=== PATIENT | female | born 1960 | race Caucasian/White ===

== ENCOUNTER 2017-08-20 12:43 | Inpatient (IN) | payer OTHER ==
[2017-08-20] MEDS ORDERED: IBUPROFEN 400 MG TABLET (FP) PO ONE ×2 (13:03→13:21)
--- NOTE | 2017-08-20 13:03 | PDOC ---
History of Present Illness - General Chief Complaint: Injury Stated Complaint: INJURY Time Seen by Provider: 08/20/17 12:52 - History of Present Illness Initial Comments: 08/20/17 15:42 Patient is a 56-year-old female with past medical history of left breast cancer untreated, heroin/methadone abuse, who presents to the emergency department today from [facility] after hitting her head against a counter. Patient states she was trying to get her pills at [id number] this morning when she banged her head against the side. Patient denies LOC, lightheadedness and dizziness, nausea and vomiting. Patient states that she currently has a headache on the left side of her head and states that she feels a lump. Past History - Travel Traveled outside of the country in the last 30 days: No Close contact w/someone who was outside of country & ill: No - Past Medical History Allergies/Adverse Reactions: Allergies Allergy/AdvReac Type Severity Reaction Status Date / Time No Known Allergies Allergy Verified 08/20/17 12:45 Home Medications: Ambulatory Orders NK [No Known Home Medication] 08/19/17 Anemia: No Asthma: No Cancer: Yes (left breast - dx 2013 - NOT TREATED) Cardiac Disorders: No COPD: No CHF: No Diabetes: No GI Disorders: No Disorders: No HTN: Yes (untreated) Hypercholesterolemia: No Liver Disease: No Seizures: Yes (years ago) Thyroid Disease: No - Suicide/Smoking/Psychosocial Hx Smoking History: Current every day smoker Have you smoked in the past 12 months: Yes Number of Cigarettes Smoked Daily: 10 Information on smoking cessation initiated: No 'Breaking Loose' booklet given: 08/19/17 Hx Alcohol Use: Yes Drug/Substance Use Hx: Yes Substance Use Type: Alcohol, Heroin Hx Substance Use Treatment: Yes (detox, methadone years ago at ) Review of Systems - Review of Systems Able to Perform ROS?: Yes Comments:: 08/20/17 17:29 CONSTITUTIONAL: Absent: fever, chills, diaphoresis, generalized weakness, malaise, loss of appetite HEENT: Absent: rhinorrhea, nasal congestion, throat pain, throat swelling, difficulty swallowing, mouth swelling, ear pain, eye pain, visual Changes CARDIOVASCULAR: Absent: chest pain, loss of consciousness, palpitations, irregular heart rate, peripheral edema RESPIRATORY: Absent: cough, shortness of breath, dyspnea with exertion, orthopnea, wheezing, stridor, hemoptysis GASTROINTESTINAL: Absent: abdominal pain, abdominal distension, nausea, vomiting, diarrhea, constipation, melena, hematochezia GENITOURINARY: Absent: dysuria, frequency, urgency, hesitancy, hematuria, flank pain, genital pain MUSCULOSKELETAL: Absent: myalgia, arthralgia, joint swelling SKIN: Absent: rash, itching, pallor HEMATOLOGIC/IMMUNOLOGIC: Absent: easy bleeding, easy bruising, lymphadenopathy, frequent infections ENDOCRINE: Absent: unexplained weight gain, unexplained weight loss, heat intolerance, cold intolerance NEUROLOGIC: Present: headache Absent: focal weakness or paresthesias, dizziness, unsteady gait, seizure, mental status changes, bladder or bowel incontinence PSYCHIATRIC: Absent: anxiety, depression, suicidal or homicidal ideation, hallucinations. Is the patient limited German proficient: No *Physical Exam - Vital Signs Last Vital Signs Temp Pulse Resp BP Pulse Ox 75 18 118/68 97 08/20/17 12:45 08/20/17 12:45 08/20/17 12:45 08/20/17 12:45 - Physical Exam Comments: 08/20/17 17:29 GENERAL: Well developed, well nourished. Awake and alert. No acute distress. HEENT: Normocephalic, atraumatic. Pt with palpable mass over the L eyebrow. PERRLA, EOMI. No conjunctival pallor. Sclera are non-icteric. Moist mucous membranes. Oropharynx is clear. NECK: Supple. Full ROM. No JVD. Carotid pulses 2+ and symmetric, without bruits. No thyromegaly. No lymphadenopathy. CARDIOVASCULAR: Regular rate and rhythm. No murmurs, rubs, or gallops. Distal pulses are 2+ and symmetric. PULMONARY: No evidence of respiratory distress. Lungs clear to auscultation bilaterally. No wheezing, rales or rhonchi. BREAST: L breast is hard with obvious mass on inspection. Hard lymph nodes to the L axilla. ABDOMINAL: Soft. Non-tender. Non-distended. No rebound or guarding. No organomegaly. Normoactive bowel sounds. MUSCULOSKELETAL Normal range of motion at all joints. No bony deformities or tenderness. No CVA tenderness. EXTREMITIES: No cyanosis. No clubbing. No edema. No calf tenderness. SKIN: Warm and dry. Normal capillary refill. No rashes. No jaundice. NEUROLOGICAL: Alert, awake, appropriate. Cranial nerves 2-12 intact. No deficits to light touch and temperature in face, upper extremities and lower extremities. No motor deficits in the in face, upper extremities and lower extremities. Normoreflexic in the upper and lower extremities. Normal speech. Toes are down- going bilaterally. Gait is normal without ataxia. PSYCHIATRIC: Cooperative. Good eye contact. Appropriate mood and affect. ED Treatment Course - LABORATORY CBC & Chemistry Diagram: 08/21/17 06:40 08/21/17 06:40 Medical Decision Making - Medical Decision Making 08/20/17 15:44 Patient is a 56-year-old female with past medical history of left-sided breast cancer untreated who presents to the emergency department today status post near syncope this morning at [facility] currently in detox for heroin and methadone. In the ED patient is A&O 3 however; patient is combative, aggressive and restless. Patient keeps asking for return to [facility] and just wants Motrin for her headache. On exam patient is neurologically intact. Fall protocol was activated. Head CT obtained in the ED showed metastatic disease with skull involvement and surrounding edema. Case discussed with Dr. Kang who states he will take the patient to the OR tomorrow for a craniotomy. We will obtain MRI. Patient to be nothing by mouth after midnight. No steroids needed as long as patient is neurologically intact. Patient currently walking around emergency department. Consultation Dr. Tellez for hematology oncology. Dr. Kang requesting admission at this time. Patient no PCP so [facility] to take the admission. Preop labs ordered. Patient has been emotionally tactile while in the emergency department. Diagnosis explained to patient and patient's family member. Due to anxiety and inability to cooperate with examination despite consent to treatment, patient given Ativan, Versed and Benadryl. Patient currently asleep in the emergency department EKG rate 80 bpm, normal axis, sinus rhythm. QTC prolonged at 477. No acute ST-T wave changes. *DC/Admit/Observation/Transfer Diagnosis at time of Disposition: Malignant neoplasm metastatic to brain, Opioid dependence with withdrawal Breast cancer Qualifiers: Breast location: lower inner quadrant of breast Estrogen receptor status: unspecified Patient sex: female Laterality: left Qualified Code(s): C50.312 - Malignant neoplasm of lower-inner quadrant of left female breast Nicotine dependence Qualifiers: Nicotine product type: cigarettes Substance use status: uncomplicated Qualified Code(s): F17.210 - Nicotine dependence, cigarettes, uncomplicated - Discharge Dispostion Condition at time of disposition: Guarded Decision to Admit order: Yes - Referrals - Patient Instructions - Post Discharge Activity
[2017-08-20] MEDS ORDERED: LORazepam 1 MG TABLET PO ONE (14:44)
[2017-08-20] MEDS ORDERED: LORazepam 0.5 MG TABLET ONE (15:15)
--- NOTE | 2017-08-20 15:46 | PDOC ---
*Physical Exam - Vital Signs Last Vital Signs Temp Pulse Resp BP Pulse Ox 75 18 118/68 97 08/20/17 12:45 08/20/17 12:45 08/20/17 12:45 08/20/17 12:45 - Physical Exam Comments: 08/20/17 15:39 gen: awake, ambulatory in the ED with a steady gait Heart Score/ECG Review - ECG Intrepretation Comment:: 08/20/17 15:44 sinus at 80, q waves anteriorly that are age indeterminate, no acute st/t wave findings ED Treatment Course - LABORATORY CBC & Chemistry Diagram: 08/23/17 09:30 08/23/17 09:30 - RADIOLOGY Radiology Studies Ordered: Category Date Time Status BRAIN MRI W&W/O CONTRAST [MRI] Stat MRI 08/20/17 14:52 Ordered CHEST PA & LAT [RAD] Stat Radiology 08/20/17 14:52 Ordered - Medications Given in the ED: ED Medications Discontinued Medications Generic Name Dose Route Start Last Admin Trade Name Freq PRN Reason Stop Dose Admin Ibuprofen 800 mg 08/20/17 13:03 08/20/17 13:23 Motrin - PO 08/20/17 13:04 800 mg ONCE ONE Administration Lorazepam 2 mg 08/20/17 14:44 08/20/17 15:32 Ativan - PO 08/20/17 14:45 2 mg ONCE ONE Administration Medical Decision Making - Medical Decision Making 08/20/17 15:40 a/p: 56yo female with hx of breast ca - currently untreated with head injury at [facility] -Fall protocol activated -head ct in the ED shows metastatic disease with skull involvement with surrounding edema -pt updated on head ct -case discussed with Dr. Fierro - consult placed -requests STAT MRI brain -npo after midnight -consult to Dr. Zamorano - heme/onc -requests admission -preop labs *DC/Admit/Observation/Transfer Diagnosis at time of Disposition: Malignant neoplasm metastatic to brain, Opioid dependence with withdrawal Breast cancer Qualifiers: Breast location: lower inner quadrant of breast Estrogen receptor status: unspecified Patient sex: female Laterality: left Qualified Code(s): C50.312 - Malignant neoplasm of lower-inner quadrant of left female breast Nicotine dependence Qualifiers: Nicotine product type: cigarettes Substance use status: uncomplicated Qualified Code(s): F17.210 - Nicotine dependence, cigarettes, uncomplicated - Discharge Dispostion Condition at time of disposition: Guarded - Referrals - Patient Instructions - Post Discharge Activity - Attestations Physician Attestion: 08/24/17 00:45 I, Dr. Joslyn Sears, DO, attest that this document has been prepared under my direction and personally reviewed by me in its entirety. I further attest, that it accurately reflects all work, treatment, procedures and medical decision -making performed by me.
[2017-08-20] MEDS ORDERED: MIDAZOLAM HCL 5 MG/1 ML Single Dose Vial IVPUSH ONE (15:47)
[2017-08-20] MEDS ORDERED: MIDAZOLAM HCL 2 MG/2 ML SINGLE DOSE VIAL ONE (15:51)
[2017-08-20 16:18] LABS: BASO % 0.8 % (0-2.0); EOS % 3.3 % (0-4.5); HEMATOCRIT 32.2 % (32.4-45.2); HEMOGLOBIN 10.6 GM/dL (10.7-15.3); LYMPH % 25.5 % (8-40); MCH 30.3 pg (25.7-33.7); MEAN CELL VOLUME 91.9 fl (80-96); MEAN PLT VOLUME 8.6 fl (7.5-11.1); NEUT % 61.4 % (42.8-82.8); PLATELET COUNT 395 K/MM3 (134-434); RDW 15.1 % (11.6-15.6); WHITE BLOOD COUNT 5.2 K/mm3 (4.0-10.0)
[2017-08-20 16:30] LABS: INR 1.04 (0.82-1.09); PROTHROMBIN TIME (PATIENT) 11.8 SEC (9.7-13.0)
[2017-08-20 16:32] LABS: ACTIVATED PTT 42.4 SECONDS (25.2-36.5)
[2017-08-20 16:35] LABS: ALBUMIN 2.9 g/dl (3.4-5.0); ANION GAP 5 (8-16); BILIRUBIN,TOTAL 0.2 mg/dL (0.2-1.0); BLOOD UREA NITROGEN 28 mg/dL (7-18); CALCIUM 8.1 mg/dL (8.5-10.1); CHLORIDE 104 mmol/L (98-107); CO2 31 mmol/L (21-32); GLUCOSE,RANDOM 82 mg/dL (74-106); MAGNESIUM 1.8 mg/dL (1.8-2.4); POTASSIUM 4.6 mmol/L (3.5-5.1); SGOT/AST 28 U/L (15-37); SGPT/ALT 17 U/L (12-78); SODIUM 140 mmol/L (136-145); TOT PROT 7.6 g/dl (6.4-8.2)
[2017-08-20 16:36] LABS: ALK PHOS 150 U/L (45-117)
[2017-08-20] MEDS ORDERED: LORazepam 2 MG/ML SDV VIAL ONE (16:54)
[2017-08-20] MEDS ORDERED: FOLIC ACID INJECTION - 1 MG, THIAMINE HCL 100 MG, MULTIVIT INJECTION ADULT 10 ML in SOD... IVPB ONE (17:25)
[2017-08-20] MEDS: NICOTINE 21 MG/24 HOURS TOPICAL PATCH TD SCH (18:04)
--- NOTE | 2017-08-20 20:25 | PN ---
Teaching Attending Note Name of Resident: David Braden ATTENDING PHYSICIAN STATEMENT I saw and evaluated the patient. I reviewed the resident's note and discussed the case with the resident. I agree with the resident's findings and plan as documented. SUBJECTIVE: Patient is a 56 year old woman with history of untreated left breast cancer, tobacco use, seizure (one episode a while back) and heroin/alcohol/methadone abuse, who presents to the ER today from [facility] after falling and hitting her head against a counter. Patient states she was trying to get her pills at [id number] this morning when she banged her head against the side. Patient denies felt dizzy and drowsy after the head trauma but there was no LOC, nausea or vomiting. Patient states that she currently has a headache on the left side of her head and states that she feels a lump. She was agitated in the ER and had to be sedated. OBJECTIVE: Sedated. In no acute distress Vital Signs Period Temp Pulse Resp BP Sys/Camacho Pulse Ox Last 24 Hr 75 18 118/68 97 HEENT: No Jaundice, eye redness or discharge, PERRLA, EOMI. Normocephalic, atraumatic. External ears are normal. No nasal discharge. Neck: Supple, nontender. No palpable adenopathy or thyromegaly. No JVD Chest: Left breast mass. Left axillary lymphadenopathy. Good effort. Clear to auscultation and percussion. Heart: Regular. No S3, rub or murmur Abdomen: Not distended, soft, nontender and no HSM. No rebound or guarding. Normoactive bowel sounds. Ext: Peripheral pulses intact. No leg edema. Skin: Warm and dry. No petechiae, rash or ecchymosis. Neuro: Sedated. Withdraws limbs to noxious stimuli. Current Medications Generic Name Dose Route Start Last Admin Trade Name Freq PRN Reason Stop Dose Admin Folic Acid 1 mg/ Thiamine HCl 1,000 mls @ 125 mls/hr 08/20/17 17:25 08/20/17 18:03 100 mg/ Multivitamins/Minerals IVPB 08/21/17 01:24 125 mls/hr 10 ml/ Sodium Chloride ONCE ONE Administration Nicotine 21 mg 08/20/17 16:00 08/20/17 18:04 Nicoderm Patch - TD 21 mg DAILY REBECCA Administration Home Medications Medication Instructions Recorded NK [No Known Home Medication] 08/19/17 Abnormal Lab Results 08/20/17 08/20/17 08/20/17 15:57 15:57 15:57 RBC 3.50 L Hgb 10.6 L Hct 32.2 L PTT (Actin FS) 42.4 H Anion Gap 5 L BUN 28 H Calcium 8.1 L Alkaline Phosphatase 150 H D Albumin 2.9 L ASSESSMENT AND PLAN: 1. Fall, Alcohol and Opioid Abuse - Looks like it was a mechanical fall. Head CT scan shows intracranial and skull bone mets. MRI/MRA of the brain does not show any hemorrhage or ischemia. Will monitor closely for alcohol and opioid withdrawal, place on [facility], implement FALL PRECAUTIONS, treat with thiamine and folic acid. Will treat with Decadron in view of intracranial mets and possible increased intracranial pressure - agitation is unexplained. Neurosurgery consulted and patient being kept NPO for possible surgery tomorrow. 2. Left breast cancer - Consult oncology and surgery. May benefit from biopsy for classification to guide treatment. 3. Hypoalbuminemia - Possibly due to combined effects of malnutrition and inflammation associated with comorbid chronic conditions such as metastatic cancer. Will ensure adequate dietary protein intake and also consult director of online merchandising. 4. Alcohol and Opioid Abuse - Will monitor closely for withdrawal and implement [facility] alcohol withdrawal protocol as well as FALL PPRECAUTIONS. 5. Tobacco Use We will provide patient all the necessary assistance to facilitate smoking cessation and prescribe Nicotine patch. 6. Anemia - Likely multifactorial. Will do basic anemia work up including serial stool guaiacs, reticulocyte count and iron studies. 7. DVT prophylaxis - Heparin 5000u sq tid. 8. Advance directives - Full code
--- NOTE | 2017-08-20 20:38 | HP ---
CHIEF COMPLAINT: Fall PCP: HISTORY OF PRESENT ILLNESS: unable to obtain hx from pt. she was heavily sedated. hx obtained from EMR chart review Per Dr. Gibson note: 08/20/17 15:42 Patient is a 56-year-old female with past medical history of left breast cancer untreated, heroin/methadone abuse, who presents to the emergency department today from [facility] after hitting her head against a counter. Patient states she was trying to get her pills at [id number] this morning when she banged her head against the side. Patient denies LOC, lightheadedness and dizziness, nausea and vomiting. Patient states that she currently has a headache on the left side of her head and states that she feels a lump. 08/20/17 15:44 Patient is a 56-year-old female with past medical history of left-sided breast cancer untreated who presents to the emergency department today status post near syncope this morning at [facility] currently in detox for heroin and methadone. In the ED patient is A&O 3 however; patient is combative, aggressive and restless. Patient keeps asking for return to [facility] and just wants Motrin for her headache. On exam patient is neurologically intact. Fall protocol was activated. Head CT obtained in the ED showed metastatic disease with skull involvement and surrounding edema. Case discussed with Dr. Kang who states he will take the patient to the OR tomorrow for a craniotomy. We will obtain MRI. Patient to be nothing by mouth after midnight. No steroids needed as long as patient is neurologically intact. Patient currently walking around emergency department. Consultation Dr. Tellez for hematology oncology. Dr. Kang requesting admission at this time. Patient no PCP so [facility] to take the admission. Preop labs ordered. Patient has been emotionally tactile while in the emergency department. Diagnosis explained to patient and patient's family member. Due to anxiety and inability to cooperate with examination despite consent to treatment, patient given Ativan, Versed and Benadryl. Patient currently asleep in the emergency department EKG rate 80 bpm, normal axis, sinus rhythm. QTC prolonged at 477. No acute ST-T wave changes. ER course was notable for: (1) (2) (3) Recent Travel: PAST MEDICAL HISTORY: PAST SURGICAL HISTORY: Social History: Smoking: Alcohol: Drugs: Family History: Allergies No Known Allergies Allergy (Verified 08/20/17 12:45) HOME MEDICATIONS: Home Medications Medication Instructions Recorded NK [No Known Home Medication] 08/19/17 REVIEW OF SYSTEMS unable to obtain. pt heavily sedated PHYSICAL EXAMINATION Vital Signs - 24 hr 08/20/17 08/20/17 12:45 20:15 Temperature 97.4 F L Pulse Rate 75 Pulse Rate [ 74 Left Radial] Respiratory 18 15 Rate Blood Pressure 118/68 Blood Pressure 98/59 [Right Arm] O2 Sat by Pulse 97 100 Oximetry (%) GENERAL: somnolent but follows commands. Ox3, in no acute distress. HEAD: Normal with no signs of trauma. EYES: PERRLA, sclera anicteric, conjunctiva clear. EARS, NOSE, THROAT: oropharynx clear without exudates. Moist mucous membranes. NECK: Normal range of motion, supple without lymphadenopathy, JVD, or masses. Chest/LUNGS: CTAB. No wheezes, and no crackles. No accessory muscle use. Left breast mass. Left axillary lymphadenopathy. HEART: RRR, normal S1 and S2 without murmur, rub or gallop. ABDOMEN: Soft, NTND normoactive bowel sounds, no guarding, no rebound, no masses. No hepatomegaly or splenomegaly. MUSCULOSKELETAL: Normal range of motion at all joints. No bony deformities or tenderness. No CVA tenderness. UPPER EXTREMITIES: 2+ pulses, warm, well-perfused. No cyanosis. No clubbing. No peripheral edema. LOWER EXTREMITIES: 2+ pulses, warm, well-perfused. No calf tenderness. No peripheral edema. NEUROLOGICAL: Sedated. Withdraws limbs to noxious stimuli. SKIN: Warm, dry, normal turgor, no rashes or lesions noted, normal capillary refill. Laboratory Results - last 24 hr 08/20/17 08/20/17 08/20/17 15:57 15:57 15:57 WBC RBC Hgb Hct MCV MCH MCHC RDW Plt Count MPV Absolute Neuts (auto) Neutrophils % Lymphocytes % Monocytes % Eosinophils % Basophils % Nucleated RBC % PT with INR 11.80 INR 1.04 PTT (Actin FS) 42.4 H Sodium 140 Potassium 4.6 Chloride 104 Carbon Dioxide 31 Anion Gap 5 L BUN 28 H Creatinine 1.0 Creat Clearance w eGFR 57.15 Random Glucose 82 Calcium 8.1 L Magnesium 1.8 Total Bilirubin 0.2 AST 28 ALT 17 Alkaline Phosphatase 150 H D Total Protein 7.6 Albumin 2.9 L Blood Type O POSITIVE Antibody Screen Negative 08/20/17 15:57 WBC 5.2 RBC 3.50 L Hgb 10.6 L Hct 32.2 L MCV 91.9 MCH 30.3 MCHC 33.0 RDW 15.1 Plt Count 395 MPV 8.6 Absolute Neuts (auto) 3.2 Neutrophils % 61.4 Lymphocytes % 25.5 Monocytes % 9.0 Eosinophils % 3.3 Basophils % 0.8 Nucleated RBC % 0 PT with INR INR PTT (Actin FS) Sodium Potassium Chloride Carbon Dioxide Anion Gap BUN Creatinine Creat Clearance w eGFR Random Glucose Calcium Magnesium Total Bilirubin AST ALT Alkaline Phosphatase Total Protein Albumin Blood Type Antibody Screen ASSESSMENT/PLAN: 56-year-old female with past medical history of left-sided breast cancer untreated who presents to the emergency department today status post mechanical fall and per hx and PE found to have L breast mass/cancer w/ possible brain metastasis as found on CT and MRI imaging. Possibly will go for neuro surgery tracy. #Fall, Alcohol and Opioid Abuse - likely mechanical fall. Head CT scan shows intracranial and skull bone mets. MRI/MRA of the brain does not show any hemorrhage or ischemia. -monitor for EtOH and opioid withdrawal -Ativan 1mg IVP q6h prn for withdrawl sxs and agitation -implement FALL PRECAUTIONS, -treat with thiamine and folic acid. -tx with Decadron in view of intracranial mets and possible increased intracranial pressure - agitation is unexplained. -detox consulted #Left breast cancer w/ skull bone mets -Head CT scan shows intracranial and skull bone mets -Heme onc consulted -May benefit from biopsy for classification to guide treatment. -Neurosurgery consulted and patient being kept NPO for possible surgery tomorrow. #Anemia - Likely multifactorial. -will require anemia w/u to help further characterize the anemia and its related causes -serial stool guaiacs, reticulocyte count and iron studies #Tobacco -encourage smoking cessation -nicotine patch when pt is awake #IVDA -hold methadone tx for now. pt is sedated and receiving ativan prn #FEN -IV NS 75cc/hr -replete electrolytes as needed -NPO for possible neuro surgery tracy #DVT ppx -SQH 5000U tid #Dispo -admit to inpatient -full code -possible neuro surgery tomorrow Visit type - Emergency Visit Emergency Visit: Yes ED Registration Date: 08/20/17 Care time: The patient presented to the Emergency Department on the above date and was hospitalized for further evaluation of their emergent condition. - New Patient This patient is new to me today: Yes Date on this admission: 08/21/17 - Critical Care Critical Care patient: No Hospitalist Screening - Colonoscopy Questionnaire Colonoscopy Questionnaire: Colonoscopy Questionnaire - Patient: 50 - 75 years old and never had a screening colonoscopy: Unknown History of colon or rectal polyps, or CA: Unknown History of IBD, Crohn's disease or UC: Unknown History of abdominal radiation therapy as a child: Unknown - Relative: 1 with colon or rectal CA, or polyps at age 60 or younger: Unknown Colon or rectal CA diagnosed at age 45 or younger: Unknown Multiple relatives with colon or rectal CA: Unknown - Outcome: Screening Result: Negative Screen
[2017-08-20] MEDS ORDERED: LORazepam 2 MG/ML SDV VIAL IVPUSH PRN (23:38)
[2017-08-20] MEDS: HEPARIN NA (PORCINE) 5,000 UNITS/ML 1ML VIAL SQ SCH (23:39)
[2017-08-20] MEDS ORDERED: DEXAMETHASONE SOD PHOSPHATE 10 MG/1 ML VIAL IVPUSH ONE (23:45)
[2017-08-20] MEDS: SODIUM CHLORIDE 1,000 ML IV SCH (23:49)
[2017-08-21] MEDS ORDERED: METHADONE HCL 5 MG TABLET PO ONE (04:08)
[2017-08-21] MEDS ORDERED: chlordiazePOXIDE HCL 25 MG CAPSULE PO ONE ×2 (04:09→15:21)
[2017-08-21] MEDS: DEXAMETHASONE SOD PHOSPHATE 4 MG/1 ML VIAL IVPUSH SCH ×3 (05:47→17:24)
[2017-08-21] MEDS: HEPARIN NA (PORCINE) 5,000 UNITS/ML 1ML VIAL SQ SCH ×4 (05:48→21:05)
[2017-08-21 07:17] LABS: BASO % 0.3 % (0-2.0); EOS % 0.1 % (0-4.5); HEMATOCRIT 33.7 % (32.4-45.2); HEMOGLOBIN 11.2 GM/dL (10.7-15.3); LYMPH % 11.7 % (8-40); MCH 30.8 pg (25.7-33.7); MCHC 33.2 g/dl (32.0-36.0); MEAN CELL VOLUME 92.8 fl (80-96); MEAN PLT VOLUME 8.3 fl (7.5-11.1); MONO % 1.4 % (3.8-10.2); NEUT % 86.5 % (42.8-82.8); PLATELET COUNT 396 K/MM3 (134-434); RBC 3.63 M/mm3 (3.60-5.2); RDW 15.2 % (11.6-15.6); WHITE BLOOD COUNT 3.9 K/mm3 (4.0-10.0)
[2017-08-21 07:39] LABS: INR 1.05 (0.82-1.09); PROTHROMBIN TIME (PATIENT) 11.9 SEC (9.7-13.0)
[2017-08-21 07:42] LABS: ACTIVATED PTT 43.8 SECONDS (25.2-36.5)
[2017-08-21 07:48] LABS: ANION GAP 6 (8-16); CALCIUM 8.7 mg/dL (8.5-10.1); CHLORIDE 105 mmol/L (98-107); CO2 26 mmol/L (21-32); CREATININE 0.8 mg/dL (0.55-1.02); GLUCOSE,RANDOM 148 mg/dL (74-106); POTASSIUM 5.3 mmol/L (3.5-5.1); SGOT/AST 52 U/L (15-37); SGPT/ALT 20 U/L (12-78); SODIUM 137 mmol/L (136-145)
[2017-08-21 07:55] LABS: ALK PHOS 130 U/L (45-117); BILIRUBIN,TOTAL 0.2 mg/dL (0.2-1.0); BLOOD UREA NITROGEN 23 mg/dL (7-18); TOT PROT 8.4 g/dl (6.4-8.2)
[2017-08-21] MEDS ORDERED: LORazepam 2 MG/ML SDV VIAL ONE (08:09)
[2017-08-21] MEDS: LORazepam 2 MG/ML SDV VIAL IVPUSH ONE (08:16)
[2017-08-21] MEDS: ACETAMINOPHEN 650 MG/20.3 ML ORAL SOLUTION (CUPS) PO PRN (08:45)
--- NOTE | 2017-08-21 09:08 | EKG ---
Test Reason : Blood Pressure : / mmHG Vent. Rate : 080 BPM Atrial Rate : 080 BPM P-R Int : 148 ms QRS Dur : 084 ms QT Int : 414 ms P-R-T Axes : 055 019 -04 degrees QTc Int : 477 ms NORMAL SINUS RHYTHM ANTERIOR INFARCT , AGE UNDETERMINED NONSPECIFIC ST AND T WAVE ABNORMALITY ABNORMAL ECG NO PREVIOUS ECGS AVAILABLE Confirmed by PHIL TAYLOR MD ([id number]) on 08/21/2017 9:08:07 AM Referred By: Confirmed By:PHIL TAYLOR MD
[2017-08-21 09:36] LABS: HCG,QUALITATIVE URINE NEGATIVE
[2017-08-21] MEDS ORDERED: PT OWN MED DRAWER 7, Y5N ONE (10:10)
[2017-08-21] MEDS: FOLIC ACID 1 MG TABLET (FP) PO SCH (10:15)
[2017-08-21 10:16] LABS: PH,URINE 6.5 (5.0-8.0); URINE APPEARANCE CLEAR; URINE BILIRUBIN NEGATIVE (<2.0 mg/dL); URINE COLOR STRAW; URINE GLUCOSE (UA) NEGATIVE (NEGATIVE); URINE KETONE NEGATIVE (NEGATIVE); URINE LEUK ESTERASE NEGATIVE (NEGATIVE); URINE NITRITE NEGATIVE (NEGATIVE); URINE PROTEIN NEGATIVE (NEGATIVE); URINE UROBILINOGEN 0.2 mg/dL (0.2-1.0)
[2017-08-21] MEDS: THIAMINE HCL 200 MG/2 ML VIAL IVPB SCH (10:16)
[2017-08-21] MEDS: NICOTINE 21 MG/24 HOURS TOPICAL PATCH TD SCH (10:17)
[2017-08-21] MEDS ORDERED: METHADONE HCL 10 MG TABLET PO ONE ×2 (10:22)
--- NOTE | 2017-08-21 11:18 | PN ---
Progress Note (short form) - Note Progress Note: Subjective: The patient was seen walking around the unit. Brought patient back to room, she is yelling stating "I need 8mg of Ativan" Patient reports diagnosis of left breast cancer 4 years ago for which she had one round of chemotherapy and then stopped due to side effects. She states that she is a "heavy" heroin user and that she is not going to stop using it. Discussed with Dr. Haskins, detox MD, who recommends giving an additional Methadone 10mg today and she will evaluate the patient in the afternoon. Discussed with Dr. Fierro, possible brain tumor removal tomorrow if patient consents. Current Medications Generic Name Dose Route Start Last Admin Trade Name Freq PRN Reason Stop Dose Admin Acetaminophen 650 mg 08/21/17 06:52 08/21/17 08:45 Tylenol Oral Solution - PO 650 mg Q6H PRN Administration PAIN LEVEL 1-5 Dexamethasone Sodium Phosphate 4 mg 08/21/17 06:00 08/21/17 05:47 Decadron Injection - IVPUSH 4 mg Q6H REBECCA Administration Folic Acid 1 mg 08/21/17 10:00 08/21/17 10:15 Folic Acid - PO 1 mg DAILY REBECCA Administration Heparin Sodium (Porcine) 5,000 unit 08/20/17 23:45 08/21/17 05:48 Heparin - SQ 5,000 unit TID REBECCA Administration Sodium Chloride 1,000 mls @ 75 mls/hr 08/20/17 23:15 08/20/17 23:49 Normal Saline - IV 75 mls/hr ASDIR REBECCA Administration Nicotine 21 mg 08/20/17 16:00 08/21/17 10:17 Nicoderm Patch - TD 21 mg DAILY REBECCA Administration Thiamine HCl 200 mg 08/21/17 10:00 08/21/17 10:16 Vitamin B1 Injection - IVPB 200 mg DAILY REBECCA Administration Objective: Vital Signs Period Temp Pulse Resp BP Sys/Camacho Pulse Ox Last 24 Hr 97.3 F-97.9 F 70-78 -18 98-135/59-88 97-100 Physical Exam: General: NAD, appears agitated Heart: RRR, S1S2 Lungs: CTA bilaterally Skin: Left breast with ~3cm hard, non-mobile mass, skin discoloration. Left multiple axillary lymph node enlargement CBCD WBC 3.9 K/mm3 (4.0-10.0) L 08/21/17 06:40 RBC 3.63 M/mm3 (3.60-5.2) 08/21/17 06:40 Hgb 11.2 GM/dL (10.7-15.3) 08/21/17 06:40 Hct 33.7 % (32.4-45.2) 08/21/17 06:40 MCV 92.8 fl (80-96) 08/21/17 06:40 MCHC 33.2 g/dl (32.0-36.0) 08/21/17 06:40 RDW 15.2 % (11.6-15.6) 08/21/17 06:40 Plt Count 396 K/MM3 (134-434) 08/21/17 06:40 MPV 8.3 fl (7.5-11.1) 08/21/17 06:40 CMP Sodium 137 mmol/L (136-145) 08/21/17 06:40 Potassium 5.3 mmol/L (3.5-5.1) H 08/21/17 06:40 Chloride 105 mmol/L (98-107) 08/21/17 06:40 Carbon Dioxide 26 mmol/L (21-32) 08/21/17 06:40 Anion Gap 6 (8-16) L 08/21/17 06:40 BUN 23 mg/dL (7-18) H 08/21/17 06:40 Creatinine 0.8 mg/dL (0.55-1.02) 08/21/17 06:40 Creat Clearance w eGFR > 60 (>60) 08/21/17 06:40 Random Glucose 148 mg/dL (74-106) H 08/21/17 06:40 Calcium 8.7 mg/dL (8.5-10.1) 08/21/17 06:40 Total Bilirubin 0.2 mg/dL (0.2-1.0) 08/21/17 06:40 AST 52 U/L (15-37) H 08/21/17 06:40 ALT 20 U/L (12-78) 08/21/17 06:40 Alkaline Phosphatase 130 U/L (45-117) H D 08/21/17 06:40 Total Protein 8.4 g/dl (6.4-8.2) H 08/21/17 06:40 Albumin 3.0 g/dl (3.4-5.0) L 08/21/17 06:40 Assessment: This is a 56 year old female with PMHx of left breast cancer (dx 4 years ago, only had chemo x1), bipolar disorder, tobacco use, heroin and alcohol abuse, who presented to the ED from [facility] after falling and hitting her head. Plan: 1) Metastatic breast cancer - Left breast and axillary lymph node masses/enlargement - Head CT with hyperdense mass in the right middle cranial fossa, inferiorly measuring 2.8cm in maximum dimension with surrounding vasogenic edema involving the right temporal and posterior frontal lobe resulting in very minimal shift of the midline structures toward the left. Heterogeneous attenuation of the skull base adjacent to the mass as well as heterogenous attenuation of the right sphenoid wing and significant heterogeneous infiltration of the frontal bone - Discussed with Dr. Fierro, recommendation to hold off on steroids, however they were started overnight. Will continue as brain MRI shows edema - F/u rad onc consult - F/u heme/onc consult 2) Heroin abuse - Chronic, son reports about 10 bags a day - Continue Methadone - Continue Ativan prn - Patient will be evaluated by Dr. Haskins today 3) Bipolar disorder - Not on home medications - F/u psych consult 4) F/E/N: - Monitor electrolytes - Regular diet 5) Prophylaxis: - Heparin 5,000u sq tid - OOB ambulating 6) Dispo: - Requires continued inpatient care - Palliative care consult - Instructed RN, patient is NOT to go downstairs as she is a heroin user and has an IV. It is to be reported immediately if the patient leaves the floor as she is at high risk for using heroin. CODE STATUS: FULL CODE Visit type - Emergency Visit Emergency Visit: Yes ED Registration Date: 08/20/17 Care time: The patient presented to the Emergency Department on the above date and was hospitalized for further evaluation of their emergent condition. - New Patient This patient is new to me today: Yes Date on this admission: 08/21/17 - Critical Care Critical Care patient: No
[2017-08-21] MEDS ORDERED: LORazepam 2 MG/ML SDV VIAL IVPUSH ONE ×2 (13:00→21:30)
[2017-08-21] MEDS: PANTOPRAZOLE 40 MG TABLET (FP) PO SCH (15:31)
--- NOTE | 2017-08-21 15:38 | CONSULT ---
Consult Detox [facility] Reason for Current Admission/Consult: Addiction med service called to help manage pt with polysubstance use. Pt with h/o alcohol and heroin use - History History of Present Illness: Pt states has been using about 1/2-1 pint of alcohol a day, last use day of admission. Pt states she also uses a bundle of heroin a day. Has been using opioids all her life- was in a methadone program 10 years ago but left and has been sniffing or injecting heroin since then. - Alcohol/Substance Use Hx Alcohol Use: Yes (1/2 - 1 pint a day) Hx Substance Use: Yes (injects and sniffs heroin ) - Current Drug/Alcohol Use Alcohol Route: Oral Frequency: Daily Date of Last Use: 08/19/17 Heroin Route: Inhalation Frequency: Daily Amount used: 1 bundle a day Date of Last Use: 08/19/17 - Past Medical History Heme/Onc: Yes: Other Psych: Yes: Addictions, Anxiety, Bipolar Musculoskeletal: Yes: Other Rheumatology: Yes: Other ENT: Yes: Other Endocrine: Yes: Other - Significant Medical Findings: pt with breast cancer, metastatic to brain. pt with agitation CBCD WBC 3.9 K/mm3 (4.0-10.0) L 08/21/17 06:40 RBC 3.63 M/mm3 (3.60-5.2) 08/21/17 06:40 Hgb 11.2 GM/dL (10.7-15.3) 08/21/17 06:40 Hct 33.7 % (32.4-45.2) 08/21/17 06:40 MCV 92.8 fl (80-96) 08/21/17 06:40 MCHC 33.2 g/dl (32.0-36.0) 08/21/17 06:40 RDW 15.2 % (11.6-15.6) 08/21/17 06:40 Plt Count 396 K/MM3 (134-434) 08/21/17 06:40 MPV 8.3 fl (7.5-11.1) 08/21/17 06:40 CMP Sodium 137 mmol/L (136-145) 08/21/17 06:40 Potassium 5.3 mmol/L (3.5-5.1) H 08/21/17 06:40 Chloride 105 mmol/L (98-107) 08/21/17 06:40 Carbon Dioxide 26 mmol/L (21-32) 08/21/17 06:40 Anion Gap 6 (8-16) L 08/21/17 06:40 BUN 23 mg/dL (7-18) H 08/21/17 06:40 Creatinine 0.8 mg/dL (0.55-1.02) 08/21/17 06:40 Creat Clearance w eGFR > 60 (>60) 08/21/17 06:40 Random Glucose 148 mg/dL (74-106) H 08/21/17 06:40 Calcium 8.7 mg/dL (8.5-10.1) 08/21/17 06:40 Total Bilirubin 0.2 mg/dL (0.2-1.0) 08/21/17 06:40 AST 52 U/L (15-37) H 08/21/17 06:40 ALT 20 U/L (12-78) 08/21/17 06:40 Alkaline Phosphatase 130 U/L (45-117) H D 08/21/17 06:40 Total Protein 8.4 g/dl (6.4-8.2) H 08/21/17 06:40 Albumin 3.0 g/dl (3.4-5.0) L 08/21/17 06:40 Vital Signs - 24 hr 08/20/17 08/20/17 08/20/17 20:15 22:30 22:33 Temperature 97.4 F L 97.9 F Pulse Rate 71 Pulse Rate [ 74 Left Radial] Respiratory 15 18 Rate Blood Pressure 100/64 Blood Pressure 98/59 [Right Arm] O2 Sat by Pulse 100 100 Oximetry (%) 08/20/17 08/21/17 08/21/17 22:38 02:00 06:00 Temperature 97.9 F 97.5 F L 97.3 F L Pulse Rate 71 70 78 Pulse Rate [ Left Radial] Respiratory 18 18 18 Rate Blood Pressure 100/64 130/88 135/87 Blood Pressure [Right Arm] O2 Sat by Pulse Oximetry (%) 08/21/17 08:05 Temperature 97.7 F Pulse Rate 89 Pulse Rate [ Left Radial] Respiratory 20 Rate Blood Pressure 123/84 Blood Pressure [Right Arm] O2 Sat by Pulse Oximetry (%) lungs clear heart RRR L breast with mass noted and disfiguration of breast due to this neuro- pt very agitated COWS - Scale Resting Pulse: 2= IL 101-120 Sweatin= No chills or Flushing Restless Observation: 5= Unable to Sit Still Pupil Size: 1= Pupils >than Normal Bone or Joint Aches: 2= Severe Diffuse Aches Runny Nose/ Eye Tearin= None GI Upset > 30mins: 1= Stomach Cramp Tremor Observation: 0= None Yawning Observation: 0= None Anxiety or Irritability: 4=Extreme Anxiety Goose Flesh Skin: 0=Smooth Skin COWS Score: 15 CIWA Score - CIWA Score Nausea/Vomitin-No Nausea/No Vomiting Muscle Tremors: 1-None Visible, but [place] Anxiety: 6 Agitation: 6 Paroxysmal Sweats: No Perspiration Orientation: 0-Oriented Tacttile Disturbances: 0-None Auditory Disturbances: 0-None Visual Disturbances: 0-None Headache: 0-None Present CIWA-Ar Total Score: 13 Assessment Plan - Diagnosis (1) Opioid dependence with withdrawal Status: Acute (2) Alcohol dependence with uncomplicated withdrawal Status: Acute - Plan Plan: pt with metastatic breast cancer with mass in brain and h/o extensive alcohol and opiate use now in withdrawal. Will start methadone 30mg/day- pt can come to [facility] methadone OTP at discharge Will start librium detox protocol for alcohol withdrawal. Pt is very insistent that she does not want certain kinds of medical care- does not want steroids, does not want chemotherapy... d/w pt and family that they should put her wishes in advance care directives- consult placed for palliative care- d/w family- son Wojciech and daughter-in law.
[2017-08-21] MEDS: chlordiazePOXIDE HCL 25 MG CAPSULE PO SCH ×2 (17:24→22:07)
[2017-08-21] MEDS: chlordiazePOXIDE HCL 25 MG CAPSULE PO PRN (18:50)
[2017-08-21 20:35] LABS: OPIATES, URI NEGATIVE ng/ml (CUTOFF=300); URINE AMPHETAMINES NEGATIVE ng/ml (CUTOFF=500); URINE BARBITURATES NEGATIVE ng/ml (CUTOFF=200)
[2017-08-21 20:36] LABS: PHENCYCLIDINE,URINE NEGATIVE ng/ml (CUTOFF=25)
[2017-08-21 20:38] LABS: COCAINE, UR POSITIVE ng/ml (CUTOFF=300); URINE BENZODIAZEPINES POSITIVE ng/ml (CUTOFF=200)
[2017-08-21 20:39] LABS: METHADONE, UR POSITIVE ng/ml (CUTOFF=300)
--- NOTE | 2017-08-21 23:23 | CONSULT ---
Consult - text type - Consultation Consultation Note: NEUROSURGERY CONSULTATION Patient is a 56 year old female with polysubstance usage history as well as bipolar disorder and multiple medical problems. She was diagnosed with Breast CA 4 years ago and did not complete treatment. Patient with recent falls and was found to have Right sphenoid/anterior temporal 3 cm dural based lesion as well as extensive bifrontal calvarial disease consisted with diffuse metastasis. I discussed her case with her son in great detail and explained that surgical resection of the temporal lesion may be in her interest, however, he articulates concerns that she will not comply with treatment requirements and will likely not have a substantial prognosis regardless. He expressed an interest in transferring her to a facilty closer to his home in [place] (he suggested [facility] and [facility]). This would be a reasonable consideration. I discussed and offered the role for a wide variety of treatment options including, but not being limited to: palliative care, hospice and surgical resection of the temporal lesion in detail. At this point, he is not inclined to proceed with surgery and I have given him contact information if he should change his mind.
[2017-08-22] MEDS: DEXAMETHASONE SOD PHOSPHATE 4 MG/1 ML VIAL IVPUSH SCH ×2 (00:30→05:14)
--- NOTE | 2017-08-22 01:56 | PN ---
Progress Note (short form) - Note Progress Note: PAtient sen and examined Full consult to follow Last Vital Signs Temp Pulse Resp BP Pulse Ox 98.7 F 108 H 22 138/86 100 08/21/17 15:56 08/21/17 15:56 08/21/17 15:56 08/21/17 15:56 08/20/17 22:33 Cor: RSR, No murmurs, No gallops Lungs: Clear to P&A Abd: Soft, Normal bowel sounds, No organomegaly Ext:No significant edema Abnormal Lab Results 08/21/17 08/21/17 08/21/17 06:40 06:40 06:40 WBC 3.9 L Neutrophils % 86.5 H D Monocytes % 1.4 L D PTT (Actin FS) 43.8 H Potassium 5.3 H Anion Gap 6 L BUN 23 H Random Glucose 148 H AST 52 H Alkaline Phosphatase 130 H D Total Protein 8.4 H Albumin 3.0 L Home Medication List Medication Instructions Recorded Confirmed Type NK [No Known Home Medication] 08/19/17 08/20/17 History Active Medications Generic Name Dose Route Start Last Admin Trade Name Freq PRN Reason Stop Dose Admin Acetaminophen 650 mg 08/21/17 06:52 08/21/17 08:45 Tylenol Oral Solution - PO 650 mg Q6H PRN Administration PAIN LEVEL 1-5 Chlordiazepoxide HCl 50 mg 08/21/17 17:00 08/21/17 22:07 Librium - PO 08/22/17 11:01 50 mg [id number] REBECCA Administration Chlordiazepoxide HCl 25 mg 08/22/17 17:00 Librium - PO 08/23/17 11:01 [id number] REBECCA Chlordiazepoxide HCl 15 mg 08/23/17 17:00 Librium - PO 08/24/17 11:01 [id number] REBECCA Chlordiazepoxide HCl 25 mg 08/21/17 15:21 08/21/17 18:50 Librium - PO 08/24/17 15:20 25 mg Q4H PRN Administration WITHDRAWAL(CONT SUBST) Dexamethasone Sodium Phosphate 4 mg 08/21/17 06:00 08/21/17 17:24 Decadron Injection - IVPUSH 4 mg Q6H REBECCA Administration Folic Acid 1 mg 08/21/17 10:00 08/21/17 10:15 Folic Acid - PO 1 mg DAILY REBECCA Administration Heparin Sodium (Porcine) 5,000 unit 08/20/17 23:45 08/21/17 21:05 Heparin - SQ 5,000 unit TID REBECCA Administration Sodium Chloride 1,000 mls @ 75 mls/hr 08/20/17 23:15 08/20/17 23:49 Normal Saline - IV 75 mls/hr ASDIR REBECCA Administration Methadone HCl 30 mg 08/22/17 06:00 Dolophine - PO 08/27/17 23:59 DAILY@0600 REBECCA Nicotine 21 mg 08/20/17 16:00 08/21/17 10:17 Nicoderm Patch - TD 21 mg DAILY REBECCA Administration Pantoprazole Sodium 40 mg 08/21/17 15:00 08/21/17 15:31 Protonix - PO 40 mg DAILY REBECCA Administration Thiamine HCl 200 mg 08/21/17 10:00 08/21/17 10:16 Vitamin B1 Injection - IVPB 200 mg DAILY REBECCA Administration A/P Patient is a 56 year old female with polysubstance usage history as well as bipolar disorder and multiple medical problems. She was diagnosed with Breast CA 4 years ago and did not complete treatment. Patient with recent falls and was found to have Right sphenoid/anterior temporal 3 cm dural based lesion as well as extensive bifrontal calvarial disease consisted with diffuse metastasis. I discussed her case with her son in great detail and explained that surgical resection of the temporal lesion may be in her interest, however, he articulates concerns that she will not comply with treatment requirements and will likely not have a substantial prognosis regardless. He expressed an interest in transferring her to a facilty closer to his home in [place] (he suggested [facility] and [facility]). This would be a reasonable consideration. I discussed and offered the role for a wide variety of treatment options including, but not being limited to: palliative care, hospice and surgical resection of the temporal lesion in detail. At this point, he is not inclined to proceed with surgery and I have given him contact information if he should change his mind.
--- NOTE | 2017-08-22 02:01 | CONSULT ---
Consult - text type - Consultation Consultation Note: Patient seen and examined Patient is a 56-year-old female with past medical history of left breast cancer untreated, heroin/methadone abuse, who presented to the emergency department from [facility] after hitting her head against a counter. Patient states she was trying to get her pills at [id number] when she banged her head against the side. Patient denies LOC, lightheadedness and dizziness, nausea and vomiting. Patient states that she currently has a headache on the left side of her head and states that she feels a lump. Past History left breast cancer HTN Seizures Allergies/Adverse Reactions: Allergies Allergy/AdvReac Type Severity Reaction Status Date / Time No Known Allergies Allergy Verified 08/20/17 12:45 Home Medications: Ambulatory Orders NK [No Known Home Medication] 08/19/17 - Suicide/Smoking/Psychosocial Hx Smoking History: Current every day smoker Substance Use Type: Alcohol, Heroin Hx Substance Use Treatment: Yes (detox, methadone years ago at ) - Vital Signs AFVSS - Physical Exam Breasts: left breast retracted, indurated mass, Cor: RSR, No murmurs, No gallops Lungs: Clear to P&A Abd: Soft, Normal bowel sounds, No organomegaly Ext:No significant edema Genitalia--uterine prolapse Labs/meds reviewed A/P This is a 56 year old female with PMHx of left breast cancer (dx 4 years ago, only had chemo x1), bipolar disorder, tobacco use, heroin and alcohol abuse, who presented to the ED from [facility] after falling and hitting her head. - Head CT with hyperdense mass in the right middle cranial fossa, inferiorly measuring 2.8cm in maximum dimension with surrounding vasogenic edema involving the right temporal and posterior frontal lobe resulting in very minimal shift of the midline structures toward the left. Heterogeneous attenuation of the skull base adjacent to the mass as well as heterogenous attenuation of the right sphenoid wing and significant heterogeneous infiltration of the frontal bone MRI brain --diffuse b/l frontoparietal enhancement --dural/leptomeingeal disease , 3cm right middle cranial fossa mass with skull base involvement Will check CT c/a/p Will attempt to get tissue diagnosis Uterine prolapse -- CLINICAL PATHOLOGIST consult competency assessmet per psych to discuss with family meeting goals of care
[2017-08-22] MEDS: chlordiazePOXIDE HCL 25 MG CAPSULE PO SCH ×4 (04:37→23:07)
[2017-08-22] MEDS: SODIUM CHLORIDE 1,000 ML IV SCH (04:42)
[2017-08-22] MEDS: HEPARIN NA (PORCINE) 5,000 UNITS/ML 1ML VIAL SQ SCH (05:12)
[2017-08-22] MEDS: METHADONE HCL 10 MG TABLET PO SCH (05:13)
[2017-08-22 06:10] LABS: SERUM IRON SATURATION 24 % (15-55); TOTAL IRON BINDING CAPACITY 300 ug/dL (250-450); UIBC 227 ug/dL (131-425)
[2017-08-22 06:57] LABS: BASO % 0.4 % (0-2.0); EOS % 0.1 % (0-4.5); HEMATOCRIT 29.1 % (32.4-45.2); HEMOGLOBIN 9.8 GM/dL (10.7-15.3); LYMPH % 11.2 % (8-40); MCH 30.8 pg (25.7-33.7); MCHC 33.7 g/dl (32.0-36.0); MEAN CELL VOLUME 91.4 fl (80-96); MEAN PLT VOLUME 8.7 fl (7.5-11.1); MONO % 9.3 % (3.8-10.2); PLATELET COUNT 353 K/MM3 (134-434); RBC 3.19 M/mm3 (3.60-5.2); RDW 15.4 % (11.6-15.6); WHITE BLOOD COUNT 5.9 K/mm3 (4.0-10.0)
[2017-08-22 07:23] LABS: ALBUMIN 2.6 g/dl (3.4-5.0); ANION GAP 7 (8-16); BLOOD UREA NITROGEN 24 mg/dL (7-18); CALCIUM 8.1 mg/dL (8.5-10.1); CHLORIDE 104 mmol/L (98-107); CO2 28 mmol/L (21-32); GLUCOSE,RANDOM 107 mg/dL (74-106); POTASSIUM 4.5 mmol/L (3.5-5.1); SODIUM 139 mmol/L (136-145)
[2017-08-22 07:26] LABS: ALK PHOS 128 U/L (45-117); BILIRUBIN,TOTAL 0.1 mg/dL (0.2-1.0); CREATININE 0.5 mg/dL (0.55-1.02); SGOT/AST 40 U/L (15-37); SGPT/ALT 17 U/L (12-78); TOT PROT 7.2 g/dl (6.4-8.2)
[2017-08-22] MEDS ORDERED: LORazepam 2 MG/ML SDV VIAL ONE ×2 (10:01→21:42)
--- NOTE | 2017-08-22 10:02 | PN ---
Progress Note (short form) - Note Progress Note: Subjective: The patient was found by the elevators in street clothes, nurse, nurse auto care center manager, and tech with her. She appears agitated stating "I am having a panic attack". Offered Ativan, the patient started hitting her forehead against the wall. Security called. Called and spoke to son who then spoke to the patient. The patient stated to the son, "I was hitting my tumor on the wall". Spoke to Dr. Haskins who recommends Ativan 2mg Left message for Dr. Pardo Stat Head CT ordered 1:1 observation order placed in the computer Current Medications Generic Name Dose Route Start Last Admin Trade Name Freq PRN Reason Stop Dose Admin Acetaminophen 650 mg 08/21/17 06:52 08/21/17 08:45 Tylenol Oral Solution - PO 650 mg Q6H PRN Administration PAIN LEVEL 1-5 Chlordiazepoxide HCl 50 mg 08/21/17 17:00 08/22/17 04:37 Librium - PO 08/22/17 11:01 50 mg [id number] REBECCA Administration Chlordiazepoxide HCl 25 mg 08/22/17 17:00 Librium - PO 08/23/17 11:01 [id number] REBECCA Chlordiazepoxide HCl 15 mg 08/23/17 17:00 Librium - PO 08/24/17 11:01 [id number] REBECCA Chlordiazepoxide HCl 25 mg 08/21/17 15:21 08/21/17 18:50 Librium - PO 08/24/17 15:20 25 mg Q4H PRN Administration WITHDRAWAL(CONT SUBST) Dexamethasone Sodium Phosphate 4 mg 08/21/17 06:00 08/22/17 05:14 Decadron Injection - IVPUSH 4 mg Q6H REBECCA Administration Folic Acid 1 mg 08/21/17 10:00 08/21/17 10:15 Folic Acid - PO 1 mg DAILY REBECCA Administration Sodium Chloride 1,000 mls @ 75 mls/hr 08/20/17 23:15 08/22/17 04:42 Normal Saline - IV Not Given ASDIR REBECCA Lorazepam 2 mg 08/22/17 09:55 Ativan Injection - IVPUSH 08/22/17 09:56 ONCE ONE Methadone HCl 30 mg 08/22/17 06:00 08/22/17 05:13 Dolophine - PO 08/27/17 23:59 30 mg DAILY@0600 REBECCA Administration Nicotine 21 mg 08/20/17 16:00 08/21/17 10:17 Nicoderm Patch - TD 21 mg DAILY REBECCA Administration Pantoprazole Sodium 40 mg 08/21/17 15:00 08/21/17 15:31 Protonix - PO 40 mg DAILY REBECCA Administration Thiamine HCl 200 mg 08/21/17 10:00 08/21/17 10:16 Vitamin B1 Injection - IVPB 200 mg DAILY REBECCA Administration Objective: Vital Signs Period Temp Pulse Resp BP Sys/Camacho Pulse Ox Last 24 Hr 97.7 F-98.7 F 88-110 20-22 138-144/82-86 100 Physical Exam: Patient agitated, unable to exam at this time CBCD WBC 3.9 K/mm3 (4.0-10.0) L 08/21/17 06:40 RBC 3.63 M/mm3 (3.60-5.2) 08/21/17 06:40 Hgb 11.2 GM/dL (10.7-15.3) 08/21/17 06:40 Hct 33.7 % (32.4-45.2) 08/21/17 06:40 MCV 92.8 fl (80-96) 08/21/17 06:40 MCHC 33.2 g/dl (32.0-36.0) 08/21/17 06:40 RDW 15.2 % (11.6-15.6) 08/21/17 06:40 Plt Count 396 K/MM3 (134-434) 08/21/17 06:40 MPV 8.3 fl (7.5-11.1) 08/21/17 06:40 CMP Sodium 137 mmol/L (136-145) 08/21/17 06:40 Potassium 5.3 mmol/L (3.5-5.1) H 08/21/17 06:40 Chloride 105 mmol/L (98-107) 08/21/17 06:40 Carbon Dioxide 26 mmol/L (21-32) 08/21/17 06:40 Anion Gap 6 (8-16) L 08/21/17 06:40 BUN 23 mg/dL (7-18) H 08/21/17 06:40 Creatinine 0.8 mg/dL (0.55-1.02) 08/21/17 06:40 Creat Clearance w eGFR > 60 (>60) 08/21/17 06:40 Random Glucose 148 mg/dL (74-106) H 08/21/17 06:40 Calcium 8.7 mg/dL (8.5-10.1) 08/21/17 06:40 Total Bilirubin 0.2 mg/dL (0.2-1.0) 08/21/17 06:40 AST 52 U/L (15-37) H 08/21/17 06:40 ALT 20 U/L (12-78) 08/21/17 06:40 Alkaline Phosphatase 130 U/L (45-117) H D 08/21/17 06:40 Total Protein 8.4 g/dl (6.4-8.2) H 08/21/17 06:40 Albumin 3.0 g/dl (3.4-5.0) L 08/21/17 06:40 Assessment: This is a 56 year old female with PMHx of left breast cancer (dx 4 years ago, only had chemo x1), bipolar disorder, tobacco use, heroin and alcohol abuse, who presented to the ED from [facility] after falling and hitting her head. Plan: 1) Metastatic breast cancer - Left breast and axillary lymph node masses/enlargement - Head CT with hyperdense mass in the right middle cranial fossa, inferiorly measuring 2.8cm in maximum dimension with surrounding vasogenic edema involving the right temporal and posterior frontal lobe resulting in very minimal shift of the midline structures toward the left. Heterogeneous attenuation of the skull base adjacent to the mass as well as heterogenous attenuation of the right sphenoid wing and significant heterogeneous infiltration of the frontal bone - Given the patient is having acute panic attack and agitation today, mental status may be worsening 2/2 steroids. Will discontinue at this time. Dr. Fierro stated yesterday that steroids were not needed at this time - F/u rad onc consult - Appreciate heme/onc consult 2) Agitation - Likely 2/2 acute alcohol/heroin withdrawal vs. effects from tumor? - Patient hit head against wall multiple times, will order stat head CT - 1:1 observation - Ativan ordered 2) Heroin abuse, acute alcohol withdrawal - Chronic, son reports about 10 bags a day - Continue Methadone - Started on Librium detox 3) Bipolar disorder - Not on home medications - F/u psych consult 4) F/E/N: - Monitor electrolytes - Regular diet 5) Prophylaxis: - Heparin 5,000u sq tid - OOB ambulating 6) Dispo: - Requires continued inpatient care - Palliative care consult - Instructed RN, patient is NOT to go downstairs as she is a heroin user and has an IV. It is to be reported immediately if the patient leaves the floor as she is at high risk for using heroin. CODE STATUS: FULL CODE Visit type - Emergency Visit Emergency Visit: Yes ED Registration Date: 08/20/17 Care time: The patient presented to the Emergency Department on the above date and was hospitalized for further evaluation of their emergent condition. - New Patient This patient is new to me today: No - Critical Care Critical Care patient: No
[2017-08-22] MEDS: LORazepam 2 MG/ML SDV VIAL IVPUSH ONE (10:05)
[2017-08-22] MEDS ORDERED: LORazepam 2 MG/ML SDV VIAL IVPUSH ONE (11:00)
[2017-08-22] MEDS: PANTOPRAZOLE 40 MG TABLET (FP) PO SCH (11:50)
[2017-08-22] MEDS: THIAMINE HCL 200 MG/2 ML VIAL IVPB SCH (11:51)
[2017-08-22] MEDS: FOLIC ACID 1 MG TABLET (FP) PO SCH (11:51)
[2017-08-22] MEDS: NICOTINE 21 MG/24 HOURS TOPICAL PATCH TD SCH (11:52)
--- NOTE | 2017-08-22 13:35 | CON.PSY ---
Psychiatry Consult Chief Complaint: 56 year old Female with a life long History of Heroin abuse, History of Breast cancer gloria with mets to Brain. patine seen by all specilists at this time. she began displaying acuyte aggression, banging her4 head aginstthe wall. Very uncoperative and restless. Symptoms: reports: Impaired Concentration, Excessive Energy, Racing Thoughts, Conduct Problems - Previous Psychiatric Treatment Outpatient: None Inpatient: None - Previous Substance Abuse Treatment Inpatient: 2 or more prior admissions - Reason for Previous Treatment Reason for Previous Treatment: Heroin or Other Narcotics - Current Medications Current Medications: Active Medications Acetaminophen (Tylenol Oral Solution -) 650 mg PO Q6H PRN PRN Reason: PAIN LEVEL 1-5 Last Admin: 08/21/17 08:45 Dose: 650 mg Chlordiazepoxide HCl (Librium -) 25 mg PO [id number] [facility] Stop: 08/23/17 11:01 Chlordiazepoxide HCl (Librium -) 15 mg PO [id number] [facility] Stop: 08/24/17 11:01 Chlordiazepoxide HCl (Librium -) 25 mg PO Q4H PRN PRN Reason: WITHDRAWAL(CONT SUBST) Stop: 08/24/17 15:20 Last Admin: 08/21/17 18:50 Dose: 25 mg Folic Acid (Folic Acid -) 1 mg PO DAILY [facility] Last Admin: 08/22/17 11:51 Dose: 1 mg Sodium Chloride (Normal Saline -) 1,000 mls @ 75 mls/hr IV ASDIR [facility] Last Admin: 08/22/17 04:42 Dose: Not Given Methadone HCl (Dolophine -) 30 mg PO DAILY@0600 [facility] Stop: 08/27/17 23:59 Last Admin: 08/22/17 05:13 Dose: 30 mg Nicotine (Nicoderm Patch -) 21 mg TD DAILY [facility] Last Admin: 08/22/17 11:52 Dose: 21 mg Pantoprazole Sodium (Protonix -) 40 mg PO DAILY [facility] Last Admin: 08/22/17 11:50 Dose: 40 mg Thiamine HCl (Vitamin B1 Injection -) 200 mg IVPB DAILY [facility] Last Admin: 08/22/17 11:51 Dose: 200 mg - Allergies Allergies: Allergies Allergy/AdvReac Type Severity Reaction Status Date / Time No Known Allergies Allergy Verified 08/20/17 12:45 - Current Living Status Usual Living Arrangement: Alone - Current Mental Status Evaluation Appearance: Disheveled Attitude: Uncooperative - Affect Affect: Expansive Appropriateness: Not Appropriate - Mood Mood: Angry - Speech/Language Expressive: Coherent - Psychomotor Activity Psychomotor Activity: Hyperactive - Thought Process Thought Process: Circumstantial - Thought Content Hallucinations: Absent Delusions: Absent - Self Perception Self Perception: No Impairment - Cognition Attention: Diminished Memory, Immediate Recall: Impaired Memory, Remote: Impaired - Concentration Serial Sevens Intact: No Simple Calculations Intact: No - Abstraction Proverb Interpretation: Impaired Judgement: Moderately Impaired - Insight Insight: Impaired - Impulse Control Impulse Control: Moderately Impaired - Suicidal Ideation Suicidal Ideation: No - Homicidal Ideation Homicidal Ideation: No Problem List - Problems (1) 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 2) [id number] 500mg po bid.
--- NOTE | 2017-08-22 14:16 | PN ---
Progress Note (short form) - Note Progress Note: Radiation Oncology Earlier today consultation attempted but pt was in highly agitated state. Will return when more stable.
[2017-08-22] MEDS: chlordiazePOXIDE HCL 25 MG CAPSULE PO PRN (15:03)
[2017-08-22] MEDS ORDERED: PT OWN MED DRAWER 7, Y5N ONE ×2 (17:48→21:17)
[2017-08-22] MEDS: OLANZapine 7.5 MG TABLET PO SCH (21:47)
[2017-08-22] MEDS: DIVALPROEX NA *ER* EXTEND REL 500 MG TABLET.SA (FP) PO SCH (21:47)
[2017-08-23] MEDS: chlordiazePOXIDE HCL 25 MG CAPSULE PO SCH ×2 (05:31→12:28)
[2017-08-23] MEDS: SODIUM CHLORIDE 1,000 ML IV SCH (06:26)
[2017-08-23] MEDS: METHADONE HCL 10 MG TABLET PO SCH (06:30)
--- NOTE | 2017-08-23 08:50 | PN ---
Progress Note (short form) - Note Progress Note: Subjective: Condition 10 called on patient as she was trying to leave the floor. Gave 2mg Ativan. Called and spoke to Dr. Pardo who states the patient is competent to make her own decisions at this time Called and spoke to Dr. Rios, will reevaluate the patent for possible increase in medications as it does not appear current dose of Methadone is working for the patient Current Medications Generic Name Dose Route Start Last Admin Trade Name Freq PRN Reason Stop Dose Admin Acetaminophen 650 mg 08/21/17 06:52 08/21/17 08:45 Tylenol Oral Solution - PO 650 mg Q6H PRN Administration PAIN LEVEL 1-5 Chlordiazepoxide HCl 25 mg 08/22/17 17:00 08/23/17 05:31 Librium - PO 08/23/17 11:01 25 mg [id number] REBECCA Administration Chlordiazepoxide HCl 15 mg 08/23/17 17:00 Librium - PO 08/24/17 11:01 [id number] REBECCA Chlordiazepoxide HCl 25 mg 08/21/17 15:21 08/22/17 15:03 Librium - PO 08/24/17 15:20 25 mg Q4H PRN Administration WITHDRAWAL(CONT SUBST) Divalproex Sodium 500 mg 08/22/17 22:00 08/22/17 21:47 Depakote *Er* - PO 500 mg BID REBECCA Administration Folic Acid 1 mg 08/21/17 10:00 08/22/17 11:51 Folic Acid - PO 1 mg DAILY REBECCA Administration Sodium Chloride 1,000 mls @ 75 mls/hr 08/20/17 23:15 08/23/17 06:26 Normal Saline - IV Not Given ASDIR REBECCA Lorazepam 2 mg 08/23/17 09:15 Ativan Injection - IVPUSH 08/23/17 09:16 ONCE ONE Methadone HCl 30 mg 08/22/17 06:00 08/23/17 06:30 Dolophine - PO 08/27/17 23:59 30 mg DAILY@0600 REBECCA Administration Nicotine 21 mg 08/20/17 16:00 08/22/17 11:52 Nicoderm Patch - TD 21 mg DAILY REBECCA Administration Olanzapine 15 mg 08/22/17 22:00 08/22/17 21:47 Zyprexa - PO 15 mg HS REBECCA Administration Pantoprazole Sodium 40 mg 08/21/17 15:00 08/22/17 11:50 Protonix - PO 40 mg DAILY REBECCA Administration Thiamine HCl 200 mg 08/21/17 10:00 08/22/17 11:51 Vitamin B1 Injection - IVPB 200 mg DAILY REBECCA Administration Objective: Vital Signs Period Temp Pulse Resp BP Sys/Camacho Pulse Ox Last 24 Hr 97.3 F-97.9 F 76-91 16-22 125-151/87-93 100-100 Physical Exam: Patient agitated, unable to exam at this time CBCD WBC 5.9 K/mm3 (4.0-10.0) 08/22/17 06:41 RBC 3.19 M/mm3 (3.60-5.2) L 08/22/17 06:41 Hgb 9.8 GM/dL (10.7-15.3) L 08/22/17 06:41 Hct 29.1 % (32.4-45.2) L 08/22/17 06:41 MCV 91.4 fl (80-96) 08/22/17 06:41 MCHC 33.7 g/dl (32.0-36.0) 08/22/17 06:41 RDW 15.4 % (11.6-15.6) 08/22/17 06:41 Plt Count 353 K/MM3 (134-434) 08/22/17 06:41 MPV 8.7 fl (7.5-11.1) 08/22/17 06:41 CMP Sodium 139 mmol/L (136-145) 08/22/17 06:41 Potassium 4.5 mmol/L (3.5-5.1) 08/22/17 06:41 Chloride 104 mmol/L (98-107) 08/22/17 06:41 Carbon Dioxide 28 mmol/L (21-32) 08/22/17 06:41 Anion Gap 7 (8-16) L 08/22/17 06:41 BUN 24 mg/dL (7-18) H 08/22/17 06:41 Creatinine 0.5 mg/dL (0.55-1.02) L 08/22/17 06:41 Creat Clearance w eGFR > 60 (>60) 08/22/17 06:41 Random Glucose 107 mg/dL (74-106) H 08/22/17 06:41 Calcium 8.1 mg/dL (8.5-10.1) L 08/22/17 06:41 Total Bilirubin 0.1 mg/dL (0.2-1.0) L 08/22/17 06:41 AST 40 U/L (15-37) H 08/22/17 06:41 ALT 17 U/L (12-78) 08/22/17 06:41 Alkaline Phosphatase 128 U/L (45-117) H 08/22/17 06:41 Total Protein 7.2 g/dl (6.4-8.2) 08/22/17 06:41 Albumin 2.6 g/dl (3.4-5.0) L 08/22/17 06:41 Assessment: This is a 56 year old female with PMHx of left breast cancer (dx 4 years ago, only had chemo x1), bipolar disorder, tobacco use, heroin and alcohol abuse, who presented to the ED from [facility] after falling and hitting her head. Plan: 1) Metastatic breast cancer - Left breast and axillary lymph node masses/enlargement - Head CT with hyperdense mass in the right middle cranial fossa, inferiorly measuring 2.8cm in maximum dimension with surrounding vasogenic edema involving the right temporal and posterior frontal lobe resulting in very minimal shift of the midline structures toward the left. Heterogeneous attenuation of the skull base adjacent to the mass as well as heterogenous attenuation of the right sphenoid wing and significant heterogeneous infiltration of the frontal bone - No steroids as it caused acute psychosis - Appreciate rad onc consult - Appreciate heme/onc consult 2) Agitation - Likely 2/2 acute alcohol/heroin withdrawal vs. effects from tumor? - Patient is attempting to leave today - 1:1 observation continues - Ativan ordered - Discussed with Dr. Pardo, patient is competent to make her own decisions at this time 2) Heroin abuse, acute alcohol withdrawal - Chronic, son reports about 10 bags a day - Continue Methadone - Continue Librium detox 3) Bipolar disorder - Zyprexa Depakote started yesterday for mood - Appreciate psych consult 4) F/E/N: - Monitor electrolytes - Regular diet 5) Prophylaxis: - Heparin 5,000u sq tid - OOB ambulating 6) Dispo: - Requires continued inpatient care - Palliative care consult pending - Spoke to son this morning, instructed son patient is trying to leave the hospital AMA. Son states he will be here shortly - Health care proxy signed in the chart CODE STATUS: FULL CODE Visit type - Emergency Visit Emergency Visit: Yes ED Registration Date: 08/20/17 Care time: The patient presented to the Emergency Department on the above date and was hospitalized for further evaluation of their emergent condition. - New Patient This patient is new to me today: No - Critical Care Critical Care patient: No
[2017-08-23] MEDS: PANTOPRAZOLE 40 MG TABLET (FP) PO SCH (09:02)
[2017-08-23] MEDS: FOLIC ACID 1 MG TABLET (FP) PO SCH (09:02)
[2017-08-23] MEDS: chlordiazePOXIDE HCL 25 MG CAPSULE PO PRN (09:02)
[2017-08-23] MEDS: NICOTINE 21 MG/24 HOURS TOPICAL PATCH TD SCH (09:02)
[2017-08-23] MEDS: DIVALPROEX NA *ER* EXTEND REL 500 MG TABLET.SA (FP) PO SCH ×2 (09:03→21:03)
[2017-08-23] MEDS ORDERED: LORazepam 2 MG/ML SDV VIAL IVPUSH ONE (09:15)
[2017-08-23 10:07] LABS: BASO % 0.3 % (0-2.0); EOS % 0.5 % (0-4.5); HEMATOCRIT 34.5 % (32.4-45.2); HEMOGLOBIN 11.5 GM/dL (10.7-15.3); MCH 30.8 pg (25.7-33.7); MCHC 33.4 g/dl (32.0-36.0); MEAN CELL VOLUME 92.1 fl (80-96); MEAN PLT VOLUME 8.1 fl (7.5-11.1); MONO % 10.7 % (3.8-10.2); NEUT % 61.5 % (42.8-82.8); PLATELET COUNT 407 K/MM3 (134-434); RBC 3.75 M/mm3 (3.60-5.2); RDW 15.7 % (11.6-15.6)
--- NOTE | 2017-08-23 10:51 | HOSP ---
Physical Examination Vital Signs: Vital Signs Temperature 97.5 F L 08/22/17 22:00 Pulse Rate 91 H 08/22/17 22:00 Respiratory Rate 22 08/22/17 22:00 Blood Pressure 151/91 08/22/17 22:00 O2 Sat by Pulse Oximetry (%) 100 08/22/17 21:00 Findings/Remarks: Condition 10 called on patient, she hit her head against a glass picture frame and shattered it. Stat head CT Will give an extra dose of Methadone 10mg now Labs: CBC, BMP 08/23/17 09:30
[2017-08-23] MEDS ORDERED: METHADONE HCL 10 MG TABLET PO ONE (10:53)
[2017-08-23 11:52] LABS: ALBUMIN 3.1 g/dl (3.4-5.0); ANION GAP 7 (8-16); BILIRUBIN,TOTAL 0.3 mg/dL (0.2-1.0); BLOOD UREA NITROGEN 29 mg/dL (7-18); CALCIUM 8.8 mg/dL (8.5-10.1); CHLORIDE 103 mmol/L (98-107); CO2 27 mmol/L (21-32); CREATININE 0.7 mg/dL (0.55-1.02); GLUCOSE,RANDOM 107 mg/dL (74-106); POTASSIUM 4.3 mmol/L (3.5-5.1); SGOT/AST 37 U/L (15-37); SGPT/ALT 22 U/L (12-78); SODIUM 137 mmol/L (136-145); TOT PROT 7.9 g/dl (6.4-8.2)
[2017-08-23 11:53] LABS: ALK PHOS 135 U/L (45-117)
[2017-08-23] MEDS ORDERED: OLANZapine 5 MG TABLET PO PRN (12:14)
--- NOTE | 2017-08-23 12:14 | HOSP ---
Physical Examination Vital Signs: Vital Signs Temperature 97.5 F L 08/22/17 22:00 Pulse Rate 91 H 08/22/17 22:00 Respiratory Rate 22 08/22/17 22:00 Blood Pressure 151/91 08/22/17 22:00 O2 Sat by Pulse Oximetry (%) 100 08/22/17 21:00 Findings/Remarks: Spoke to Tio Umanzor NP who recommends adding prn Zyprexa 5mg po q6h for additional behavioral support. Labs: CBC, BMP 08/23/17 09:30 08/23/17 09:30
[2017-08-23] MEDS: THIAMINE HCL 100 MG TABLET (FP) PO SCH (12:28)
--- NOTE | 2017-08-23 14:18 | PN ---
KATI Progress Note Note: patient seen in her room alert siting up eating her lunch accompanying by nursing assistance no complaint Vital Signs Temperature 97.5 F L 08/22/17 22:00 Pulse Rate 91 H 08/22/17 22:00 Respiratory Rate 22 08/22/17 22:00 Blood Pressure 151/91 08/22/17 22:00 O2 Sat by Pulse Oximetry (%) 100 08/22/17 21:00 patient has been on methadone 30 mgs po daily and taper off librium regimen started by Dr Haskins no complaint at this time will continue same regimen spoke with Shanita Benavides
[2017-08-23] MEDS: chlordiazePOXIDE 5 MG CAPSULE PO SCH ×2 (17:44→23:07)
--- NOTE | 2017-08-23 17:56 | PN ---
Progress Note (short form) - Note Progress Note: Radiation Oncology - Full consult to follow Highly agitated when seen this morning, now sedated after meds. Son and dtr in law at bedside. Neglected left breast cancer (1 cycle chemo at [facility] 4 yrs ago) now with probable brain met/LMD and bone mets. Main issue is current agitated state 2/2 withdrawal from substance abuse. Discussed w family, pt not a candidate for RT at this time as she cannot cooperate with the treatments. They had a chance to discuss craniotomy/decompression with neurosurgeon and declined tx. If she clinically improves, we can reconsider RT for palliation. Otherwise, palliative care and hospice are not unreasonable.
--- NOTE | 2017-08-23 18:55 | PN ---
Progress Note (short form) - Note Progress Note: Patient seen and examined Agitated and now lethargic from sedation Family (son and daughter-in law at bedside. Patient is not in a state able to discuss treatment options.Discussed with family. Patient would need to be cooperative , compliant to be able to be staged and evaluated for possible treatment If not agree with hospice. Last Vital Signs Temp Pulse Resp BP Pulse Ox 97.5 F L 91 H 22 151/91 100 08/22/17 22:00 08/22/17 22:00 08/23/17 09:00 08/22/17 22:00 08/23/17 09:00 Currently on exam breast mass with rock hard axillary mass on left . Will need to revisit question of future plans based upon patients clinical state.
[2017-08-23] MEDS ORDERED: PT OWN MED DRAWER 7, Y5N ONE (20:01)
[2017-08-23] MEDS: OLANZapine 7.5 MG TABLET PO SCH (21:03)
--- NOTE | 2017-08-23 22:19 | CON.NEURO ---
Consult Consult Specialty:: NEUROLOGY-JATINDER LONGORIA - History of Present Illness History of Present Illness: Patient is a 56-year-old female with past medical history of left-sided breast cancer untreated who presents to the emergency department today status post near syncope this morning at [facility] currently in detox for heroin and methadone. In the ED patient is A&O 3 however; patient is combative, aggressive and restless. Patient keeps asking for return to [facility] and just wants Motrin for her headache. On exam patient is neurologically intact. Head CT with hyperdense mass in the right middle cranial fossa, inferiorly measuring 2.8cm in maximum dimension with surrounding vasogenic edema involving the right temporal and posterior frontal lobe resulting in very minimal shift of the midline structures toward the left. Heterogeneous attenuation of the skull base adjacent to the mass as well as heterogenous attenuation of the right sphenoid wing and significant heterogeneous infiltration of the frontal bone. Now being treated for alcohol/opiate withdrawl, has refused treatment/ investigations, palliative care being planned. MRI brain --diffuse b/l frontoparietal enhancement --dural/leptomeingeal disease , 3cm right middle cranial fossa mass with skull base involvement. Tonight pt. appeared somnolent but easily arousable, denied headache, is agitated and kept saying"leave me alone", unable to obtain hx. - History Source History Provided By: Medical Record - Past Medical History Psych: Yes: Addictions, Anxiety, Bipolar Musculoskeletal: Yes: Other Rheumatology: Yes: Other ENT: Yes: Other Endocrine: Yes: Other - Alcohol/Substance Use Hx Alcohol Use: Yes (1/2 - 1 pint a day) - Smoking History Smoking history: Current every day smoker Have you smoked in the past 12 months: Yes Aproximately how many cigarettes per day: 10 - Social History Usual Living Arrangement: Alone Home Medications - Allergies Allergies/Adverse Reactions: Allergies Allergy/AdvReac Type Severity Reaction Status Date / Time No Known Allergies Allergy Verified 08/20/17 12:45 - Home Medications Home Medications: Ambulatory Orders NK [No Known Home Medication] 08/19/17 Family Disease History - Family Disease History Family Disease History: Diabetes: Mother (living - jail - alzheimers ), Other: Father ( - 'I don't care'), Mother, Brother ( - in his sleep/seizure), Son (two - one with diabetes) Physical Exam-Neuro Vital Signs: Vital Signs Temperature 98.2 F 08/23/17 10:00 Pulse Rate 81 08/23/17 10:00 Respiratory Rate 18 08/23/17 10:00 Blood Pressure 101/70 08/23/17 10:00 O2 Sat by Pulse Oximetry (%) 100 08/23/17 09:00 Labs: CBC, BMP 08/23/17 09:30 08/23/17 09:30 INR, PTT INR 1.05 (0.82-1.09) 08/21/17 06:40 - Neuro Exam Level Of Consciousness: Yes: Alert, Oriented to Person Eyes: Yes: Left Hemianopsis Speech: Slurred Dominant Hand: Right Mini Mental Exam: Easily agitated, has impaired att/conc. does not allow further mental status testing Cranial Nerves II-XII Intact: No (Left HH-does not respond to threat on left) DTR's: 0 Left Achilles, 0 Right Achilles, 2+ Left Bicep, 2+ Right Bicep, 2+ Left Tricep, 2+ Right Tricep, 2+ Left Brachioradialis, 2+ Right Brachioradialis Babinski: Present (Bilateral upgoing toes) Response to light touch: Normal (Responds to touch equally on both sides) Motor Strength: 4/5: Left Arm, Right Arm, Left Leg, Right Leg (Refused exam but appears at least 4/5 throughout) Gait: Other (Refused to stand) Assessment/Plan Patient is a 56 year old female with polysubstance usage history as well as bipolar disorder and multiple medical problems. She was diagnosed with Breast CA 4 years ago and did not complete treatment. 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 Pt. refusing further investigations/rx. and being rx. for alcohol/opiate withdrawl. Palliative care being planned, please call us if pt. agrees to any further intervention. Would check Valproic Acid levels and ammonia levels. Thank you, Lamar Oh MD
[2017-08-24] MEDS: chlordiazePOXIDE 5 MG CAPSULE PO SCH ×3 (06:03→15:51)
[2017-08-24] MEDS: METHADONE HCL 10 MG TABLET PO SCH ×2 (06:04→07:53)
--- NOTE | 2017-08-24 07:58 | PN ---
Mental Health Exam - Mental Status Exam Alert and Oriented to: Place, Person Cognitive Function: Grossly Intact Patient Appearance: Unkempt Mood: Apprehensive Affect: Labile Patient Behavior: Aggressive, Restless, Impulsive, Wandering, Resitive to Care Speech Pattern: Garbled, Perseverating Voice Loudness: Mildly Soft/Quiet Thought Process: Circumstantial, Tangential, Flight of Ideas Thought Disorder: Not Present Hallucinations: Denies Suicidal Ideation: Denies Homicidal Ideation: Denies Insight/Judgement: Poor Sleep: Fair Appetite: Fair Muscle strength/Tone: Mild Hypertonicity Gait/Station: Deferred (USE OF WHEELCHAIR.)
--- NOTE | 2017-08-24 08:04 | PN ---
Progress Note (short form) - Note Progress Note: 56 YO WHO STATED "I HAVE CANCER". cAN BE EXPLOSIVE AND DEMANDING PER IRASEMA TIMMONS I SPOKE TO YESTERDAY. cLIENT IS SEDATED, DROOLING THIS AM, CONSTANT OBSERVATION AT THIS TIME. cLIENT IS ON OLANZAPINE 15 MG AT NIGHT, DEPAKOTE 500MG PO BID, AWAITING va LEVEL. PLAN HOLD VALPORATE THIS AM UNTIL DEPAKOTE LEVEL. SPOKE WITH rnS NIGHT JATIN AND MAGY DAY RN. REDUCE PRN OLANZAPINE 2.5 MG Q 8 HOURS. INVESTIGATE DROOLING, SUCKING ON HARD CANDY.
--- NOTE | 2017-08-24 08:29 | PN ---
Progress Note (short form) - Note Progress Note: Subjective: Patient was seen at the bedside, she appears calm today Current Medications Generic Name Dose Route Start Last Admin Trade Name Freq PRN Reason Stop Dose Admin Acetaminophen 650 mg 08/21/17 06:52 08/21/17 08:45 Tylenol Oral Solution - PO 650 mg Q6H PRN Administration PAIN LEVEL 1-5 Chlordiazepoxide HCl 15 mg 08/23/17 17:00 08/24/17 07:53 Librium - PO 08/24/17 11:01 15 mg [id number] REBECCA Administration Chlordiazepoxide HCl 25 mg 08/21/17 15:21 08/23/17 09:02 Librium - PO 08/24/17 15:20 25 mg Q4H PRN Administration WITHDRAWAL(CONT SUBST) Divalproex Sodium 500 mg 08/22/17 22:00 08/23/17 21:03 Depakote *Er* - PO 500 mg BID REBECCA Administration Folic Acid 1 mg 08/21/17 10:00 08/23/17 09:02 Folic Acid - PO 1 mg DAILY REBECCA Administration Methadone HCl 30 mg 08/22/17 06:00 08/24/17 07:53 Dolophine - PO 08/27/17 23:59 30 mg DAILY@0600 REBECCA Administration Nicotine 21 mg 08/20/17 16:00 08/23/17 09:02 Nicoderm Patch - TD 21 mg DAILY REBECCA Administration Olanzapine 15 mg 08/22/17 22:00 08/23/17 21:03 Zyprexa - PO 15 mg HS REBECCA Administration Olanzapine 2.5 mg 08/24/17 08:12 Zyprexa - PO Q8H PRN AGITATION Pantoprazole Sodium 40 mg 08/21/17 15:00 08/23/17 09:02 Protonix - PO 40 mg DAILY REBECCA Administration Thiamine HCl 100 mg 08/23/17 10:00 08/23/17 12:28 Vitamin B1 - PO 100 mg DAILY REBECCA Administration Objective: Vital Signs Period Temp Pulse Resp BP Sys/Camacho Pulse Ox Last 24 Hr 97.1 F-98.2 F 81-97 18-22 101-118/66-73 95-100 Physical Exam: Patient is eating breakfast She appears calm at this time CBCD WBC 7.0 K/mm3 (4.0-10.0) 08/23/17 09:30 RBC 3.75 M/mm3 (3.60-5.2) 08/23/17 09:30 Hgb 11.5 GM/dL (10.7-15.3) 08/23/17 09:30 Hct 34.5 % (32.4-45.2) D 08/23/17 09:30 MCV 92.1 fl (80-96) 08/23/17 09:30 MCHC 33.4 g/dl (32.0-36.0) 08/23/17 09:30 RDW 15.7 % (11.6-15.6) H 08/23/17 09:30 Plt Count 407 K/MM3 (134-434) 08/23/17 09:30 MPV 8.1 fl (7.5-11.1) 08/23/17 09:30 CMP Sodium 137 mmol/L (136-145) 08/23/17 09:30 Potassium 4.3 mmol/L (3.5-5.1) 08/23/17 09:30 Chloride 103 mmol/L (98-107) 08/23/17 09:30 Carbon Dioxide 27 mmol/L (21-32) 08/23/17 09:30 Anion Gap 7 (8-16) L 08/23/17 09:30 BUN 29 mg/dL (7-18) H 08/23/17 09:30 Creatinine 0.7 mg/dL (0.55-1.02) 08/23/17 09:30 Creat Clearance w eGFR > 60 (>60) 08/23/17 09:30 Random Glucose 107 mg/dL (74-106) H 08/23/17 09:30 Calcium 8.8 mg/dL (8.5-10.1) 08/23/17 09:30 Total Bilirubin 0.3 mg/dL (0.2-1.0) 08/23/17 09:30 AST 37 U/L (15-37) 08/23/17 09:30 ALT 22 U/L (12-78) 08/23/17 09:30 Alkaline Phosphatase 135 U/L (45-117) H 08/23/17 09:30 Total Protein 7.9 g/dl (6.4-8.2) 08/23/17 09:30 Albumin 3.1 g/dl (3.4-5.0) L 08/23/17 09:30 Assessment: This is a 56 year old female with PMHx of left breast cancer (dx 4 years ago, only had chemo x1), bipolar disorder, tobacco use, heroin and alcohol abuse, who presented to the ED from [facility] after falling and hitting her head. Plan: 1) Metastatic breast cancer - Left breast and axillary lymph node masses/enlargement - Head CT with hyperdense mass in the right middle cranial fossa, inferiorly measuring 2.8cm in maximum dimension with surrounding vasogenic edema involving the right temporal and posterior frontal lobe resulting in very minimal shift of the midline structures toward the left. Heterogeneous attenuation of the skull base adjacent to the mass as well as heterogenous attenuation of the right sphenoid wing and significant heterogeneous infiltration of the frontal bone - No steroids as it caused acute psychosis - Appreciate rad onc consult - Appreciate heme/onc consult 2) Agitation - Likely 2/2 acute alcohol/heroin withdrawal vs. effects from tumor? - 1:1 observation continues - Discussed with Dr. Pardo, patient is competent to make her own decisions at this time 2) Heroin abuse, acute alcohol withdrawal - Chronic, son reports about 10 bags a day - Continue Methadone - Continue Librium detox 3) Bipolar disorder - Zyprexa prn decreased to 2.5mg q8h - Hold Depakote until level returns - Appreciate psych consult 4) F/E/N: - Monitor electrolytes - Regular diet 5) Prophylaxis: - Heparin 5,000u sq tid - OOB ambulating 6) Dispo: - Requires continued inpatient care - Palliative care consult pending - Health care proxy signed in the chart CODE STATUS: FULL CODE Visit type - Emergency Visit Emergency Visit: Yes ED Registration Date: 08/20/17 Care time: The patient presented to the Emergency Department on the above date and was hospitalized for further evaluation of their emergent condition. - New Patient This patient is new to me today: No - Critical Care Critical Care patient: No
--- NOTE | 2017-08-24 14:07 | CONS ---
DATE OF CONSULTATION: 08/23/2017 REFERRING PROVIDER: Shanita Benavides NP REASON FOR CONSULTATION: Brain metastasis. HISTORY OF PRESENT ILLNESS: The patient is a 56-year-old woman with history of polysubstance abuse including heroin, alcohol, and tobacco, who was apparently diagnosed with a left breast cancer 4 years ago. She completed 1 cycle of chemotherapy, and due to her abuse, did not follow up. She was admitted after a fall and head trauma. CT scan showed a mass in the right middle cranial fossa with edema and bone involvement. MRI of the brain confirmed a 3-cm dural-based mass in the right middle cranial fossa involving the skull base and right sphenoid wing, not consistent with a meningioma but associated with vasogenic edema extending to the frontal lobe. CT of the chest, abdomen, and pelvis showed left breast masses, bone metastases including the right femoral neck. I was asked to evaluate the patient, and earlier this morning, she was in a highly agitated state and was uncooperative. This evening, she has been sedated by medication. Her son and [id number] are at the bedside and provided the history. She has no history of radiation therapy or known collagen vascular disease. PAST MEDICAL HISTORY: Left breast cancer, neglected as noted above; hypertension; seizures; bipolar disorder; polysubstance abuse as noted. ALLERGIES: No known drug allergies. CURRENT MEDICATIONS: Depakote, Zyprexa, NicoDerm patch, Librium, methadone, Protonix, folic acid, thiamine. SOCIAL HISTORY: Unmarried. She has 2 sons. She uses heroin, alcohol, and tobacco, as well as methadone. FAMILY HISTORY: Noncontributory. REVIEW OF SYSTEMS: She has left-sided headache, dizziness, blurry vision but no nausea or vomiting, extremity weakness, or paresthesias. PHYSICAL EXAMINATION: General: Sedated. Vital Signs: Temperature 97.3, blood pressure 132/93, pulse 76, respiratory rate 20, SaO2 of 100% on room air. HEENT: Normocephalic, nontender. Moist mucous membranes. Anicteric sclerae. Oral mucosa dry. Neck: No mass. Lungs: Decreased breath sounds due to poor effort. Cardiovascular: Regular. Breasts: Left breast shows a large, firm mass associated with fixed adenopathy in the axilla. Abdomen: Soft, nondistended. Extremities: No edema. RADIOLOGIC DATA: See HPI. PATHOLOGIC DATA: Breast biopsy is reportedly at [facility] 4 years ago. LABORATORY DATA: WBC 7, hemoglobin 11.5, platelet count 407,000. Electrolytes within normal limits. BUN 29, creatinine 0.7. Calcium 8.8. Alkaline phosphatase 135. Albumin 3.1. IMPRESSION: A 56-year-old woman currently in a highly agitated state from withdrawal secondary to substance abuse which is being managed. She has a neglected left breast cancer, now most likely metastatic to the brain and bones. Craniotomy and decompression have been offered and declined by her son. I discussed with her son and daughter her overall poor prognosis in light of her stage IV cancer and comorbidity involving her substance abuse. We discussed potential biopsy of the breast to ascertain tumor markers to help guide systemic treatment options. We discussed palliative radiation therapy to the brain metastasis if surgical decompression is declined or following craniotomy postoperatively. We discussed the goals of care to be palliative in nature and will not extend survival. In her current state, she is not an appropriate candidate for any radiation therapy as she cannot cooperate with the treatments. If she clinically improves, palliative radiation therapy can be reconsidered. Otherwise, the option of conservative management and palliative care and/or hospice would not be unreasonable. Her son and [id number] understood very well and had the opportunity to ask all of their questions. Thank you for the courtesy of this consultation. MARINA ADAM M.D. GOKUL/[id number] MTDD
[2017-08-24] MEDS: PANTOPRAZOLE 40 MG TABLET (FP) PO SCH (16:02)
[2017-08-24] MEDS: THIAMINE HCL 100 MG TABLET (FP) PO SCH (16:02)
[2017-08-24] MEDS: FOLIC ACID 1 MG TABLET (FP) PO SCH (16:02)
[2017-08-24] MEDS: DIVALPROEX NA *ER* EXTEND REL 500 MG TABLET.SA (FP) PO SCH ×2 (16:03→22:10)
[2017-08-24] MEDS: NICOTINE 21 MG/24 HOURS TOPICAL PATCH TD SCH (16:03)
[2017-08-24] MEDS: OLANZapine 7.5 MG TABLET PO SCH (22:11)
[2017-08-25] MEDS: METHADONE HCL 10 MG TABLET PO SCH (05:57)
--- NOTE | 2017-08-25 11:43 | PN ---
Progress Note (short form) - Note Progress Note: Subjective: Patient was seen at the bedside, she is sleeping Current Medications Generic Name Dose Route Start Last Admin Trade Name Freq PRN Reason Stop Dose Admin Acetaminophen 650 mg 08/21/17 06:52 08/21/17 08:45 Tylenol Oral Solution - PO 650 mg Q6H PRN Administration PAIN LEVEL 1-5 Divalproex Sodium 500 mg 08/22/17 22:00 08/24/17 22:10 Depakote *Er* - PO 500 mg BID REBECCA Administration Folic Acid 1 mg 08/21/17 10:00 08/24/17 16:02 Folic Acid - PO 1 mg DAILY REBECCA Administration Methadone HCl 30 mg 08/22/17 06:00 08/25/17 05:57 Dolophine - PO 08/27/17 23:59 30 mg DAILY@0600 REBECCA Administration Nicotine 21 mg 08/20/17 16:00 08/24/17 16:03 Nicoderm Patch - TD 21 mg DAILY REBECCA Administration Olanzapine 2.5 mg 08/24/17 08:12 Zyprexa - PO Q8H PRN AGITATION Olanzapine 10 mg/ Olanzapine 5 15 mg 08/25/17 22:00 mg PO HS REBECCA Pantoprazole Sodium 40 mg 08/21/17 15:00 08/24/17 16:02 Protonix - PO 40 mg DAILY REBECCA Administration Thiamine HCl 100 mg 08/23/17 10:00 08/24/17 16:02 Vitamin B1 - PO 100 mg DAILY REBECCA Administration Objective: Vital Signs Period Temp Pulse Resp BP Sys/Camacho Pulse Ox Last 24 Hr 98.0 F-99.6 F 85-99 18-20 92-111/60-70 95 Physical Exam: Patient is sleeping CBCD WBC 7.0 K/mm3 (4.0-10.0) 08/23/17 09:30 RBC 3.75 M/mm3 (3.60-5.2) 08/23/17 09:30 Hgb 11.5 GM/dL (10.7-15.3) 08/23/17 09:30 Hct 34.5 % (32.4-45.2) D 08/23/17 09:30 MCV 92.1 fl (80-96) 08/23/17 09:30 MCHC 33.4 g/dl (32.0-36.0) 08/23/17 09:30 RDW 15.7 % (11.6-15.6) H 08/23/17 09:30 Plt Count 407 K/MM3 (134-434) 08/23/17 09:30 MPV 8.1 fl (7.5-11.1) 08/23/17 09:30 CMP Sodium 137 mmol/L (136-145) 08/23/17:30 Potassium 4.3 mmol/L (3.5-5.1) 08/23/17:30 Chloride 103 mmol/L (98-107) 08/23/17:30 Carbon Dioxide 27 mmol/L (21-32) 08/23/17:30 Anion Gap 7 (8-16) L 08/23/17:30 BUN 29 mg/dL (7-18) H 08/23/17 09:30 Creatinine 0.7 mg/dL (0.55-1.02) 08/23/17:30 Creat Clearance w eGFR > 60 (>60) 08/23/17:30 Random Glucose 107 mg/dL (74-106) H 08/23/17 09:30 Calcium 8.8 mg/dL (8.5-10.1) 08/23/17 09:30 Total Bilirubin 0.3 mg/dL (0.2-1.0) 08/23/17 09:30 AST 37 U/L (15-37) 08/23/17:30 ALT 22 U/L (12-78) 08/23/17 09:30 Alkaline Phosphatase 135 U/L (45-117) H 08/23/17:30 Total Protein 7.9 g/dl (6.4-8.2) 08/23/17:30 Albumin 3.1 g/dl (3.4-5.0) L 08/23/17 09:30 Assessment: This is a 56 year old female with PMHx of left breast cancer (dx 4 years ago, only had chemo x1), bipolar disorder, tobacco use, heroin and alcohol abuse, who presented to the ED from [facility] after falling and hitting her head. Plan: 1) Metastatic breast cancer - Left breast and axillary lymph node masses/enlargement - Head CT with hyperdense mass in the right middle cranial fossa, inferiorly measuring 2.8cm in maximum dimension with surrounding vasogenic edema involving the right temporal and posterior frontal lobe resulting in very minimal shift of the midline structures toward the left. Heterogeneous attenuation of the skull base adjacent to the mass as well as heterogenous attenuation of the right sphenoid wing and significant heterogeneous infiltration of the frontal bone - No steroids as it caused acute psychosis - Appreciate rad onc consult - Appreciate heme/onc consult 2) Agitation - Likely 2/2 acute alcohol/heroin withdrawal vs. effects from tumor? - 1:1 observation continues - Discussed with Dr. Pardo, patient is competent to make her own decisions at this time 2) Heroin abuse, acute alcohol withdrawal - Chronic, son reports about 10 bags a day - Continue Methadone maintenance - Librium detox complete 3) Bipolar disorder - Zyprexa 2.5mg q8h prn - Depakote - Appreciate psych consult 4) F/E/N: - Monitor electrolytes - Regular diet 5) Prophylaxis: - Heparin 5,000u sq tid - OOB ambulating 6) Dispo: - Requires continued inpatient care - Palliative care consult pending - Health care proxy signed in the chart - Discussed with son, he would like to look into hospice options CODE STATUS: FULL CODE Visit type - Emergency Visit Emergency Visit: Yes ED Registration Date: 08/20/17 Care time: The patient presented to the Emergency Department on the above date and was hospitalized for further evaluation of their emergent condition. - New Patient This patient is new to me today: No - Critical Care Critical Care patient: No
[2017-08-25] MEDS: NICOTINE 21 MG/24 HOURS TOPICAL PATCH TD SCH (12:05)
[2017-08-25] MEDS: THIAMINE HCL 100 MG TABLET (FP) PO SCH (12:05)
[2017-08-25] MEDS: FOLIC ACID 1 MG TABLET (FP) PO SCH (12:05)
[2017-08-25] MEDS: PANTOPRAZOLE 40 MG TABLET (FP) PO SCH (12:05)
[2017-08-25] MEDS: DIVALPROEX NA *ER* EXTEND REL 500 MG TABLET.SA (FP) PO SCH ×2 (12:21→21:17)
[2017-08-25] MEDS ORDERED: PT OWN MED DRAWER 7, Y5N ONE ×3 (12:21→20:36)
[2017-08-25] MEDS: ACETAMINOPHEN 650 MG/20.3 ML ORAL SOLUTION (CUPS) PO PRN (13:44)
--- NOTE | 2017-08-25 16:48 | PN ---
Progress Note (short form) - Note Progress Note: Patient seen and examined Lying perpendicular tobed with feet off bed sleeping awakened Aroused , non communicative. Last Vital Signs Temp Pulse Resp BP Pulse Ox 97.6 F 98 H 18 111/80 95 08/25/17 12:04 08/25/17 12:04 08/25/17 12:04 08/25/17 12:04 08/24/17 21:00 Lungs clear anteriorly Left breast mass CBC, BMP 08/23/17 09:30 08/23/17 09:30 Impression: Sedated Substance/detox metastatic breast ca Local /brain mets Does not seem a suitable candidate for treatment at this tiome.
[2017-08-25] MEDS: OLANZAPINE 10 MG, OLANZAPINE 5 MG PO SCH (21:17)
[2017-08-26] MEDS: ACETAMINOPHEN 650 MG/20.3 ML ORAL SOLUTION (CUPS) PO PRN ×2 (03:31→16:10)
[2017-08-26] MEDS: METHADONE HCL 10 MG TABLET PO SCH (06:12)
[2017-08-26] MEDS: DIVALPROEX NA *ER* EXTEND REL 500 MG TABLET.SA (FP) PO SCH ×2 (10:36→23:20)
[2017-08-26] MEDS: PANTOPRAZOLE 40 MG TABLET (FP) PO SCH (10:36)
[2017-08-26] MEDS: FOLIC ACID 1 MG TABLET (FP) PO SCH (10:36)
[2017-08-26] MEDS: NICOTINE 21 MG/24 HOURS TOPICAL PATCH TD SCH (10:36)
[2017-08-26] MEDS: THIAMINE HCL 100 MG TABLET (FP) PO SCH (10:36)
--- NOTE | 2017-08-26 14:56 | PN ---
Physical Exam: SUBJECTIVE: Patient seen and examined. She is very lethargic. Speech is slurred. OBJECTIVE: Vital Signs Period Temp Pulse Resp BP Sys/Camacho Pulse Ox Last 24 Hr 97 F-100.9 F 88-90 18-20 92-147/63-80 95 GENERAL: The patient is lethargic, arousable, in no acute distress. LUNGS: Breath sounds equal, clear to auscultation bilaterally, no wheezes, no crackles, no accessory muscle use. HEART: Regular rate and rhythm, S1, S2 without murmur, rub or gallop. ABDOMEN: Soft, nontender, nondistended, normoactive bowel sounds, no guarding, no rebound, no hepatosplenomegaly, no masses. EXTREMITIES: 2+ pulses, warm, well-perfused, no edema. Active Medications Generic Name Dose Route Start Last Admin Trade Name Freq PRN Reason Stop Dose Admin Acetaminophen 650 mg 08/21/17 06:52 08/26/17 03:31 Tylenol Oral Solution - PO 650 mg Q6H PRN Administration PAIN LEVEL 1-5 Divalproex Sodium 500 mg 08/22/17 22:00 08/26/17 10:36 Depakote *Er* - PO 500 mg BID REBECCA Administration Folic Acid 1 mg 08/21/17 10:00 08/26/17 10:36 Folic Acid - PO 1 mg DAILY REBECCA Administration Methadone HCl 30 mg 08/22/17 06:00 08/26/17 06:12 Dolophine - PO 08/27/17 23:59 30 mg DAILY@0600 REBECCA Administration Nicotine 21 mg 08/20/17 16:00 08/26/17 10:36 Nicoderm Patch - TD 21 mg DAILY REBECCA Administration Olanzapine 2.5 mg 08/24/17 08:12 Zyprexa - PO Q8H PRN AGITATION Olanzapine 10 mg/ Olanzapine 5 15 mg 08/25/17 22:00 08/25/17 21:17 mg PO 15 mg HS REBECCA Administration Pantoprazole Sodium 40 mg 08/21/17 15:00 08/26/17 10:36 Protonix - PO 40 mg DAILY REBECCA Administration Thiamine HCl 100 mg 08/23/17 10:00 08/26/17 10:36 Vitamin B1 - PO 100 mg DAILY REBECCA Administration ASSESSMENT/PLAN: This is a 56 year old woman with a history of left breast cancer, bipolar disorder, tobacco use, heroin use, alcohol abuse who presented to the ED from [facility] after falling and hitting her head. 1. Metastatic breast cancer - Left breast and axillary lymph node masses/enlargement - Head CT with hyperdense mass in the right middle cranial fossa, inferiorly measuring 2.8cm in maximum dimension with surrounding vasogenic edema involving the right temporal and posterior frontal lobe resulting in very minimal shift of the midline structures toward the left. Heterogeneous attenuation of the skull base adjacent to the mass as well as heterogenous attenuation of the right sphenoid wing and significant heterogeneous infiltration of the frontal bone - Not on steroids as it caused acute psychosis 2. Agitation - Secondary to acute alcohol/heroin withdrawal and brain metastases - Continue Zyprexa 3. Opioid dependence - Continue Methadone 4. Acute alcohol withdrawal, uncomplicated - Completed Librium 5. Continuous alcohol dependence - Continue thiamine, folic acid 6. Nicotine dependence - Continue nicotine patch 7. Bipolar disorder - Continue Depakote, Zyprexa 8. Disposition - Awaiting hospice evaluation Visit type - Emergency Visit Emergency Visit: Yes ED Registration Date: 08/20/17 Care time: The patient presented to the Emergency Department on the above date and was hospitalized for further evaluation of their emergent condition. - New Patient This patient is new to me today: Yes Date on this admission: 08/26/17 - Critical Care Critical Care patient: No - Discharge Referral Referred to [facility] No
[2017-08-26] MEDS ORDERED: PT OWN MED DRAWER 7, Y5N ONE (20:50)
[2017-08-26] MEDS: OLANZAPINE 10 MG, OLANZAPINE 5 MG PO SCH (23:18)
[2017-08-27] MEDS: METHADONE HCL 10 MG TABLET PO SCH (06:53)
[2017-08-27] MEDS: ACETAMINOPHEN 650 MG/20.3 ML ORAL SOLUTION (CUPS) PO PRN (06:57)
[2017-08-27] MEDS ORDERED: PT OWN MED DRAWER 7, Y5N ONE ×5 (09:39→20:38)
[2017-08-27] MEDS: PANTOPRAZOLE 40 MG TABLET (FP) PO SCH (09:40)
[2017-08-27] MEDS: THIAMINE HCL 100 MG TABLET (FP) PO SCH (09:40)
[2017-08-27] MEDS: FOLIC ACID 1 MG TABLET (FP) PO SCH (09:40)
[2017-08-27] MEDS: NICOTINE 21 MG/24 HOURS TOPICAL PATCH TD SCH (09:40)
[2017-08-27] MEDS: DIVALPROEX NA *ER* EXTEND REL 500 MG TABLET.SA (FP) PO SCH ×2 (09:41→22:39)
[2017-08-27] MEDS ORDERED: NICOTINE POLACRILEX 2 MG GUM BUC PRN (11:16)
[2017-08-27] MEDS: OLANZapine 2.5 MG TABLET PO PRN ×2 (12:06→14:29)
[2017-08-27] MEDS: LORazepam 0.5 MG TABLET PO PRN (12:30)
--- NOTE | 2017-08-27 17:10 | PN ---
Physical Exam: SUBJECTIVE: Patient seen and examined. She is agitated at times. She denies pain. She wants to smoke. OBJECTIVE: Vital Signs Period Temp Pulse Resp BP Sys/Camacho Pulse Ox Last 24 Hr 98.3 F-99.5 F 78-94 18-18 103-133/62-74 GENERAL: The patient is lethargic, arousable, in no acute distress. LUNGS: Breath sounds equal, clear to auscultation bilaterally, no wheezes, no crackles, no accessory muscle use. HEART: Regular rate and rhythm, S1, S2 without murmur, rub or gallop. ABDOMEN: Soft, nontender, nondistended, normoactive bowel sounds, no guarding, no rebound, no hepatosplenomegaly, no masses. EXTREMITIES: 2+ pulses, warm, well-perfused, no edema. Active Medications Generic Name Dose Route Start Last Admin Trade Name Freq PRN Reason Stop Dose Admin Acetaminophen 650 mg 08/21/17 06:52 08/27/17 06:57 Tylenol Oral Solution - PO 650 mg Q6H PRN Administration PAIN LEVEL 1-5 Divalproex Sodium 500 mg 08/22/17 22:00 08/27/17 09:41 Depakote *Er* - PO 500 mg BID REBECCA Administration Folic Acid 1 mg 08/21/17 10:00 08/27/17 09:40 Folic Acid - PO 1 mg DAILY REBECCA Administration Lorazepam 0.5 mg 08/27/17 12:10 08/27/17 12:30 Ativan - PO 0.5 mg TID PRN Administration AGITATION Methadone HCl 30 mg 08/22/17 06:00 08/27/17 06:53 Dolophine - PO 08/27/17 23:59 30 mg DAILY@0600 REBECCA Administration Nicotine 21 mg 08/20/17 16:00 08/27/17 09:40 Nicoderm Patch - TD 21 mg DAILY REBECCA Administration Nicotine Polacrilex 2 mg 08/27/17 11:16 Nicorette Gum - BUC Q2H PRN NICOTINE REPLACEMENT RX Olanzapine 2.5 mg 08/24/17 08:12 08/27/17 14:29 Zyprexa - PO 2.5 mg Q8H PRN Administration AGITATION Olanzapine 10 mg/ Olanzapine 5 15 mg 08/25/17 22:00 08/26/17 23:18 mg PO 15 mg HS REBECCA Administration Pantoprazole Sodium 40 mg 08/21/17 15:00 08/27/17 09:40 Protonix - PO 40 mg DAILY REBECCA Administration Thiamine HCl 100 mg 08/23/17 10:00 08/27/17 09:40 Vitamin B1 - PO 100 mg DAILY REBECCA Administration ASSESSMENT/PLAN: This is a 56 year old woman with a history of left breast cancer, bipolar disorder, tobacco use, heroin use, alcohol abuse who presented to the ED from [facility] after falling and hitting her head. 1. Metastatic breast cancer - Left breast and axillary lymph node masses/enlargement - Head CT with hyperdense mass in the right middle cranial fossa, inferiorly measuring 2.8cm in maximum dimension with surrounding vasogenic edema involving the right temporal and posterior frontal lobe resulting in very minimal shift of the midline structures toward the left. Heterogeneous attenuation of the skull base adjacent to the mass as well as heterogenous attenuation of the right sphenoid wing and significant heterogeneous infiltration of the frontal bone - Not on steroids as it caused acute psychosis 2. Agitation - Secondary to acute alcohol/heroin withdrawal and brain metastases - Continue Zyprexa 3. Opioid dependence - Continue Methadone 4. Acute alcohol withdrawal, uncomplicated - Completed Librium 5. Continuous alcohol dependence - Continue thiamine, folic acid 6. Nicotine dependence - Continue nicotine patch 7. Bipolar disorder - Continue Depakote, Zyprexa - Ativan, Zyprexa as needed for agitation 8. Disposition - Awaiting evaluation by [facility] Visit type - Emergency Visit Emergency Visit: Yes ED Registration Date: 08/20/17 Care time: The patient presented to the Emergency Department on the above date and was hospitalized for further evaluation of their emergent condition. - New Patient This patient is new to me today: No - Critical Care Critical Care patient: No - Discharge Referral Referred to [facility] No
[2017-08-27] MEDS: OLANZAPINE 10 MG, OLANZAPINE 5 MG PO SCH (23:01)
[2017-08-28] MEDS: ACETAMINOPHEN 650 MG/20.3 ML ORAL SOLUTION (CUPS) PO PRN (08:35)
[2017-08-28] MEDS ORDERED: PT OWN MED DRAWER 7, Y5N ONE (09:09)
[2017-08-28] MEDS: PANTOPRAZOLE 40 MG TABLET (FP) PO SCH (09:11)
[2017-08-28] MEDS: FOLIC ACID 1 MG TABLET (FP) PO SCH (09:11)
[2017-08-28] MEDS: DIVALPROEX NA *ER* EXTEND REL 500 MG TABLET.SA (FP) PO SCH ×2 (09:11→21:06)
[2017-08-28] MEDS: THIAMINE HCL 100 MG TABLET (FP) PO SCH (09:11)
[2017-08-28] MEDS: NICOTINE 21 MG/24 HOURS TOPICAL PATCH TD SCH (09:11)
[2017-08-28] MEDS: POLYETHYLENE GLYCOL 3350 119 GM BTL PO SCH ×2 (10:44→21:07)
[2017-08-28] MEDS: LORazepam 0.5 MG TABLET PO PRN ×2 (10:44→13:42)
--- NOTE | 2017-08-28 11:39 | PN ---
Physical Exam: SUBJECTIVE: Patient seen and examined at bedside. 1:1 sitter present. OBJECTIVE: Vital Signs Period Temp Pulse Resp BP Sys/Camacho Pulse Ox Last 24 Hr 97.9 F-98.8 F 88-95 18-20 129-134/60-75 95 GENERAL: At first was asleep but easily arousable. Irritable, cursing. Threatening to hurt anyone who touches her. Unsteady gait. LUNGS: Breath sounds equal, clear to auscultation bilaterally, no wheezes, no crackles, no accessory muscle use. Left breast small, hard nodule. HEART: Regular rate and rhythm, S1, S2 without murmur, rub or gallop. ABDOMEN: Soft, nontender, nondistended EXTREMITIES: 2+ pulses, warm, well-perfused, no edema. No calf tenderness. NEUROLOGICAL: Cranial nerves II through XII grossly intact. Speech is slow and slurred from sedation. Active Medications Generic Name Dose Route Start Last Admin Trade Name Freq PRN Reason Stop Dose Admin Acetaminophen 650 mg 08/21/17 06:52 08/28/17 08:35 Tylenol Oral Solution - PO 650 mg Q6H PRN Administration PAIN LEVEL 1-5 Divalproex Sodium 500 mg 08/22/17 22:00 08/28/17 09:11 Depakote *Er* - PO 500 mg BID REBECCA Administration Docusate Sodium 300 mg 08/28/17 22:00 Colace - PO HS REBECCA Folic Acid 1 mg 08/21/17 10:00 08/28/17 09:11 Folic Acid - PO 1 mg DAILY REBECCA Administration Lorazepam 0.5 mg 08/27/17 12:10 08/28/17 10:44 Ativan - PO 0.5 mg TID PRN Administration AGITATION Nicotine 21 mg 08/20/17 16:00 08/28/17 09:11 Nicoderm Patch - TD 21 mg DAILY REBECCA Administration Nicotine Polacrilex 2 mg 08/27/17 11:16 Nicorette Gum - BUC Q2H PRN NICOTINE REPLACEMENT RX Olanzapine 2.5 mg 08/24/17 08:12 08/27/17 14:29 Zyprexa - PO 2.5 mg Q8H PRN Administration AGITATION Olanzapine 10 mg/ Olanzapine 5 15 mg 08/25/17 22:00 08/27/17 23:01 mg PO 15 mg HS REBECCA Administration Pantoprazole Sodium 40 mg 08/21/17 15:00 08/28/17 09:11 Protonix - PO 40 mg DAILY REBECCA Administration Polyethylene Glycol 17 gm 08/28/17 10:00 08/28/17 10:44 Miralax (For Daily Use) - PO 17 gm BID REBECCA Administration Thiamine HCl 100 mg 08/23/17 10:00 08/28/17 09:11 Vitamin B1 - PO 100 mg DAILY REBECCA Administration ASSESSMENT/PLAN: 56 year-old female with a PMH significant for left breast cancer, bipolar disorder, tobacco use, heroin use, alcohol abuse who presented to the ED from [facility] after falling and hitting her head. Metastatic breast cancer - Left breast and axillary lymph node masses/enlargement - Head CT with hyperdense mass in the right middle cranial fossa, inferiorly measuring 2.8cm in maximum dimension with surrounding vasogenic edema involving the right temporal and posterior frontal lobe resulting in very minimal shift of the midline structures toward the left. Heterogeneous attenuation of the skull base adjacent to the mass as well as heterogenous attenuation of the right sphenoid wing and significant heterogeneous infiltration of the frontal bone - Not on steroids as it caused acute psychosis Agitation - Secondary to acute alcohol/heroin withdrawal and brain metastases - Continue Zyprexa Opioid dependence - Continue Methadone Acute alcohol withdrawal, uncomplicated - Completed Librium Continuous alcohol dependence - Continue thiamine, folic acid Nicotine dependence - Continue nicotine patch Bipolar disorder - Continue Depakote, Zyprexa - Ativan, Zyprexa as needed for agitation Disposition - Per SW, not a candidate for hospice; discussed with son Virgil Medina ). He is aware hospice not an option. Patient has been evicted, has no place to live. We discussed [facility] as possibly the best option. Alternative is to live with family, or go to a [facility]. Meeting with Virgil tomorrow at noon. Full code. Visit type - Emergency Visit Emergency Visit: Yes ED Registration Date: 08/20/17 Care time: The patient presented to the Emergency Department on the above date and was hospitalized for further evaluation of their emergent condition. - New Patient This patient is new to me today: Yes Date on this admission: 08/28/17 - Critical Care Critical Care patient: No
[2017-08-28] MEDS ORDERED: METHADONE HCL 10 MG TABLET PO STA (16:30)
[2017-08-28] MEDS ORDERED: LORazepam 0.5 MG TABLET PO ONE (16:45)
[2017-08-28] MEDS: METHADONE HCL 10 MG TABLET PO SCH (17:40)
[2017-08-28 19:49] VITALS: BMI 22.4
[2017-08-28] MEDS: DOCUSATE SODIUM 100 MG CAPSULE (FP) PO SCH (21:06)
[2017-08-28] MEDS: OLANZAPINE 10 MG, OLANZAPINE 5 MG PO SCH (21:07)
[2017-08-29] MEDS: METHADONE HCL 10 MG TABLET PO SCH (05:39)
[2017-08-29] MEDS: LORazepam 0.5 MG TABLET PO PRN ×2 (05:40→17:32)
[2017-08-29 08:01] LABS: BASO % 0.4 % (0-2.0); HEMATOCRIT 32.7 % (32.4-45.2); LYMPH % 34.8 % (8-40); MCH 30.9 pg (25.7-33.7); MCHC 33.5 g/dl (32.0-36.0); MEAN CELL VOLUME 92.1 fl (80-96); MEAN PLT VOLUME 8.8 fl (7.5-11.1); MONO % 9.8 % (3.8-10.2); PLATELET COUNT 358 K/MM3 (134-434); RBC 3.55 M/mm3 (3.60-5.2); RDW 15.7 % (11.6-15.6); WHITE BLOOD COUNT 5.1 K/mm3 (4.0-10.0)
[2017-08-29 08:14] LABS: INR 1.11 (0.82-1.09); PROTHROMBIN TIME (PATIENT) 12.5 SEC (9.7-13.0)
[2017-08-29 08:22] LABS: ALBUMIN 3.2 g/dl (3.4-5.0); ANION GAP 9 (8-16); BILIRUBIN,DIRECT < 0.2 mg/dL (0.0-0.2); BILIRUBIN,TOTAL 0.3 mg/dL (0.2-1.0); BLOOD UREA NITROGEN 25 mg/dL (7-18); CALCIUM 8.5 mg/dL (8.5-10.1); CHLORIDE 100 mmol/L (98-107); CO2 29 mmol/L (21-32); CREATININE 0.6 mg/dL (0.55-1.02); GLUCOSE,RANDOM 80 mg/dL (74-106); MAGNESIUM 2.4 mg/dL (1.8-2.4); POTASSIUM 4.6 mmol/L (3.5-5.1); SGOT/AST 56 U/L (15-37); SGPT/ALT 63 U/L (12-78); SODIUM 138 mmol/L (136-145); TOT PROT 8.1 g/dl (6.4-8.2)
[2017-08-29 08:23] LABS: ALK PHOS 141 U/L (45-117)
[2017-08-29] MEDS ORDERED: PT OWN MED DRAWER 7, Y5N ONE ×3 (10:08→22:29)
[2017-08-29] MEDS: DIVALPROEX NA *ER* EXTEND REL 500 MG TABLET.SA (FP) PO SCH ×2 (10:13→22:31)
[2017-08-29] MEDS: FOLIC ACID 1 MG TABLET (FP) PO SCH (10:13)
[2017-08-29] MEDS: POLYETHYLENE GLYCOL 3350 119 GM BTL PO SCH ×2 (10:14→22:31)
[2017-08-29] MEDS: THIAMINE HCL 100 MG TABLET (FP) PO SCH (10:14)
[2017-08-29] MEDS: PANTOPRAZOLE 40 MG TABLET (FP) PO SCH (10:14)
[2017-08-29] MEDS: NICOTINE 21 MG/24 HOURS TOPICAL PATCH TD SCH (10:14)
--- NOTE | 2017-08-29 12:31 | DS ---
Physical Exam: SUBJECTIVE: Patient seen and examined OBJECTIVE: Vital Signs Period Temp Pulse Resp BP Sys/Camacho Pulse Ox Last 24 Hr 97.5 F-97.8 F 85-89 16-20 120-153/71-90 95 PHYSICAL EXAM GENERAL: The patient is awake, alert, and fully oriented, in no acute distress. HEAD: Normal with no signs of trauma. EYES: PERRL, extraocular movements intact, sclera anicteric, conjunctiva clear. ENT: Ears normal, nares patent, oropharynx clear without exudates, moist mucous membranes. NECK: Trachea midline, full range of motion, supple. LUNGS: Breath sounds equal, clear to auscultation bilaterally, no wheezes, no crackles, no accessory muscle use. HEART: Regular rate and rhythm, S1, S2 without murmur, rub or gallop. ABDOMEN: Soft, nontender, nondistended, normoactive bowel sounds, no guarding, no rebound, no hepatosplenomegaly, no masses. EXTREMITIES: 2+ pulses, warm, well-perfused, no edema. NEUROLOGICAL: Cranial nerves II through XII grossly intact. Normal speech, gait not observed. PSYCH: Normal mood, normal affect. SKIN: Warm, dry, normal turgor, no rashes or lesions noted. LABS Laboratory Results - last 24 hr 08/29/17 08/29/17 08/29/17 06:30 06:30 06:30 WBC 5.1 RBC 3.55 L Hgb 11.0 Hct 32.7 MCV 92.1 MCH 30.9 MCHC 33.5 RDW 15.7 H Plt Count 358 MPV 8.8 Absolute Neuts (auto) 2.7 Neutrophils % 53.0 Lymphocytes % 34.8 D Monocytes % 9.8 Eosinophils % 2.0 D Basophils % 0.4 Nucleated RBC % 0 PT with INR 12.50 INR 1.11 Sodium 138 Potassium 4.6 Chloride 100 Carbon Dioxide 29 Anion Gap 9 BUN 25 H Creatinine 0.6 Creat Clearance w eGFR > 60 Random Glucose 80 Calcium 8.5 Magnesium 2.4 Total Bilirubin 0.3 Direct Bilirubin < 0.2 AST 56 H ALT 63 Alkaline Phosphatase 141 H Total Protein 8.1 Albumin 3.2 L HOSPITAL COURSE: Date of Admission:08/20/17 Date of Discharge: 08/29/17 Minutes to complete discharge: 35 Discharge Summary Reason For Visit: MALIGNANT NEOPLASM METASTATIC TO BRAIN Current Active Problems Nicotine dependence (Acute) Opioid dependence with withdrawal (Acute) 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 (Acute) Breast cancer (Chronic) Condition: Stable - Instructions Referrals: Hazel Ruvalcaba MD [Staff Physician] - Disposition: TRANSFER ACUTE CARE/OTHER HOSP - Home Medications Comprehensive Discharge Medication List: Ambulatory Orders Divalproex *ER* [Depakote *ER* -] 500 mg PO BID tablet.sa 08/29/17 Docusate Sodium [Colace -] 300 mg PO HS capsule 08/29/17 Folic Acid - 1 mg PO DAILY tablet 08/29/17 LORazepam [Ativan] 0.5 mg PO TID PRN #12 tablet MDD 3 08/29/17 Methadone [Dolophine -] 30 mg PO DAILY@0600 #10 tablet MDD 1 08/29/17 Nicotine Patch [Nicoderm Patch -] 21 mg TD DAILY patch 08/29/17 Nicotine Polacrilex [Nicorelief -] 2 mg BUC Q2H PRN gum 08/29/17 Olanzapine [Zyprexa -] 2.5 mg PO Q8H PRN tablet 08/29/17 Olanzapine [Zyprexa -] 15 mg PO HS tablet 08/29/17 Pantoprazole Sodium [Protonix -] 40 mg PO DAILY tablet.ec 08/29/17 Polyethylene Glycol 3350 [Miralax 119 gm Btl -] 17 gm PO BID bottle 08/29/17 Thiamine HCl [Vitamin B1 -] 100 mg PO DAILY tablet 08/29/17 - Discharge Referral Referred to [facility] No
[2017-08-29] MEDS: OLANZapine 2.5 MG TABLET PO PRN (12:48)
[2017-08-29] MEDS: DOCUSATE SODIUM 100 MG CAPSULE (FP) PO SCH (22:31)
[2017-08-29] MEDS: OLANZAPINE 10 MG, OLANZAPINE 5 MG PO SCH (22:31)
[2017-08-30] MEDS: METHADONE HCL 10 MG TABLET PO SCH (06:19)
[2017-08-30] MEDS ORDERED: PT OWN MED DRAWER 7, Y5N ONE ×4 (06:31→21:07)
[2017-08-30] MEDS: ACETAMINOPHEN 650 MG/20.3 ML ORAL SOLUTION (CUPS) PO PRN (08:08)
[2017-08-30] MEDS: DIVALPROEX NA *ER* EXTEND REL 500 MG TABLET.SA (FP) PO SCH ×2 (09:33→21:26)
[2017-08-30] MEDS: PANTOPRAZOLE 40 MG TABLET (FP) PO SCH (09:33)
[2017-08-30] MEDS: FOLIC ACID 1 MG TABLET (FP) PO SCH (09:33)
[2017-08-30] MEDS: POLYETHYLENE GLYCOL 3350 119 GM BTL PO SCH ×2 (09:33→21:25)
[2017-08-30] MEDS: NICOTINE 21 MG/24 HOURS TOPICAL PATCH TD SCH (09:34)
[2017-08-30] MEDS: OLANZapine 2.5 MG TABLET PO PRN (09:34)
[2017-08-30] MEDS: THIAMINE HCL 100 MG TABLET (FP) PO SCH (09:34)
[2017-08-30] MEDS ORDERED: LORazepam 0.5 MG TABLET PO SCH (10:15)
[2017-08-30] MEDS ORDERED: OLANZapine 5 MG TABLET PO PRN (10:33)
[2017-08-30] MEDS ORDERED: SODIUM PHOSPHATE/NA BIPHOS 133 ML ENEMA PR ONE (10:39)
[2017-08-30] MEDS ORDERED: HALOPERIDOL LACTATE 5 MG/ML IM ONE (10:47)
[2017-08-30] MEDS ORDERED: LORazepam 2 MG/ML SDV VIAL IM ONE (11:00)
[2017-08-30] MEDS ORDERED: METHADONE HCL 10 MG TABLET PO SCH (11:17)
--- NOTE | 2017-08-30 11:34 | PN ---
Physical Exam: SUBJECTIVE: Patient seen and examined. OBJECTIVE: Vital Signs Period Temp Pulse Resp BP Sys/Camacho Pulse Ox Last 24 Hr 97.6 F-98 F 76-88 20-20 102-142/74-74 95 GENERAL: Alternates between lethargic and screaming, agitated, physically agressive LUNGS: Breath sounds equal, clear to auscultation bilaterally, no wheezes, no crackles, no accessory muscle use. HEART: Regular rate and rhythm, S1, S2 without murmur, rub or gallop. ABDOMEN: Soft, nontender, nondistended, normoactive bowel sounds, no guarding, no rebound, no hepatosplenomegaly, no masses. EXTREMITIES: 2+ pulses, warm, well-perfused, no edema. Active Medications Generic Name Dose Route Start Last Admin Trade Name Freq PRN Reason Stop Dose Admin Acetaminophen 650 mg 08/21/17 06:52 08/30/17 08:08 Tylenol Oral Solution - PO 650 mg Q6H PRN Administration PAIN LEVEL 1-5 Divalproex Sodium 500 mg 08/22/17 22:00 08/30/17 09:33 Depakote *Er* - PO 500 mg BID REBECCA Administration Docusate Sodium 300 mg 08/28/17 22:00 08/29/17 22:31 Colace - PO 300 mg HS REBECCA Administration Folic Acid 1 mg 08/21/17 10:00 08/30/17 09:33 Folic Acid - PO 1 mg DAILY REBECCA Administration Lorazepam 1 mg 08/30/17 10:15 Ativan - PO TID REBECCA Methadone HCl 80 mg 08/30/17 11:17 Dolophine - PO DAILY@0600 REBECCA Nicotine 21 mg 08/20/17 16:00 08/30/17 09:34 Nicoderm Patch - TD 21 mg DAILY REBECCA Administration Nicotine Polacrilex 2 mg 08/27/17 11:16 Nicorette Gum - BUC Q2H PRN NICOTINE REPLACEMENT RX Olanzapine 10 mg/ Olanzapine 5 15 mg 08/25/17 22:00 08/29/17 22:31 mg PO 15 mg HS REBECCA Administration Olanzapine 5 mg 08/30/17 10:33 Zyprexa - PO Q8H PRN AGITATION Pantoprazole Sodium 40 mg 08/21/17 15:00 08/30/17 09:33 Protonix - PO 40 mg DAILY REBECCA Administration Polyethylene Glycol 17 gm 08/28/17 10:00 08/30/17 09:33 Miralax (For Daily Use) - PO 17 gm BID REBECCA Administration Thiamine HCl 100 mg 08/23/17 10:00 08/30/17 09:34 Vitamin B1 - PO 100 mg DAILY REBECCA Administration ASSESSMENT/PLAN This is a 56 year old woman with a history of left breast cancer, bipolar disorder, tobacco use, heroin use, alcohol abuse who presented to the ED from [facility] after falling and hitting her head. 1. Metastatic breast cancer - Left breast and axillary lymph node masses/enlargement - Head CT with hyperdense mass in the right middle cranial fossa, inferiorly measuring 2.8cm in maximum dimension with surrounding vasogenic edema involving the right temporal and posterior frontal lobe resulting in very minimal shift of the midline structures toward the left. Heterogeneous attenuation of the skull base adjacent to the mass as well as heterogenous attenuation of the right sphenoid wing and significant heterogeneous infiltration of the frontal bone - Not on steroids as it caused acute psychosis --seen and evaluated by oncology, neurology: not a candidate for further treatment 2. Agitation --multifactorial: long-term alcohol/opioid abuse, bipolar disorder, severe metastatic disease to the brain --continue Depakote, Zyprexa, ativan, methadone --continue 1:1 --re-consult Dr. Pardo 3. Opioid dependence - Continue Methadone 4. Acute alcohol withdrawal, uncomplicated - Completed Librium 5. Alcohol dependence - Continue thiamine, folic acid 6. Nicotine dependence - Continue nicotine patch 7. Bipolar disorder - Continue Depakote, Zyprexa - Ativan, Zyprexa as needed for agitation 8. Disposition: continues to require inpatient care. Full code. Visit type - Emergency Visit Emergency Visit: Yes ED Registration Date: 08/20/17 Care time: The patient presented to the Emergency Department on the above date and was hospitalized for further evaluation of their emergent condition. - New Patient This patient is new to me today: Yes Date on this admission: 08/30/17 - Critical Care Critical Care patient: No
--- NOTE | 2017-08-30 11:46 | PN ---
Physical Exam: SUBJECTIVE: Patient seen and examined OBJECTIVE: Vital Signs Period Temp Pulse Resp BP Sys/Camacho Pulse Ox Last 24 Hr 97.6 F-98 F 76-88 20-20 102-142/74-74 95 GENERAL: Alternates between lethargic and screaming, agitated, physically agressive LUNGS: Breath sounds equal, clear to auscultation bilaterally, no wheezes, no crackles, no accessory muscle use. HEART: Regular rate and rhythm, S1, S2 without murmur, rub or gallop. ABDOMEN: Soft, nontender, nondistended, normoactive bowel sounds, no guarding, no rebound, no hepatosplenomegaly, no masses. EXTREMITIES: 2+ pulses, warm, well-perfused, no edema. Active Medications Generic Name Dose Route Start Last Admin Trade Name Freq PRN Reason Stop Dose Admin Acetaminophen 650 mg 08/21/17 06:52 08/30/17 08:08 Tylenol Oral Solution - PO 650 mg Q6H PRN Administration PAIN LEVEL 1-5 Divalproex Sodium 500 mg 08/22/17 22:00 08/30/17 09:33 Depakote *Er* - PO 500 mg BID REBECCA Administration Docusate Sodium 300 mg 08/28/17 22:00 08/29/17 22:31 Colace - PO 300 mg HS REBECCA Administration Folic Acid 1 mg 08/21/17 10:00 08/30/17 09:33 Folic Acid - PO 1 mg DAILY REBECCA Administration Lorazepam 1 mg 08/30/17 10:15 Ativan - PO TID REBECCA Methadone HCl 80 mg 08/30/17 11:17 Dolophine - PO DAILY@0600 REBECCA Nicotine 21 mg 08/20/17 16:00 08/30/17 09:34 Nicoderm Patch - TD 21 mg DAILY REBECCA Administration Nicotine Polacrilex 2 mg 08/27/17 11:16 Nicorette Gum - BUC Q2H PRN NICOTINE REPLACEMENT RX Olanzapine 10 mg/ Olanzapine 5 15 mg 08/25/17 22:00 08/29/17 22:31 mg PO 15 mg HS REBECCA Administration Olanzapine 5 mg 08/30/17 10:33 Zyprexa - PO Q8H PRN AGITATION Pantoprazole Sodium 40 mg 08/21/17 15:00 08/30/17 09:33 Protonix - PO 40 mg DAILY REBECCA Administration Polyethylene Glycol 17 gm 08/28/17 10:00 08/30/17 09:33 Miralax (For Daily Use) - PO 17 gm BID REBECCA Administration Thiamine HCl 100 mg 08/23/17 10:00 08/30/17 09:34 Vitamin B1 - PO 100 mg DAILY REBECCA Administration ASSESSMENT/PLAN: This is a 56 year old woman with a history of left breast cancer, bipolar disorder, tobacco use, heroin use, alcohol abuse who presented to the ED from [facility] after falling and hitting her head. 1. Metastatic breast cancer - Left breast and axillary lymph node masses/enlargement - Head CT with hyperdense mass in the right middle cranial fossa, inferiorly measuring 2.8cm in maximum dimension with surrounding vasogenic edema involving the right temporal and posterior frontal lobe resulting in very minimal shift of the midline structures toward the left. Heterogeneous attenuation of the skull base adjacent to the mass as well as heterogenous attenuation of the right sphenoid wing and significant heterogeneous infiltration of the frontal bone - Not on steroids as it caused acute psychosis --seen and evaluated by oncology, neurology: not a candidate for further treatment 2. Agitation --multifactorial: long-term alcohol/opioid abuse, bipolar disorder, severe metastatic disease to the brain --discussed case with Dr. Pardo (psych), Dr. Haskins (detox/pain) --Haldol/Ativan x 1; wrist restraints and mittens, patient finally calm, breathing unlabored, VSS --will titrate methadone and add short-acting oxycodone; increased zyprexa to 5mg --continue 1:1 Disposition: son and his met with palliative care, SW, case management; plan is for SNF hospice placement once patient's agitation is under control. Full code at this time. Visit type - Emergency Visit Emergency Visit: Yes ED Registration Date: 08/20/17 Care time: The patient presented to the Emergency Department on the above date and was hospitalized for further evaluation of their emergent condition. - New Patient This patient is new to me today: No - Critical Care Critical Care patient: No
[2017-08-30] MEDS ORDERED: OLANZapine 5 MG TABLET PO SCH ×2 (12:15→20:00)
[2017-08-30] MEDS ORDERED: oxyCODONE HCL 5 MG TABLET PO SCH (12:30)
[2017-08-30] MEDS ORDERED: LORazepam 0.5 MG TABLET PO PRN (12:48)
--- NOTE | 2017-08-30 18:10 | PN ---
Progress Note (short form) - Note Progress Note: Case discussed with Medical attending. plan is to send patient for [facility] care. She continues to be on 1:1 for behavioral disruptions. Continues to not responds to staffs instructions. This is delaying her transfer to Hospice. She sleeps a littile with PRN injections Patient is not coperative with care and very disorganized and impulsive and aggressive. PLan" Medicate aggressively to enable transfer to [facility] care. 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
[2017-08-30] MEDS: clonazePAM 2 MG TABLET PO SCH (21:26)
[2017-08-30] MEDS: DOCUSATE SODIUM 100 MG CAPSULE (FP) PO SCH (21:26)
[2017-08-30] MEDS: oxyCODONE HCL 5 MG TABLET PO SCH (21:26)
[2017-08-30] MEDS: OLANZapine 5 MG TABLET PO SCH (21:26)
[2017-08-31] MEDS ORDERED: METHADONE HCL 40 MG DISPERSABLE TABLET PO SCH ×2 (06:00)
[2017-08-31] MEDS: oxyCODONE HCL 5 MG TABLET PO SCH ×3 (06:45→23:56)
[2017-08-31] MEDS: METHADONE HCL 10 MG TABLET PO SCH ×2 (06:45→17:16)
[2017-08-31] MEDS ORDERED: PT OWN MED DRAWER 7, Y5N ONE (09:10)
[2017-08-31] MEDS: THIAMINE HCL 100 MG TABLET (FP) PO SCH (09:14)
[2017-08-31] MEDS: PANTOPRAZOLE 40 MG TABLET (FP) PO SCH (09:14)
[2017-08-31] MEDS: FOLIC ACID 1 MG TABLET (FP) PO SCH (09:14)
[2017-08-31] MEDS: NICOTINE 21 MG/24 HOURS TOPICAL PATCH TD SCH (09:14)
[2017-08-31] MEDS: clonazePAM 2 MG TABLET PO SCH ×2 (09:14→23:56)
[2017-08-31] MEDS: DIVALPROEX NA *ER* EXTEND REL 500 MG TABLET.SA (FP) PO SCH ×2 (09:15→23:54)
[2017-08-31] MEDS: OLANZapine 5 MG TABLET PO SCH ×2 (09:15→23:54)
[2017-08-31] MEDS: POLYETHYLENE GLYCOL 3350 119 GM BTL PO SCH ×2 (09:21→23:56)
--- NOTE | 2017-08-31 10:39 | PN ---
Physical Exam: SUBJECTIVE: Patient seen and examined at bedside. 1:1 sitter present. Has not observed any outbursts this morning. OBJECTIVE: Vital Signs Period Temp Pulse Resp BP Sys/Camacho Pulse Ox Last 24 Hr 98.1 F-98.7 F 70-93 14-20 98-158/65-103 95 GENERAL: Sleeping but arousable. Calmer. LUNGS: Breath sounds equal, clear to auscultation bilaterally, no wheezes, no crackles, no accessory muscle use. HEART: Regular rate and rhythm, S1, S2 without murmur, rub or gallop. ABDOMEN: Soft, nontender, nondistended EXTREMITIES: 2+ pulses, warm, well-perfused, no edema. Active Medications Generic Name Dose Route Start Last Admin Trade Name Freq PRN Reason Stop Dose Admin Acetaminophen 650 mg 08/21/17 06:52 08/30/17 08:08 Tylenol Oral Solution - PO 650 mg Q6H PRN Administration PAIN LEVEL 1-5 Clonazepam 2 mg 08/30/17 22:00 08/31/17 09:14 Klonopin - PO 2 mg BID REBECCA Administration Divalproex Sodium 500 mg 08/22/17 22:00 08/31/17 09:15 Depakote *Er* - PO 500 mg BID REBECCA Administration Docusate Sodium 300 mg 08/28/17 22:00 08/30/17 21:26 Colace - PO 300 mg HS REBECCA Administration Folic Acid 1 mg 08/21/17 10:00 08/31/17 09:14 Folic Acid - PO 1 mg DAILY REBECCA Administration Methadone HCl 20 mg 08/31/17 06:00 08/31/17 06:45 Dolophine - PO 20 mg Q12H REBECCA Administration Nicotine 21 mg 08/20/17 16:00 08/31/17 09:14 Nicoderm Patch - TD 21 mg DAILY REBECCA Administration Nicotine Polacrilex 2 mg 08/27/17 11:16 Nicorette Gum - BUC Q2H PRN NICOTINE REPLACEMENT RX Olanzapine 15 mg 08/30/17 22:00 08/31/17 09:15 Zyprexa - PO 15 mg BID REBECCA Administration Oxycodone HCl 5 mg 08/30/17 22:00 08/31/17 06:45 Roxicodone - PO 5 mg Q8H REBECCA Administration Pantoprazole Sodium 40 mg 08/21/17 15:00 07/19/18 09:14 Protonix - PO 40 mg DAILY REBECCA Administration Polyethylene Glycol 17 gm 08/28/17 10:00 08/31/17 09:21 Miralax (For Daily Use) - PO 17 gm BID REBECCA Administration Thiamine HCl 100 mg 08/23/17 10:00 08/31/17 09:14 Vitamin B1 - PO 100 mg DAILY REBECCA Administration This is a 56 year old woman with a history of left breast cancer, bipolar disorder, tobacco use, heroin use, alcohol abuse who presented to the ED from [facility] after falling and hitting her head. 1. Metastatic breast cancer - Left breast and axillary lymph node masses/enlargement - Head CT with hyperdense mass in the right middle cranial fossa, inferiorly measuring 2.8cm in maximum dimension with surrounding vasogenic edema involving the right temporal and posterior frontal lobe resulting in very minimal shift of the midline structures toward the left. Heterogeneous attenuation of the skull base adjacent to the mass as well as heterogenous attenuation of the right sphenoid wing and significant heterogeneous infiltration of the frontal bone - Not on steroids as it caused acute psychosis --seen and evaluated by oncology, neurology: not a candidate for further treatment 2. Agitation --multifactorial: long-term alcohol/opioid abuse, bipolar disorder, severe metastatic disease to the brain --discussed case yesterday at length with Dr. Pardo (psych), Dr. Haskins ( detox/pain) --current regimen: clonazepam 2mg BID; depakote 500mg BID; methadone 20mg q12h; olanzapine 15mg BID; oxycodone 5mg q8h; these are all scheduled meds --monitor closely for agitation v. oversedation --continue 1:1 Disposition: son and his met with palliative care, SW, case management yesterday; plan is for SNF hospice placement once patient's agitation is under control. Full code at this time. Visit type - Emergency Visit Emergency Visit: Yes ED Registration Date: 08/20/17 Care time: The patient presented to the Emergency Department on the above date and was hospitalized for further evaluation of their emergent condition. - New Patient This patient is new to me today: No - Critical Care Critical Care patient: No
[2017-08-31] MEDS: BISACODYL 10 MG SUPP.RECT RC PRN (19:40)
[2017-08-31] MEDS: DOCUSATE SODIUM 100 MG CAPSULE (FP) PO SCH (23:54)
[2017-09-01] MEDS: oxyCODONE HCL 5 MG TABLET PO SCH ×3 (06:46→22:17)
[2017-09-01] MEDS: METHADONE HCL 10 MG TABLET PO SCH ×2 (06:46→17:40)
[2017-09-01] MEDS ORDERED: PT OWN MED DRAWER 7, Y5N ONE ×2 (09:12→16:21)
[2017-09-01] MEDS: THIAMINE HCL 100 MG TABLET (FP) PO SCH (09:18)
[2017-09-01] MEDS: BISACODYL 10 MG SUPP.RECT RC PRN (09:18)
[2017-09-01] MEDS: clonazePAM 2 MG TABLET PO SCH ×2 (09:18→22:17)
[2017-09-01] MEDS: FOLIC ACID 1 MG TABLET (FP) PO SCH (09:18)
[2017-09-01] MEDS: DIVALPROEX NA *ER* EXTEND REL 500 MG TABLET.SA (FP) PO SCH ×2 (09:18→22:17)
[2017-09-01] MEDS: NICOTINE 21 MG/24 HOURS TOPICAL PATCH TD SCH (09:18)
[2017-09-01] MEDS: PANTOPRAZOLE 40 MG TABLET (FP) PO SCH (09:18)
[2017-09-01] MEDS: OLANZapine 5 MG TABLET PO SCH ×2 (09:22→22:16)
[2017-09-01] MEDS: POLYETHYLENE GLYCOL 3350 119 GM BTL PO SCH ×2 (09:22→23:34)
--- NOTE | 2017-09-01 11:13 | PN ---
Progress Note (short form) - Note Progress Note: Patient seen Prior notes reviewed Metastatic breast ca Aggressive behavior disorder Pain management issues Not a candidate for chemotherapy For hospice when feasible.
--- NOTE | 2017-09-01 11:50 | PN ---
Progress Note (short form) - Note Progress Note: Subjective: Patient was seen at the bedside, she is sleeping Current Medications Generic Name Dose Route Start Last Admin Trade Name Freq PRN Reason Stop Dose Admin Acetaminophen 650 mg 08/21/17 06:52 08/30/17 08:08 Tylenol Oral Solution - PO 650 mg Q6H PRN Administration PAIN LEVEL 1-5 Bisacodyl 10 mg 08/31/17 17:29 09/01/17 09:18 Dulcolax Suppository - RC 10 mg Q24H PRN Administration CONSTIPATION Clonazepam 2 mg 08/30/17 22:00 09/01/17 09:18 Klonopin - PO 2 mg BID REBECCA Administration Divalproex Sodium 500 mg 08/22/17 22:00 09/01/17 09:18 Depakote *Er* - PO 500 mg BID REBECCA Administration Docusate Sodium 300 mg 08/28/17 22:00 08/31/17 23:54 Colace - PO 300 mg HS REBECAC Administration Folic Acid 1 mg 08/21/17 10:00 09/01/17 09:18 Folic Acid - PO 1 mg DAILY REBECCA Administration Methadone HCl 20 mg 08/31/17 06:00 09/01/17 06:46 Dolophine - PO 20 mg Q12H REBECCA Administration Nicotine 21 mg 08/20/17 16:00 09/01/17 09:18 Nicoderm Patch - TD 21 mg DAILY REBECCA Administration Nicotine Polacrilex 2 mg 08/27/17 11:16 Nicorette Gum - BUC Q2H PRN NICOTINE REPLACEMENT RX Olanzapine 15 mg 08/30/17 22:00 09/01/17 09:22 Zyprexa - PO 15 mg BID REBECCA Administration Oxycodone HCl 5 mg 08/30/17 22:00 09/01/17 06:46 Roxicodone - PO 5 mg Q8H REBECCA Administration Pantoprazole Sodium 40 mg 08/21/17 15:00 09/01/17 09:18 Protonix - PO 40 mg DAILY REBECCA Administration Polyethylene Glycol 17 gm 08/28/17 10:00 09/01/17 09:22 Miralax (For Daily Use) - PO 17 gm BID REBECCA Administration Thiamine HCl 100 mg 08/23/17 10:00 09/01/17 09:18 Vitamin B1 - PO 100 mg DAILY REBECCA Administration Objective: Vital Signs Period Temp Pulse Resp BP Sys/Camacho Pulse Ox Last 24 Hr 97.5 F-99.7 F 90-102 18-20 100-146/62-90 90 Physical Exam: Patient is sleeping CBCD WBC 5.1 K/mm3 (4.0-10.0) 08/29/17 06:30 RBC 3.55 M/mm3 (3.60-5.2) L 08/29/17 06:30 Hgb 11.0 GM/dL (10.7-15.3) 08/29/17 06:30 Hct 32.7 % (32.4-45.2) 08/29/17 06:30 MCV 92.1 fl (80-96) 08/29/17 06:30 MCHC 33.5 g/dl (32.0-36.0) 08/29/17 06:30 RDW 15.7 % (11.6-15.6) H 08/29/17 06:30 Plt Count 358 K/MM3 (134-434) 08/29/17 06:30 MPV 8.8 fl (7.5-11.1) 08/29/17 06:30 CMP Sodium 138 mmol/L (136-145) 08/29/17 06:30 Potassium 4.6 mmol/L (3.5-5.1) 08/29/17 06:30 Chloride 100 mmol/L (98-107) 08/29/17 06:30 Carbon Dioxide 29 mmol/L (21-32) 08/29/17 06:30 Anion Gap 9 (8-16) 08/29/17 06:30 BUN 25 mg/dL (7-18) H 08/29/17 06:30 Creatinine 0.6 mg/dL (0.55-1.02) 08/29/17 06:30 Creat Clearance w eGFR > 60 (>60) 08/29/17 06:30 Random Glucose 80 mg/dL (74-106) 08/29/17 06:30 Calcium 8.5 mg/dL (8.5-10.1) 08/29/17 06:30 Total Bilirubin 0.3 mg/dL (0.2-1.0) 08/29/17 06:30 AST 56 U/L (15-37) H 08/29/17 06:30 ALT 63 U/L (12-78) 08/29/17 06:30 Alkaline Phosphatase 141 U/L (45-117) H 08/29/17 06:30 Total Protein 8.1 g/dl (6.4-8.2) 08/29/17 06:30 Albumin 3.2 g/dl (3.4-5.0) L 08/29/17 06:30 Assessment: This is a 56 year old female with PMHx of left breast cancer (dx 4 years ago, only had chemo x1), bipolar disorder, tobacco use, heroin and alcohol abuse, who presented to the ED from [facility] after falling and hitting her head. Plan: 1) Metastatic breast cancer - Not a candidate for chemotherapy - Appreciate rad onc consult - Appreciate heme/onc consult 2) Agitation - Aggressive behavior disorder - 1:1 observation continues - Klonopin 2mg po bid - Depakote 500mg po bid - Zyprexa 15mg po bid - Appreciate psych consult 2) Heroin abuse, acute alcohol withdrawal - Librium taper completed - Oxycodone 5mg po q8h - Methadone 20mg po bid - Appreciate detox consult 3) Bipolar disorder - Medications as above - Appreciate psych consult 4) F/E/N: - Monitor electrolytes - Regular diet 5) Prophylaxis: - Heparin 5,000u sq tid - OOB ambulating 6) Dispo: - Plan is to stabilize aggressive behavior so that we can transfer to SNF/ hospice CODE STATUS: FULL CODE Visit type - Emergency Visit Emergency Visit: Yes ED Registration Date: 08/20/17 Care time: The patient presented to the Emergency Department on the above date and was hospitalized for further evaluation of their emergent condition. - New Patient This patient is new to me today: No - Critical Care Critical Care patient: No
[2017-09-01] MEDS: DOCUSATE SODIUM 100 MG CAPSULE (FP) PO SCH (22:16)
[2017-09-02] MEDS: oxyCODONE HCL 5 MG TABLET PO SCH ×3 (06:43→22:43)
[2017-09-02] MEDS: METHADONE HCL 10 MG TABLET PO SCH ×2 (06:43→18:12)
--- NOTE | 2017-09-02 08:45 | PN ---
Progress Note (short form) - Note Progress Note: Subjective: Patient was seen at the bedside, she is sleeping Current Medications Generic Name Dose Route Start Last Admin Trade Name Freq PRN Reason Stop Dose Admin Acetaminophen 650 mg 08/21/17 06:52 08/30/17 08:08 Tylenol Oral Solution - PO 650 mg Q6H PRN Administration PAIN LEVEL 1-5 Bisacodyl 10 mg 08/31/17 17:29 09/01/17 09:18 Dulcolax Suppository - RC 10 mg Q24H PRN Administration CONSTIPATION Clonazepam 2 mg 08/30/17 22:00 09/01/17 22:17 Klonopin - PO 2 mg BID REBECCA Administration Divalproex Sodium 500 mg 08/22/17 22:00 09/01/17 22:17 Depakote *Er* - PO 500 mg BID REBECCA Administration Docusate Sodium 300 mg 08/28/17 22:00 09/01/17 22:16 Colace - PO 300 mg HS REBECCA Administration Folic Acid 1 mg 08/21/17 10:00 09/01/17 09:18 Folic Acid - PO 1 mg DAILY REBECCA Administration Methadone HCl 20 mg 08/31/17 06:00 09/02/17 06:43 Dolophine - PO 20 mg Q12H REBECCA Administration Nicotine 21 mg 08/20/17 16:00 09/01/17 09:18 Nicoderm Patch - TD 21 mg DAILY REBECCA Administration Nicotine Polacrilex 2 mg 08/27/17 11:16 Nicorette Gum - BUC Q2H PRN NICOTINE REPLACEMENT RX Olanzapine 15 mg 08/30/17 22:00 09/01/17 22:16 Zyprexa - PO 15 mg BID REBECCA Administration Oxycodone HCl 5 mg 08/30/17 22:00 09/02/17 06:43 Roxicodone - PO 5 mg Q8H REBECCA Administration Pantoprazole Sodium 40 mg 08/21/17 15:00 09/01/17 09:18 Protonix - PO 40 mg DAILY REBECCA Administration Polyethylene Glycol 17 gm 08/28/17 10:00 09/01/17 23:34 Miralax (For Daily Use) - PO Not Given BID REBECCA Thiamine HCl 100 mg 08/23/17 10:00 09/01/17 09:18 Vitamin B1 - PO 100 mg DAILY REBECCA Administration Objective: Vital Signs Period Temp Pulse Resp BP Sys/Camacho Pulse Ox Last 24 Hr 98.5 F-98.6 F 84-91 18-20 96-100/61-62 Physical Exam: Patient is sleeping CBCD WBC 5.1 K/mm3 (4.0-10.0) 08/29/17 06:30 RBC 3.55 M/mm3 (3.60-5.2) L 08/29/17 06:30 Hgb 11.0 GM/dL (10.7-15.3) 08/29/17 06:30 Hct 32.7 % (32.4-45.2) 08/29/17 06:30 MCV 92.1 fl (80-96) 08/29/17 06:30 MCHC 33.5 g/dl (32.0-36.0) 08/29/17 06:30 RDW 15.7 % (11.6-15.6) H 08/29/17 06:30 Plt Count 358 K/MM3 (134-434) 08/29/17 06:30 MPV 8.8 fl (7.5-11.1) 08/29/17 06:30 CMP Sodium 138 mmol/L (136-145) 08/29/17 06:30 Potassium 4.6 mmol/L (3.5-5.1) 08/29/17 06:30 Chloride 100 mmol/L (98-107) 08/29/17 06:30 Carbon Dioxide 29 mmol/L (21-32) 08/29/17 06:30 Anion Gap 9 (8-16) 08/29/17 06:30 BUN 25 mg/dL (7-18) H 08/29/17 06:30 Creatinine 0.6 mg/dL (0.55-1.02) 08/29/17 06:30 Creat Clearance w eGFR > 60 (>60) 08/29/17 06:30 Random Glucose 80 mg/dL (74-106) 08/29/17 06:30 Calcium 8.5 mg/dL (8.5-10.1) 08/29/17 06:30 Total Bilirubin 0.3 mg/dL (0.2-1.0) 08/29/17 06:30 AST 56 U/L (15-37) H 08/29/17 06:30 ALT 63 U/L (12-78) 08/29/17 06:30 Alkaline Phosphatase 141 U/L (45-117) H 08/29/17 06:30 Total Protein 8.1 g/dl (6.4-8.2) 08/29/17 06:30 Albumin 3.2 g/dl (3.4-5.0) L 08/29/17 06:30 Assessment: This is a 56 year old female with PMHx of left breast cancer (dx 4 years ago, only had chemo x1), bipolar disorder, tobacco use, heroin and alcohol abuse, who presented to the ED from [facility] after falling and hitting her head. Plan: 1) Metastatic breast cancer - Not a candidate for chemotherapy - Appreciate rad onc consult - Appreciate heme/onc consult 2) Agitation - Aggressive behavior disorder - 1:1 observation continues - Klonopin 2mg po bid - Depakote 500mg po bid - Zyprexa 15mg po bid - Appreciate psych consult 2) Heroin abuse, acute alcohol withdrawal - Librium taper completed - Oxycodone 5mg po q8h - Methadone 20mg po bid - Appreciate detox consult 3) Bipolar disorder - Medications as above - Appreciate psych consult 4) F/E/N: - Monitor electrolytes - Regular diet 5) Prophylaxis: - Heparin 5,000u sq tid - OOB ambulating 6) Dispo: - Plan is to stabilize aggressive behavior so that we can transfer to SNF/ hospice - 1:1 states patient is still kicking when she wakes up CODE STATUS: FULL CODE Visit type - Emergency Visit Emergency Visit: Yes ED Registration Date: 08/20/17 Care time: The patient presented to the Emergency Department on the above date and was hospitalized for further evaluation of their emergent condition. - New Patient This patient is new to me today: No - Critical Care Critical Care patient: No
[2017-09-02] MEDS: NICOTINE 21 MG/24 HOURS TOPICAL PATCH TD SCH (10:55)
[2017-09-02] MEDS: POLYETHYLENE GLYCOL 3350 119 GM BTL PO SCH ×2 (10:55→22:46)
[2017-09-02] MEDS: FOLIC ACID 1 MG TABLET (FP) PO SCH (10:55)
[2017-09-02] MEDS: clonazePAM 2 MG TABLET PO SCH ×2 (10:55→22:43)
[2017-09-02] MEDS: THIAMINE HCL 100 MG TABLET (FP) PO SCH (10:55)
[2017-09-02] MEDS: PANTOPRAZOLE 40 MG TABLET (FP) PO SCH (10:55)
[2017-09-02] MEDS: OLANZapine 5 MG TABLET PO SCH ×2 (10:56→22:44)
[2017-09-02] MEDS: DIVALPROEX NA *ER* EXTEND REL 500 MG TABLET.SA (FP) PO SCH ×2 (10:56→22:45)
[2017-09-02] MEDS: DOCUSATE SODIUM 100 MG CAPSULE (FP) PO SCH (22:43)
[2017-09-03] MEDS: METHADONE HCL 10 MG TABLET PO SCH ×2 (06:07→18:04)
[2017-09-03] MEDS: oxyCODONE HCL 5 MG TABLET PO SCH ×3 (06:08→22:25)
--- NOTE | 2017-09-03 10:14 | PN ---
Progress Note (short form) - Note Progress Note: Subjective: Patient was seen at the bedside, she is sleeping Attempted to remove wrist restraints this morning but the patient became combative Current Medications Generic Name Dose Route Start Last Admin Trade Name Freq PRN Reason Stop Dose Admin Acetaminophen 650 mg 08/21/17 06:52 08/30/17 08:08 Tylenol Oral Solution - PO 650 mg Q6H PRN Administration PAIN LEVEL 1-5 Bisacodyl 10 mg 08/31/17 17:29 09/01/17 09:18 Dulcolax Suppository - RC 10 mg Q24H PRN Administration CONSTIPATION Clonazepam 2 mg 08/30/17 22:00 09/01/17 22:17 Klonopin - PO 2 mg BID REBECCA Administration Divalproex Sodium 500 mg 08/22/17 22:00 09/01/17 22:17 Depakote *Er* - PO 500 mg BID REBECCA Administration Docusate Sodium 300 mg 08/28/17 22:00 09/01/17 22:16 Colace - PO 300 mg HS REBECCA Administration Folic Acid 1 mg 08/21/17 10:00 09/01/17 09:18 Folic Acid - PO 1 mg DAILY REBECCA Administration Methadone HCl 20 mg 08/31/17 06:00 09/02/17 06:43 Dolophine - PO 20 mg Q12H REBECCA Administration Nicotine 21 mg 08/20/17 16:00 09/01/17 09:18 Nicoderm Patch - TD 21 mg DAILY REBECCA Administration Nicotine Polacrilex 2 mg 08/27/17 11:16 Nicorette Gum - BUC Q2H PRN NICOTINE REPLACEMENT RX Olanzapine 15 mg 08/30/17 22:00 09/01/17 22:16 Zyprexa - PO 15 mg BID REBECCA Administration Oxycodone HCl 5 mg 08/30/17 22:00 09/02/17 06:43 Roxicodone - PO 5 mg Q8H REBECCA Administration Pantoprazole Sodium 40 mg 08/21/17 15:00 09/01/17 09:18 Protonix - PO 40 mg DAILY REBECCA Administration Polyethylene Glycol 17 gm 08/28/17 10:00 09/01/17 23:34 Miralax (For Daily Use) - PO Not Given BID REBECCA Thiamine HCl 100 mg 08/23/17 10:00 09/01/17 09:18 Vitamin B1 - PO 100 mg DAILY REBECCA Administration Objective: Vital Signs Period Temp Pulse Resp BP Sys/Camacho Pulse Ox Last 24 Hr 97.7 F-98.8 F 87-108 18-22 132-148/76-94 Physical Exam: Patient is sleeping CBCD WBC 5.1 K/mm3 (4.0-10.0) 08/29/17 06:30 RBC 3.55 M/mm3 (3.60-5.2) L 08/29/17 06:30 Hgb 11.0 GM/dL (10.7-15.3) 08/29/17 06:30 Hct 32.7 % (32.4-45.2) 08/29/17 06:30 MCV 92.1 fl (80-96) 08/29/17 06:30 MCHC 33.5 g/dl (32.0-36.0) 08/29/17 06:30 RDW 15.7 % (11.6-15.6) H 08/29/17 06:30 Plt Count 358 K/MM3 (134-434) 08/29/17 06:30 MPV 8.8 fl (7.5-11.1) 08/29/17 06:30 CMP Sodium 138 mmol/L (136-145) 08/29/17 06:30 Potassium 4.6 mmol/L (3.5-5.1) 08/29/17 06:30 Chloride 100 mmol/L (98-107) 08/29/17 06:30 Carbon Dioxide 29 mmol/L (21-32) 08/29/17 06:30 Anion Gap 9 (8-16) 08/29/17 06:30 BUN 25 mg/dL (7-18) H 08/29/17 06:30 Creatinine 0.6 mg/dL (0.55-1.02) 08/29/17 06:30 Creat Clearance w eGFR > 60 (>60) 08/29/17 06:30 Random Glucose 80 mg/dL (74-106) 08/29/17 06:30 Calcium 8.5 mg/dL (8.5-10.1) 08/29/17 06:30 Total Bilirubin 0.3 mg/dL (0.2-1.0) 08/29/17 06:30 AST 56 U/L (15-37) H 08/29/17 06:30 ALT 63 U/L (12-78) 08/29/17 06:30 Alkaline Phosphatase 141 U/L (45-117) H 08/29/17 06:30 Total Protein 8.1 g/dl (6.4-8.2) 08/29/17 06:30 Albumin 3.2 g/dl (3.4-5.0) L 08/29/17 06:30 Assessment: This is a 56 year old female with PMHx of left breast cancer (dx 4 years ago, only had chemo x1), bipolar disorder, tobacco use, heroin and alcohol abuse, who presented to the ED from [facility] after falling and hitting her head. Plan: 1) Metastatic breast cancer - Not a candidate for chemotherapy - Appreciate rad onc consult - Appreciate heme/onc consult 2) Agitation - Aggressive behavior disorder - 1:1 observation continues - Klonopin 2mg po bid - Depakote 500mg po bid - Zyprexa 15mg po bid - Appreciate psych consult 2) Heroin abuse, acute alcohol withdrawal - Librium taper completed - Oxycodone 5mg po q8h - Methadone 20mg po bid - Appreciate detox consult 3) Bipolar disorder - Medications as above - Appreciate psych consult 4) F/E/N: - Monitor electrolytes - Regular diet 5) Prophylaxis: - Heparin 5,000u sq tid - OOB ambulating 6) Dispo: - Plan is to stabilize aggressive behavior so that we can transfer to SNF/ hospice - 1:1 states patient is still kicking when she wakes up - Continues to require wrist restraints CODE STATUS: FULL CODE Visit type - Emergency Visit Emergency Visit: Yes ED Registration Date: 08/20/17 Care time: The patient presented to the Emergency Department on the above date and was hospitalized for further evaluation of their emergent condition. - New Patient This patient is new to me today: No - Critical Care Critical Care patient: No
[2017-09-03] MEDS ORDERED: PT OWN MED DRAWER 7, Y5N ONE (11:21)
[2017-09-03] MEDS: NICOTINE 21 MG/24 HOURS TOPICAL PATCH TD SCH (11:30)
[2017-09-03] MEDS: THIAMINE HCL 100 MG TABLET (FP) PO SCH (11:30)
[2017-09-03] MEDS: FOLIC ACID 1 MG TABLET (FP) PO SCH (11:30)
[2017-09-03] MEDS: PANTOPRAZOLE 40 MG TABLET (FP) PO SCH (11:30)
[2017-09-03] MEDS: clonazePAM 2 MG TABLET PO SCH ×2 (11:30→22:25)
[2017-09-03] MEDS: POLYETHYLENE GLYCOL 3350 119 GM BTL PO SCH ×2 (11:30→22:26)
[2017-09-03] MEDS: OLANZapine 5 MG TABLET PO SCH ×2 (11:31→22:27)
[2017-09-03] MEDS: DIVALPROEX NA *ER* EXTEND REL 500 MG TABLET.SA (FP) PO SCH ×2 (11:31→22:26)
[2017-09-03] MEDS: DOCUSATE SODIUM 100 MG CAPSULE (FP) PO SCH (22:26)
[2017-09-04] MEDS: METHADONE HCL 10 MG TABLET PO SCH ×2 (06:31→17:47)
[2017-09-04] MEDS: oxyCODONE HCL 5 MG TABLET PO SCH ×3 (06:31→21:51)
[2017-09-04] MEDS: DIVALPROEX NA *ER* EXTEND REL 500 MG TABLET.SA (FP) PO SCH ×2 (10:26→21:54)
[2017-09-04] MEDS: FOLIC ACID 1 MG TABLET (FP) PO SCH (10:27)
[2017-09-04] MEDS: PANTOPRAZOLE 40 MG TABLET (FP) PO SCH (10:28)
[2017-09-04] MEDS: clonazePAM 2 MG TABLET PO SCH ×2 (10:28→21:51)
[2017-09-04] MEDS: POLYETHYLENE GLYCOL 3350 119 GM BTL PO SCH ×2 (10:28→21:51)
[2017-09-04] MEDS: THIAMINE HCL 100 MG TABLET (FP) PO SCH (10:29)
[2017-09-04] MEDS: OLANZapine 5 MG TABLET PO SCH (10:29)
[2017-09-04] MEDS: NICOTINE 21 MG/24 HOURS TOPICAL PATCH TD SCH (10:30)
--- NOTE | 2017-09-04 13:10 | PN ---
Progress Note (short form) - Note Progress Note: Subjective: Patient was seen at the bedside, she is sleeping Reconsult psych as the patient is still having aggressive episodes Off wrist restraints since 11:15am Current Medications Generic Name Dose Route Start Last Admin Trade Name Freq PRN Reason Stop Dose Admin Acetaminophen 650 mg 08/21/17 06:52 08/30/17 08:08 Tylenol Oral Solution - PO 650 mg Q6H PRN Administration PAIN LEVEL 1-5 Bisacodyl 10 mg 08/31/17 17:29 09/01/17 09:18 Dulcolax Suppository - RC 10 mg Q24H PRN Administration CONSTIPATION Clonazepam 2 mg 08/30/17 22:00 09/04/17 10:28 Klonopin - PO 2 mg BID REBECCA Administration Divalproex Sodium 500 mg 08/22/17 22:00 09/04/17 10:26 Depakote *Er* - PO 500 mg BID REBECCA Administration Docusate Sodium 300 mg 08/28/17 22:00 09/03/17 22:26 Colace - PO 300 mg HS REBECCA Administration Folic Acid 1 mg 08/21/17 10:00 09/04/17 10:27 Folic Acid - PO 1 mg DAILY REBECCA Administration Methadone HCl 20 mg 08/31/17 06:00 09/04/17 06:31 Dolophine - PO 20 mg Q12H REBECCA Administration Nicotine 21 mg 08/20/17 16:00 09/04/17 10:30 Nicoderm Patch - TD 21 mg DAILY REBECCA Administration Nicotine Polacrilex 2 mg 08/27/17 11:16 Nicorette Gum - BUC Q2H PRN NICOTINE REPLACEMENT RX Olanzapine 15 mg 08/30/17 22:00 09/04/17 10:29 Zyprexa - PO 15 mg BID REBECCA Administration Oxycodone HCl 5 mg 08/30/17 22:00 09/04/17 06:31 Roxicodone - PO 5 mg Q8H REBECCA Administration Pantoprazole Sodium 40 mg 08/21/17 15:00 09/04/17 10:28 Protonix - PO 40 mg DAILY REBECCA Administration Polyethylene Glycol 17 gm 08/28/17 10:00 09/04/17 10:28 Miralax (For Daily Use) - PO 17 gm BID REBECCA Administration Thiamine HCl 100 mg 08/23/17 10:00 09/04/17 10:29 Vitamin B1 - PO 100 mg DAILY REBECCA Administration Objective: Vital Signs Period Temp Pulse Resp BP Sys/Camacho Pulse Ox Last 24 Hr 97.4 F-98.7 F 79-99 20-22 93-160/64-85 Physical Exam: Patient is sleeping CBCD WBC 5.1 K/mm3 (4.0-10.0) 08/29/17 06:30 RBC 3.55 M/mm3 (3.60-5.2) L 08/29/17 06:30 Hgb 11.0 GM/dL (10.7-15.3) 08/29/17 06:30 Hct 32.7 % (32.4-45.2) 08/29/17 06:30 MCV 92.1 fl (80-96) 08/29/17 06:30 MCHC 33.5 g/dl (32.0-36.0) 08/29/17 06:30 RDW 15.7 % (11.6-15.6) H 08/29/17 06:30 Plt Count 358 K/MM3 (134-434) 08/29/17 06:30 MPV 8.8 fl (7.5-11.1) 08/29/17 06:30 CMP Sodium 138 mmol/L (136-145) 08/29/17 06:30 Potassium 4.6 mmol/L (3.5-5.1) 08/29/17 06:30 Chloride 100 mmol/L (98-107) 08/29/17 06:30 Carbon Dioxide 29 mmol/L (21-32) 08/29/17 06:30 Anion Gap 9 (8-16) 08/29/17 06:30 BUN 25 mg/dL (7-18) H 08/29/17 06:30 Creatinine 0.6 mg/dL (0.55-1.02) 08/29/17 06:30 Creat Clearance w eGFR > 60 (>60) 08/29/17 06:30 Random Glucose 80 mg/dL (74-106) 08/29/17 06:30 Calcium 8.5 mg/dL (8.5-10.1) 08/29/17 06:30 Total Bilirubin 0.3 mg/dL (0.2-1.0) 08/29/17 06:30 AST 56 U/L (15-37) H 08/29/17 06:30 ALT 63 U/L (12-78) 08/29/17 06:30 Alkaline Phosphatase 141 U/L (45-117) H 08/29/17 06:30 Total Protein 8.1 g/dl (6.4-8.2) 08/29/17 06:30 Albumin 3.2 g/dl (3.4-5.0) L 08/29/17 06:30 Assessment: This is a 56 year old female with PMHx of left breast cancer (dx 4 years ago, only had chemo x1), bipolar disorder, tobacco use, heroin and alcohol abuse, who presented to the ED from [facility] after falling and hitting her head. Plan: 1) Metastatic breast cancer - Not a candidate for chemotherapy - Appreciate rad onc consult - Appreciate heme/onc consult 2) Agitation - Aggressive behavior disorder - 1:1 observation continues - Klonopin 2mg po bid - Depakote 500mg po bid - Zyprexa 15mg po bid - Appreciate psych consult 2) Heroin abuse, acute alcohol withdrawal - Librium taper completed - Oxycodone 5mg po q8h - Methadone 20mg po bid - Appreciate detox consult 3) Bipolar disorder - Medications as above - Appreciate psych consult 4) F/E/N: - Monitor electrolytes - Regular diet 5) Prophylaxis: - Heparin 5,000u sq tid - OOB ambulating 6) Dispo: - Plan is to stabilize aggressive behavior so that we can transfer to SNF/ hospice - 1:1 states patient is still kicking when she wakes up CODE STATUS: FULL CODE Visit type - Emergency Visit Emergency Visit: Yes ED Registration Date: 08/20/17 Care time: The patient presented to the Emergency Department on the above date and was hospitalized for further evaluation of their emergent condition. - New Patient This patient is new to me today: No - Critical Care Critical Care patient: No
--- NOTE | 2017-09-04 14:19 | PN ---
Progress Note (short form) - Note Progress Note: Patient seen for Psych follow up: Still on 1:1 for disruptive behaviour. Patient has a long history of Heroin abuse. Ms: alert, slurred speech, very restless, attempting to get out of bed. Unable to engage in any meanigful conversation. Waiting for agitationh to subside before she can be transferred to Hospice[facility] care. plan: Patient is not a candidate for IN Patient psych unit. 2) Increase pain meds. 3) will increase [id number] po bid. 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
[2017-09-04] MEDS: OLANZapine 10 MG TABLET PO SCH (21:52)
[2017-09-04] MEDS: DOCUSATE SODIUM 100 MG CAPSULE (FP) PO SCH (21:52)
[2017-09-05] MEDS: METHADONE HCL 10 MG TABLET PO SCH ×2 (06:49→17:53)
[2017-09-05] MEDS: oxyCODONE HCL 5 MG TABLET PO SCH ×3 (06:49→21:19)
[2017-09-05] MEDS ORDERED: PT OWN MED DRAWER 7, Y5N ONE (10:02)
[2017-09-05] MEDS: DIVALPROEX NA *ER* EXTEND REL 500 MG TABLET.SA (FP) PO SCH ×2 (10:05→21:20)
[2017-09-05] MEDS: OLANZapine 10 MG TABLET PO SCH ×2 (10:05→21:18)
[2017-09-05] MEDS: clonazePAM 2 MG TABLET PO SCH ×2 (10:06→21:19)
[2017-09-05] MEDS: FOLIC ACID 1 MG TABLET (FP) PO SCH (10:06)
[2017-09-05] MEDS: POLYETHYLENE GLYCOL 3350 119 GM BTL PO SCH ×2 (10:06→21:20)
[2017-09-05] MEDS: PANTOPRAZOLE 40 MG TABLET (FP) PO SCH (10:06)
[2017-09-05] MEDS: THIAMINE HCL 100 MG TABLET (FP) PO SCH (10:06)
[2017-09-05] MEDS: NICOTINE 21 MG/24 HOURS TOPICAL PATCH TD SCH (10:06)
--- NOTE | 2017-09-05 11:11 | PN ---
Progress Note (short form) - Note Progress Note: Subjective: Patient was seen at the bedside, she is sleeping Appreciate psych consult Has been off wrist restraints since yesterday at 11:15am Current Medications Generic Name Dose Route Start Last Admin Trade Name Freq PRN Reason Stop Dose Admin Acetaminophen 650 mg 08/21/17 06:52 08/30/17 08:08 Tylenol Oral Solution - PO 650 mg Q6H PRN Administration PAIN LEVEL 1-5 Bisacodyl 10 mg 08/31/17 17:29 09/01/17 09:18 Dulcolax Suppository - RC 10 mg Q24H PRN Administration CONSTIPATION Clonazepam 2 mg 08/30/17 22:00 09/05/17 10:06 Klonopin - PO 2 mg BID REBECCA Administration Divalproex Sodium 500 mg 08/22/17 22:00 09/05/17 10:05 Depakote *Er* - PO 500 mg BID REBECCA Administration Docusate Sodium 300 mg 08/28/17 22:00 09/04/17 21:52 Colace - PO 300 mg HS REBECCA Administration Folic Acid 1 mg 08/21/17 10:00 09/05/17 10:06 Folic Acid - PO 1 mg DAILY REBECCA Administration Methadone HCl 20 mg 08/31/17 06:00 09/05/17 06:49 Dolophine - PO 20 mg Q12H REBECCA Administration Nicotine 21 mg 08/20/17 16:00 09/05/17 10:06 Nicoderm Patch - TD 21 mg DAILY REBECCA Administration Nicotine Polacrilex 2 mg 08/27/17 11:16 Nicorette Gum - BUC Q2H PRN NICOTINE REPLACEMENT RX Olanzapine 20 mg 09/04/17 22:00 09/05/17 10:05 Zyprexa - PO 20 mg BID REBECCA Administration Oxycodone HCl 5 mg 08/30/17 22:00 09/05/17 06:49 Roxicodone - PO 5 mg Q8H REBECCA Administration Pantoprazole Sodium 40 mg 08/21/17 15:00 09/05/17 10:06 Protonix - PO 40 mg DAILY REBECCA Administration Polyethylene Glycol 17 gm 08/28/17 10:00 09/05/17 10:06 Miralax (For Daily Use) - PO Not Given BID REBECCA Thiamine HCl 100 mg 08/23/17 10:00 07/24/18 10:06 Vitamin B1 - PO 100 mg DAILY REBECCA Administration Objective: Vital Signs Period Temp Pulse Resp BP Sys/Camacho Pulse Ox Last 24 Hr 97.6 F-98.7 F 75-96 18-20 92-141/62-94 96 Physical Exam: Patient is sleeping CBCD WBC 5.1 K/mm3 (4.0-10.0) 08/29/17 06:30 RBC 3.55 M/mm3 (3.60-5.2) L 08/29/17 06:30 Hgb 11.0 GM/dL (10.7-15.3) 08/29/17 06:30 Hct 32.7 % (32.4-45.2) 08/29/17 06:30 MCV 92.1 fl (80-96) 08/29/17 06:30 MCHC 33.5 g/dl (32.0-36.0) 08/29/17 06:30 RDW 15.7 % (11.6-15.6) H 08/29/17 06:30 Plt Count 358 K/MM3 (134-434) 08/29/17 06:30 MPV 8.8 fl (7.5-11.1) 08/29/17 06:30 CMP Sodium 138 mmol/L (136-145) 08/29/17 06:30 Potassium 4.6 mmol/L (3.5-5.1) 08/29/17 06:30 Chloride 100 mmol/L (98-107) 08/29/17 06:30 Carbon Dioxide 29 mmol/L (21-32) 08/29/17 06:30 Anion Gap 9 (8-16) 08/29/17 06:30 BUN 25 mg/dL (7-18) H 08/29/17 06:30 Creatinine 0.6 mg/dL (0.55-1.02) 08/29/17 06:30 Creat Clearance w eGFR > 60 (>60) 08/29/17 06:30 Random Glucose 80 mg/dL (74-106) 08/29/17 06:30 Calcium 8.5 mg/dL (8.5-10.1) 08/29/17 06:30 Total Bilirubin 0.3 mg/dL (0.2-1.0) 08/29/17 06:30 AST 56 U/L (15-37) H 08/29/17 06:30 ALT 63 U/L (12-78) 08/29/17 06:30 Alkaline Phosphatase 141 U/L (45-117) H 08/29/17 06:30 Total Protein 8.1 g/dl (6.4-8.2) 08/29/17 06:30 Albumin 3.2 g/dl (3.4-5.0) L 08/29/17 06:30 Assessment: This is a 56 year old female with PMHx of left breast cancer (dx 4 years ago, only had chemo x1), bipolar disorder, tobacco use, heroin and alcohol abuse, who presented to the ED from [facility] after falling and hitting her head. Plan: 1) Metastatic breast cancer - Not a candidate for chemotherapy - Appreciate rad onc consult - Appreciate heme/onc consult 2) Agitation - Aggressive behavior disorder - 1:1 observation continues - Klonopin 2mg po bid - Depakote 500mg po bid - Zyprexa 20mg po bid - Appreciate psych consult 2) Heroin abuse, acute alcohol withdrawal - Librium taper completed - Oxycodone 5mg po q8h - Methadone 20mg po bid - Appreciate detox consult 3) Bipolar disorder - Medications as above - Appreciate psych consult 4) F/E/N: - Monitor electrolytes - Regular diet 5) Prophylaxis: - Heparin 5,000u sq tid - OOB ambulating 6) Dispo: - Plan is to stabilize aggressive behavior so that we can transfer to SNF/ hospice - 1:1 continues, can possibly discontinue tomorrow if remains calm CODE STATUS: FULL CODE Visit type - Emergency Visit Emergency Visit: Yes ED Registration Date: 08/20/17 Care time: The patient presented to the Emergency Department on the above date and was hospitalized for further evaluation of their emergent condition. - New Patient This patient is new to me today: No - Critical Care Critical Care patient: No
[2017-09-05] MEDS: DOCUSATE SODIUM 100 MG CAPSULE (FP) PO SCH (21:19)
[2017-09-06] MEDS: oxyCODONE HCL 5 MG TABLET PO SCH ×3 (06:14→21:25)
[2017-09-06] MEDS: METHADONE HCL 10 MG TABLET PO SCH ×2 (06:14→18:37)
[2017-09-06 07:19] LABS: BASO % 0.2 % (0-2.0); EOS % 1.3 % (0-4.5); HEMATOCRIT 33.3 % (32.4-45.2); HEMOGLOBIN 11.4 GM/dL (10.7-15.3); LYMPH % 12.9 % (8-40); MCH 30.9 pg (25.7-33.7); MCHC 34.2 g/dl (32.0-36.0); MEAN CELL VOLUME 90.4 fl (80-96); MEAN PLT VOLUME 8.2 fl (7.5-11.1); MONO % 11.6 % (3.8-10.2); PLATELET COUNT 263 K/MM3 (134-434); RBC 3.68 M/mm3 (3.60-5.2); RDW 15.3 % (11.6-15.6)
[2017-09-06 07:41] LABS: ALBUMIN 2.7 g/dl (3.4-5.0); ANION GAP 10 (8-16); BLOOD UREA NITROGEN 40 mg/dL (7-18); CALCIUM 9.3 mg/dL (8.5-10.1); CHLORIDE 102 mmol/L (98-107); CO2 28 mmol/L (21-32); CREATININE 1.1 mg/dL (0.55-1.02); GLUCOSE,RANDOM 81 mg/dL (74-106); POTASSIUM 4.1 mmol/L (3.5-5.1); SGOT/AST 23 U/L (15-37); SGPT/ALT 24 U/L (12-78); SODIUM 140 mmol/L (136-145)
[2017-09-06 07:44] LABS: ALK PHOS 83 U/L (45-117); BILIRUBIN,TOTAL 0.4 mg/dL (0.2-1.0); TOT PROT 7.6 g/dl (6.4-8.2)
[2017-09-06] MEDS: DIVALPROEX NA *ER* EXTEND REL 500 MG TABLET.SA (FP) PO SCH ×2 (09:37→21:25)
[2017-09-06] MEDS: OLANZapine 10 MG TABLET PO SCH ×2 (09:37→21:12)
[2017-09-06] MEDS: PANTOPRAZOLE 40 MG TABLET (FP) PO SCH (09:41)
[2017-09-06] MEDS: THIAMINE HCL 100 MG TABLET (FP) PO SCH (09:41)
[2017-09-06] MEDS: FOLIC ACID 1 MG TABLET (FP) PO SCH (09:41)
[2017-09-06] MEDS: clonazePAM 2 MG TABLET PO SCH ×2 (09:41→21:12)
[2017-09-06] MEDS: NICOTINE 21 MG/24 HOURS TOPICAL PATCH TD SCH (11:15)
[2017-09-06] MEDS ORDERED: PT OWN MED DRAWER 7, Y5N ONE ×2 (11:19→20:54)
--- NOTE | 2017-09-06 12:43 | PN ---
Physical Exam: SUBJECTIVE: Patient seen and examined. She is awake, but confused, mildly sedated, screams out when requesting methadone per RN> . OBJECTIVE: Vital Signs Period Temp Pulse Resp BP Sys/Camacho Pulse Ox Last 24 Hr 97.5 F-97.6 F 80-89 18-20 104-123/66-76 96 PE Neuro: confused, non discerning speech, awake, HEENT: poor dentition, + dentchers Pulm: diminished bases CV: s1 s2 rrr Abd: s nt Ext: no le edema, lower ext skin changes Laboratory Results - last 24 hr 09/06/17 09/06/17 06:40 06:40 WBC 8.0 RBC 3.68 Hgb 11.4 Hct 33.3 MCV 90.4 MCH 30.9 MCHC 34.2 RDW 15.3 Plt Count 263 D MPV 8.2 Absolute Neuts (auto) 5.9 Neutrophils % 74.0 D Lymphocytes % 12.9 D Monocytes % 11.6 H Eosinophils % 1.3 Basophils % 0.2 Nucleated RBC % 0 Sodium 140 Potassium 4.1 Chloride 102 Carbon Dioxide 28 Anion Gap 10 BUN 40 H Creatinine 1.1 H Creat Clearance w eGFR 51.20 Random Glucose 81 Calcium 9.3 Total Bilirubin 0.4 AST 23 ALT 24 Alkaline Phosphatase 83 D Total Protein 7.6 Albumin 2.7 L Active Medications Generic Name Dose Route Start Last Admin Trade Name Freq PRN Reason Stop Dose Admin Acetaminophen 650 mg 08/21/17 06:52 08/30/17 08:08 Tylenol Oral Solution - PO 650 mg Q6H PRN Administration PAIN LEVEL 1-5 Bisacodyl 10 mg 08/31/17 17:29 09/01/17 09:18 Dulcolax Suppository - RC 10 mg Q24H PRN Administration CONSTIPATION Clonazepam 2 mg 08/30/17 22:00 09/06/17 09:41 Klonopin - PO 2 mg BID REBECCA Administration Divalproex Sodium 500 mg 08/22/17 22:00 09/06/17 09:37 Depakote *Er* - PO 500 mg BID REBECCA Administration Docusate Sodium 300 mg 08/28/17 22:00 09/05/17 21:19 Colace - PO 300 mg HS REBECCA Administration Folic Acid 1 mg 08/21/17 10:00 07/25/18 09:41 Folic Acid - PO 1 mg DAILY REBECCA Administration Methadone HCl 20 mg 08/31/17 06:00 09/06/17 06:14 Dolophine - PO 20 mg Q12H REBECCA Administration Nicotine 21 mg 08/20/17 16:00 09/06/17 11:15 Nicoderm Patch - TD 21 mg DAILY REBECCA Administration Nicotine Polacrilex 2 mg 08/27/17 11:16 Nicorette Gum - BUC Q2H PRN NICOTINE REPLACEMENT RX Olanzapine 20 mg 09/04/17 22:00 09/06/17 09:37 Zyprexa - PO 20 mg BID REBECCA Administration Oxycodone HCl 5 mg 08/30/17 22:00 09/06/17 06:14 Roxicodone - PO 5 mg Q8H REBECCA Administration Pantoprazole Sodium 40 mg 08/21/17 15:00 09/06/17 09:41 Protonix - PO 40 mg DAILY REBECCA Administration Polyethylene Glycol 17 gm 08/28/17 10:00 09/05/17 21:20 Miralax (For Daily Use) - PO 17 gm BID REBECCA Administration Thiamine HCl 100 mg 08/23/17 10:00 09/06/17 09:41 Vitamin B1 - PO 100 mg DAILY REBECCA Administration Assessment: 56 year old female with PMHx of left breast cancer (dx 4 years ago, only had chemo x1), bipolar disorder, tobacco use, heroin and alcohol abuse, who presented to the ED from [facility] after falling and hitting her head. Plan: 1. Metastatic breast cancer - Not a candidate for chemotherapy - Referral sent for hospice 2. Agitation - Aggressive behavior disorder - 1:1 observation - Klonopin 2mg po bid - Depakote 500mg po bid - Added Zyprexa 20mg po bid 3. Heroin abuse, acute alcohol withdrawal - Librium taper completed - Oxycodone 5mg po q8h - Methadone 20mg po bid 4. Bipolar disorder - Medications as above 5. Prophylaxis - Heparin 5,000u sq tid 6. Dispo: - Plan is to stabilize aggressive behavior so that we can transfer to SNF/ hospice - 1:1 continues, can possibly discontinue today once in higher visibility room CODE STATUS: FULL CODE Visit type - Emergency Visit Emergency Visit: Yes ED Registration Date: 08/20/17 Care time: The patient presented to the Emergency Department on the above date and was hospitalized for further evaluation of their emergent condition. - New Patient This patient is new to me today: Yes Date on this admission: 09/06/17 - Critical Care Critical Care patient: No
[2017-09-06] MEDS: POLYETHYLENE GLYCOL 3350 119 GM BTL PO SCH ×2 (13:59→21:28)
--- NOTE | 2017-09-06 19:50 | PN ---
Progress Note (short form) - Note Progress Note: Ethics After review of the records on the EMR and having a discussion of this patient during palliative care rounds yesterday, it appears that her aggressive behavior which is now more intermittent may be caused by a combination of many complex factors including pain, previous drug abuse metastatic brain disease and personality disorder. If the patient is not a candidate for treatment for her brain metastases, then I think either pain or her personality disorder and possible encephalopathy from previous drug abuse have to be addressed. Goals of care would have to be set with her son after revisits from pain and psychiatry MD's. Lethargy may be from her current Rx. so increasing pain Rx would be problematic. I believe a family meeting with her son and treating MD's might help to focus on these problems but the goal of hospice is really the aim of her current care. It is just her behavior which is standing in the way. It might also be beneficial to have the pharmacy or one of the interns research the side effect of her non pain meds. There were recent reports of severe disruptive behavior on Keppra. She is not on that medicine but is on other similar drugs.
[2017-09-06] MEDS: DOCUSATE SODIUM 100 MG CAPSULE (FP) PO SCH (21:16)
[2017-09-06] MEDS: ACETAMINOPHEN 650 MG/20.3 ML ORAL SOLUTION (CUPS) PO PRN (21:17)
[2017-09-07] MEDS: oxyCODONE HCL 5 MG TABLET PO SCH ×3 (06:57→21:34)
[2017-09-07] MEDS: METHADONE HCL 10 MG TABLET PO SCH ×2 (06:57→17:53)
[2017-09-07] MEDS ORDERED: PT OWN MED DRAWER 7, Y5N ONE (09:57)
[2017-09-07] MEDS: DIVALPROEX NA *ER* EXTEND REL 500 MG TABLET.SA (FP) PO SCH ×2 (10:10→21:34)
[2017-09-07] MEDS: FOLIC ACID 1 MG TABLET (FP) PO SCH (10:11)
[2017-09-07] MEDS: POLYETHYLENE GLYCOL 3350 119 GM BTL PO SCH ×2 (10:12→21:38)
[2017-09-07] MEDS: THIAMINE HCL 100 MG TABLET (FP) PO SCH (10:12)
[2017-09-07] MEDS: PANTOPRAZOLE 40 MG TABLET (FP) PO SCH (10:12)
[2017-09-07] MEDS: NICOTINE 21 MG/24 HOURS TOPICAL PATCH TD SCH (10:13)
[2017-09-07] MEDS: OLANZapine 10 MG TABLET PO SCH ×2 (10:13→21:34)
--- NOTE | 2017-09-07 15:52 | PN ---
Physical Exam: SUBJECTIVE: Patient seen and examined OBJECTIVE: Vital Signs Period Temp Pulse Resp BP Sys/Camacho Pulse Ox Last 24 Hr 97.3 F-98.5 F 69-85 16-20 115-145/66-98 93 GENERAL: Sleeping but arousable. Calmer. LUNGS: Breath sounds equal, clear to auscultation bilaterally, no wheezes, no crackles, no accessory muscle use. HEART: Regular rate and rhythm, S1, S2 without murmur, rub or gallop. ABDOMEN: Soft, nontender, nondistended EXTREMITIES: 2+ pulses, warm, well-perfused, no edema. Active Medications Generic Name Dose Route Start Last Admin Trade Name Freq PRN Reason Stop Dose Admin Acetaminophen 650 mg 08/21/17 06:52 09/06/17 21:17 Tylenol Oral Solution - PO 650 mg Q6H PRN Administration PAIN LEVEL 1-5 Bisacodyl 10 mg 08/31/17 17:29 09/01/17 09:18 Dulcolax Suppository - RC 10 mg Q24H PRN Administration CONSTIPATION Divalproex Sodium 500 mg 08/22/17 22:00 09/07/17 10:10 Depakote *Er* - PO 500 mg BID REBECCA Administration Docusate Sodium 300 mg 08/28/17 22:00 09/06/17 21:16 Colace - PO 300 mg HS REBECCA Administration Folic Acid 1 mg 08/21/17 10:00 09/07/17 10:11 Folic Acid - PO 1 mg DAILY REBECCA Administration Methadone HCl 20 mg 08/31/17 06:00 09/07/17 06:57 Dolophine - PO 20 mg Q12H REBECCA Administration Nicotine 21 mg 08/20/17 16:00 09/07/17 10:13 Nicoderm Patch - TD 21 mg DAILY REBECCA Administration Nicotine Polacrilex 2 mg 08/27/17 11:16 Nicorette Gum - BUC Q2H PRN NICOTINE REPLACEMENT RX Olanzapine 20 mg 09/04/17 22:00 09/07/17 10:13 Zyprexa - PO 20 mg BID REBECCA Administration Oxycodone HCl 5 mg 08/30/17 22:00 09/07/17 14:02 Roxicodone - PO 5 mg Q8H REBECCA Administration Pantoprazole Sodium 40 mg 08/21/17 15:00 09/07/17 10:12 Protonix - PO 40 mg DAILY REBECCA Administration Polyethylene Glycol 17 gm 08/28/17 10:00 09/07/17 10:12 Miralax (For Daily Use) - PO 17 gm BID REBECCA Administration Thiamine HCl 100 mg 08/23/17 10:00 09/07/17 10:12 Vitamin B1 - PO 100 mg DAILY REBECCA Administration ASSESSMENT/PLAN This is a 56 year old woman with a history of left breast cancer, bipolar disorder, tobacco use, heroin use, alcohol abuse who presented to the ED from [facility] after falling and hitting her head. 1. Metastatic breast cancer - Left breast and axillary lymph node masses/enlargement - Head CT with hyperdense mass in the right middle cranial fossa, inferiorly measuring 2.8cm in maximum dimension with surrounding vasogenic edema involving the right temporal and posterior frontal lobe resulting in very minimal shift of the midline structures toward the left. Heterogeneous attenuation of the skull base adjacent to the mass as well as heterogenous attenuation of the right sphenoid wing and significant heterogeneous infiltration of the frontal bone --not on steroids as it caused acute psychosis in past --seen and evaluated by oncology, neurology: not a candidate for further treatment 2. Agitation --multifactorial: long-term alcohol/opioid abuse, bipolar disorder, severe metastatic disease to the brain --under current medication regimen patient sleeps most of the time, but her awake states are still marked by agitation; she continues to be able to eat, swallow meds --input from Dr Kumari reviewed and much appreciated --monitor closely for agitation v. oversedation --continue 1:1 Disposition: Palliative care and social work have had extensive contact with son ; another meeting set for tomorrow to discuss goals of care. FULL CODE AT THIS TIME. Visit type - Emergency Visit Emergency Visit: Yes ED Registration Date: 08/20/17 Care time: The patient presented to the Emergency Department on the above date and was hospitalized for further evaluation of their emergent condition. - New Patient This patient is new to me today: No - Critical Care Critical Care patient: No
[2017-09-07] MEDS ORDERED: TUBERCULIN PPD 5 TU/0.1ML SYRINGE (IN PATIENT USE ONLY) ID ONE (17:00)
[2017-09-07] MEDS: DOCUSATE SODIUM 100 MG CAPSULE (FP) PO SCH (21:34)
[2017-09-07] MEDS: ACETAMINOPHEN 650 MG/20.3 ML ORAL SOLUTION (CUPS) PO PRN (21:38)
[2017-09-08] MEDS: METHADONE HCL 10 MG TABLET PO SCH ×2 (06:22→18:10)
[2017-09-08] MEDS: oxyCODONE HCL 5 MG TABLET PO SCH ×3 (06:24→23:42)
[2017-09-08] MEDS ORDERED: PT OWN MED DRAWER 7, Y5N ONE ×2 (10:11→21:32)
[2017-09-08] MEDS: PANTOPRAZOLE 40 MG TABLET (FP) PO SCH (10:15)
[2017-09-08] MEDS: THIAMINE HCL 100 MG TABLET (FP) PO SCH (10:15)
[2017-09-08] MEDS: NICOTINE 21 MG/24 HOURS TOPICAL PATCH TD SCH (10:15)
[2017-09-08] MEDS: FOLIC ACID 1 MG TABLET (FP) PO SCH (10:15)
[2017-09-08] MEDS: OLANZapine 10 MG TABLET PO SCH ×2 (10:16→23:43)
[2017-09-08] MEDS: DIVALPROEX NA *ER* EXTEND REL 500 MG TABLET.SA (FP) PO SCH ×2 (10:16→23:43)
[2017-09-08] MEDS: POLYETHYLENE GLYCOL 3350 119 GM BTL PO SCH ×2 (10:22→23:41)
[2017-09-08] MEDS ORDERED: HALOPERIDOL LACTATE 5 MG/ML IM ONE (12:00)
[2017-09-08] MEDS ORDERED: LORazepam 2 MG/ML SDV VIAL IM ONE (12:00)
[2017-09-08] MEDS: DOCUSATE SODIUM 100 MG CAPSULE (FP) PO SCH (23:43)
[2017-09-09] MEDS: oxyCODONE HCL 5 MG TABLET PO SCH ×3 (06:51→22:40)
[2017-09-09] MEDS: METHADONE HCL 10 MG TABLET PO SCH (06:52)
--- NOTE | 2017-09-09 10:07 | PN ---
Physical Exam: SUBJECTIVE: Patient seen and examined. Brief period of calm. Knew name, in hospital "because of brain cancer." "How long do I have?" Expressed desire to see son. OBJECTIVE: Vital Signs Period Temp Pulse Resp BP Sys/Camacho Pulse Ox Last 24 Hr 97.8 F-98.1 F 74-88 18-18 106-132/71-88 97 GENERAL: Awake. Periods of drowsiness and calm interspersed with loud yelling, agitation, trying to get out of bed. LUNGS: Breath sounds equal, clear to auscultation bilaterally, no wheezes, no crackles, no accessory muscle use. HEART: Regular rate and rhythm, S1, S2 without murmur, rub or gallop. ABDOMEN: Soft, nontender, nondistended EXTREMITIES: 2+ pulses, warm, well-perfused, no edema. Active Medications Generic Name Dose Route Start Last Admin Trade Name Freq PRN Reason Stop Dose Admin Acetaminophen 650 mg 08/21/17 06:52 09/07/17 21:38 Tylenol Oral Solution - PO 650 mg Q6H PRN Administration PAIN LEVEL 1-5 Bisacodyl 10 mg 08/31/17 17:29 09/01/17 09:18 Dulcolax Suppository - RC 10 mg Q24H PRN Administration CONSTIPATION Divalproex Sodium 500 mg 08/22/17 22:00 09/08/17 23:43 Depakote *Er* - PO 500 mg BID REBECCA Administration Docusate Sodium 300 mg 08/28/17 22:00 09/08/17 23:43 Colace - PO 300 mg HS REBECCA Administration Folic Acid 1 mg 08/21/17 10:00 09/08/17 10:15 Folic Acid - PO 1 mg DAILY REBECCA Administration Methadone HCl 20 mg 08/31/17 06:00 09/09/17 06:52 Dolophine - PO 20 mg Q12H REBECCA Administration Nicotine 21 mg 08/20/17 16:00 09/08/17 10:15 Nicoderm Patch - TD 21 mg DAILY REBECCA Administration Nicotine Polacrilex 2 mg 08/27/17 11:16 Nicorette Gum - BUC Q2H PRN NICOTINE REPLACEMENT RX Olanzapine 20 mg 09/04/17 22:00 09/08/17 23:43 Zyprexa - PO 20 mg BID REBECCA Administration Oxycodone HCl 10 mg 09/08/17 14:00 09/09/17 06:51 Roxicodone - PO 10 mg Q8H REBECCA Administration Pantoprazole Sodium 40 mg 08/21/17 15:00 09/08/17 10:15 Protonix - PO 40 mg DAILY REBECCA Administration Polyethylene Glycol 17 gm 08/28/17 10:00 09/08/17 23:41 Miralax (For Daily Use) - PO 17 gm BID REBECCA Administration Thiamine HCl 100 mg 08/23/17 10:00 09/08/17 10:15 Vitamin B1 - PO 100 mg DAILY REBECCA Administration ASSESSMENT/PLAN This is a 56 year old woman with a history of left breast cancer, bipolar disorder, tobacco use, heroin use, alcohol abuse who presented to the ED from [facility] after falling and hitting her head. 1. Metastatic breast cancer - Left breast and axillary lymph node masses/enlargement - Head CT with hyperdense mass in the right middle cranial fossa, inferiorly measuring 2.8cm in maximum dimension with surrounding vasogenic edema involving the right temporal and posterior frontal lobe resulting in very minimal shift of the midline structures toward the left. Heterogeneous attenuation of the skull base adjacent to the mass as well as heterogenous attenuation of the right sphenoid wing and significant heterogeneous infiltration of the frontal bone --not on steroids as it caused acute psychosis in past --seen and evaluated by oncology, neurology: not a candidate for further treatment 2. Agitation --multifactorial: long-term alcohol/opioid abuse, bipolar disorder, severe metastatic disease to the brain --under current medication regimen patient sleeps most of the time, but her awake states are still marked by agitation; she continues to be able to eat, swallow meds --input from Dr Kumari reviewed and much appreciated --monitor closely for agitation v. oversedation --continue 1:1 Disposition: Left message for son to call to discuss goals of care. Son has not answered calls from palliative care/social work for several days. FULL CODE AT THIS TIME. Visit type - Emergency Visit Emergency Visit: Yes ED Registration Date: 08/20/17 Care time: The patient presented to the Emergency Department on the above date and was hospitalized for further evaluation of their emergent condition. - New Patient This patient is new to me today: No - Critical Care Critical Care patient: No
--- NOTE | 2017-09-09 10:07 | PN ---
Physical Exam: SUBJECTIVE: Patient seen and examined. Over past 48 hours has been more agitated , more frequent episodes of crying and yelling. Nurses report she is constipated. OBJECTIVE: Vital Signs Period Temp Pulse Resp BP Sys/Camacho Pulse Ox Last 24 Hr 97.8 F-98.1 F 74-88 18-18 106-132/71-88 97 GENERAL: Awake. Periods of drowsiness and calm interspersed with loud yelling, agitation, trying to get out of bed. LUNGS: Breath sounds equal, clear to auscultation bilaterally, no wheezes, no crackles, no accessory muscle use. HEART: Regular rate and rhythm, S1, S2 without murmur, rub or gallop. ABDOMEN: Soft, nontender, nondistended EXTREMITIES: 2+ pulses, warm, well-perfused, no edema. Active Medications Generic Name Dose Route Start Last Admin Trade Name Freq PRN Reason Stop Dose Admin Acetaminophen 650 mg 08/21/17 06:52 09/07/17 21:38 Tylenol Oral Solution - PO 650 mg Q6H PRN Administration PAIN LEVEL 1-5 Bisacodyl 10 mg 08/31/17 17:29 09/01/17 09:18 Dulcolax Suppository - RC 10 mg Q24H PRN Administration CONSTIPATION Divalproex Sodium 500 mg 08/22/17 22:00 09/08/17 23:43 Depakote *Er* - PO 500 mg BID REBECCA Administration Docusate Sodium 300 mg 08/28/17 22:00 09/08/17 23:43 Colace - PO 300 mg HS REBECCA Administration Folic Acid 1 mg 08/21/17 10:00 09/08/17 10:15 Folic Acid - PO 1 mg DAILY REBECCA Administration Methadone HCl 20 mg 08/31/17 06:00 09/09/17 06:52 Dolophine - PO 20 mg Q12H REBECCA Administration Nicotine 21 mg 08/20/17 16:00 09/08/17 10:15 Nicoderm Patch - TD 21 mg DAILY REBECCA Administration Nicotine Polacrilex 2 mg 08/27/17 11:16 Nicorette Gum - BUC Q2H PRN NICOTINE REPLACEMENT RX Olanzapine 20 mg 09/04/17 22:00 09/08/17 23:43 Zyprexa - PO 20 mg BID REBECCA Administration Oxycodone HCl 10 mg 09/08/17 14:00 09/09/17 06:51 Roxicodone - PO 10 mg Q8H REBECCA Administration Pantoprazole Sodium 40 mg 08/21/17 15:00 09/08/17 10:15 Protonix - PO 40 mg DAILY REBECCA Administration Polyethylene Glycol 17 gm 08/28/17 10:00 09/08/17 23:41 Miralax (For Daily Use) - PO 17 gm BID REBECCA Administration Thiamine HCl 100 mg 08/23/17 10:00 09/08/17 10:15 Vitamin B1 - PO 100 mg DAILY REBECCA Administration ASSESSMENT/PLAN: This is a 56 year old woman with a history of left breast cancer, bipolar disorder, tobacco use, heroin use, alcohol abuse. 1. Metastatic breast cancer - Left breast and axillary lymph node masses/enlargement - Head CT with hyperdense mass in the right middle cranial fossa, inferiorly measuring 2.8cm in maximum dimension with surrounding vasogenic edema involving the right temporal and posterior frontal lobe resulting in very minimal shift of the midline structures toward the left. Heterogeneous attenuation of the skull base adjacent to the mass as well as heterogenous attenuation of the right sphenoid wing and significant heterogeneous infiltration of the frontal bone --not on steroids as it caused acute psychosis in past --seen and evaluated by oncology, neurology: not a candidate for further treatment 2. Agitation --multifactorial: long-term alcohol/opioid abuse, bipolar disorder, metastatic disease to the brain --yesterday increased oxycodone from 5mg to 10mg q8h with no obvious effect --increase methadone to 30mg in am, 20mg hs; discussed titration of methadone with Dr. Sutton --input from Dr Kumari reviewed and much appreciated --monitor closely for agitation v. oversedation --continue 1:1 Disposition: Left message for son to call to discuss goals of care. Son has not answered calls from palliative care/social work for several days. FULL CODE AT THIS TIME. Visit type - Emergency Visit Emergency Visit: Yes ED Registration Date: 08/20/17 Care time: The patient presented to the Emergency Department on the above date and was hospitalized for further evaluation of their emergent condition. - New Patient This patient is new to me today: No - Critical Care Critical Care patient: No
[2017-09-09] MEDS ORDERED: PT OWN MED DRAWER 7, Y5N ONE ×3 (10:16→22:36)
[2017-09-09] MEDS: DIVALPROEX NA *ER* EXTEND REL 500 MG TABLET.SA (FP) PO SCH ×2 (10:17→22:40)
[2017-09-09] MEDS: NICOTINE 21 MG/24 HOURS TOPICAL PATCH TD SCH (10:18)
[2017-09-09] MEDS: PANTOPRAZOLE 40 MG TABLET (FP) PO SCH (10:18)
[2017-09-09] MEDS: FOLIC ACID 1 MG TABLET (FP) PO SCH (10:18)
[2017-09-09] MEDS: THIAMINE HCL 100 MG TABLET (FP) PO SCH (10:18)
[2017-09-09] MEDS: OLANZapine 10 MG TABLET PO SCH ×2 (10:19→22:40)
[2017-09-09] MEDS: POLYETHYLENE GLYCOL 3350 119 GM BTL PO SCH ×2 (10:20→22:41)
[2017-09-09] MEDS: BISACODYL 10 MG SUPP.RECT RC PRN (13:00)
--- NOTE | 2017-09-09 16:18 | PN ---
Progress Note (short form) - Note Progress Note: 56 YO WHO STATED "I HAVE CANCER". cAN BE EXPLOSIVE AND DEMANDING PER MS PEDRO, cONSTANT OBSERVATION IN PLACE. cLIENT IS DRY MOUTH, UNABLE TO ASSESS GAIT LYING IN BED, WITH ALL COTSIDE RAILS ELEVATED. cLIENT IS ON OLANZAPINE 20MG PO BID, DEPAKOTE 500MG PO BID. PLAN CONTINUE VALPORATE THIS AM. SPOKE WITH rnS Jason, PRAVEEN RN. DISCONTINUE OLANZAPINE 20MG PO BID ( IS BEYOND MAXIMUM DAILY RECOMMENDATION). PLAN TO REDUCE OLANZAPINE TO 10MG PO BID. OFFER WATER EVERY HOUR . mETHADONE PLANNED TO BE INCREASED ALSO BY HER ATTENDING, WILL BE HELPFUL IN CONTROL OF AGITATION/PAIN.
[2017-09-09] MEDS: ACETAMINOPHEN 650 MG/20.3 ML ORAL SOLUTION (CUPS) PO PRN (16:34)
[2017-09-09] MEDS ORDERED: METHADONE HCL 10 MG TABLET PO SCH (18:00)
[2017-09-09] MEDS: DOCUSATE SODIUM 100 MG CAPSULE (FP) PO SCH (22:41)
[2017-09-10] MEDS: METHADONE HCL 10 MG TABLET PO SCH ×2 (07:06→18:47)
[2017-09-10] MEDS: oxyCODONE HCL 5 MG TABLET PO SCH ×3 (07:06→21:23)
[2017-09-10 09:28] LABS: ALBUMIN 2.6 g/dl (3.4-5.0); ANION GAP 5 (8-16); BLOOD UREA NITROGEN 34 mg/dL (7-18); CHLORIDE 101 mmol/L (98-107); CO2 30 mmol/L (21-32); GLUCOSE,RANDOM 81 mg/dL (74-106); MAGNESIUM 2.2 mg/dL (1.8-2.4); POTASSIUM 4.6 mmol/L (3.5-5.1); SGOT/AST 27 U/L (15-37); SGPT/ALT 20 U/L (12-78); SODIUM 136 mmol/L (136-145)
[2017-09-10 09:29] LABS: ALK PHOS 86 U/L (45-117); BILIRUBIN,TOTAL 0.3 mg/dL (0.2-1.0); TOT PROT 7.8 g/dl (6.4-8.2)
[2017-09-10] MEDS ORDERED: PT OWN MED DRAWER 7, Y5N ONE ×2 (10:59→21:03)
[2017-09-10] MEDS: NICOTINE 21 MG/24 HOURS TOPICAL PATCH TD SCH (11:07)
[2017-09-10] MEDS: POLYETHYLENE GLYCOL 3350 119 GM BTL PO SCH ×2 (11:07→21:23)
[2017-09-10] MEDS: OLANZapine 10 MG TABLET PO SCH ×2 (11:07→21:23)
[2017-09-10] MEDS: PANTOPRAZOLE 40 MG TABLET (FP) PO SCH (11:08)
[2017-09-10] MEDS: FOLIC ACID 1 MG TABLET (FP) PO SCH (11:08)
[2017-09-10] MEDS: THIAMINE HCL 100 MG TABLET (FP) PO SCH (11:08)
[2017-09-10] MEDS: DIVALPROEX NA *ER* EXTEND REL 500 MG TABLET.SA (FP) PO SCH ×2 (11:08→21:22)
--- NOTE | 2017-09-10 15:50 | PN ---
Physical Exam: SUBJECTIVE: Patient seen and examined. Resting quietly. Nurses report marked improvement in patient today. Actually read the newspaper and discussed article with them this morning. This afternoon complains of pain in left axilla. Constipation persists. OBJECTIVE: Vital Signs Period Temp Pulse Resp BP Sys/Camacho Pulse Ox Last 24 Hr 97.3 F-98.9 F 77-93 18-18 100-135/58-82 95 GENERAL: Awake. Periods of drowsiness and calm interspersed with agitation. Able to articulate location of pain without yelling. LUNGS: Breath sounds equal, clear to auscultation bilaterally, no wheezes, no crackles, no accessory muscle use. HEART: Regular rate and rhythm, S1, S2 without murmur, rub or gallop. ABDOMEN: Soft, nontender, nondistended EXTREMITIES: 2+ pulses, warm, well-perfused, no edema. Laboratory Results - last 24 hr 09/10/17 08:10 Sodium 136 Potassium 4.6 Chloride 101 Carbon Dioxide 30 Anion Gap 5 L BUN 34 H Creatinine 1.0 Creat Clearance w eGFR 57.15 Random Glucose 81 Calcium 9.0 Magnesium 2.2 Total Bilirubin 0.3 AST 27 ALT 20 Alkaline Phosphatase 86 Total Protein 7.8 Albumin 2.6 L Active Medications Generic Name Dose Route Start Last Admin Trade Name Freq PRN Reason Stop Dose Admin Acetaminophen 650 mg 08/21/17 06:52 09/09/17 16:34 Tylenol Oral Solution - PO 650 mg Q6H PRN Administration PAIN LEVEL 1-5 Bisacodyl 10 mg 08/31/17 17:29 09/09/17 13:00 Dulcolax Suppository - RC 10 mg Q24H PRN Administration CONSTIPATION Divalproex Sodium 500 mg 08/22/17 22:00 09/10/17 11:08 Depakote *Er* - PO 500 mg BID REBECCA Administration Docusate Sodium 300 mg 08/28/17 22:00 09/09/17 22:41 Colace - PO 300 mg HS REBECCA Administration Folic Acid 1 mg 08/21/17 10:00 09/10/17 11:08 Folic Acid - PO 1 mg DAILY REBECCA Administration Methadone HCl 30 mg 09/10/17 06:00 09/10/17 07:06 Dolophine - PO 30 mg DAILY@0600 REBECCA Administration Methadone HCl 20 mg 09/09/17 18:00 09/09/17 17:28 Dolophine - PO 20 mg DAILY@1800 REBECCA Administration Nicotine 21 mg 08/20/17 16:00 09/10/17 11:07 Nicoderm Patch - TD 21 mg DAILY REBECCA Administration Nicotine Polacrilex 2 mg 08/27/17 11:16 Nicorette Gum - BUC Q2H PRN NICOTINE REPLACEMENT RX Olanzapine 20 mg 09/04/17 22:00 09/10/17 11:07 Zyprexa - PO 20 mg BID REBECCA Administration Oxycodone HCl 10 mg 09/08/17 14:00 09/10/17 14:22 Roxicodone - PO 10 mg Q8H REBECCA Administration Pantoprazole Sodium 40 mg 08/21/17 15:00 09/10/17 11:08 Protonix - PO 40 mg DAILY REBECCA Administration Polyethylene Glycol 17 gm 08/28/17 10:00 09/10/17 11:07 Miralax (For Daily Use) - PO 17 gm BID REBECCA Administration Thiamine HCl 100 mg 08/23/17 10:00 09/10/17 11:08 Vitamin B1 - PO 100 mg DAILY REBECCA Administration ASSESSMENT/PLAN This is a 56 year old woman with a history of left breast cancer, bipolar disorder, tobacco use, heroin use, alcohol abuse. 1. Metastatic breast cancer --left breast and axillary lymph node masses/enlargement --seen and evaluated by oncology, neurology: not a candidate for further treatment --increased pain today left axilla; hard nodule appreciated; no IV access and would prefer not to place due to agitation; start fentanyl patch 12mcg q72h 2. Agitation --multifactorial: long-term alcohol/opioid abuse, bipolar disorder, metastatic disease to the brain --marked improvement in behavior with titration of methadone; today 30 BID; can increase by 10mg per day to effect --continue 1:1 Disposition: Left message for son to call to discuss goals of care. Son has not answered calls from palliative care/social work for several days. FULL CODE AT THIS TIME. Visit type - Emergency Visit Emergency Visit: Yes ED Registration Date: 08/20/17 Care time: The patient presented to the Emergency Department on the above date and was hospitalized for further evaluation of their emergent condition. - New Patient This patient is new to me today: No - Critical Care Critical Care patient: No
[2017-09-10] MEDS ORDERED: FENTANYL PATCH WASTE TD PRN (16:50)
[2017-09-10] MEDS: fentaNYL 12mcg/hr PATCH.TD72 TD SCH (17:16)
[2017-09-10] MEDS: DOCUSATE SODIUM 100 MG CAPSULE (FP) PO SCH (21:22)
[2017-09-11] MEDS ORDERED: MELATONIN 1 MG TABLET PO ONE (00:34)
[2017-09-11] MEDS: ACETAMINOPHEN 650 MG/20.3 ML ORAL SOLUTION (CUPS) PO PRN ×2 (01:53→16:32)
[2017-09-11] MEDS: METHADONE HCL 10 MG TABLET PO SCH ×2 (06:21→17:45)
[2017-09-11] MEDS: oxyCODONE HCL 5 MG TABLET PO SCH ×3 (06:21→21:10)
[2017-09-11] MEDS ORDERED: PT OWN MED DRAWER 7, Y5N ONE ×2 (09:58→16:31)
[2017-09-11] MEDS: DIVALPROEX NA *ER* EXTEND REL 500 MG TABLET.SA (FP) PO SCH ×2 (10:01→21:11)
[2017-09-11] MEDS: FOLIC ACID 1 MG TABLET (FP) PO SCH (10:01)
[2017-09-11] MEDS: POLYETHYLENE GLYCOL 3350 119 GM BTL PO SCH ×2 (10:02→21:11)
[2017-09-11] MEDS: PANTOPRAZOLE 40 MG TABLET (FP) PO SCH (10:03)
[2017-09-11] MEDS: THIAMINE HCL 100 MG TABLET (FP) PO SCH (10:03)
[2017-09-11] MEDS: OLANZapine 10 MG TABLET PO SCH ×2 (10:03→21:11)
[2017-09-11] MEDS: NICOTINE 21 MG/24 HOURS TOPICAL PATCH TD SCH (10:04)
--- NOTE | 2017-09-11 10:33 | EKG ---
Test Reason : Blood Pressure : / mmHG Vent. Rate : 099 BPM Atrial Rate : 099 BPM P-R Int : 152 ms QRS Dur : 082 ms QT Int : 358 ms P-R-T Axes : 059 018 -10 degrees QTc Int : 459 ms NORMAL SINUS RHYTHM CANNOT RULE OUT AHTERO- SEPTAL INFARCT (CITED ON OR BEFORE 19-AUG-2017) ABNORMAL ECG WHEN COMPARED WITH ECG OF 20-AUG-2017 15:38, NO SIGNIFICANT CHANGE WAS FOUND Confirmed by HESHAM MONTENEGRO MD ([id number]) on 09/11/2017 10:32:50 AM Referred By: Ridge ESPARZA Confirmed By:HESHAM MONTENEGRO MD
--- NOTE | 2017-09-11 15:37 | PN ---
Physical Exam: SUBJECTIVE: Patient seen and examined. She is ambulating the rooms, states she always in pain, particularly her shoulders. She is tearful, she asks how long she has to live with her brain cancer and express she does not want to . OBJECTIVE: Vital Signs Period Temp Pulse Resp BP Sys/Camacho Pulse Ox Last 24 Hr 97.5 F-98.6 F 82-118 16-18 113-129/68-89 96 PE Neuro: alert,awake, cn 2-12intact HEENT: poor dentition, dentchers lower teeth Pulm: basilar rhonchi CV: s1 s2 rrr Abd: s nt nd + bs Ext: no le edema Active Medications Generic Name Dose Route Start Last Admin Trade Name Freq PRN Reason Stop Dose Admin Acetaminophen 650 mg 08/21/17 06:52 09/11/17 01:53 Tylenol Oral Solution - PO 650 mg Q6H PRN Administration PAIN LEVEL 1-5 Bisacodyl 10 mg 08/31/17 17:29 09/09/17 13:00 Dulcolax Suppository - RC 10 mg Q24H PRN Administration CONSTIPATION Divalproex Sodium 500 mg 08/22/17 22:00 09/11/17 10:01 Depakote *Er* - PO 500 mg BID REBECCA Administration Docusate Sodium 300 mg 08/28/17 22:00 09/10/17 21:22 Colace - PO 300 mg HS REBECCA Administration Fentanyl 1 patch 09/10/17 17:00 09/10/17 17:16 Duragesic 12mcg Patch - TD 09/17/17 16:51 1 patch Q72H REBECCA Administration Folic Acid 1 mg 08/21/17 10:00 09/11/17 10:01 Folic Acid - PO 1 mg DAILY REBECCA Administration Methadone HCl 30 mg 09/10/17 06:00 09/11/17 06:21 Dolophine - PO 30 mg DAILY@0600 REBECCA Administration Methadone HCl 30 mg 09/10/17 18:00 09/10/17 18:47 Dolophine - PO 30 mg DAILY@1800 REBECCA Administration Methylnaltrexone [place] 8 mg 09/12/17 10:00 Relistor - SQ Q2D@1000 REBECCA Miscellaneous 1 each 09/10/17 16:50 Duragesic Patch Waste TD PRN PRN PAIN Nicotine 21 mg 08/20/17 16:00 09/11/17 10:04 Nicoderm Patch - TD 21 mg DAILY REBECCA Administration Nicotine Polacrilex 2 mg 08/27/17 11:16 Nicorette Gum - BUC Q2H PRN NICOTINE REPLACEMENT RX Olanzapine 20 mg 09/04/17 22:00 09/11/17 10:03 Zyprexa - PO 20 mg BID REBECCA Administration Oxycodone HCl 10 mg 09/08/17 14:00 09/11/17 14:54 Roxicodone - PO 10 mg Q8H REBECCA Administration Pantoprazole Sodium 40 mg 08/21/17 15:00 09/11/17 10:03 Protonix - PO 40 mg DAILY REBECCA Administration Polyethylene Glycol 17 gm 08/28/17 10:00 09/11/17 10:02 Miralax (For Daily Use) - PO 17 gm BID REBECCA Administration Thiamine HCl 100 mg 08/23/17 10:00 09/11/17 10:03 Vitamin B1 - PO 100 mg DAILY REBECCA Administration Assessment: 56 year old woman with a history of left breast cancer, bipolar disorder, tobacco use, heroin use, alcohol abuse. Plan: 1. Metastatic breast cancer - Left breast and axillary lymph node masses/enlargement - Seen and evaluated by oncology, neurology: not a candidate for further treatment - Start fentanyl patch 12mcg q72h (09/10) - Discussed with Dr. Hurley re IL, now that pt is less agitated and able to convey feelings of pain and disease prognosis, will evaluated for IL, will also order R and L shoulder and humerus xrays eval for mets 2. Agitation - Multifactorial: long-term alcohol/opioid abuse, bipolar disorder, metastatic disease to the brain - Marked improvement in behavior with titration of methadone; currently, 30 BID ; can increase by 10mg per day to effect Continue 1:1 Dispo: Full Code Visit type - Emergency Visit Emergency Visit: Yes ED Registration Date: 08/20/17 Care time: The patient presented to the Emergency Department on the above date and was hospitalized for further evaluation of their emergent condition. - New Patient This patient is new to me today: No - Critical Care Critical Care patient: No
[2017-09-11] MEDS: DOCUSATE SODIUM 100 MG CAPSULE (FP) PO SCH (21:10)
[2017-09-12] MEDS: ACETAMINOPHEN 650 MG/20.3 ML ORAL SOLUTION (CUPS) PO PRN ×3 (00:30→20:38)
[2017-09-12] MEDS: oxyCODONE HCL 5 MG TABLET PO SCH ×3 (06:19→21:57)
[2017-09-12] MEDS: METHADONE HCL 10 MG TABLET PO SCH ×2 (06:20→18:01)
[2017-09-12] MEDS ORDERED: PT OWN MED DRAWER 7, Y5N ONE ×2 (09:09→21:46)
[2017-09-12] MEDS: THIAMINE HCL 100 MG TABLET (FP) PO SCH (09:10)
[2017-09-12] MEDS: OLANZapine 10 MG TABLET PO SCH ×2 (09:10→21:57)
[2017-09-12] MEDS: NICOTINE 21 MG/24 HOURS TOPICAL PATCH TD SCH (09:10)
[2017-09-12] MEDS: FOLIC ACID 1 MG TABLET (FP) PO SCH (09:10)
[2017-09-12] MEDS: DIVALPROEX NA *ER* EXTEND REL 500 MG TABLET.SA (FP) PO SCH ×2 (09:11→21:57)
[2017-09-12] MEDS: PANTOPRAZOLE 40 MG TABLET (FP) PO SCH (09:14)
[2017-09-12] MEDS: Methylnaltrexone Bromide 12 MG/0.6 ML KIT SQ SCH (09:14)
--- NOTE | 2017-09-12 09:18 | PN ---
Progress Note (short form) - Note Progress Note: Radiation Oncology Follow-up We were asked to reevaluate for RT as MS has been improving. c/o headaches and left chest/breast pains. No N/V/dizziness. Son at bedside Alert, knows year, place, age. CN II-XII intact Sensation intact Motor 4+/5, no pronator drift Neg romberg Antalgic gait. While I was discussing her prognosis and potential palliative treatment with radiation therapy to brain and breast she became highly agitated and inconsolable, demanding cigarette from the staff. She left the room and did not return. Impression: Metastatic breast cancer, substance abuse, highly agitated behavior. Although she may be making progress with her substance abuse issues, the erratic behavior makes her a poor candidate for RT as unpredictable movement and behavior while undergoing treatment can result in serious unintended injury. I discussed this with her son.
--- NOTE | 2017-09-12 10:41 | PN ---
Physical Exam: SUBJECTIVE: Patient seen and examined. Son at bedside, pt states having a bad day. Eating oatmeal OBJECTIVE: Vital Signs Period Temp Pulse Resp BP Sys/Camacho Pulse Ox Last 24 Hr 97.8 F-98.2 F 85-90 16-18 115-138/78-97 97 PE Neuro: alert,awake, cn 2-12intact HEENT: poor dentition, dentchers lower teeth Pulm: basilar rhonchi CV: s1 s2 rrr Abd: s nt nd + bs Ext: no le edema Active Medications Generic Name Dose Route Start Last Admin Trade Name Freq PRN Reason Stop Dose Admin Acetaminophen 650 mg 08/21/17 06:52 09/12/17 07:47 Tylenol Oral Solution - PO 650 mg Q6H PRN Administration PAIN LEVEL 1-5 Bisacodyl 10 mg 08/31/17 17:29 09/09/17 13:00 Dulcolax Suppository - RC 10 mg Q24H PRN Administration CONSTIPATION Divalproex Sodium 500 mg 08/22/17 22:00 09/12/17 09:11 Depakote *Er* - PO 500 mg BID REBECCA Administration Docusate Sodium 300 mg 08/28/17 22:00 09/11/17 21:10 Colace - PO 300 mg HS REBECCA Administration Fentanyl 1 patch 09/10/17 17:00 09/10/17 17:16 Duragesic 12mcg Patch - TD 09/17/17 16:51 1 patch Q72H REBECCA Administration Folic Acid 1 mg 08/21/17 10:00 09/12/17 09:10 Folic Acid - PO 1 mg DAILY REBECCA Administration Methadone HCl 30 mg 09/10/17 06:00 09/12/17 06:20 Dolophine - PO 30 mg DAILY@0600 REBECCA Administration Methadone HCl 30 mg 09/10/17 18:00 09/11/17 17:45 Dolophine - PO 30 mg DAILY@1800 REBECCA Administration Methylnaltrexone [place] 8 mg 09/12/17 10:00 09/12/17 09:14 Relistor - SQ 8 mg Q2D@1000 REBECCA Administration Miscellaneous 1 each 09/10/17 16:50 Duragesic Patch Waste TD PRN PRN PAIN Nicotine 21 mg 08/20/17 16:00 09/12/17 09:10 Nicoderm Patch - TD 21 mg DAILY REBECCA Administration Nicotine Polacrilex 2 mg 08/27/17 11:16 Nicorette Gum - BUC Q2H PRN NICOTINE REPLACEMENT RX Olanzapine 20 mg 09/04/17 22:00 09/12/17 09:10 Zyprexa - PO 20 mg BID REBECCA Administration Oxycodone HCl 10 mg 09/08/17 14:00 09/12/17 06:19 Roxicodone - PO 10 mg Q8H REBECCA Administration Pantoprazole Sodium 40 mg 08/21/17 15:00 09/12/17 09:14 Protonix - PO 40 mg DAILY REBECCA Administration Polyethylene Glycol 17 gm 08/28/17 10:00 09/11/17 21:11 Miralax (For Daily Use) - PO 17 gm BID REBECCA Administration Thiamine HCl 100 mg 08/23/17 10:00 09/12/17 09:10 Vitamin B1 - PO 100 mg DAILY REBECCA Administration Assessment: 56 year old woman with a history of left breast cancer, bipolar disorder, tobacco use, heroin use, alcohol abuse. Plan: 1. Metastatic breast cancer - Left breast and axillary lymph node masses/enlargement - Seen and evaluated by oncology, neurology: not a candidate for further treatment - Fentanyl patch 12mcg q72h (09/10) - Upon revaluation, pt continues to be poor candidate for RT due to erratic behavior, unable to remain calm for 10 mins 2. Agitation - Multifactorial: long-term alcohol/opioid abuse, bipolar disorder, metastatic disease to the brain - Marked improvement in behavior with titration of methadone; currently, 30 BID ; can increase by 10mg per day to effect - Continue 1:1 Dispo: DNR / DNI Referrals being made for [facility] Visit type - Emergency Visit Emergency Visit: Yes ED Registration Date: 08/20/17 Care time: The patient presented to the Emergency Department on the above date and was hospitalized for further evaluation of their emergent condition. - New Patient This patient is new to me today: No - Critical Care Critical Care patient: No
[2017-09-12] MEDS: POLYETHYLENE GLYCOL 3350 119 GM BTL PO SCH ×2 (10:42→21:58)
[2017-09-12] MEDS: DOCUSATE SODIUM 100 MG CAPSULE (FP) PO SCH (21:57)
[2017-09-13] MEDS: METHADONE HCL 10 MG TABLET PO SCH ×2 (06:29→18:13)
[2017-09-13] MEDS: oxyCODONE HCL 5 MG TABLET PO SCH ×3 (06:30→22:27)
[2017-09-13] MEDS ORDERED: PT OWN MED DRAWER 7, Y5N ONE ×2 (10:42→22:21)
[2017-09-13] MEDS: NICOTINE 21 MG/24 HOURS TOPICAL PATCH TD SCH (10:45)
[2017-09-13] MEDS: FOLIC ACID 1 MG TABLET (FP) PO SCH (10:45)
[2017-09-13] MEDS: DIVALPROEX NA *ER* EXTEND REL 500 MG TABLET.SA (FP) PO SCH ×2 (10:45→22:27)
[2017-09-13] MEDS: POLYETHYLENE GLYCOL 3350 119 GM BTL PO SCH ×2 (10:45→22:28)
[2017-09-13] MEDS: THIAMINE HCL 100 MG TABLET (FP) PO SCH (10:45)
[2017-09-13] MEDS: PANTOPRAZOLE 40 MG TABLET (FP) PO SCH (10:45)
[2017-09-13] MEDS: OLANZapine 10 MG TABLET PO SCH ×2 (10:46→22:28)
[2017-09-13] MEDS ORDERED: METHADONE HCL 10 MG TABLET PO ONE (11:30)
--- NOTE | 2017-09-13 11:33 | PN ---
Physical Exam: SUBJECTIVE: Patient seen and examined. Ate breakfast, no acute distress OBJECTIVE: Vital Signs Period Temp Pulse Resp BP Sys/Camacho Pulse Ox Last 24 Hr 98.4 F-98.7 F 78-101 18-20 101-137/70-88 98 PE Neuro: alert,awake, cn 2-12intact Pulm: clear CV: s1 s2 rrr Abd: s nt nd + bs Ext: no le edema Active Medications Generic Name Dose Route Start Last Admin Trade Name Freq PRN Reason Stop Dose Admin Acetaminophen 650 mg 08/21/17 06:52 09/12/17 20:38 Tylenol Oral Solution - PO 650 mg Q6H PRN Administration PAIN LEVEL 1-5 Bisacodyl 10 mg 08/31/17 17:29 09/09/17 13:00 Dulcolax Suppository - RC 10 mg Q24H PRN Administration CONSTIPATION Divalproex Sodium 500 mg 08/22/17 22:00 09/13/17 10:45 Depakote *Er* - PO 500 mg BID REBECCA Administration Docusate Sodium 300 mg 08/28/17 22:00 09/12/17 21:57 Colace - PO 300 mg HS REBECCA Administration Fentanyl 1 patch 09/10/17 17:00 09/10/17 17:16 Duragesic 12mcg Patch - TD 09/17/17 16:51 1 patch Q72H REBECCA Administration Folic Acid 1 mg 08/21/17 10:00 09/13/17 10:45 Folic Acid - PO 1 mg DAILY REBECCA Administration Methadone HCl 30 mg 09/10/17 18:00 09/12/17 18:01 Dolophine - PO 30 mg DAILY@1800 REBECCA Administration Methadone HCl 10 mg 09/13/17 11:30 Dolophine - PO 09/13/17 11:31 ONCE ONE Methadone HCl 40 mg 09/13/17 11:30 Dolophine - PO DAILY@0600 REBECCA Methylnaltrexone [place] 8 mg 09/12/17 10:00 09/12/17 09:14 Relistor - SQ 8 mg Q2D@1000 REBECCA Administration Miscellaneous 1 each 09/10/17 16:50 Duragesic Patch Waste TD PRN PRN PAIN Nicotine 21 mg 08/20/17 16:00 09/13/17 10:45 Nicoderm Patch - TD 21 mg DAILY REBECCA Administration Nicotine Polacrilex 2 mg 08/27/17 11:16 Nicorette Gum - BUC Q2H PRN NICOTINE REPLACEMENT RX Olanzapine 20 mg 09/04/17 22:00 09/13/17 10:46 Zyprexa - PO 20 mg BID REBECCA Administration Oxycodone HCl 10 mg 09/08/17 14:00 09/13/17 06:30 Roxicodone - PO 10 mg Q8H REBECCA Administration Pantoprazole Sodium 40 mg 08/21/17 15:00 09/13/17 10:45 Protonix - PO 40 mg DAILY REBECCA Administration Polyethylene Glycol 17 gm 08/28/17 10:00 09/13/17 10:45 Miralax (For Daily Use) - PO 17 gm BID REBECCA Administration Thiamine HCl 100 mg 08/23/17 10:00 09/13/17 10:45 Vitamin B1 - PO 100 mg DAILY REBECCA Administration Assessment: 56 year old woman with a history of left breast cancer, bipolar disorder, tobacco use, heroin use, alcohol abuse. Plan: 1. Metastatic breast cancer - Left breast and axillary lymph node masses/enlargement - Seen and evaluated by oncology, neurology: not a candidate for further treatment - Fentanyl patch 12mcg q72h (09/10) - Upon revaluation, pt continues to be poor candidate for RT due to erratic behavior, unable to remain calm for 10 mins 2. Agitation - Multifactorial: long-term alcohol/opioid abuse, bipolar disorder, metastatic disease to the brain - Increased methadone 40mg daily, up titration of methadone to effect - Continue 1:1 Dispo: DNR / DNI Referrals being made for [facility] Visit type - Emergency Visit Emergency Visit: Yes ED Registration Date: 08/20/17 Care time: The patient presented to the Emergency Department on the above date and was hospitalized for further evaluation of their emergent condition. - New Patient This patient is new to me today: No - Critical Care Critical Care patient: No
[2017-09-13] MEDS: fentaNYL 12mcg/hr PATCH.TD72 TD SCH (18:14)
[2017-09-13] MEDS: ACETAMINOPHEN 650 MG/20.3 ML ORAL SOLUTION (CUPS) PO PRN (22:25)
[2017-09-13] MEDS: SENNOSIDES 8.6MG TABLET (FP) PO PRN (22:27)
[2017-09-13] MEDS: DOCUSATE SODIUM 100 MG CAPSULE (FP) PO SCH (22:27)
[2017-09-14] MEDS: ACETAMINOPHEN 650 MG/20.3 ML ORAL SOLUTION (CUPS) PO PRN ×2 (06:15→11:40)
[2017-09-14] MEDS: METHADONE HCL 10 MG TABLET PO SCH ×2 (06:15→17:07)
[2017-09-14] MEDS: oxyCODONE HCL 5 MG TABLET PO SCH ×3 (06:21→21:45)
[2017-09-14] MEDS ORDERED: PT OWN MED DRAWER 7, Y5N ONE ×3 (09:30→13:22)
[2017-09-14] MEDS: DIVALPROEX NA *ER* EXTEND REL 500 MG TABLET.SA (FP) PO SCH ×2 (09:38→21:47)
[2017-09-14] MEDS: FOLIC ACID 1 MG TABLET (FP) PO SCH (09:38)
[2017-09-14] MEDS: POLYETHYLENE GLYCOL 3350 119 GM BTL PO SCH ×2 (09:38→21:45)
[2017-09-14] MEDS: OLANZapine 10 MG TABLET PO SCH ×3 (09:39→21:47)
[2017-09-14] MEDS: Methylnaltrexone Bromide 12 MG/0.6 ML KIT SQ SCH (09:39)
[2017-09-14] MEDS: THIAMINE HCL 100 MG TABLET (FP) PO SCH (09:39)
[2017-09-14] MEDS: NICOTINE 21 MG/24 HOURS TOPICAL PATCH TD SCH (09:40)
--- NOTE | 2017-09-14 12:15 | PN ---
Physical Exam: SUBJECTIVE: Patient seen and examined. Advised patient has been ambulating in hallway, holding conversations with people. Discontinue 1:1. Discussed discharge planning with Sr. Molina at [facility]. See below. OBJECTIVE: Vital Signs Period Temp Pulse Resp BP Sys/Camacho Pulse Ox Last 24 Hr 97.8 F-99.4 F 78-104 18-20 112-144/54-90 98 GENERAL: Awake. Calm. LUNGS: Breath sounds equal, clear to auscultation bilaterally, no wheezes, no crackles, no accessory muscle use. HEART: Regular rate and rhythm, S1, S2 without murmur, rub or gallop. ABDOMEN: Soft, nontender, nondistended EXTREMITIES: 2+ pulses, warm, well-perfused, no edema. Active Medications Generic Name Dose Route Start Last Admin Trade Name Freq PRN Reason Stop Dose Admin Acetaminophen 650 mg 08/21/17 06:52 09/14/17 11:40 Tylenol Oral Solution - PO 650 mg Q6H PRN Administration PAIN LEVEL 1-5 Bisacodyl 10 mg 08/31/17 17:29 09/09/17 13:00 Dulcolax Suppository - RC 10 mg Q24H PRN Administration CONSTIPATION Divalproex Sodium 500 mg 08/22/17 22:00 09/14/17 09:38 Depakote *Er* - PO 500 mg BID REBECCA Administration Docusate Sodium 300 mg 08/28/17 22:00 09/13/17 22:27 Colace - PO 300 mg HS REBECCA Administration Fentanyl 1 patch 09/10/17 17:00 09/13/17 18:14 Duragesic 12mcg Patch - TD 09/17/17 16:51 1 patch Q72H REBECCA Administration Folic Acid 1 mg 08/21/17 10:00 09/14/17 09:38 Folic Acid - PO 1 mg DAILY REBECCA Administration Methadone HCl 40 mg 09/14/17 06:00 09/14/17 06:15 Dolophine - PO 40 mg DAILY@0600 REBECCA Administration Methadone HCl 40 mg 09/14/17 18:00 Dolophine - PO DAILY@1800 REBECCA Methylnaltrexone [place] 8 mg 09/12/17 10:00 09/14/17 09:39 Relistor - SQ 8 mg Q2D@1000 REBECCA Administration Miscellaneous 1 each 09/10/17 16:50 Duragesic Patch Waste TD PRN PRN PAIN Nicotine 21 mg 08/20/17 16:00 09/14/17 09:40 Nicoderm Patch - TD 21 mg DAILY REBECCA Administration Nicotine Polacrilex 2 mg 08/27/17 11:16 Nicorette Gum - BUC Q2H PRN NICOTINE REPLACEMENT RX Olanzapine 10 mg 09/14/17 10:00 09/14/17 10:01 Zyprexa - PO Not Given BID REBECCA Oxycodone HCl 10 mg 09/08/17 14:00 09/14/17 06:21 Roxicodone - PO 10 mg Q8H REBECCA Administration Polyethylene Glycol 17 gm 08/28/17 10:00 09/14/17 09:38 Miralax (For Daily Use) - PO 17 gm BID REBECCA Administration Senna 2 tab 09/13/17 22:00 09/13/17 22:27 Senna - PO 2 tab HS PRN Administration CONSTIPATION Thiamine HCl 100 mg 08/23/17 10:00 09/14/17 09:39 Vitamin B1 - PO 100 mg DAILY REBECCA Administration ASSESSMENT/PLAN: 56 year-old woman with a history of left breast cancer, bipolar disorder, tobacco use, heroin use, alcohol abuse. 1. Metastatic breast cancer --left breast and axillary lymph node masses/enlargement --seen and evaluated by oncology, neurology, and radiation oncology: not a candidate for further treatment --pain management: fentanyl patch 12mcg, methadone 40 BID, oxycodone 10mg q8h --continue depakote for seizure prophylaxis --do NOT give steroids 2. Agitation --multifactorial: long-term alcohol/opioid abuse, bipolar disorder, metastatic disease to the brain --marked improvement in behavior with titration of methadone --lowered dose of xyprexa from 20 to 10mg BID because [facility] cannot accept the patient on a higher dose --d/c 1:1 3. Chronic constipation --likely opioid-induced --Relistor q48h Disposition: Spoke to Sr. Molina at [facility]; to facilitate transfer, following steps taken: 1. lowered dose of xyprea; 1. titrated methadone up by 10mg, now 40mg BID; d/c'd 1:1; CHANEL Bourgeois will fax over psych consults. DNR/DNI Visit type - Emergency Visit Emergency Visit: Yes ED Registration Date: 08/20/17 Care time: The patient presented to the Emergency Department on the above date and was hospitalized for further evaluation of their emergent condition. - New Patient This patient is new to me today: No - Critical Care Critical Care patient: No
--- NOTE | 2017-09-14 16:48 | DS ---
Physical Exam: SUBJECTIVE: Patient seen and examined. Calm. Ambulating back and forth to bathroom on own. Watching TV. OBJECTIVE: Vital Signs Period Temp Pulse Resp BP Sys/Camacho Pulse Ox Last 24 Hr 98.0 F-99.4 F 80-104 18-18 122-144/54-85 97-98 PHYSICAL EXAM GENERAL: Awake. Calm. Oriented x 2. LUNGS: Breath sounds equal, clear to auscultation bilaterally, no wheezes, no crackles, no accessory muscle use. HEART: Regular rate and rhythm, S1, S2 without murmur, rub or gallop. ABDOMEN: Soft, nontender, nondistended EXTREMITIES: 2+ pulses, warm, well-perfused, no edema. LABS CBCD WBC 8.0 K/mm3 (4.0-10.0) 09/06/17 06:40 RBC 3.68 M/mm3 (3.60-5.2) 09/06/17 06:40 Hgb 11.4 GM/dL (10.7-15.3) 09/06/17 06:40 Hct 33.3 % (32.4-45.2) 09/06/17 06:40 MCV 90.4 fl (80-96) 09/06/17 06:40 MCHC 34.2 g/dl (32.0-36.0) 09/06/17 06:40 RDW 15.3 % (11.6-15.6) 09/06/17 06:40 Plt Count 263 K/MM3 (134-434) D 09/06/17 06:40 MPV 8.2 fl (7.5-11.1) 09/06/17 06:40 CMP Sodium 136 mmol/L (136-145) 09/10/17 08:10 Potassium 4.6 mmol/L (3.5-5.1) 09/10/17 08:10 Chloride 101 mmol/L (98-107) 09/10/17 08:10 Carbon Dioxide 30 mmol/L (21-32) 09/10/17 08:10 Anion Gap 5 (8-16) L 09/10/17 08:10 BUN 34 mg/dL (7-18) H 09/10/17 08:10 Creatinine 1.0 mg/dL (0.55-1.02) 09/10/17 08:10 Creat Clearance w eGFR 57.15 (>60) 09/10/17 08:10 Calcium 9.0 mg/dL (8.5-10.1) 09/10/17 08:10 Total Bilirubin 0.3 mg/dL (0.2-1.0) 09/10/17 08:10 AST 27 U/L (15-37) 09/10/17 08:10 ALT 20 U/L (12-78) 09/10/17 08:10 Alkaline Phosphatase 86 U/L (45-117) 09/10/17 08:10 Total Protein 7.8 g/dl (6.4-8.2) 09/10/17 08:10 Albumin 2.6 g/dl (3.4-5.0) L 09/10/17 08:10 HOSPITAL COURSE: Date of Admission:08/20/17 Date of Discharge: 09/14/17 This patient is being discharged on day #25. The patient has a PMH significant for left-sided breast cancer x 4 years, never treated, with metastases to brain, long-term heroin, methadone, and alcohol abuse, and bipolar disorder. She lives on [address] [facility] in [facility]. She was admitted to [facility] on 08/19 for detox. She was referred to the ED on 08/20 due to agitation. Hospital course by problem list 1. Metastatic breast cancer --left breast and axillary lymph node masses/enlargement, metastatic disease to bone and brain --seen and evaluated by oncology, radiation oncology, neurology, and neurosurgery: not a candidate for further treatment --pain management: fentanyl patch 12mcg, methadone 40 BID, oxycodone 10mg q8h scheduled --continue depakote for seizure prophylaxis --do NOT give steroids as patient developed psychosis in past 2. 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) Breast cancer (Chronic) Condition: Stable - Instructions Referrals: Hazel Ruvalcaba MD [Staff Physician] - Disposition: TRANSFER ACUTE CARE/OTHER HOSP - Home Medications Comprehensive Discharge Medication List: Ambulatory Orders Divalproex *ER* [Depakote *ER* -] 500 mg PO BID tablet.sa 08/29/17 Docusate Sodium [Colace -] 300 mg PO HS capsule 08/29/17 Folic Acid - 1 mg PO DAILY tablet 08/29/17 LORazepam [Ativan] 0.5 mg PO TID PRN #12 tablet MDD 3 08/29/17 Methadone [Dolophine -] 30 mg PO DAILY@0600 #10 tablet MDD 1 08/29/17 Nicotine Patch [Nicoderm Patch -] 21 mg TD DAILY patch 08/29/17 Nicotine Polacrilex [Nicorelief -] 2 mg BUC Q2H PRN gum 08/29/17 Olanzapine [Zyprexa -] 2.5 mg PO Q8H PRN tablet 08/29/17 Olanzapine [Zyprexa -] 15 mg PO HS tablet 08/29/17 Pantoprazole Sodium [Protonix -] 40 mg PO DAILY tablet.ec 08/29/17 Polyethylene Glycol 3350 [Miralax 119 gm Btl -] 17 gm PO BID bottle 08/29/17 Thiamine HCl [Vitamin B1 -] 100 mg PO DAILY tablet 08/29/17 This patient is new to me today: No Emergency Visit: Yes ED Registration Date: 08/20/17 Care time: The patient presented to the Emergency Department on the above date and was hospitalized for further evaluation of their emergent condition. Critical Care patient: No - Discharge Referral Referred to [facility] No
[2017-09-14] MEDS: DOCUSATE SODIUM 100 MG CAPSULE (FP) PO SCH (21:43)
[2017-09-15] MEDS: METHADONE HCL 10 MG TABLET PO SCH ×2 (06:00→19:02)
[2017-09-15] MEDS: oxyCODONE HCL 5 MG TABLET PO SCH ×4 (06:01→22:56)
[2017-09-15] MEDS: ACETAMINOPHEN 650 MG/20.3 ML ORAL SOLUTION (CUPS) PO PRN ×2 (10:37→20:47)
[2017-09-15] MEDS: DIVALPROEX NA *ER* EXTEND REL 500 MG TABLET.SA (FP) PO SCH ×2 (10:39→22:57)
[2017-09-15] MEDS: SENNOSIDES 8.6MG TABLET (FP) PO PRN (10:39)
[2017-09-15] MEDS: FOLIC ACID 1 MG TABLET (FP) PO SCH (10:40)
[2017-09-15] MEDS: THIAMINE HCL 100 MG TABLET (FP) PO SCH (10:40)
[2017-09-15] MEDS: OLANZapine 10 MG TABLET PO SCH ×2 (10:40→22:57)
[2017-09-15] MEDS: POLYETHYLENE GLYCOL 3350 119 GM BTL PO SCH ×2 (10:40→22:57)
[2017-09-15] MEDS: NICOTINE 21 MG/24 HOURS TOPICAL PATCH TD SCH (10:40)
[2017-09-15] MEDS ORDERED: PT OWN MED DRAWER 7, Y5N ONE (20:46)
[2017-09-15] MEDS: DOCUSATE SODIUM 100 MG CAPSULE (FP) PO SCH (22:57)
[2017-09-16] MEDS: ACETAMINOPHEN 650 MG/20.3 ML ORAL SOLUTION (CUPS) PO PRN ×2 (02:29→15:42)
[2017-09-16] MEDS: oxyCODONE HCL 5 MG TABLET PO SCH ×3 (06:00→22:14)
[2017-09-16] MEDS ORDERED: METHADONE HCL 10 MG TABLET PO SCH ×2 (06:00→22:27)
[2017-09-16] MEDS ORDERED: PT OWN MED DRAWER 7, Y5N ONE ×2 (10:39→22:21)
[2017-09-16] MEDS: FOLIC ACID 1 MG TABLET (FP) PO SCH (10:40)
[2017-09-16] MEDS: POLYETHYLENE GLYCOL 3350 119 GM BTL PO SCH ×2 (10:40→22:16)
[2017-09-16] MEDS: THIAMINE HCL 100 MG TABLET (FP) PO SCH (10:40)
[2017-09-16] MEDS: NICOTINE 21 MG/24 HOURS TOPICAL PATCH TD SCH (10:40)
[2017-09-16] MEDS: Methylnaltrexone Bromide 12 MG/0.6 ML KIT SQ SCH (10:41)
[2017-09-16] MEDS: DIVALPROEX NA *ER* EXTEND REL 500 MG TABLET.SA (FP) PO SCH ×2 (10:41→22:15)
[2017-09-16] MEDS: OLANZapine 10 MG TABLET PO SCH ×2 (10:42→22:15)
--- NOTE | 2017-09-16 11:21 | PN ---
Physical Exam: SUBJECTIVE: Patient seen and examined at bedside. Sleeping but arousable. OBJECTIVE: Vital Signs Period Temp Pulse Resp BP Sys/Camacho Pulse Ox Last 24 Hr 97.5 F-99.2 F 80-83 18-20 109-136/76-95 GENERAL: The patient is awake, alert, and fully oriented, in no acute distress. LUNGS: Breath sounds CTA HEART: Regular rate and rhythm, S1, S2 ABDOMEN: Soft, nontender, nondistended, normoactive bowel sounds EXTREMITIES: 2+ pulses, warm, well-perfused, no edema. NEUROLOGICAL: Cranial nerves II through XII grossly intact. Normal speech, steady gait Active Medications Generic Name Dose Route Start Last Admin Trade Name Freq PRN Reason Stop Dose Admin Acetaminophen 650 mg 08/21/17 06:52 09/16/17 02:29 Tylenol Oral Solution - PO 650 mg Q6H PRN Administration PAIN LEVEL 1-5 Bisacodyl 10 mg 08/31/17 17:29 09/09/17 13:00 Dulcolax Suppository - RC 10 mg Q24H PRN Administration CONSTIPATION Divalproex Sodium 500 mg 08/22/17 22:00 09/16/17 10:41 Depakote *Er* - PO 500 mg BID REBECCA Administration Docusate Sodium 300 mg 08/28/17 22:00 09/15/17 22:57 Colace - PO 300 mg HS REBECCA Administration Fentanyl 1 patch 09/10/17 17:00 09/13/17 18:14 Duragesic 12mcg Patch - TD 09/17/17 16:51 1 patch Q72H REBECCA Administration Folic Acid 1 mg 08/21/17 10:00 09/16/17 10:40 Folic Acid - PO 1 mg DAILY REBECCA Administration Methadone HCl 40 mg 09/14/17 18:00 09/15/17 19:02 Dolophine - PO 40 mg DAILY@1800 REBECCA Administration Methadone HCl 50 mg 09/16/17 06:00 09/16/17 05:59 Dolophine - PO 50 mg DAILY@0600 REBECCA Administration Methylnaltrexone [place] 8 mg 09/12/17 10:00 09/16/17 10:41 Relistor - SQ 8 mg Q2D@1000 REBECCA Administration Miscellaneous 1 each 09/10/17 16:50 Duragesic Patch Waste TD PRN PRN PAIN Nicotine 21 mg 08/20/17 16:00 09/16/17 10:40 Nicoderm Patch - TD 21 mg DAILY REBECCA Administration Nicotine Polacrilex 2 mg 08/27/17 11:16 Nicorette Gum - BUC Q2H PRN NICOTINE REPLACEMENT RX Olanzapine 10 mg 09/14/17 10:00 09/16/17 10:42 Zyprexa - PO 10 mg BID REBECCA Administration Oxycodone HCl 10 mg 09/08/17 14:00 09/16/17 06:00 Roxicodone - PO 10 mg Q8H REBECCA Administration Polyethylene Glycol 17 gm 08/28/17 10:00 09/16/17 10:40 Miralax (For Daily Use) - PO 17 gm BID REBECCA Administration Senna 2 tab 09/13/17 22:00 09/15/17 10:39 Senna - PO 2 tab HS PRN Administration CONSTIPATION Thiamine HCl 100 mg 08/23/17 10:00 09/16/17 10:40 Vitamin B1 - PO 100 mg DAILY REBECCA Administration ASSESSMENT/PLAN: The patient has a PMH significant for left-sided breast cancer x 4 years, never treated, with metastases to brain, long-term heroin, methadone, and alcohol abuse, and bipolar disorder. She lives on [address] [place] [facility]. She was admitted to [facility] on 08/19 for detox. She was referred to the ED on 08/20 due to agitation. Hospital course by problem list 1. Metastatic breast cancer --left breast and axillary lymph node masses/enlargement, metastatic disease to bone and brain --seen and evaluated by oncology, radiation oncology, neurology, and neurosurgery: not a candidate for further treatment --pain management: fentanyl patch 12mcg, methadone 40 BID, oxycodone 10mg q8h scheduled --continue depakote for seizure prophylaxis --do NOT give steroids as patient developed psychosis in past 2. 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 Chronic constipation --likely opioid-induced --Relistor q48h Visit type - Emergency Visit Emergency Visit: Yes ED Registration Date: 08/20/17 Care time: The patient presented to the Emergency Department on the above date and was hospitalized for further evaluation of their emergent condition. - New Patient This patient is new to me today: No - Critical Care Critical Care patient: No
[2017-09-16] MEDS: METHADONE HCL 10 MG TABLET PO SCH (17:56)
[2017-09-16] MEDS: fentaNYL 12mcg/hr PATCH.TD72 TD SCH (17:56)
[2017-09-16] MEDS: SENNOSIDES 8.6MG TABLET (FP) PO PRN (22:14)
[2017-09-16] MEDS: DOCUSATE SODIUM 100 MG CAPSULE (FP) PO SCH (22:15)
[2017-09-17] MEDS: oxyCODONE HCL 5 MG TABLET PO SCH ×3 (05:55→21:44)
[2017-09-17] MEDS: METHADONE HCL 10 MG TABLET PO SCH ×3 (05:56→17:15)
[2017-09-17] MEDS ORDERED: PT OWN MED DRAWER 7, Y5N ONE ×2 (09:43→21:43)
[2017-09-17] MEDS: FOLIC ACID 1 MG TABLET (FP) PO SCH (09:45)
[2017-09-17] MEDS: DIVALPROEX NA *ER* EXTEND REL 500 MG TABLET.SA (FP) PO SCH ×2 (09:45→21:44)
[2017-09-17] MEDS: POLYETHYLENE GLYCOL 3350 119 GM BTL PO SCH ×2 (09:46→21:44)
[2017-09-17] MEDS: OLANZapine 10 MG TABLET PO SCH ×2 (09:47→21:44)
[2017-09-17] MEDS: NICOTINE 21 MG/24 HOURS TOPICAL PATCH TD SCH (09:47)
[2017-09-17] MEDS: THIAMINE HCL 100 MG TABLET (FP) PO SCH (09:47)
[2017-09-17] MEDS: ACETAMINOPHEN 650 MG/20.3 ML ORAL SOLUTION (CUPS) PO PRN ×2 (11:28→20:03)
--- NOTE | 2017-09-17 12:26 | PN ---
Physical Exam: SUBJECTIVE: Patient seen and examined. sitting in chair in hallway. Patient has become completely socialized to the unit. Acting appropriately, laughing with the staff. Fewer periods of agitation. Gait is unsteady, needs PT. OBJECTIVE: Vital Signs Period Temp Pulse Resp BP Sys/Camacho Pulse Ox Last 24 Hr 98 F-98.6 F 78-109 16-18 123-151/75-80 GENERAL: The patient is awake, alert, and fully oriented, in no acute distress. LUNGS: Breath sounds equal, clear to auscultation bilaterally, no wheezes, no crackles, no accessory muscle use. HEART: Regular rate and rhythm, S1, S2 without murmur, rub or gallop. ABDOMEN: Soft, nontender, nondistended EXTREMITIES: 2+ pulses, warm, well-perfused, no edema. NEUROLOGICAL: Cranial nerves II through XII grossly intact. Normal speech, unsteady gait. Active Medications Generic Name Dose Route Start Last Admin Trade Name Freq PRN Reason Stop Dose Admin Acetaminophen 650 mg 08/21/17 06:52 09/17/17 11:28 Tylenol Oral Solution - PO 650 mg Q6H PRN Administration PAIN LEVEL 1-5 Bisacodyl 10 mg 08/31/17 17:29 09/09/17 13:00 Dulcolax Suppository - RC 10 mg Q24H PRN Administration CONSTIPATION Divalproex Sodium 500 mg 08/22/17 22:00 09/17/17 09:45 Depakote *Er* - PO 500 mg BID REBECCA Administration Docusate Sodium 300 mg 08/28/17 22:00 09/16/17 22:15 Colace - PO 300 mg HS REBECCA Administration Fentanyl 1 patch 09/10/17 17:00 09/16/17 17:56 Duragesic 12mcg Patch - TD 09/17/17 16:51 1 patch Q72H REBECCA Administration Folic Acid 1 mg 08/21/17 10:00 09/17/17 09:45 Folic Acid - PO 1 mg DAILY REBECCA Administration Methadone HCl 30 mg 09/17/17 06:00 09/17/17 11:27 Dolophine - PO 30 mg 0600,1200,1800 REBECCA Administration Methylnaltrexone [place] 8 mg 09/12/17 10:00 09/16/17 10:41 Relistor - SQ 8 mg Q2D@1000 REBECCA Administration Miscellaneous 1 each 09/10/17 16:50 Duragesic Patch Waste TD PRN PRN PAIN Nicotine 21 mg 08/20/17 16:00 09/17/17 09:47 Nicoderm Patch - TD 21 mg DAILY REBECCA Administration Nicotine Polacrilex 2 mg 08/27/17 11:16 Nicorette Gum - BUC Q2H PRN NICOTINE REPLACEMENT RX Olanzapine 10 mg 09/14/17 10:00 09/17/17 09:47 Zyprexa - PO 10 mg BID REBECCA Administration Oxycodone HCl 10 mg 09/08/17 14:00 09/17/17 05:55 Roxicodone - PO 10 mg Q8H REBECCA Administration Polyethylene Glycol 17 gm 08/28/17 10:00 09/17/17 09:46 Miralax (For Daily Use) - PO 17 gm BID REBECCA Administration Senna 2 tab 09/13/17 22:00 09/16/17 22:14 Senna - PO 2 tab HS PRN Administration CONSTIPATION Thiamine HCl 100 mg 08/23/17 10:00 09/17/17 09:47 Vitamin B1 - PO 100 mg DAILY REBECCA Administration ASSESSMENT/PLAN: 1. Metastatic breast cancer --left breast and axillary lymph node masses/enlargement, metastatic disease to bone and brain --seen and evaluated by oncology, radiation oncology, neurology, and neurosurgery: not a candidate for further treatment --pain management: fentanyl patch 12mcg, methadone 40 BID, oxycodone 10mg q8h scheduled --continue depakote for seizure prophylaxis --do NOT give steroids as patient developed psychosis in past 2. 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 Chronic constipation --likely opioid-induced --Relistor q48h 4. Physical therapy evaluation, daily PT Dispo: has been accepted at [facility]. Awaiting open bed. DNR/DNI. Visit type - Emergency Visit Emergency Visit: Yes ED Registration Date: 08/20/17 Care time: The patient presented to the Emergency Department on the above date and was hospitalized for further evaluation of their emergent condition. - New Patient This patient is new to me today: No - Critical Care Critical Care patient: No
[2017-09-17] MEDS ORDERED: ACETAMINOPHEN 650 MG/20.3 ML ORAL SOLUTION (CUPS) PO ONE (16:15)
[2017-09-17] MEDS: SENNOSIDES 8.6MG TABLET (FP) PO PRN (21:44)
[2017-09-17] MEDS: DOCUSATE SODIUM 100 MG CAPSULE (FP) PO SCH (21:45)
[2017-09-18] MEDS: oxyCODONE HCL 5 MG TABLET PO SCH ×3 (05:29→21:20)
[2017-09-18] MEDS: METHADONE HCL 10 MG TABLET PO SCH ×3 (05:29→17:02)
[2017-09-18] MEDS: ACETAMINOPHEN 650 MG/20.3 ML ORAL SOLUTION (CUPS) PO PRN ×3 (05:32→19:35)
--- NOTE | 2017-09-18 09:56 | PN ---
Physical Exam: SUBJECTIVE: Patient seen and examined oob. Ambulating in hallway. Observed walking with PT. Waddling gait. OBJECTIVE: Vital Signs Period Temp Pulse Resp BP Sys/Camacho Pulse Ox Last 24 Hr 97.8 F-98.6 F 80-85 18-18 113-117/75-80 GENERAL: The patient is awake, alert, and fully oriented, in no acute distress. LUNGS: Breath sounds equal, clear to auscultation bilaterally, no wheezes, no crackles, no accessory muscle use. HEART: Regular rate and rhythm, S1, S2 without murmur, rub or gallop. ABDOMEN: Soft, nontender, nondistended EXTREMITIES: 2+ pulses, warm, well-perfused, no edema. NEUROLOGICAL: Cranial nerves II through XII grossly intact. Normal speech, unsteady gait. Active Medications Generic Name Dose Route Start Last Admin Trade Name Freq PRN Reason Stop Dose Admin Acetaminophen 650 mg 08/21/17 06:52 09/18/17 05:32 Tylenol Oral Solution - PO 650 mg Q6H PRN Administration PAIN LEVEL 1-5 Bisacodyl 10 mg 08/31/17 17:29 09/09/17 13:00 Dulcolax Suppository - RC 10 mg Q24H PRN Administration CONSTIPATION Divalproex Sodium 500 mg 08/22/17 22:00 09/17/17 21:44 Depakote *Er* - PO 500 mg BID REBECCA Administration Docusate Sodium 300 mg 08/28/17 22:00 09/17/17 21:45 Colace - PO 300 mg HS REBECCA Administration Folic Acid 1 mg 08/21/17 10:00 09/17/17 09:45 Folic Acid - PO 1 mg DAILY REBECCA Administration Methadone HCl 30 mg 09/17/17 06:00 09/18/17 05:29 Dolophine - PO 30 mg 0600,1200,1800 REBECCA Administration Methylnaltrexone [place] 8 mg 09/12/17 10:00 09/16/17 10:41 Relistor - SQ 8 mg Q2D@1000 REBECCA Administration Miscellaneous 1 each 09/10/17 16:50 Duragesic Patch Waste TD PRN PRN PAIN Nicotine 21 mg 08/20/17 16:00 09/17/17 09:47 Nicoderm Patch - TD 21 mg DAILY REBECCA Administration Nicotine Polacrilex 2 mg 08/27/17 11:16 Nicorette Gum - BUC Q2H PRN NICOTINE REPLACEMENT RX Olanzapine 10 mg 09/14/17 10:00 09/17/17 21:44 Zyprexa - PO 10 mg BID REBECCA Administration Oxycodone HCl 10 mg 09/08/17 14:00 09/18/17 05:29 Roxicodone - PO 10 mg Q8H REBECCA Administration Polyethylene Glycol 17 gm 08/28/17 10:00 09/17/17 21:44 Miralax (For Daily Use) - PO 17 gm BID REBECCA Administration Senna 2 tab 09/13/17 22:00 09/17/17 21:44 Senna - PO 2 tab HS PRN Administration CONSTIPATION Thiamine HCl 100 mg 08/23/17 10:00 09/17/17 09:47 Vitamin B1 - PO 100 mg DAILY REBECCA Administration ASSESSMENT/PLAN 1. Metastatic breast cancer --left breast and axillary lymph node masses/enlargement, metastatic disease to bone and brain --seen and evaluated by oncology, radiation oncology, neurology, and neurosurgery: not a candidate for further treatment --pain management: fentanyl patch 12mcg, methadone 40 BID, oxycodone 10mg q8h scheduled --continue depakote for seizure prophylaxis --do NOT give steroids as patient developed psychosis in past 2. 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 Chronic constipation --likely opioid-induced --Relistor q48h 4. Physical therapy evaluation, daily PT Dispo: has been accepted at [facility]. Awaiting open bed. DNR/DNI. Visit type - Emergency Visit Emergency Visit: Yes ED Registration Date: 08/20/17 Care time: The patient presented to the Emergency Department on the above date and was hospitalized for further evaluation of their emergent condition. - New Patient This patient is new to me today: No - Critical Care Critical Care patient: No
[2017-09-18] MEDS ORDERED: PT OWN MED DRAWER 7, Y5N ONE ×2 (10:09→20:53)
[2017-09-18] MEDS: DIVALPROEX NA *ER* EXTEND REL 500 MG TABLET.SA (FP) PO SCH ×2 (10:16→21:21)
[2017-09-18] MEDS: OLANZapine 10 MG TABLET PO SCH ×2 (10:17→21:22)
[2017-09-18] MEDS: FOLIC ACID 1 MG TABLET (FP) PO SCH (10:17)
[2017-09-18] MEDS: THIAMINE HCL 100 MG TABLET (FP) PO SCH (10:17)
[2017-09-18] MEDS: NICOTINE 21 MG/24 HOURS TOPICAL PATCH TD SCH (10:18)
[2017-09-18] MEDS: POLYETHYLENE GLYCOL 3350 119 GM BTL PO SCH ×2 (10:18→21:22)
[2017-09-18] MEDS: Methylnaltrexone Bromide 12 MG/0.6 ML KIT SQ SCH (10:19)
--- NOTE | 2017-09-18 10:22 | CONSULT ---
Consult - text type - Consultation Consultation Note: Podiatry Consultation: 56 year old F sent for admission from [facility] after hitting her head. Patient 's history significant for untreated metastatic CA. Podiatry consultation requested for trimming of toe nails. SHEILA: Pedal pulses palpable, TG wnl, CFT brisk to all toes. Nails are elongated, discolored, thickened with subungual debris, tender to palpation x 10. No nail bed ulcers, no signs of active infection.l Imp: 56 year old F with onychomycosis x 10 1. Manual debridement of mycotic nails x 10 using nail nipper. Patient tolerated the procedure well without complications. 2. Foot hygiene discussed at length. 3. Patient can f/u outpatient 3 months. Thank you for the courtesy of this consultation. Liana Mandujano DPM
[2017-09-18] MEDS: DOCUSATE SODIUM 100 MG CAPSULE (FP) PO SCH (21:23)
[2017-09-19] MEDS: METHADONE HCL 10 MG TABLET PO SCH ×3 (06:13→17:27)
[2017-09-19] MEDS: oxyCODONE HCL 5 MG TABLET PO SCH ×3 (06:14→21:05)
[2017-09-19] MEDS: ACETAMINOPHEN 650 MG/20.3 ML ORAL SOLUTION (CUPS) PO PRN ×3 (06:15→18:17)
[2017-09-19] MEDS ORDERED: PT OWN MED DRAWER 7, Y5N ONE ×2 (09:27→21:04)
[2017-09-19] MEDS: DIVALPROEX NA *ER* EXTEND REL 500 MG TABLET.SA (FP) PO SCH ×2 (09:28→21:05)
[2017-09-19] MEDS: THIAMINE HCL 100 MG TABLET (FP) PO SCH (09:29)
[2017-09-19] MEDS: FOLIC ACID 1 MG TABLET (FP) PO SCH (09:29)
[2017-09-19] MEDS: POLYETHYLENE GLYCOL 3350 119 GM BTL PO SCH ×2 (09:29→21:05)
[2017-09-19] MEDS: OLANZapine 10 MG TABLET PO SCH ×2 (09:29→21:05)
[2017-09-19] MEDS: NICOTINE 21 MG/24 HOURS TOPICAL PATCH TD SCH (09:30)
--- NOTE | 2017-09-19 12:25 | PN ---
Physical Exam: SUBJECTIVE: Patient seen and examined at bedside. No complaints. Robust appetite. OBJECTIVE: Vital Signs Period Temp Pulse Resp BP Sys/Camacho Pulse Ox Last 24 Hr 98.2 F-98.8 F 71-84 18-20 106-138/70-93 GENERAL: The patient is awake, alert, and fully oriented, in no acute distress. LUNGS: Breath sounds equal, clear to auscultation bilaterally, no wheezes, no crackles, no accessory muscle use. HEART: Regular rate and rhythm, S1, S2 without murmur, rub or gallop. ABDOMEN: Soft, nontender, nondistended EXTREMITIES: 2+ pulses, warm, well-perfused, no edema. NEUROLOGICAL: Cranial nerves II through XII grossly intact. Normal speech, unsteady gait. Active Medications Generic Name Dose Route Start Last Admin Trade Name Freq PRN Reason Stop Dose Admin Acetaminophen 650 mg 08/21/17 06:52 09/19/17 12:12 Tylenol Oral Solution - PO 650 mg Q6H PRN Administration PAIN LEVEL 1-5 Bisacodyl 10 mg 08/31/17 17:29 09/09/17 13:00 Dulcolax Suppository - RC 10 mg Q24H PRN Administration CONSTIPATION Divalproex Sodium 500 mg 08/22/17 22:00 09/19/17 09:28 Depakote *Er* - PO 500 mg BID REBECCA Administration Docusate Sodium 300 mg 08/28/17 22:00 09/18/17 21:23 Colace - PO 300 mg HS REBECCA Administration Folic Acid 1 mg 08/21/17 10:00 09/19/17 09:29 Folic Acid - PO 1 mg DAILY REBECCA Administration Methadone HCl 30 mg 09/17/17 06:00 09/19/17 12:07 Dolophine - PO 30 mg 0600,1200,1800 REBECCA Administration Methylnaltrexone [place] 8 mg 09/12/17 10:00 09/18/17 10:19 Relistor - SQ 8 mg Q2D@1000 REBECCA Administration Miscellaneous 1 each 09/10/17 16:50 Duragesic Patch Waste TD PRN PRN PAIN Nicotine 21 mg 08/20/17 16:00 09/19/17 09:30 Nicoderm Patch - TD 21 mg DAILY REBECCA Administration Nicotine Polacrilex 2 mg 08/27/17 11:16 Nicorette Gum - BUC Q2H PRN NICOTINE REPLACEMENT RX Olanzapine 10 mg 09/14/17 10:00 09/19/17 09:29 Zyprexa - PO 10 mg BID REBECCA Administration Oxycodone HCl 10 mg 09/08/17 14:00 09/19/17 06:14 Roxicodone - PO 10 mg Q8H REBECCA Administration Polyethylene Glycol 17 gm 08/28/17 10:00 09/19/17 09:29 Miralax (For Daily Use) - PO 17 gm BID REBECCA Administration Senna 2 tab 09/13/17 22:00 09/17/17 21:44 Senna - PO 2 tab HS PRN Administration CONSTIPATION Thiamine HCl 100 mg 08/23/17 10:00 09/19/17 09:29 Vitamin B1 - PO 100 mg DAILY REBECCA Administration ASSESSMENT/PLAN: 1. Metastatic breast cancer --left breast and axillary lymph node masses/enlargement, metastatic disease to bone and brain --seen and evaluated by oncology, radiation oncology, neurology, and neurosurgery: not a candidate for further treatment --pain management: fentanyl patch 12mcg, methadone 40 BID, oxycodone 10mg q8h scheduled --continue depakote for seizure prophylaxis --do NOT give steroids as patient developed psychosis in past 2. 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 Chronic constipation --likely opioid-induced --Relistor q48h 4. Physical therapy evaluation, daily PT Dispo: has been accepted at [facility]. Awaiting open bed. DNR/DNI. Visit type - Emergency Visit Emergency Visit: Yes ED Registration Date: 08/20/17 Care time: The patient presented to the Emergency Department on the above date and was hospitalized for further evaluation of their emergent condition. - New Patient This patient is new to me today: No - Critical Care Critical Care patient: No
[2017-09-19] MEDS: DOCUSATE SODIUM 100 MG CAPSULE (FP) PO SCH (21:04)
[2017-09-20] MEDS: oxyCODONE HCL 5 MG TABLET PO SCH ×3 (06:37→22:11)
[2017-09-20] MEDS: METHADONE HCL 10 MG TABLET PO SCH ×3 (06:38→18:03)
--- NOTE | 2017-09-20 08:17 | PN ---
Physical Exam: SUBJECTIVE: Patient seen and examined oob. Walking around room, unit. Quite happy today, son is supposed to be coming to visit. Focused on her fungal toenails. OBJECTIVE: Vital Signs Period Temp Pulse Resp BP Sys/Camacho Pulse Ox Last 24 Hr 98.0 F-98.4 F 75-84 18-20 104-134/68-89 GENERAL: The patient is awake, alert, and fully oriented, in no acute distress. LUNGS: Breath sounds equal, clear to auscultation bilaterally, no wheezes, no crackles, no accessory muscle use. HEART: Regular rate and rhythm, S1, S2 without murmur, rub or gallop. ABDOMEN: Soft, nontender, nondistended EXTREMITIES: 2+ pulses, warm, well-perfused, no edema. NEUROLOGICAL: Cranial nerves II through XII grossly intact. Normal speech, unsteady gait. Active Medications Generic Name Dose Route Start Last Admin Trade Name Freq PRN Reason Stop Dose Admin Acetaminophen 650 mg 08/21/17 06:52 09/19/17 18:17 Tylenol Oral Solution - PO 650 mg Q6H PRN Administration PAIN LEVEL 1-5 Bisacodyl 10 mg 08/31/17 17:29 09/09/17 13:00 Dulcolax Suppository - RC 10 mg Q24H PRN Administration CONSTIPATION Divalproex Sodium 500 mg 08/22/17 22:00 09/19/17 21:05 Depakote *Er* - PO 500 mg BID REBECCA Administration Docusate Sodium 300 mg 08/28/17 22:00 09/19/17 21:04 Colace - PO 300 mg HS REBECCA Administration Folic Acid 1 mg 08/21/17 10:00 09/19/17 09:29 Folic Acid - PO 1 mg DAILY REBECCA Administration Methadone HCl 30 mg 09/17/17 06:00 09/20/17 06:38 Dolophine - PO 30 mg 0600,1200,1800 REBECCA Administration Methylnaltrexone [place] 8 mg 09/12/17 10:00 09/18/17 10:19 Relistor - SQ 8 mg Q2D@1000 REBECCA Administration Miscellaneous 1 each 09/10/17 16:50 Duragesic Patch Waste TD PRN PRN PAIN Nicotine 21 mg 08/20/17 16:00 09/19/17 09:30 Nicoderm Patch - TD 21 mg DAILY REBECCA Administration Nicotine Polacrilex 2 mg 08/27/17 11:16 Nicorette Gum - BUC Q2H PRN NICOTINE REPLACEMENT RX Olanzapine 10 mg 09/14/17 10:00 09/19/17 21:05 Zyprexa - PO 10 mg BID REBECCA Administration Oxycodone HCl 10 mg 09/08/17 14:00 09/20/17 06:37 Roxicodone - PO 10 mg Q8H REBECCA Administration Polyethylene Glycol 17 gm 08/28/17 10:00 09/19/17 21:05 Miralax (For Daily Use) - PO 17 gm BID REBECCA Administration Senna 2 tab 09/13/17 22:00 09/17/17 21:44 Senna - PO 2 tab HS PRN Administration CONSTIPATION Thiamine HCl 100 mg 08/23/17 10:00 09/19/17 09:29 Vitamin B1 - PO 100 mg DAILY REBECCA Administration ASSESSMENT/PLAN: 1. Metastatic breast cancer --left breast and axillary lymph node masses/enlargement, metastatic disease to bone and brain --seen and evaluated by oncology, radiation oncology, neurology, and neurosurgery: not a candidate for further treatment --pain management: fentanyl patch 12mcg, methadone 40 BID, oxycodone 10mg q8h scheduled --continue depakote for seizure prophylaxis --do NOT give steroids as patient developed psychosis in past 2. 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 Chronic constipation --likely opioid-induced --Relistor q48h 4. Onychomycosis --seen by Dr. Mandujano --tinactin cream daily to toenails 4. Physical therapy evaluation, daily PT Dispo: has been accepted at [facility]. Awaiting open bed. DNR/DNI. Visit type - Emergency Visit Emergency Visit: Yes ED Registration Date: 08/20/17 Care time: The patient presented to the Emergency Department on the above date and was hospitalized for further evaluation of their emergent condition. - New Patient This patient is new to me today: No - Critical Care Critical Care patient: No
[2017-09-20] MEDS: ACETAMINOPHEN 650 MG/20.3 ML ORAL SOLUTION (CUPS) PO PRN ×2 (09:24→15:17)
[2017-09-20] MEDS ORDERED: PT OWN MED DRAWER 7, Y5N ONE ×3 (09:38→22:14)
[2017-09-20] MEDS: THIAMINE HCL 100 MG TABLET (FP) PO SCH (09:45)
[2017-09-20] MEDS: FOLIC ACID 1 MG TABLET (FP) PO SCH (09:45)
[2017-09-20] MEDS: Methylnaltrexone Bromide 12 MG/0.6 ML KIT SQ SCH (09:46)
[2017-09-20] MEDS: OLANZapine 10 MG TABLET PO SCH ×2 (09:46→22:14)
[2017-09-20] MEDS: DIVALPROEX NA *ER* EXTEND REL 500 MG TABLET.SA (FP) PO SCH ×2 (09:46→22:14)
[2017-09-20] MEDS: NICOTINE 21 MG/24 HOURS TOPICAL PATCH TD SCH (09:46)
[2017-09-20] MEDS: POLYETHYLENE GLYCOL 3350 119 GM BTL PO SCH ×2 (09:47→22:00)
[2017-09-20] MEDS: TOLNAFTATE 1% CREAM 15 GM TUBE TP SCH (12:05)
[2017-09-20] MEDS: DOCUSATE SODIUM 100 MG CAPSULE (FP) PO SCH (22:00)
[2017-09-21] MEDS: ACETAMINOPHEN 650 MG/20.3 ML ORAL SOLUTION (CUPS) PO PRN ×2 (06:34→19:02)
[2017-09-21] MEDS: METHADONE HCL 10 MG TABLET PO SCH ×3 (06:34→17:56)
[2017-09-21] MEDS ORDERED: PT OWN MED DRAWER 7, Y5N ONE ×2 (09:32→11:35)
[2017-09-21] MEDS: NICOTINE 21 MG/24 HOURS TOPICAL PATCH TD SCH (09:39)
[2017-09-21] MEDS: POLYETHYLENE GLYCOL 3350 119 GM BTL PO SCH ×2 (09:39→21:08)
[2017-09-21] MEDS: TOLNAFTATE 1% CREAM 15 GM TUBE TP SCH (09:39)
[2017-09-21] MEDS: FOLIC ACID 1 MG TABLET (FP) PO SCH (09:40)
[2017-09-21] MEDS: DIVALPROEX NA *ER* EXTEND REL 500 MG TABLET.SA (FP) PO SCH ×2 (09:40→21:05)
[2017-09-21] MEDS: OLANZapine 10 MG TABLET PO SCH ×2 (09:40→21:05)
[2017-09-21] MEDS: THIAMINE HCL 100 MG TABLET (FP) PO SCH (09:40)
[2017-09-21] MEDS: oxyCODONE HCL 5 MG TABLET PO SCH ×3 (09:46→21:45)
--- NOTE | 2017-09-21 11:03 | PN ---
Physical Exam: SUBJECTIVE: Patient seen and examined. Sitting in hallway, periods of anxiety/agitation, demanding behaviour. OBJECTIVE: Awaiting bed at [facility] Vital Signs Period Temp Pulse Resp BP Sys/Camacho Pulse Ox Last 24 Hr 97.8 F-98.2 F 70-80 19-20 109-122/64-72 97 GENERAL: The patient is awake, alert, in no acute distress. HEAD: Normal with no signs of trauma. EYES: PERRL, extraocular movements intact, sclera anicteric, conjunctiva clear. No ptosis. ENT: Ears normal, nares patent, oropharynx clear without exudates NECK: Trachea midline, full range of motion, supple. LUNGS: Breath sounds equal, clear to auscultation bilaterally HEART: Regular rate and rhythm ABDOMEN: Soft, nontender, nondistended, normoactive bowel sounds EXTREMITIES:bilateral lower ext pitting edema NEUROLOGICAL: Cranial nerves II through XII grossly intact. Normal speech, gait not observed. PSYCH: Normal mood, normal affect. SKIN: Warm, dry, normal turgor, no rashes or lesions noted Active Medications Generic Name Dose Route Start Last Admin Trade Name Freq PRN Reason Stop Dose Admin Acetaminophen 650 mg 08/21/17 06:52 09/21/17 06:34 Tylenol Oral Solution - PO 650 mg Q6H PRN Administration PAIN LEVEL 1-5 Acetaminophen 325 mg 09/21/17 11:01 Tylenol - PO 09/21/17 11:02 ONCE ONE Bisacodyl 10 mg 08/31/17 17:29 09/09/17 13:00 Dulcolax Suppository - RC 10 mg Q24H PRN Administration CONSTIPATION Divalproex Sodium 500 mg 08/22/17 22:00 09/21/17 09:40 Depakote *Er* - PO 500 mg BID REBECCA Administration Docusate Sodium 300 mg 08/28/17 22:00 09/20/17 22:00 Colace - PO Not Given HS REBECCA Folic Acid 1 mg 08/21/17 10:00 09/21/17 09:40 Folic Acid - PO 1 mg DAILY REBECCA Administration Methadone HCl 30 mg 09/17/17 06:00 09/21/17 06:34 Dolophine - PO 30 mg 0600,1200,1800 REBECCA Administration Methylnaltrexone [place] 8 mg 09/12/17 10:00 09/20/17 09:46 Relistor - SQ 8 mg Q2D@1000 REBECCA Administration Miscellaneous 1 each 09/10/17 16:50 Duragesic Patch Waste TD PRN PRN PAIN Nicotine 21 mg 08/20/17 16:00 09/21/17 09:39 Nicoderm Patch - TD 21 mg DAILY REBECCA Administration Nicotine Polacrilex 2 mg 08/27/17 11:16 Nicorette Gum - BUC Q2H PRN NICOTINE REPLACEMENT RX Olanzapine 10 mg 09/14/17 10:00 09/21/17 09:40 Zyprexa - PO 10 mg BID REBECCA Administration Oxycodone HCl 10 mg 09/08/17 14:00 09/21/17 09:46 Roxicodone - PO 10 mg Q8H REBECCA Administration Polyethylene Glycol 17 gm 08/28/17 10:00 09/21/17 09:39 Miralax (For Daily Use) - PO 17 gm BID REBECCA Administration Senna 2 tab 09/13/17 22:00 09/17/17 21:44 Senna - PO 2 tab HS PRN Administration CONSTIPATION Thiamine HCl 100 mg 08/23/17 10:00 09/21/17 09:40 Vitamin B1 - PO 100 mg DAILY REBECCA Administration Tolnaftate 1 applic 09/20/17 10:00 09/21/17 09:39 Tinactin 1% Cream - TP 1 applic DAILY REBECCA Administration ASSESSMENT/PLAN: Patient is a 56 year old woman with history of left breast cancer, smoker, seizure disorder, heroin/alcohol/methadone abuse who presents to the ER on from [facility] after falling and hitting her head against a counter. Oncology: Metastatic breast cancer to bone and brain: During hospitalization, has been seen by oncology, radiation oncology, neuro and neurosugery, not a candidate for further treatment. Pain currently managed with oxycodone 10mg q8, methadone 30mg tid, fentanyl patch. Patient awaiting bed placement at [facility] for her progressive disease. Psyche: Agitation: Episodes of agitation, likely secondary to patients history of heroin , alcohol abuse, metastatic breast cancer to bone and brain. fen tolerating PO monitor electrolytes, encourage hydration regular diet prophy ambulatory bowel regimen dnr/dni Visit type - Emergency Visit Emergency Visit: Yes ED Registration Date: 08/20/17 Care time: The patient presented to the Emergency Department on the above date and was hospitalized for further evaluation of their emergent condition. - New Patient This patient is new to me today: Yes Date on this admission: 09/21/17 - Critical Care Critical Care patient: No - Discharge Referral Referred to [facility] No
[2017-09-21] MEDS ORDERED: ACETAMINOPHEN 325 MG TABLET (FP) PO ONE (11:45)
[2017-09-21] MEDS: DOCUSATE SODIUM 100 MG CAPSULE (FP) PO SCH (21:04)
[2017-09-22] MEDS: ACETAMINOPHEN 650 MG/20.3 ML ORAL SOLUTION (CUPS) PO PRN ×4 (00:04→22:30)
[2017-09-22] MEDS: oxyCODONE HCL 5 MG TABLET PO SCH ×3 (06:46→21:03)
[2017-09-22] MEDS: METHADONE HCL 10 MG TABLET PO SCH ×3 (06:47→17:19)
--- NOTE | 2017-09-22 09:14 | PN ---
Physical Exam: SUBJECTIVE: Patient seen and examined at the bedside. Feels well, today, in no distress. Ambulating in room. OBJECTIVE: Vital Signs Period Temp Pulse Resp BP Sys/Camacho Pulse Ox Last 24 Hr 97.7 F-98.3 F 59-75 20-20 104-118/59-77 97 GENERAL: The patient is awake, alert, in no acute distress. HEAD: Normal with no signs of trauma. EYES: PERRL, extraocular movements intact, sclera anicteric, conjunctiva clear. No ptosis. ENT: Ears normal, nares patent, oropharynx clear without exudates NECK: Trachea midline, full range of motion, supple. LUNGS: Breath sounds equal, clear to auscultation bilaterally HEART: Regular rate and rhythm ABDOMEN: Soft, nontender, nondistended, normoactive bowel sounds EXTREMITIES:bilateral lower ext pitting edema NEUROLOGICAL: Cranial nerves II through XII grossly intact. Normal speech, gait not observed. PSYCH: Normal mood, normal affect. SKIN: Warm, dry, normal turgor, no rashes or lesions noted Active Medications Generic Name Dose Route Start Last Admin Trade Name Freq PRN Reason Stop Dose Admin Acetaminophen 650 mg 08/21/17 06:52 09/22/17 00:04 Tylenol Oral Solution - PO 650 mg Q6H PRN Administration PAIN LEVEL 1-5 Bisacodyl 10 mg 08/31/17 17:29 09/09/17 13:00 Dulcolax Suppository - RC 10 mg Q24H PRN Administration CONSTIPATION Divalproex Sodium 500 mg 08/22/17 22:00 09/21/17 21:05 Depakote *Er* - PO 500 mg BID REBECCA Administration Docusate Sodium 300 mg 08/28/17 22:00 09/21/17 21:04 Colace - PO Not Given HS REBECCA Folic Acid 1 mg 08/21/17 10:00 09/21/17 09:40 Folic Acid - PO 1 mg DAILY REBECCA Administration Methadone HCl 30 mg 09/17/17 06:00 09/22/17 06:47 Dolophine - PO 30 mg 0600,1200,1800 REBECCA Administration Methylnaltrexone [place] 8 mg 09/12/17 10:00 09/20/17 09:46 Relistor - SQ 8 mg Q2D@1000 REBECCA Administration Miscellaneous 1 each 09/10/17 16:50 Duragesic Patch Waste TD PRN PRN PAIN Nicotine 21 mg 08/20/17 16:00 09/21/17 09:39 Nicoderm Patch - TD 21 mg DAILY REBECCA Administration Nicotine Polacrilex 2 mg 08/27/17 11:16 Nicorette Gum - BUC Q2H PRN NICOTINE REPLACEMENT RX Olanzapine 10 mg 09/14/17 10:00 09/21/17 21:05 Zyprexa - PO 10 mg BID REBECCA Administration Oxycodone HCl 10 mg 09/08/17 14:00 09/22/17 06:46 Roxicodone - PO 10 mg Q8H REBECCA Administration Polyethylene Glycol 17 gm 08/28/17 10:00 09/21/17 21:08 Miralax (For Daily Use) - PO Not Given BID REBECCA Senna 2 tab 09/13/17 22:00 09/17/17 21:44 Senna - PO 2 tab HS PRN Administration CONSTIPATION Thiamine HCl 100 mg 08/23/17 10:00 09/21/17 09:40 Vitamin B1 - PO 100 mg DAILY REBECCA Administration Tolnaftate 1 applic 09/20/17 10:00 09/21/17 09:39 Tinactin 1% Cream - TP 1 applic DAILY REBECCA Administration ASSESSMENT/PLAN: Patient is a 56 year old woman with history of left breast cancer, smoker, seizure disorder, heroin/alcohol/methadone abuse who presents to the ER on from [facility] after falling and hitting her head against a counter. 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 Pain currently managed with oxycodone 10mg q8, methadone 30mg tid, fentanyl patch. Patient awaiting bed placement at [facility] for her progressive disease. Psyche: Agitation: Episodes of agitation, likely secondary to patients history of heroin , alcohol abuse, metastatic breast cancer to bone and brain. fen tolerating PO monitor electrolytes, encourage hydration regular diet prophy ambulatory bowel regimen dnr/dni Visit type - Emergency Visit Emergency Visit: Yes ED Registration Date: 08/20/17 Care time: The patient presented to the Emergency Department on the above date and was hospitalized for further evaluation of their emergent condition. - New Patient This patient is new to me today: No - Critical Care Critical Care patient: No - Discharge Referral Referred to [facility] No
[2017-09-22] MEDS ORDERED: PT OWN MED DRAWER 7, Y5N ONE ×2 (10:39→10:53)
[2017-09-22] MEDS: THIAMINE HCL 100 MG TABLET (FP) PO SCH (10:43)
[2017-09-22] MEDS: DIVALPROEX NA *ER* EXTEND REL 500 MG TABLET.SA (FP) PO SCH ×2 (10:43→21:02)
[2017-09-22] MEDS: FOLIC ACID 1 MG TABLET (FP) PO SCH (10:43)
[2017-09-22] MEDS: TOLNAFTATE 1% CREAM 15 GM TUBE TP SCH (10:43)
[2017-09-22] MEDS: NICOTINE 21 MG/24 HOURS TOPICAL PATCH TD SCH (10:43)
[2017-09-22] MEDS: OLANZapine 10 MG TABLET PO SCH ×2 (10:43→21:02)
[2017-09-22] MEDS: POLYETHYLENE GLYCOL 3350 119 GM BTL PO SCH ×2 (10:49→21:06)
[2017-09-22] MEDS: Methylnaltrexone Bromide 12 MG/0.6 ML KIT SQ SCH (12:06)
[2017-09-22] MEDS: DOCUSATE SODIUM 100 MG CAPSULE (FP) PO SCH (21:02)
[2017-09-23] MEDS: oxyCODONE HCL 5 MG TABLET PO SCH ×3 (05:30→21:13)
[2017-09-23] MEDS: ACETAMINOPHEN 650 MG/20.3 ML ORAL SOLUTION (CUPS) PO PRN ×3 (05:30→19:50)
[2017-09-23] MEDS: METHADONE HCL 10 MG TABLET PO SCH ×3 (06:50→17:35)
[2017-09-23] MEDS ORDERED: PT OWN MED DRAWER 7, Y5N ONE ×2 (09:32→17:41)
[2017-09-23] MEDS: NICOTINE 21 MG/24 HOURS TOPICAL PATCH TD SCH ×2 (09:38→09:41)
[2017-09-23] MEDS: TOLNAFTATE 1% CREAM 15 GM TUBE TP SCH (09:38)
[2017-09-23] MEDS: FOLIC ACID 1 MG TABLET (FP) PO SCH (09:38)
[2017-09-23] MEDS: OLANZapine 10 MG TABLET PO SCH ×2 (09:38→21:15)
[2017-09-23] MEDS: THIAMINE HCL 100 MG TABLET (FP) PO SCH (09:38)
[2017-09-23] MEDS: DIVALPROEX NA *ER* EXTEND REL 500 MG TABLET.SA (FP) PO SCH ×2 (09:38→21:15)
[2017-09-23] MEDS: POLYETHYLENE GLYCOL 3350 119 GM BTL PO SCH ×2 (09:38→21:15)
--- NOTE | 2017-09-23 12:06 | PN ---
Physical Exam: SUBJECTIVE: Patient seen and examined OBJECTIVE: Vital Signs Period Temp Pulse Resp BP Sys/Camacho Pulse Ox Last 24 Hr 97.8 F-98 F 70-98 20-20 103-141/78-88 97 GENERAL: The patient is awake, alert, in no acute distress. HEAD: Normal with no signs of trauma. EYES: PERRL, extraocular movements intact, sclera anicteric, conjunctiva clear. No ptosis. ENT: Ears normal, nares patent, oropharynx clear without exudates NECK: Trachea midline, full range of motion, supple. LUNGS: Breath sounds equal, clear to auscultation bilaterally HEART: Regular rate and rhythm ABDOMEN: Soft, nontender, nondistended, normoactive bowel sounds EXTREMITIES:bilateral lower ext pitting edema NEUROLOGICAL: Cranial nerves II through XII grossly intact. Normal speech, gait not observed. PSYCH: Normal mood, normal affect. SKIN: Warm, dry, normal turgor, no rashes or lesions noted Active Medications Generic Name Dose Route Start Last Admin Trade Name Freq PRN Reason Stop Dose Admin Acetaminophen 650 mg 08/21/17 06:52 09/23/17 11:05 Tylenol Oral Solution - PO 650 mg Q6H PRN Administration PAIN LEVEL 1-5 Bisacodyl 10 mg 08/31/17 17:29 09/09/17 13:00 Dulcolax Suppository - RC 10 mg Q24H PRN Administration CONSTIPATION Divalproex Sodium 500 mg 08/22/17 22:00 09/23/17 09:38 Depakote *Er* - PO 500 mg BID REBECCA Administration Docusate Sodium 300 mg 08/28/17 22:00 09/22/17 21:02 Colace - PO 300 mg HS REBECCA Administration Folic Acid 1 mg 08/21/17 10:00 09/23/17 09:38 Folic Acid - PO 1 mg DAILY REBECCA Administration Methadone HCl 30 mg 09/17/17 06:00 09/23/17 06:50 Dolophine - PO 30 mg 0600,1200,1800 REBECCA Administration Methylnaltrexone [place] 8 mg 09/12/17 10:00 09/22/17 12:06 Relistor - SQ 8 mg Q2D@1000 REBECCA Administration Miscellaneous 1 each 09/10/17 16:50 Duragesic Patch Waste TD PRN PRN PAIN Nicotine 21 mg 08/20/17 16:00 08/11/18 09:41 Nicoderm Patch - TD Not Given DAILY REBECCA Nicotine Polacrilex 2 mg 08/27/17 11:16 Nicorette Gum - BUC Q2H PRN NICOTINE REPLACEMENT RX Olanzapine 10 mg 09/14/17 10:00 09/23/17 09:38 Zyprexa - PO 10 mg BID REBECCA Administration Oxycodone HCl 10 mg 09/08/17 14:00 09/23/17 05:30 Roxicodone - PO 10 mg Q8H REBECCA Administration Polyethylene Glycol 17 gm 08/28/17 10:00 09/23/17 09:38 Miralax (For Daily Use) - PO 17 gm BID REBECCA Administration Senna 2 tab 09/13/17 22:00 09/17/17 21:44 Senna - PO 2 tab HS PRN Administration CONSTIPATION Thiamine HCl 100 mg 08/23/17 10:00 09/23/17 09:38 Vitamin B1 - PO 100 mg DAILY REBECCA Administration Tolnaftate 1 applic 09/20/17 10:00 09/23/17 09:38 Tinactin 1% Cream - TP 1 applic DAILY REBECCA Administration ASSESSMENT/PLAN: Patient is a 56 year old woman with history of left breast cancer, smoker, seizure disorder, heroin/alcohol/methadone abuse who presents to the ER on from [facility] after falling and hitting her head against a counter. 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 Pain currently managed with oxycodone 10mg q8, methadone 30mg tid, fentanyl patch. Patient awaiting bed placement at [facility] for her progressive disease. Psyche: Agitation: Episodes of agitation, likely secondary to patients history of heroin , alcohol abuse, metastatic breast cancer to bone and brain. fen tolerating PO monitor electrolytes, encourage hydration regular diet prophy ambulatory bowel regimen dnr/dni Visit type - Emergency Visit Emergency Visit: Yes ED Registration Date: 08/20/17 Care time: The patient presented to the Emergency Department on the above date and was hospitalized for further evaluation of their emergent condition. - New Patient This patient is new to me today: No - Critical Care Critical Care patient: No - Discharge Referral Referred to [facility] No
[2017-09-23] MEDS ORDERED: IBUPROFEN 400 MG TABLET (FP) PO ONE (12:16)
[2017-09-23] MEDS ORDERED: IBUPROFEN 200 MG TABLET PO PRN (15:39)
[2017-09-23] MEDS: DOCUSATE SODIUM 100 MG CAPSULE (FP) PO SCH (21:14)
[2017-09-23] MEDS ORDERED: IBUPROFEN 400 MG TABLET (FP) PO PRN (22:16)
[2017-09-23] MEDS: IBUPROFEN 400 MG TABLET (FP) PO PRN (22:40)
[2017-09-24] MEDS: oxyCODONE HCL 5 MG TABLET PO SCH ×3 (05:23→21:04)
[2017-09-24] MEDS: METHADONE HCL 10 MG TABLET PO SCH ×3 (05:23→17:08)
[2017-09-24] MEDS: ACETAMINOPHEN 650 MG/20.3 ML ORAL SOLUTION (CUPS) PO PRN ×3 (07:32→21:04)
[2017-09-24] MEDS ORDERED: PT OWN MED DRAWER 7, Y5N ONE ×5 (10:53→21:01)
[2017-09-24] MEDS: THIAMINE HCL 100 MG TABLET (FP) PO SCH (10:56)
[2017-09-24] MEDS: TOLNAFTATE 1% CREAM 15 GM TUBE TP SCH (10:56)
[2017-09-24] MEDS: OLANZapine 10 MG TABLET PO SCH ×2 (10:56→21:04)
[2017-09-24] MEDS: NICOTINE 21 MG/24 HOURS TOPICAL PATCH TD SCH (10:56)
[2017-09-24] MEDS: DIVALPROEX NA *ER* EXTEND REL 500 MG TABLET.SA (FP) PO SCH ×2 (10:56→21:03)
[2017-09-24] MEDS: FOLIC ACID 1 MG TABLET (FP) PO SCH (10:56)
[2017-09-24] MEDS: IBUPROFEN 400 MG TABLET (FP) PO PRN ×3 (11:02→22:01)
[2017-09-24] MEDS: POLYETHYLENE GLYCOL 3350 119 GM BTL PO SCH ×2 (11:04→21:04)
[2017-09-24] MEDS: Methylnaltrexone Bromide 12 MG/0.6 ML KIT SQ SCH (14:16)
--- NOTE | 2017-09-24 16:02 | PN ---
Physical Exam: SUBJECTIVE: Patient seen and examined at the bedside. Ambulating in room. in no acute distress. Episodes of agitation and calling out at staff. OBJECTIVE: Vital Signs Period Temp Pulse Resp BP Sys/Camacho Pulse Ox Last 24 Hr 97.5 F-98 F 70-93 20-20 110-142/69-87 97 GENERAL: The patient is awake, alert, in no acute distress - episodes of agitation HEAD: Normal with no signs of trauma. EYES: PERRL, extraocular movements intact, sclera anicteric, conjunctiva clear. No ptosis. ENT: Ears normal, nares patent, oropharynx clear without exudates NECK: Trachea midline, full range of motion, supple. LUNGS: Breath sounds equal, clear to auscultation bilaterally HEART: Regular rate and rhythm ABDOMEN: Soft, nontender, nondistended, normoactive bowel sounds EXTREMITIES:bilateral lower ext pitting edema NEUROLOGICAL: Cranial nerves II through XII grossly intact. Normal speech, gait not observed. PSYCH: Normal mood, normal affect. SKIN: Warm, dry, normal turgor, no rashes or lesions noted Active Medications Generic Name Dose Route Start Last Admin Trade Name Freq PRN Reason Stop Dose Admin Acetaminophen 650 mg 08/21/17 06:52 09/24/17 14:39 Tylenol Oral Solution - PO 650 mg Q6H PRN Administration PAIN LEVEL 1-5 Bisacodyl 10 mg 08/31/17 17:29 09/09/17 13:00 Dulcolax Suppository - RC 10 mg Q24H PRN Administration CONSTIPATION Divalproex Sodium 500 mg 08/22/17 22:00 09/24/17 10:56 Depakote *Er* - PO 500 mg BID REBECCA Administration Docusate Sodium 300 mg 08/28/17 22:00 09/23/17 21:14 Colace - PO 300 mg HS REBECCA Administration Folic Acid 1 mg 08/21/17 10:00 09/24/17 10:56 Folic Acid - PO 1 mg DAILY REBECCA Administration Ibuprofen 400 mg 09/23/17 22:17 09/24/17 11:02 Motrin - PO 400 mg Q6H PRN Administration PAIN LEVEL 6-10 Methadone HCl 30 mg 09/17/17 06:00 09/24/17 12:29 Dolophine - PO 30 mg 0600,1200,1800 REBECCA Administration Methylnaltrexone [place] 8 mg 09/12/17 10:00 09/24/17 14:16 Relistor - SQ 8 mg Q2D@1000 REBECCA Administration Miscellaneous 1 each 09/10/17 16:50 Duragesic Patch Waste TD PRN PRN PAIN Nicotine 21 mg 08/20/17 16:00 09/24/17 10:56 Nicoderm Patch - TD Not Given DAILY REBECCA Nicotine Polacrilex 2 mg 08/27/17 11:16 Nicorette Gum - BUC Q2H PRN NICOTINE REPLACEMENT RX Olanzapine 10 mg 09/14/17 10:00 09/24/17 10:56 Zyprexa - PO 10 mg BID REBECCA Administration Oxycodone HCl 10 mg 09/08/17 14:00 09/24/17 14:13 Roxicodone - PO 10 mg Q8H REBECCA Administration Polyethylene Glycol 17 gm 08/28/17 10:00 09/24/17 11:04 Miralax (For Daily Use) - PO 17 gm BID REBECCA Administration Senna 2 tab 09/13/17 22:00 09/17/17 21:44 Senna - PO 2 tab HS PRN Administration CONSTIPATION Thiamine HCl 100 mg 08/23/17 10:00 09/24/17 10:56 Vitamin B1 - PO 100 mg DAILY REBECCA Administration Tolnaftate 1 applic 09/20/17 10:00 09/24/17 10:56 Tinactin 1% Cream - TP 1 applic DAILY REBECCA Administration ASSESSMENT/PLAN: Patient is a 56 year old woman with history of left breast cancer, smoker, seizure disorder, heroin/alcohol/methadone abuse who presents to the ER on from [facility] after falling and hitting her head against a counter. [facility] 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 Pain currently managed with oxycodone 10mg q8, methadone 30mg tid, fentanyl patch and motrin. [facility]. Psyche: Agitation: Episodes of agitation, likely secondary to patients history of heroin , alcohol abuse, metastatic breast cancer to bone and brain. fen tolerating PO monitor electrolytes, encourage hydration regular diet prophy ambulatory bowel regimen dnr/dni Visit type - Emergency Visit Emergency Visit: Yes ED Registration Date: 08/20/17 Care time: The patient presented to the Emergency Department on the above date and was hospitalized for further evaluation of their emergent condition. - New Patient This patient is new to me today: No - Critical Care Critical Care patient: No - Discharge Referral Referred to [facility] Med P.C.: No
[2017-09-24] MEDS: DOCUSATE SODIUM 100 MG CAPSULE (FP) PO SCH (21:03)
[2017-09-25] MEDS: ACETAMINOPHEN 650 MG/20.3 ML ORAL SOLUTION (CUPS) PO PRN ×2 (06:24→11:33)
[2017-09-25] MEDS: METHADONE HCL 10 MG TABLET PO SCH ×3 (06:25→17:47)
[2017-09-25] MEDS: oxyCODONE HCL 5 MG TABLET PO SCH ×3 (06:26→21:09)
[2017-09-25] MEDS: FOLIC ACID 1 MG TABLET (FP) PO SCH (11:04)
[2017-09-25] MEDS: THIAMINE HCL 100 MG TABLET (FP) PO SCH (11:04)
[2017-09-25] MEDS: DIVALPROEX NA *ER* EXTEND REL 500 MG TABLET.SA (FP) PO SCH ×2 (11:04→21:08)
[2017-09-25] MEDS: OLANZapine 10 MG TABLET PO SCH ×2 (11:05→21:09)
[2017-09-25] MEDS: TOLNAFTATE 1% CREAM 15 GM TUBE TP SCH (11:05)
[2017-09-25] MEDS: NICOTINE 21 MG/24 HOURS TOPICAL PATCH TD SCH (11:05)
[2017-09-25] MEDS: POLYETHYLENE GLYCOL 3350 119 GM BTL PO SCH ×2 (11:07→21:07)
--- NOTE | 2017-09-25 11:14 | PN ---
Physical Exam: SUBJECTIVE: Patient seen and examined at the bedside. She is crying and very emotional today. Telling me "I have cancer in my brain and I know that I am going to " , "I have 6 months to live". Patient has capacity but has very poor judgment and impulse control. He mental status may decline as her disease progresses (breast cancer with mets). She is awaiting placement to [facility] and is willing to go. She continues to need positive reinforcement and at times is forgetful, but not confused. OBJECTIVE: Vital Signs Period Temp Pulse Resp BP Sys/Camacho Pulse Ox Last 24 Hr 97.8 F-98.1 F 63-93 20-20 108-142/74-88 99 GENERAL: The patient is awake, alert, in no acute distress HEAD: Normal with no signs of trauma. EYES: PERRL, extraocular movements intact, sclera anicteric, conjunctiva clear. No ptosis. ENT: Ears normal, nares patent, oropharynx clear without exudates NECK: Trachea midline, full range of motion, supple. ABDOMEN: Soft, nontender, nondistended, normoactive bowel sounds EXTREMITIES:bilateral lower ext pitting edema NEUROLOGICAL: Cranial nerves II through XII grossly intact. Normal speech, gait not observed. PSYCH: Normal mood, normal affect at this writing, but can be boisterous, SKIN: Warm, dry, normal turgor, no rashes or lesions noted Active Medications Generic Name Dose Route Start Last Admin Trade Name Freq PRN Reason Stop Dose Admin Acetaminophen 650 mg 08/21/17 06:52 09/25/17 06:24 Tylenol Oral Solution - PO 650 mg Q6H PRN Administration PAIN LEVEL 1-5 Bisacodyl 10 mg 08/31/17 17:29 09/09/17 13:00 Dulcolax Suppository - RC 10 mg Q24H PRN Administration CONSTIPATION Divalproex Sodium 500 mg 08/22/17 22:00 09/25/17 11:04 Depakote *Er* - PO 500 mg BID REBECCA Administration Docusate Sodium 300 mg 08/28/17 22:00 09/24/17 21:03 Colace - PO 300 mg HS REBECCA Administration Folic Acid 1 mg 08/21/17 10:00 09/25/17 11:04 Folic Acid - PO 1 mg DAILY REBECCA Administration Ibuprofen 400 mg 09/23/17 22:17 09/24/17 22:01 Motrin - PO 400 mg Q6H PRN Administration PAIN LEVEL 6-10 Methadone HCl 30 mg 09/17/17 06:00 09/25/17 11:03 Dolophine - PO 30 mg 0600,1200,1800 REBECCA Administration Methylnaltrexone [place] 8 mg 09/12/17 10:00 09/24/17 14:16 Relistor - SQ 8 mg Q2D@1000 REBECCA Administration Miscellaneous 1 each 09/10/17 16:50 Duragesic Patch Waste TD PRN PRN PAIN Nicotine 21 mg 08/20/17 16:00 09/25/17 11:05 Nicoderm Patch - TD Not Given DAILY REBECCA Nicotine Polacrilex 2 mg 08/27/17 11:16 Nicorette Gum - BUC Q2H PRN NICOTINE REPLACEMENT RX Olanzapine 10 mg 09/14/17 10:00 09/25/17 11:05 Zyprexa - PO 10 mg BID REBECCA Administration Oxycodone HCl 10 mg 09/08/17 14:00 09/25/17 06:26 Roxicodone - PO 10 mg Q8H REBECCA Administration Polyethylene Glycol 17 gm 08/28/17 10:00 09/25/17 11:07 Miralax (For Daily Use) - PO Not Given BID REBECCA Senna 2 tab 09/13/17 22:00 09/17/17 21:44 Senna - PO 2 tab HS PRN Administration CONSTIPATION Thiamine HCl 100 mg 08/23/17 10:00 09/25/17 11:04 Vitamin B1 - PO 100 mg DAILY REBECCA Administration Tolnaftate 1 applic 09/20/17 10:00 09/25/17 11:05 Tinactin 1% Cream - TP 1 applic DAILY REBECCA Administration ASSESSMENT/PLAN: Patient is a 56 year old woman with history of left breast cancer, smoker, seizure disorder, heroin/alcohol/methadone abuse who presents to the ER on from [facility] after falling and hitting her head against a counter. She is currently awaiting placement at [facility]. 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 Pain currently managed with oxycodone 10mg q8, methadone 30mg tid, fentanyl patch and motrin. Patient awaiting bed placement at [facility] for her progressive disease. Psyche: Agitation: Episodes of agitation, likely secondary to patients history of heroin , alcohol abuse, metastatic breast cancer to bone and brain. fen tolerating PO monitor electrolytes, encourage hydration regular diet prophy ambulatory bowel regimen dnr/dni Visit type - Emergency Visit Emergency Visit: Yes ED Registration Date: 08/20/17 Care time: The patient presented to the Emergency Department on the above date and was hospitalized for further evaluation of their emergent condition. - New Patient This patient is new to me today: No - Critical Care Critical Care patient: No - Discharge Referral Referred to [facility] Med P.C.: No
[2017-09-25] MEDS: IBUPROFEN 400 MG TABLET (FP) PO PRN ×2 (15:38→21:10)
[2017-09-25] MEDS: DOCUSATE SODIUM 100 MG CAPSULE (FP) PO SCH (21:08)
[2017-09-26] MEDS: METHADONE HCL 10 MG TABLET PO SCH ×3 (06:05→17:55)
[2017-09-26] MEDS: oxyCODONE HCL 5 MG TABLET PO SCH ×3 (06:06→21:22)
[2017-09-26] MEDS: ACETAMINOPHEN 650 MG/20.3 ML ORAL SOLUTION (CUPS) PO PRN ×4 (06:07→23:35)
[2017-09-26] MEDS: IBUPROFEN 400 MG TABLET (FP) PO PRN (06:09)
[2017-09-26] MEDS ORDERED: PT OWN MED DRAWER 7, Y5N ONE ×3 (09:46→20:53)
[2017-09-26] MEDS: DIVALPROEX NA *ER* EXTEND REL 500 MG TABLET.SA (FP) PO SCH ×2 (09:50→21:20)
[2017-09-26] MEDS: FOLIC ACID 1 MG TABLET (FP) PO SCH (09:50)
[2017-09-26] MEDS: NICOTINE 21 MG/24 HOURS TOPICAL PATCH TD SCH ×2 (09:51→10:00)
[2017-09-26] MEDS: POLYETHYLENE GLYCOL 3350 119 GM BTL PO SCH ×2 (09:51→21:18)
[2017-09-26] MEDS: Methylnaltrexone Bromide 12 MG/0.6 ML KIT SQ SCH (09:53)
[2017-09-26] MEDS: OLANZapine 10 MG TABLET PO SCH ×2 (09:53→21:20)
[2017-09-26] MEDS: TOLNAFTATE 1% CREAM 15 GM TUBE TP SCH (09:53)
[2017-09-26] MEDS: THIAMINE HCL 100 MG TABLET (FP) PO SCH (09:53)
--- NOTE | 2017-09-26 11:47 | PN ---
Physical Exam: SUBJECTIVE: Patient seen and examined at the bedside. restless, verbalizing fear of dying. Aware of POC and goal is to go to [facility]. OBJECTIVE: Patient seen and examined at the bedside. Patient has capacity but has very poor judgment and impulse control. He mental status may decline as her disease progresses (breast cancer with mets). She is awaiting placement to [facility] and is willing to go. She continues to need positive reinforcement and at times is forgetful Vital Signs Period Temp Pulse Resp BP Sys/Camacho Pulse Ox Last 24 Hr 97.9 F-98.6 F 63-90 18-20 93-142/51-87 99 GENERAL: The patient is awake, alert, in no acute distress HEAD: Normal with no signs of trauma. EYES: PERRL, extraocular movements intact, sclera anicteric, conjunctiva clear. No ptosis. ENT: Ears normal, nares patent, oropharynx clear without exudates NECK: Trachea midline, full range of motion, supple. ABDOMEN: Soft, nontender, nondistended, normoactive bowel sounds EXTREMITIES:bilateral lower ext pitting edema NEUROLOGICAL: Cranial nerves II through XII grossly intact. Normal speech, gait not observed. PSYCH: Normal mood, normal affect at this writing, but can be boisterous, SKIN: Warm, dry, normal turgor, no rashes or lesions noted Active Medications Active Medications Generic Name Dose Route Start Last Admin Trade Name Freq PRN Reason Stop Dose Admin Acetaminophen 650 mg 08/21/17 06:52 09/26/17 06:07 Tylenol Oral Solution - PO 650 mg Q6H PRN Administration PAIN LEVEL 1-5 Bisacodyl 10 mg 08/31/17 17:29 09/09/17 13:00 Dulcolax Suppository - RC 10 mg Q24H PRN Administration CONSTIPATION Divalproex Sodium 500 mg 08/22/17 22:00 09/26/17 09:50 Depakote *Er* - PO 500 mg BID REBECCA Administration Docusate Sodium 300 mg 08/28/17 22:00 09/25/17 21:08 Colace - PO 300 mg HS REBECCA Administration Folic Acid 1 mg 08/21/17 10:00 09/26/17 09:50 Folic Acid - PO 1 mg DAILY REBECCA Administration Ibuprofen 400 mg 09/23/17 22:17 09/26/17 06:09 Motrin - PO 400 mg Q6H PRN Administration PAIN LEVEL 6-10 Methadone HCl 30 mg 09/17/17 06:00 09/26/17 06:05 Dolophine - PO 30 mg 0600,1200,1800 REBECCA Administration Methylnaltrexone [place] 8 mg 09/12/17 10:00 09/26/17 09:53 Relistor - SQ 8 mg Q2D@1000 REBECCA Administration Miscellaneous 1 each 09/10/17 16:50 Duragesic Patch Waste TD PRN PRN PAIN Nicotine 21 mg 08/20/17 16:00 09/26/17 10:00 Nicoderm Patch - TD Not Given DAILY REBECCA Nicotine Polacrilex 2 mg 08/27/17 11:16 Nicorette Gum - BUC Q2H PRN NICOTINE REPLACEMENT RX Olanzapine 10 mg 09/14/17 10:00 09/26/17 09:53 Zyprexa - PO 10 mg BID REBECCA Administration Oxycodone HCl 10 mg 09/08/17 14:00 09/26/17 06:06 Roxicodone - PO 10 mg Q8H REBECCA Administration Polyethylene Glycol 17 gm 08/28/17 10:00 09/26/17 09:51 Miralax (For Daily Use) - PO 17 gm BID REBECCA Administration Senna 2 tab 09/13/17 22:00 09/17/17 21:44 Senna - PO 2 tab HS PRN Administration CONSTIPATION Thiamine HCl 100 mg 08/23/17 10:00 09/26/17 09:53 Vitamin B1 - PO 100 mg DAILY REBECCA Administration Tolnaftate 1 applic 09/20/17 10:00 09/26/17 09:53 Tinactin 1% Cream - TP 1 applic DAILY REBECCA Administration ASSESSMENT/PLAN: Patient is a 56 year old woman with history of left breast cancer, smoker, seizure disorder, heroin/alcohol/methadone abuse who presents to the ER on from [facility] after falling and hitting her head against a counter. She is currently awaiting placement at [facility]. 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 Pain currently managed with oxycodone 10mg q8, methadone 30mg tid, fentanyl patch and tylenol. Patient awaiting bed placement at [facility] for her progressive disease. Psyche: Agitation: Episodes of agitation/restlessness, likely secondary to patients history of heroin, alcohol abuse, metastatic breast cancer to bone and brain. fen tolerating PO monitor electrolytes, encourage hydration regular diet prophy ambulatory bowel regimen dnr/dni Visit type - Emergency Visit Emergency Visit: Yes ED Registration Date: 08/20/17 Care time: The patient presented to the Emergency Department on the above date and was hospitalized for further evaluation of their emergent condition. - New Patient This patient is new to me today: No - Critical Care Critical Care patient: No - Discharge Referral Referred to [facility] Med P.C.: No
[2017-09-26] MEDS ORDERED: IBUPROFEN 400 MG TABLET (FP) PO ONE (15:30)
[2017-09-26] MEDS: DOCUSATE SODIUM 100 MG CAPSULE (FP) PO SCH (21:20)
[2017-09-27] MEDS: METHADONE HCL 10 MG TABLET PO SCH ×3 (06:16→17:05)
[2017-09-27] MEDS: oxyCODONE HCL 5 MG TABLET PO SCH ×3 (06:17→21:16)
[2017-09-27] MEDS ORDERED: FENTANYL PATCH WASTE TD PRN (07:41)
[2017-09-27] MEDS: fentaNYL 12mcg/hr PATCH.TD72 TD SCH ×2 (09:21→12:06)
[2017-09-27] MEDS ORDERED: PT OWN MED DRAWER 7, Y5N ONE ×4 (09:23→21:11)
[2017-09-27] MEDS: ACETAMINOPHEN 650 MG/20.3 ML ORAL SOLUTION (CUPS) PO PRN ×3 (09:24→20:35)
[2017-09-27] MEDS: TOLNAFTATE 1% CREAM 15 GM TUBE TP SCH (09:25)
[2017-09-27] MEDS: FOLIC ACID 1 MG TABLET (FP) PO SCH (09:25)
[2017-09-27] MEDS: DIVALPROEX NA *ER* EXTEND REL 500 MG TABLET.SA (FP) PO SCH ×2 (09:25→21:16)
[2017-09-27] MEDS: OLANZapine 10 MG TABLET PO SCH ×2 (09:25→21:16)
[2017-09-27] MEDS: THIAMINE HCL 100 MG TABLET (FP) PO SCH (09:25)
[2017-09-27] MEDS: NICOTINE 21 MG/24 HOURS TOPICAL PATCH TD SCH (09:26)
[2017-09-27] MEDS: POLYETHYLENE GLYCOL 3350 119 GM BTL PO SCH ×2 (09:27→21:16)
[2017-09-27 10:54] LABS: BASO % 0.5 % (0-2.0); EOS % 2.8 % (0-4.5); HEMATOCRIT 30.3 % (32.4-45.2); HEMOGLOBIN 10.4 GM/dL (10.7-15.3); LYMPH % 26.6 % (8-40); MCHC 34.2 g/dl (32.0-36.0); MEAN CELL VOLUME 90.6 fl (80-96); MEAN PLT VOLUME 8.1 fl (7.5-11.1); MONO % 14.4 % (3.8-10.2); NEUT % 55.7 % (42.8-82.8); PLATELET COUNT 239 K/MM3 (134-434); RBC 3.35 M/mm3 (3.60-5.2); RDW 17.2 % (11.6-15.6); WHITE BLOOD COUNT 5.6 K/mm3 (4.0-10.0)
[2017-09-27 11:14] LABS: ALBUMIN 2.9 g/dl (3.4-5.0); ANION GAP 10 (8-16); BLOOD UREA NITROGEN 29 mg/dL (7-18); CALCIUM 8.4 mg/dL (8.5-10.1); CHLORIDE 103 mmol/L (98-107); CO2 27 mmol/L (21-32); CREATININE 0.8 mg/dL (0.55-1.02); GLUCOSE,RANDOM 103 mg/dL (74-106); POTASSIUM 4.6 mmol/L (3.5-5.1); SGOT/AST 33 U/L (15-37); SGPT/ALT 16 U/L (12-78); SODIUM 140 mmol/L (136-145)
[2017-09-27 11:16] LABS: ALK PHOS 132 U/L (45-117); BILIRUBIN,TOTAL 0.3 mg/dL (0.2-1.0); TOT PROT 8.4 g/dl (6.4-8.2)
[2017-09-27] MEDS: BISACODYL 10 MG SUPP.RECT RC SCH (12:06)
--- NOTE | 2017-09-27 15:21 | PN ---
Progress Note (short form) - Note Progress Note: Subjective: Patient was seen at the bedside She is becoming more agitated, will reconsult psych Current Medications Generic Name Dose Route Start Last Admin Trade Name Freq PRN Reason Stop Dose Admin Acetaminophen 650 mg 08/21/17 06:52 09/27/17 09:24 Tylenol Oral Solution - PO 650 mg Q6H PRN Administration PAIN LEVEL 1-5 Bisacodyl 10 mg 09/27/17 11:15 09/27/17 12:06 Dulcolax Suppository - RC 10 mg Q24H REBECCA Administration Divalproex Sodium 500 mg 08/22/17 22:00 09/27/17 09:25 Depakote *Er* - PO 500 mg BID REBECCA Administration Docusate Sodium 300 mg 08/28/17 22:00 09/26/17 21:20 Colace - PO 300 mg HS REBECCA Administration Fentanyl 1 patch 09/27/17 07:45 09/27/17 12:06 Duragesic 12mcg Patch - TD 10/04/17 07:41 1 patch Q72H REBECCA Administration Folic Acid 1 mg 08/21/17 10:00 09/27/17 09:25 Folic Acid - PO 1 mg DAILY REBECCA Administration Methadone HCl 30 mg 09/17/17 06:00 09/27/17 12:04 Dolophine - PO 30 mg 0600,1200,1800 REBECCA Administration Miscellaneous 1 each 09/27/17 07:41 Duragesic Patch Waste TD PRN PRN PAIN Nicotine 21 mg 08/20/17 16:00 09/27/17 09:26 Nicoderm Patch - TD Not Given DAILY REBECCA Nicotine Polacrilex 2 mg 08/27/17 11:16 Nicorette Gum - BUC Q2H PRN NICOTINE REPLACEMENT RX Olanzapine 10 mg 09/14/17 10:00 09/27/17 09:25 Zyprexa - PO 10 mg BID REBECCA Administration Oxycodone HCl 10 mg 09/08/17 14:00 09/27/17 14:22 Roxicodone - PO 10 mg Q8H REBECCA Administration Polyethylene Glycol 17 gm 08/28/17 10:00 09/27/17 09:27 Miralax (For Daily Use) - PO 17 gm BID REBECCA Administration Senna 2 tab 09/13/17 22:00 09/17/17 21:44 Senna - PO 2 tab HS PRN Administration CONSTIPATION Thiamine HCl 100 mg 08/23/17 10:00 09/27/17 09:25 Vitamin B1 - PO 100 mg DAILY REBECCA Administration Tolnaftate 1 applic 09/20/17 10:00 09/27/17 09:25 Tinactin 1% Cream - TP 1 applic DAILY REBECCA Administration Objective: Vital Signs Period Temp Pulse Resp BP Sys/Camacho Pulse Ox Last 24 Hr 97.9 F-98.2 F 68-82 20-20 122-126/64-78 99 Physical Exam: CBCD WBC 5.6 K/mm3 (4.0-10.0) 09/27/17 10:30 RBC 3.35 M/mm3 (3.60-5.2) L 09/27/17 10:30 Hgb 10.4 GM/dL (10.7-15.3) L 09/27/17 10:30 Hct 30.3 % (32.4-45.2) L 09/27/17 10:30 MCV 90.6 fl (80-96) 09/27/17 10:30 MCHC 34.2 g/dl (32.0-36.0) 09/27/17 10:30 RDW 17.2 % (11.6-15.6) H 09/27/17 10:30 Plt Count 239 K/MM3 (134-434) 09/27/17 10:30 MPV 8.1 fl (7.5-11.1) 09/27/17 10:30 CMP Sodium 140 mmol/L (136-145) 09/27/17 10:30 Potassium 4.6 mmol/L (3.5-5.1) 09/27/17 10:30 Chloride 103 mmol/L (98-107) 09/27/17 10:30 Carbon Dioxide 27 mmol/L (21-32) 09/27/17 10:30 Anion Gap 10 (8-16) 09/27/17 10:30 BUN 29 mg/dL (7-18) H 09/27/17 10:30 Creatinine 0.8 mg/dL (0.55-1.02) 09/27/17 10:30 Creat Clearance w eGFR > 60 (>60) 09/27/17 10:30 Random Glucose 103 mg/dL (74-106) 09/27/17 10:30 Calcium 8.4 mg/dL (8.5-10.1) L 09/27/17 10:30 Total Bilirubin 0.3 mg/dL (0.2-1.0) 09/27/17 10:30 AST 33 U/L (15-37) 09/27/17 10:30 ALT 16 U/L (12-78) 09/27/17 10:30 Alkaline Phosphatase 132 U/L (45-117) H D 09/27/17 10:30 Total Protein 8.4 g/dl (6.4-8.2) H 09/27/17 10:30 Albumin 2.9 g/dl (3.4-5.0) L 09/27/17 10:30 Assessment: This is a 56 year old female with PMHx of left breast cancer (dx 4 years ago, only had chemo x1), bipolar disorder, tobacco use, heroin and alcohol abuse, who presented to the ED from [facility] after falling and hitting her head. Plan: 1) Metastatic breast cancer - Not a candidate for chemotherapy - Pain control with Oxycodone, Methadone, Tylenol. Patient refusing Fentanyl patch - Appreciate rad onc consult - Appreciate heme/onc consult 2) Agitation - Depakote 500mg po bid - Zyprexa 15mg po bid - Appreciate psych consult: will reconsult as patient is showing more signs of aggression 2) Heroin abuse, acute alcohol withdrawal - Librium taper completed - Continue Methadone - Appreciate detox consult 3) Bipolar disorder - Medications as above - Appreciate psych consult 4) F/E/N: - Monitor electrolytes - Regular diet 5) Prophylaxis: - Bowel regimen - OOB ambulating 6) Dispo: - Awaiting bed at [facility] CODE STATUS: DNR/DNI Visit type - Emergency Visit Emergency Visit: Yes ED Registration Date: 08/20/17 Care time: The patient presented to the Emergency Department on the above date and was hospitalized for further evaluation of their emergent condition. - New Patient This patient is new to me today: No - Critical Care Critical Care patient: No
[2017-09-27] MEDS: DOCUSATE SODIUM 100 MG CAPSULE (FP) PO SCH (21:16)
[2017-09-28] MEDS: METHADONE HCL 10 MG TABLET PO SCH ×3 (06:29→17:19)
[2017-09-28] MEDS: oxyCODONE HCL 5 MG TABLET PO SCH ×3 (06:30→21:16)
[2017-09-28] MEDS: ACETAMINOPHEN 650 MG/20.3 ML ORAL SOLUTION (CUPS) PO PRN ×3 (06:30→21:22)
--- NOTE | 2017-09-28 10:03 | PN ---
Progress Note (short form) - Note Progress Note: Subjective: Patient was seen at the bedside Awaiting psych reevaluation Current Medications Generic Name Dose Route Start Last Admin Trade Name Freq PRN Reason Stop Dose Admin Acetaminophen 650 mg 08/21/17 06:52 09/28/17 06:30 Tylenol Oral Solution - PO 650 mg Q6H PRN Administration PAIN LEVEL 1-5 Bisacodyl 10 mg 09/27/17 11:15 09/27/17 12:06 Dulcolax Suppository - RC 10 mg Q24H REBECCA Administration Divalproex Sodium 500 mg 08/22/17 22:00 09/27/17 21:16 Depakote *Er* - PO 500 mg BID REBECCA Administration Docusate Sodium 300 mg 08/28/17 22:00 09/27/17 21:16 Colace - PO 300 mg HS REBECCA Administration Fentanyl 1 patch 09/27/17 07:45 09/27/17 12:06 Duragesic 12mcg Patch - TD 10/04/17 07:41 1 patch Q72H REBECCA Administration Folic Acid 1 mg 08/21/17 10:00 09/27/17 09:25 Folic Acid - PO 1 mg DAILY REBECCA Administration Methadone HCl 30 mg 09/17/17 06:00 09/28/17 06:29 Dolophine - PO 30 mg 0600,1200,1800 REBECCA Administration Miscellaneous 1 each 09/27/17 07:41 Duragesic Patch Waste TD PRN PRN PAIN Nicotine 21 mg 08/20/17 16:00 09/27/17 09:26 Nicoderm Patch - TD Not Given DAILY REBECCA Nicotine Polacrilex 2 mg 08/27/17 11:16 Nicorette Gum - BUC Q2H PRN NICOTINE REPLACEMENT RX Olanzapine 10 mg 09/14/17 10:00 09/27/17 21:16 Zyprexa - PO 10 mg BID REBECCA Administration Oxycodone HCl 10 mg 09/08/17 14:00 09/28/17 06:30 Roxicodone - PO 10 mg Q8H REBECCA Administration Polyethylene Glycol 17 gm 08/28/17 10:00 09/27/17 21:16 Miralax (For Daily Use) - PO 17 gm BID REBECCA Administration Senna 2 tab 09/13/17 22:00 09/17/17 21:44 Senna - PO 2 tab HS PRN Administration CONSTIPATION Thiamine HCl 100 mg 08/23/17 10:00 09/27/17 09:25 Vitamin B1 - PO 100 mg DAILY REBECCA Administration Tolnaftate 1 applic 09/20/17 10:00 09/27/17 09:25 Tinactin 1% Cream - TP 1 applic DAILY REBECCA Administration Objective: Vital Signs Period Temp Pulse Resp BP Sys/Camacho Pulse Ox Last 24 Hr 97.8 F-98.4 F 67-80 20-20 95-129/61-77 98 Physical Exam: Patient refused CBCD WBC 5.6 K/mm3 (4.0-10.0) 09/27/17 10:30 RBC 3.35 M/mm3 (3.60-5.2) L 09/27/17 10:30 Hgb 10.4 GM/dL (10.7-15.3) L 09/27/17 10:30 Hct 30.3 % (32.4-45.2) L 09/27/17 10:30 MCV 90.6 fl (80-96) 09/27/17 10:30 MCHC 34.2 g/dl (32.0-36.0) 09/27/17 10:30 RDW 17.2 % (11.6-15.6) H 09/27/17 10:30 Plt Count 239 K/MM3 (134-434) 09/27/17 10:30 MPV 8.1 fl (7.5-11.1) 09/27/17 10:30 CMP Sodium 140 mmol/L (136-145) 09/27/17 10:30 Potassium 4.6 mmol/L (3.5-5.1) 09/27/17 10:30 Chloride 103 mmol/L (98-107) 09/27/17 10:30 Carbon Dioxide 27 mmol/L (21-32) 09/27/17 10:30 Anion Gap 10 (8-16) 09/27/17 10:30 BUN 29 mg/dL (7-18) H 09/27/17 10:30 Creatinine 0.8 mg/dL (0.55-1.02) 09/27/17 10:30 Creat Clearance w eGFR > 60 (>60) 09/27/17 10:30 Random Glucose 103 mg/dL (74-106) 08/15/18 10:30 Calcium 8.4 mg/dL (8.5-10.1) L 09/27/17 10:30 Total Bilirubin 0.3 mg/dL (0.2-1.0) 09/27/17 10:30 AST 33 U/L (15-37) 09/27/17 10:30 ALT 16 U/L (12-78) 09/27/17 10:30 Alkaline Phosphatase 132 U/L (45-117) H D 09/27/17 10:30 Total Protein 8.4 g/dl (6.4-8.2) H 09/27/17 10:30 Albumin 2.9 g/dl (3.4-5.0) L 09/27/17 10:30 Assessment: This is a 56 year old female with PMHx of left breast cancer (dx 4 years ago, only had chemo x1), bipolar disorder, tobacco use, heroin and alcohol abuse, who presented to the ED from [facility] after falling and hitting her head. Plan: 1) Metastatic breast cancer - Not a candidate for chemotherapy - Pain control with Oxycodone, Methadone, Tylenol. Patient refusing Fentanyl patch - Appreciate rad onc consult - Appreciate heme/onc consult 2) Agitation - Depakote 500mg po bid - Zyprexa 15mg po bid - Appreciate psych consult: will reconsult as patient is showing more signs of aggression 2) Heroin abuse, acute alcohol withdrawal - Librium taper completed - Continue Methadone - Appreciate detox consult 3) Bipolar disorder - Medications as above - Appreciate psych consult 4) F/E/N: - Monitor electrolytes - Regular diet 5) Prophylaxis: - Bowel regimen - OOB ambulating 6) Dispo: - Awaiting bed at [facility] CODE STATUS: DNR/DNI Visit type - Emergency Visit Emergency Visit: Yes ED Registration Date: 08/20/17 Care time: The patient presented to the Emergency Department on the above date and was hospitalized for further evaluation of their emergent condition. - New Patient This patient is new to me today: No - Critical Care Critical Care patient: No
[2017-09-28] MEDS: NICOTINE 21 MG/24 HOURS TOPICAL PATCH TD SCH (10:17)
[2017-09-28] MEDS: THIAMINE HCL 100 MG TABLET (FP) PO SCH (11:00)
[2017-09-28] MEDS: FOLIC ACID 1 MG TABLET (FP) PO SCH (11:00)
[2017-09-28] MEDS: BISACODYL 10 MG SUPP.RECT RC SCH (11:02)
[2017-09-28] MEDS ORDERED: PT OWN MED DRAWER 7, Y5N ONE ×3 (11:06→18:11)
[2017-09-28] MEDS: OLANZapine 10 MG TABLET PO SCH ×2 (11:07→21:15)
[2017-09-28] MEDS: TOLNAFTATE 1% CREAM 15 GM TUBE TP SCH (11:07)
[2017-09-28] MEDS: DIVALPROEX NA *ER* EXTEND REL 500 MG TABLET.SA (FP) PO SCH ×2 (11:07→21:15)
[2017-09-28] MEDS: POLYETHYLENE GLYCOL 3350 119 GM BTL PO SCH ×2 (11:10→21:17)
--- NOTE | 2017-09-28 18:12 | PN ---
Progress Note (short form) - Note Progress Note: Patient seen for Psych follow up: patient continues to display severe manic behaviour. pacing the hallways, yelling at staff and others. Seen lying in bed screaming incessantly. unable to respond to verbal requests and staffs interventions at thgis time. Insight and judgment is severly impaired. patintr is posind danger tomnself and others. very poor impulse control and grandiosed thoughts. Plan.1) Increase Zyprexa 20mg po bid. 2) increase Depakote Er to 1000mg po bid. 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
[2017-09-28] MEDS: DOCUSATE SODIUM 100 MG CAPSULE (FP) PO SCH (21:15)
[2017-09-29] MEDS: METHADONE HCL 10 MG TABLET PO SCH ×4 (06:12→18:56)
[2017-09-29] MEDS: oxyCODONE HCL 5 MG TABLET PO SCH ×4 (06:13→18:54)
[2017-09-29] MEDS: ACETAMINOPHEN 650 MG/20.3 ML ORAL SOLUTION (CUPS) PO PRN (06:16)
[2017-09-29] MEDS ORDERED: PT OWN MED DRAWER 7, Y5N ONE ×2 (09:27→11:05)
[2017-09-29] MEDS: NICOTINE 21 MG/24 HOURS TOPICAL PATCH TD SCH (09:35)
[2017-09-29] MEDS: FOLIC ACID 1 MG TABLET (FP) PO SCH (09:35)
[2017-09-29] MEDS: THIAMINE HCL 100 MG TABLET (FP) PO SCH (09:35)
[2017-09-29] MEDS: DIVALPROEX NA *ER* EXTEND REL 500 MG TABLET.SA (FP) PO SCH ×2 (09:35→21:34)
[2017-09-29] MEDS ORDERED: MORPHINE SULFATE 2 MG/ML VIAL IM ONE (09:36)
[2017-09-29] MEDS: OLANZapine 10 MG TABLET PO SCH ×2 (09:36→21:34)
[2017-09-29] MEDS ORDERED: IBUPROFEN 400 MG TABLET (FP) PO ONE (09:50)
[2017-09-29] MEDS: BISACODYL 10 MG SUPP.RECT RC SCH (11:07)
--- NOTE | 2017-09-29 11:57 | PN ---
Progress Note (short form) - Note Progress Note: Subjective: Patient was seen at the bedside, still with manic episodes Current Medications Generic Name Dose Route Start Last Admin Trade Name Freq PRN Reason Stop Dose Admin Acetaminophen 650 mg 08/21/17 06:52 09/29/17 06:16 Tylenol Oral Solution - PO 650 mg Q6H PRN Administration PAIN LEVEL 1-5 Bisacodyl 10 mg 09/27/17 11:15 09/29/17 11:07 Dulcolax Suppository - RC 10 mg Q24H REBECCA Administration Divalproex Sodium 1,000 mg 09/28/17 22:00 09/29/17 09:35 Depakote *Er* - PO 1,000 mg BID REBECCA Administration Docusate Sodium 300 mg 08/28/17 22:00 09/28/17 21:15 Colace - PO 300 mg HS REBECCA Administration Fentanyl 1 patch 09/27/17 07:45 09/27/17 12:06 Duragesic 12mcg Patch - TD 10/04/17 07:41 1 patch Q72H REBECCA Administration Folic Acid 1 mg 08/21/17 10:00 09/29/17 09:35 Folic Acid - PO 1 mg DAILY REBECCA Administration Methadone HCl 30 mg 09/17/17 06:00 09/29/17 06:12 Dolophine - PO 30 mg 0600,1200,1800 REBECCA Administration Miscellaneous 1 each 09/27/17 07:41 Duragesic Patch Waste TD PRN PRN PAIN Nicotine 21 mg 08/20/17 16:00 09/29/17 09:35 Nicoderm Patch - TD Not Given DAILY REBECCA Nicotine Polacrilex 2 mg 08/27/17 11:16 Nicorette Gum - BUC Q2H PRN NICOTINE REPLACEMENT RX Olanzapine 20 mg 09/28/17 22:00 09/29/17 09:36 Zyprexa - PO 20 mg BID REBECCA Administration Oxycodone HCl 10 mg 09/29/17 12:00 Roxicodone - PO Q6H REBECCA Polyethylene Glycol 17 gm 08/28/17 10:00 09/28/17 21:17 Miralax (For Daily Use) - PO 17 gm BID REBECCA Administration Senna 2 tab 09/13/17 22:00 09/17/17 21:44 Senna - PO 2 tab HS PRN Administration CONSTIPATION Thiamine HCl 100 mg 08/23/17 10:00 09/29/17 09:35 Vitamin B1 - PO 100 mg DAILY REBECCA Administration Tolnaftate 1 applic 09/20/17 10:00 09/28/17 11:07 Tinactin 1% Cream - TP 1 applic DAILY REBECCA Administration Objective: Vital Signs Period Temp Pulse Resp BP Sys/Camacho Pulse Ox Last 24 Hr 97.9 F-98.5 F 72-78 20-20 107-124/78-79 98 Physical Exam: Patient refused most of exam, has prolapsed either uterus/vagina/or bladder CBCD WBC 5.6 K/mm3 (4.0-10.0) 09/27/17 10:30 RBC 3.35 M/mm3 (3.60-5.2) L 09/27/17 10:30 Hgb 10.4 GM/dL (10.7-15.3) L 09/27/17 10:30 Hct 30.3 % (32.4-45.2) L 09/27/17 10:30 MCV 90.6 fl (80-96) 09/27/17 10:30 MCHC 34.2 g/dl (32.0-36.0) 09/27/17 10:30 RDW 17.2 % (11.6-15.6) H 09/27/17 10:30 Plt Count 239 K/MM3 (134-434) 09/27/17 10:30 MPV 8.1 fl (7.5-11.1) 09/27/17 10:30 CMP Sodium 140 mmol/L (136-145) 09/27/17 10:30 Potassium 4.6 mmol/L (3.5-5.1) 09/27/17 10:30 Chloride 103 mmol/L (98-107) 09/27/17 10:30 Carbon Dioxide 27 mmol/L (21-32) 09/27/17 10:30 Anion Gap 10 (8-16) 09/27/17 10:30 BUN 29 mg/dL (7-18) H 09/27/17 10:30 Creatinine 0.8 mg/dL (0.55-1.02) 09/27/17 10:30 Creat Clearance w eGFR > 60 (>60) 09/27/17 10:30 Random Glucose 103 mg/dL (74-106) 09/27/17 10:30 Calcium 8.4 mg/dL (8.5-10.1) L 09/27/17 10:30 Total Bilirubin 0.3 mg/dL (0.2-1.0) 09/27/17 10:30 AST 33 U/L (15-37) 09/27/17 10:30 ALT 16 U/L (12-78) 09/27/17 10:30 Alkaline Phosphatase 132 U/L (45-117) H D 09/27/17 10:30 Total Protein 8.4 g/dl (6.4-8.2) H 09/27/17 10:30 Albumin 2.9 g/dl (3.4-5.0) L 09/27/17 10:30 Assessment: This is a 56 year old female with PMHx of left breast cancer (dx 4 years ago, only had chemo x1), bipolar disorder, tobacco use, heroin and alcohol abuse, who presented to the ED from [facility] after falling and hitting her head. Plan: 1) Metastatic breast cancer, uterine/vaginal/bladder? prolapse - Not a candidate for chemotherapy - Patient reports pain is not controlled. Will increase frequency of Oxycodone to q6h. Fentanyl patch at 12mcg (consider increasing tomorrow). - F/u pain management consult for further recommendations (called Dr. Casanova's office today) - Appreciate rad onc consult - Appreciate heme/onc consult 2) Agitation, manic behavior - Depakote increased to 1000mg po bid on 09/28 - Zyprexa increased to 20mg po bid on 09/28 - Appreciate psych consult 2) Heroin abuse, acute alcohol withdrawal - Librium taper completed - Continue Methadone - Appreciate detox consult 3) Bipolar disorder - Medications as above - Appreciate psych consult 4) F/E/N: - Monitor electrolytes - Regular diet 5) Prophylaxis: - Bowel regimen - OOB ambulating 6) Dispo: - Awaiting bed at [facility] CODE STATUS: DNR/DNI Visit type - Emergency Visit Emergency Visit: Yes ED Registration Date: 08/20/17 Care time: The patient presented to the Emergency Department on the above date and was hospitalized for further evaluation of their emergent condition. - New Patient This patient is new to me today: No - Critical Care Critical Care patient: No
[2017-09-29] MEDS: POLYETHYLENE GLYCOL 3350 119 GM BTL PO SCH ×2 (16:15→21:37)
[2017-09-29] MEDS: TOLNAFTATE 1% CREAM 15 GM TUBE TP SCH (16:16)
[2017-09-29] MEDS: DOCUSATE SODIUM 100 MG CAPSULE (FP) PO SCH (21:34)
[2017-09-30] MEDS: oxyCODONE HCL 5 MG TABLET PO SCH ×5 (00:35→21:43)
[2017-09-30] MEDS: METHADONE HCL 10 MG TABLET PO SCH (05:46)
[2017-09-30] MEDS: ACETAMINOPHEN 650 MG/20.3 ML ORAL SOLUTION (CUPS) PO PRN (05:50)
[2017-09-30] MEDS: fentaNYL 12mcg/hr PATCH.TD72 TD SCH (07:53)
[2017-09-30] MEDS ORDERED: PT OWN MED DRAWER 7, Y5N ONE ×2 (09:38→21:28)
[2017-09-30] MEDS: FOLIC ACID 1 MG TABLET (FP) PO SCH (09:40)
[2017-09-30] MEDS: DIVALPROEX NA *ER* EXTEND REL 500 MG TABLET.SA (FP) PO SCH ×2 (09:40→21:46)
[2017-09-30] MEDS: POLYETHYLENE GLYCOL 3350 119 GM BTL PO SCH ×2 (09:41→21:45)
[2017-09-30] MEDS: THIAMINE HCL 100 MG TABLET (FP) PO SCH (09:41)
[2017-09-30] MEDS: TOLNAFTATE 1% CREAM 15 GM TUBE TP SCH (09:42)
[2017-09-30] MEDS: NICOTINE 21 MG/24 HOURS TOPICAL PATCH TD SCH ×2 (09:42→09:47)
[2017-09-30] MEDS: OLANZapine 10 MG TABLET PO SCH ×2 (09:42→21:44)
[2017-09-30] MEDS ORDERED: FENTANYL PATCH WASTE TD PRN (10:30)
[2017-09-30] MEDS ORDERED: METHADONE HCL 10 MG TABLET PO ONE (10:35)
[2017-09-30] MEDS ORDERED: HALOPERIDOL LACTATE 5 MG/ML IM PRN (10:44)
--- NOTE | 2017-09-30 10:57 | PN ---
Physical Exam: SUBJECTIVE: Patient seen and examined. Very agitated today, incessantly yelling at staff for meds, cries in pain when sits down (prolapsed uterus). OBJECTIVE: Vital Signs Period Temp Pulse Resp BP Sys/Camacho Pulse Ox Last 24 Hr 98.0 F-98.6 F 79-86 18-20 98-118/59-82 98 GENERAL: Alternating periods of calm and sleepiness with extreme agitation, loud yelling, demanding behavior LUNGS: CTA HEART: Regular rate and rhythm, S1, S2 ABDOMEN: Soft, nontender, nondistended EXTREMITIES: 2+ pulses, warm, well-perfused, no edema. NEUROLOGICAL: Cranial nerves II through XII grossly intact. Normal speech, wide- based, waddling gait. Active Medications Generic Name Dose Route Start Last Admin Trade Name Freq PRN Reason Stop Dose Admin Acetaminophen 650 mg 08/21/17 06:52 09/30/17 05:50 Tylenol Oral Solution - PO 650 mg Q6H PRN Administration PAIN LEVEL 1-5 Bisacodyl 10 mg 09/27/17 11:15 09/29/17 11:07 Dulcolax Suppository - RC 10 mg Q24H REBECCA Administration Divalproex Sodium 1,000 mg 09/28/17 22:00 09/30/17 09:40 Depakote *Er* - PO 1,000 mg BID REBECCA Administration Docusate Sodium 300 mg 08/28/17 22:00 09/29/17 21:34 Colace - PO 300 mg HS REBECCA Administration Fentanyl 1 patch 09/30/17 10:30 Duragesic 25mcg Patch - TD 10/07/17 10:30 Q72H REBECCA Folic Acid 1 mg 08/21/17 10:00 09/30/17 09:40 Folic Acid - PO 1 mg DAILY REBECCA Administration Haloperidol 5 mg 09/30/17 10:44 Haldol Injection (Fast Acting) - IM ONCE PRN AGITATION Methadone HCl 40 mg 09/30/17 10:43 Dolophine - PO 0600,1200,1800 [facility] Miscellaneous 1 each 09/30/17 10:30 Duragesic Patch Waste TD PRN PRN PAIN Nicotine 21 mg 08/20/17 16:00 09/30/17 09:47 Nicoderm Patch - TD Not Given DAILY [facility] Nicotine Polacrilex 2 mg 08/27/17 11:16 Nicorette Gum - BUC Q2H PRN NICOTINE REPLACEMENT RX Olanzapine 20 mg 09/28/17 22:00 09/30/17 09:42 Zyprexa - PO 20 mg BID REBECCA Administration Oxycodone HCl 10 mg 09/30/17 15:00 Roxicodone - PO 0300,0900,1500,2100 REBECCA Oxycodone HCl 15 mg 09/30/17 10:36 Roxicodone - PO 09/30/17 10:37 ONCE ONE Polyethylene Glycol 17 gm 08/28/17 10:00 09/30/17 09:41 Miralax (For Daily Use) - PO 17 gm BID REBECCA Administration Senna 2 tab 09/13/17 22:00 09/17/17 21:44 Senna - PO 2 tab HS PRN Administration CONSTIPATION Thiamine HCl 100 mg 08/23/17 10:00 09/30/17 09:41 Vitamin B1 - PO 100 mg DAILY REBECCA Administration Tolnaftate 1 applic 09/20/17 10:00 09/30/17 09:42 Tinactin 1% Cream - TP 1 applic DAILY REBECCA Administration ASSESSMENT/PLAN: 56 year old female with PMH left breast cancer with leptomeningeal disease, bipolar disorder, and heroin and alcohol abuse, who presented to the ED from [facility] after falling and hitting her head. Metastatic breast cancer, --left breast and axillary lymph node masses/enlargement, metastatic disease to bone and brain --seen and evaluated by oncology, radiation oncology, neurology, and neurosurgery: not a candidate for further treatment --pain management: increase fentanyl patch to 25mcg, increase methadone to 40mg TID, continue oxycodone 10mg q8h scheduled --do NOT give steroids as patient developed psychosis in past Bipolar disorder Agitation, manic behavior --last seen and evaluated by psych on 09/28 --continue increased depakote and Zyprexa Heroin abuse Alcohol abuse --increase methadone to 40mg TID Uterine prolapse --patient states she has had this for several years; in past has been able to push it back in, cannot do that now; very painful when she sits down --TAX ACCOUNTANT consult pending FEN Fluids: PO intake adequate Electrolytes: replete as indicated Nutrition: regular diet DVT prophylaxis: oob, ambulation D/c physical therapy: too agitated to cooperate and walks on her own Dispo: awaiting bed at [facility]. DNR/DNI. Visit type - Emergency Visit Emergency Visit: Yes ED Registration Date: 08/20/17 Care time: The patient presented to the Emergency Department on the above date and was hospitalized for further evaluation of their emergent condition. - New Patient This patient is new to me today: No - Critical Care Critical Care patient: No
[2017-09-30] MEDS ORDERED: oxyCODONE HCL 5 MG TABLET PO ONE (11:00)
[2017-09-30] MEDS: fentaNYL 25mcg/hr PATCH.TD72 TD SCH (11:11)
[2017-09-30] MEDS: METHADONE HCL 40 MG DISPERSABLE TABLET PO SCH ×2 (11:12→17:31)
[2017-09-30] MEDS: BISACODYL 10 MG SUPP.RECT RC SCH (11:48)
[2017-09-30] MEDS: DOCUSATE SODIUM 100 MG CAPSULE (FP) PO SCH (21:43)
[2017-10-01] MEDS: ACETAMINOPHEN 650 MG/20.3 ML ORAL SOLUTION (CUPS) PO PRN (01:38)
[2017-10-01] MEDS: oxyCODONE HCL 5 MG TABLET PO SCH ×4 (03:27→21:17)
[2017-10-01] MEDS: METHADONE HCL 40 MG DISPERSABLE TABLET PO SCH ×3 (05:38→17:49)
[2017-10-01] MEDS: LORazepam 2 MG/ML SDV VIAL IM ONE ×2 (07:32→10:45)
--- NOTE | 2017-10-01 09:40 | PN ---
Physical Exam: SUBJECTIVE: Patient seen and examined oob to chair in hallway. Sleeps, nods off , wakes up, yells. Pacing. OBJECTIVE: Vital Signs Period Temp Pulse Resp BP Sys/Camacho Pulse Ox Last 24 Hr 98.0 F-98.9 F 77-102 18-20 108-138/69-93 GENERAL: Alternating periods of calm and sleepiness with extreme agitation, loud yelling, demanding behavior LUNGS: CTA HEART: Regular rate and rhythm, S1, S2 ABDOMEN: Soft, nontender, nondistended EXTREMITIES: 2+ pulses, warm, well-perfused, no edema. NEUROLOGICAL: Cranial nerves II through XII grossly intact. Normal speech, wide- based, waddling gait. Active Medications Generic Name Dose Route Start Last Admin Trade Name Freq PRN Reason Stop Dose Admin Acetaminophen 650 mg 08/21/17 06:52 10/01/17 01:38 Tylenol Oral Solution - PO 650 mg Q6H PRN Administration PAIN LEVEL 1-5 Bisacodyl 10 mg 09/27/17 11:15 09/30/17 11:48 Dulcolax Suppository - RC Not Given Q24H REBECCA Divalproex Sodium 1,000 mg 09/28/17 22:00 09/30/17 21:46 Depakote *Er* - PO 1,000 mg BID REBECCA Administration Docusate Sodium 300 mg 08/28/17 22:00 09/30/17 21:43 Colace - PO 300 mg HS REBECCA Administration Fentanyl 1 patch 09/30/17 10:30 09/30/17 11:11 Duragesic 25mcg Patch - TD 10/07/17 10:30 1 patch Q72H REBECCA Administration Folic Acid 1 mg 08/21/17 10:00 09/30/17 09:40 Folic Acid - PO 1 mg DAILY REBECCA Administration Haloperidol 5 mg 09/30/17 10:44 Haldol Injection (Fast Acting) - IM ONCE PRN AGITATION Methadone HCl 40 mg 09/30/17 10:43 10/01/17 05:38 Dolophine - PO 40 mg 0600,1200,1800 REBECCA Administration Miscellaneous 1 each 09/30/17 10:30 Duragesic Patch Waste TD PRN PRN PAIN Nicotine 21 mg 08/20/17 16:00 09/30/17 09:47 Nicoderm Patch - TD Not Given DAILY REBECCA Nicotine Polacrilex 2 mg 08/27/17 11:16 Nicorette Gum - BUC Q2H PRN NICOTINE REPLACEMENT RX Olanzapine 20 mg 09/28/17 22:00 09/30/17 21:44 Zyprexa - PO 20 mg BID REBECCA Administration Oxycodone HCl 10 mg 09/30/17 15:00 10/01/17 08:39 Roxicodone - PO 10 mg 0300,0900,1500,2100 REBECCA Administration Polyethylene Glycol 17 gm 08/28/17 10:00 09/30/17 21:45 Miralax (For Daily Use) - PO 17 gm BID REBECCA Administration Senna 2 tab 09/13/17 22:00 09/17/17 21:44 Senna - PO 2 tab HS PRN Administration CONSTIPATION Tolnaftate 1 applic 09/20/17 10:00 09/30/17 09:42 Tinactin 1% Cream - TP 1 applic DAILY REBECCA Administration ASSESSMENT/PLAN: 56 year old female with PMH left breast cancer with leptomeningeal disease, bipolar disorder, and heroin and alcohol abuse, who presented to the ED from [facility] after falling and hitting her head. Metastatic breast cancer, --left breast and axillary lymph node masses/enlargement, metastatic disease to bone and brain --seen and evaluated by oncology, radiation oncology, neurology, and neurosurgery: not a candidate for further treatment --pain management: increase fentanyl patch to 25mcg, increase methadone to 40mg TID, continue oxycodone 10mg q8h scheduled --do NOT give steroids as patient developed psychosis in past Bipolar disorder Agitation, manic behavior --last seen and evaluated by psych on 09/28 --continue increased depakote and Zyprexa Heroin abuse Alcohol abuse --increase methadone to 40mg TID Uterine prolapse --patient states she has had this for several years; in past has been able to push it back in, cannot do that now; very painful when she sits down --discussed with Dr. Mena, needs pessary (3 inch, [place]) and he will place; not carried in hospital formulary, will try CALIBRATION TECHNICIAN offices, [facility] FEN Fluids: PO intake adequate Electrolytes: replete as indicated Nutrition: regular diet DVT prophylaxis: oob, ambulation Discontinued physical therapy: too agitated to cooperate Dispo: awaiting bed at [facility]. DNR/DNI. Visit type - Emergency Visit Emergency Visit: Yes ED Registration Date: 08/20/17 Care time: The patient presented to the Emergency Department on the above date and was hospitalized for further evaluation of their emergent condition. - New Patient This patient is new to me today: No - Critical Care Critical Care patient: No
[2017-10-01] MEDS ORDERED: PT OWN MED DRAWER 7, Y5N ONE ×2 (09:46→21:08)
[2017-10-01] MEDS: DIVALPROEX NA *ER* EXTEND REL 500 MG TABLET.SA (FP) PO SCH ×2 (09:47→21:16)
[2017-10-01] MEDS: FOLIC ACID 1 MG TABLET (FP) PO SCH (09:48)
[2017-10-01] MEDS: POLYETHYLENE GLYCOL 3350 119 GM BTL PO SCH ×2 (09:50→21:25)
[2017-10-01] MEDS: TOLNAFTATE 1% CREAM 15 GM TUBE TP SCH (09:51)
[2017-10-01] MEDS: NICOTINE 21 MG/24 HOURS TOPICAL PATCH TD SCH (09:51)
[2017-10-01] MEDS: OLANZapine 10 MG TABLET PO SCH ×2 (09:51→21:16)
[2017-10-01] MEDS ORDERED: LORazepam 2 MG/ML SDV VIAL IM ONE (10:16)
[2017-10-01] MEDS ORDERED: LORazepam 2 MG/ML SDV VIAL ONE (10:25)
[2017-10-01] MEDS: BISACODYL 10 MG SUPP.RECT RC SCH (12:37)
[2017-10-01] MEDS: DOCUSATE SODIUM 100 MG CAPSULE (FP) PO SCH (21:16)
[2017-10-01] MEDS: SENNOSIDES 8.6MG TABLET (FP) PO PRN (21:17)
[2017-10-02] MEDS: oxyCODONE HCL 5 MG TABLET PO SCH ×4 (03:07→21:34)
[2017-10-02] MEDS: METHADONE HCL 40 MG DISPERSABLE TABLET PO SCH ×3 (05:58→17:53)
--- NOTE | 2017-10-02 10:21 | PN ---
Progress Note (short form) - Note Progress Note: Subjective: Patient was seen at the bedside, still with manic episodes Current Medications Generic Name Dose Route Start Last Admin Trade Name Freq PRN Reason Stop Dose Admin Acetaminophen 650 mg 08/21/17 06:52 09/29/17 06:16 Tylenol Oral Solution - PO 650 mg Q6H PRN Administration PAIN LEVEL 1-5 Bisacodyl 10 mg 09/27/17 11:15 09/29/17 11:07 Dulcolax Suppository - RC 10 mg Q24H REBECCA Administration Divalproex Sodium 1,000 mg 09/28/17 22:00 09/29/17 09:35 Depakote *Er* - PO 1,000 mg BID REBECCA Administration Docusate Sodium 300 mg 08/28/17 22:00 09/28/17 21:15 Colace - PO 300 mg HS REBECCA Administration Fentanyl 1 patch 09/27/17 07:45 09/27/17 12:06 Duragesic 12mcg Patch - TD 10/04/17 07:41 1 patch Q72H REBECCA Administration Folic Acid 1 mg 08/21/17 10:00 09/29/17 09:35 Folic Acid - PO 1 mg DAILY REBECCA Administration Methadone HCl 30 mg 09/17/17 06:00 09/29/17 06:12 Dolophine - PO 30 mg 0600,1200,1800 REBECCA Administration Miscellaneous 1 each 09/27/17 07:41 Duragesic Patch Waste TD PRN PRN PAIN Nicotine 21 mg 08/20/17 16:00 09/29/17 09:35 Nicoderm Patch - TD Not Given DAILY REBECCA Nicotine Polacrilex 2 mg 08/27/17 11:16 Nicorette Gum - BUC Q2H PRN NICOTINE REPLACEMENT RX Olanzapine 20 mg 09/28/17 22:00 09/29/17 09:36 Zyprexa - PO 20 mg BID REBECCA Administration Oxycodone HCl 10 mg 09/29/17 12:00 Roxicodone - PO Q6H REBECCA Polyethylene Glycol 17 gm 08/28/17 10:00 09/28/17 21:17 Miralax (For Daily Use) - PO 17 gm BID REBECCA Administration Senna 2 tab 09/13/17 22:00 09/17/17 21:44 Senna - PO 2 tab HS PRN Administration CONSTIPATION Thiamine HCl 100 mg 08/23/17 10:00 09/29/17 09:35 Vitamin B1 - PO 100 mg DAILY REBECCA Administration Tolnaftate 1 applic 09/20/17 10:00 09/28/17 11:07 Tinactin 1% Cream - TP 1 applic DAILY REBECCA Administration Objective: Vital Signs Period Temp Pulse Resp BP Sys/Camacho Pulse Ox Last 24 Hr 97.9 F-98.5 F 72-78 20-20 107-124/78-79 98 Physical Exam: Patient refused most of exam, has prolapsed either uterus/vagina/or bladder CBCD WBC 5.6 K/mm3 (4.0-10.0) 09/27/17 10:30 RBC 3.35 M/mm3 (3.60-5.2) L 09/27/17 10:30 Hgb 10.4 GM/dL (10.7-15.3) L 09/27/17 10:30 Hct 30.3 % (32.4-45.2) L 09/27/17 10:30 MCV 90.6 fl (80-96) 09/27/17 10:30 MCHC 34.2 g/dl (32.0-36.0) 09/27/17 10:30 RDW 17.2 % (11.6-15.6) H 09/27/17 10:30 Plt Count 239 K/MM3 (134-434) 09/27/17 10:30 MPV 8.1 fl (7.5-11.1) 09/27/17 10:30 CMP Sodium 140 mmol/L (136-145) 09/27/17 10:30 Potassium 4.6 mmol/L (3.5-5.1) 09/27/17 10:30 Chloride 103 mmol/L (98-107) 09/27/17 10:30 Carbon Dioxide 27 mmol/L (21-32) 09/27/17 10:30 Anion Gap 10 (8-16) 09/27/17 10:30 BUN 29 mg/dL (7-18) H 09/27/17 10:30 Creatinine 0.8 mg/dL (0.55-1.02) 09/27/17 10:30 Creat Clearance w eGFR > 60 (>60) 09/27/17 10:30 Random Glucose 103 mg/dL (74-106) 09/27/17 10:30 Calcium 8.4 mg/dL (8.5-10.1) L 09/27/17 10:30 Total Bilirubin 0.3 mg/dL (0.2-1.0) 09/27/17 10:30 AST 33 U/L (15-37) 09/27/17 10:30 ALT 16 U/L (12-78) 09/27/17 10:30 Alkaline Phosphatase 132 U/L (45-117) H D 09/27/17 10:30 Total Protein 8.4 g/dl (6.4-8.2) H 09/27/17 10:30 Albumin 2.9 g/dl (3.4-5.0) L 09/27/17 10:30 Assessment: This is a 56 year old female with PMHx of left breast cancer (dx 4 years ago, only had chemo x1), bipolar disorder, tobacco use, heroin and alcohol abuse, who presented to the ED from [facility] after falling and hitting her head. Plan: 1) Metastatic breast cancer to bone and brain, uterine prolapse - Acute urinary retention from uterine prolapse, dhillon catheter placed. Dr. Mena ordered pessary, awaiting arrival - Not a candidate for chemotherapy or further treatment - Oxycodone to q6h. Methadone 40mg tid. Fentanyl patch 25mcg - F/u pain management consult for further recommendations (called Dr. Casanova's office again today) - Appreciate rad onc consult - Appreciate heme/onc consult 2) Agitation, manic behavior - Depakote 1000mg po bid on 09/28 - Zyprexa 20mg po bid on 09/28 - Appreciate psych consult 2) Heroin abuse, acute alcohol withdrawal - Librium taper completed - Continue Methadone - Appreciate detox consult 3) Bipolar disorder - Medications as above - Appreciate psych consult 4) F/E/N: - Monitor electrolytes - Regular diet 5) Prophylaxis: - Bowel regimen - OOB ambulating 6) Dispo: - Awaiting bed at [facility] CODE STATUS: DNR/DNI Visit type - Emergency Visit Emergency Visit: Yes ED Registration Date: 08/20/17 Care time: The patient presented to the Emergency Department on the above date and was hospitalized for further evaluation of their emergent condition. - New Patient This patient is new to me today: No - Critical Care Critical Care patient: No
[2017-10-02] MEDS ORDERED: PT OWN MED DRAWER 7, Y5N ONE ×2 (10:24→20:47)
[2017-10-02] MEDS: FOLIC ACID 1 MG TABLET (FP) PO SCH (10:27)
[2017-10-02] MEDS: DIVALPROEX NA *ER* EXTEND REL 500 MG TABLET.SA (FP) PO SCH ×2 (10:28→21:34)
[2017-10-02] MEDS: TOLNAFTATE 1% CREAM 15 GM TUBE TP SCH (10:29)
[2017-10-02] MEDS: BISACODYL 10 MG SUPP.RECT RC SCH (10:29)
[2017-10-02] MEDS: OLANZapine 10 MG TABLET PO SCH ×2 (10:29→21:35)
[2017-10-02] MEDS: POLYETHYLENE GLYCOL 3350 119 GM BTL PO SCH ×2 (10:30→21:38)
[2017-10-02] MEDS: DOCUSATE SODIUM 100 MG CAPSULE (FP) PO SCH (21:35)
--- NOTE | 2017-10-02 22:55 | CONSULT ---
Consult Consult Specialty:: pain medicine Referred by:: lucero Reason for Consultation:: pain all over - History of Present Illness Chief Complaint: pain History of Present Illness: 56-year-old female with past medical history of metastatic breast cancer. Current patient is sleeping and history obtained from nurse and chart. Patient has history of drug abuse and is on methadone. Patient is also taking oxycodone prn pain - Past Medical History Psych: Yes: Addictions, Anxiety, Bipolar Musculoskeletal: Yes: Other Rheumatology: Yes: Other ENT: Yes: Other Endocrine: Yes: Other - Alcohol/Substance Use Hx Alcohol Use: Yes (1/2 - 1 pint a day) - Smoking History Smoking history: Current every day smoker Have you smoked in the past 12 months: Yes Aproximately how many cigarettes per day: 10 - Social History Usual Living Arrangement: Alone Home Medications - Allergies Allergies/Adverse Reactions: Allergies Allergy/AdvReac Type Severity Reaction Status Date / Time No Known Allergies Allergy Verified 08/20/17 12:45 - Home Medications Home Medications: Ambulatory Orders Bisacodyl Suppository [Dulcolax Suppository -] 10 mg RC Q24H PRN supp.rect 04/02 FENTANYL 12mcg PATCH [DURAGESIC 12mcg PATCH -] 1 patch TD Q72H #5 patch.td72 MDD 1 09/14/17 Fentanyl Patch Waste [Duragesic Patch Waste] 1 each TD PRN PRN each 09/14/17 Methadone [Dolophine -] 40 mg PO DAILY@0600 #5 tablet MDD 1 09/14/17 Methadone [Dolophine -] 40 mg PO DAILY@1800 #5 tablet MDD 1 09/14/17 Methylnaltrexone Stonewall [Relistor -] 8 mg SQ Q2D@1000 kit 09/14/17 Olanzapine [ZyPREXA -] 10 mg PO BID tablet 09/14/17 Sennosides [Senna -] 2 tab PO HS PRN tablet 09/14/17 oxyCODONE HCL [Roxicodone -] 10 mg PO Q8H #5 tablet MDD 3 09/14/17 Family Disease History - Family Disease History Family Disease History: Diabetes: Mother (living - jail - alzheimers ), Other: Father ( - 'I don't care'), Mother, Brother ( - in his sleep/seizure), Son (two - one with diabetes) Physical Exam Vital Signs: Vital Signs Temperature 98.5 F 10/02/17 17:03 Pulse Rate 99 H 10/02/17 17:03 Respiratory Rate 18 10/02/17 17:03 Blood Pressure 143/95 10/02/17 17:03 O2 Sat by Pulse Oximetry (%) 98 10/02/17 21:00 Constitutional: Yes: Other (patient sleeping) Labs: CBC, BMP 09/27/17 10:30 09/27/17 10:30 Assessment/Plan Metastatic cancer history of drug use 1. Continue methadone at current dose 2. continue oxycodone prn pain 3. would discontinue fentanyl patch 4. consider gabapentin trial if no contraindications
[2017-10-03] MEDS: oxyCODONE HCL 5 MG TABLET PO SCH ×5 (03:36→20:01)
[2017-10-03] MEDS: METHADONE HCL 40 MG DISPERSABLE TABLET PO SCH ×3 (06:06→18:29)
--- NOTE | 2017-10-03 08:33 | PN ---
Progress Note (short form) - Note Progress Note: Subjective: Patient was seen at the bedside, still with episodes of cursing and screaming. Still requiring restraints as she is attempting to remove her dhillon catheter Current Medications Generic Name Dose Route Start Last Admin Trade Name Ana Rosa PRN Reason Stop Dose Admin Acetaminophen 650 mg 08/21/17 06:52 10/01/17 01:38 Tylenol Oral Solution - PO 650 mg Q6H PRN Administration PAIN LEVEL 1-5 Bisacodyl 10 mg 09/27/17 11:15 10/02/17 10:29 Dulcolax Suppository - RC 10 mg Q24H REBECCA Administration Divalproex Sodium 1,000 mg 09/28/17 22:00 10/02/17 21:34 Depakote *Er* - PO 1,000 mg BID REBECCA Administration Docusate Sodium 300 mg 08/28/17 22:00 10/02/17 21:35 Colace - PO 300 mg HS REBECCA Administration Fentanyl 1 patch 09/30/17 10:30 09/30/17 11:11 Duragesic 25mcg Patch - TD 10/07/17 10:30 1 patch Q72H REBECCA Administration Folic Acid 1 mg 08/21/17 10:00 10/02/17 10:27 Folic Acid - PO 1 mg DAILY REBECCA Administration Haloperidol 5 mg 09/30/17 10:44 10/01/17 10:46 Haldol Injection (Fast Acting) - IM 5 mg ONCE PRN Administration AGITATION Methadone HCl 40 mg 09/30/17 10:43 10/03/17 06:06 Dolophine - PO 40 mg 0600,1200,1800 REBECCA Administration Miscellaneous 1 each 09/30/17 10:30 Duragesic Patch Waste TD PRN PRN PAIN Olanzapine 20 mg 09/28/17 22:00 10/02/17 21:35 Zyprexa - PO 20 mg BID REBECCA Administration Oxycodone HCl 10 mg 09/30/17 15:00 10/03/17 03:40 Roxicodone - PO 10 mg 0300,0900,1500,2100 REBECCA Administration Polyethylene Glycol 17 gm 08/28/17 10:00 10/02/17 21:38 Miralax (For Daily Use) - PO 17 gm BID REBECCA Administration Senna 2 tab 09/13/17 22:00 10/01/17 21:17 Senna - PO 2 tab HS PRN Administration CONSTIPATION Tolnaftate 1 applic 09/20/17 10:00 10/02/17 10:29 Tinactin 1% Cream - TP 1 applic DAILY REBECCA Administration Objective: Vital Signs Period Temp Pulse Resp BP Sys/Camacho Pulse Ox Last 24 Hr 97.6 F-98.5 F 80-99 18-18 138-143/90-95 98-98 Physical Exam: Patient refused most of exam, has prolapsed uterus CBCD WBC 5.6 K/mm3 (4.0-10.0) 09/27/17 10:30 RBC 3.35 M/mm3 (3.60-5.2) L 09/27/17 10:30 Hgb 10.4 GM/dL (10.7-15.3) L 09/27/17 10:30 Hct 30.3 % (32.4-45.2) L 09/27/17 10:30 MCV 90.6 fl (80-96) 09/27/17 10:30 MCHC 34.2 g/dl (32.0-36.0) 09/27/17 10:30 RDW 17.2 % (11.6-15.6) H 09/27/17 10:30 Plt Count 239 K/MM3 (134-434) 09/27/17 10:30 MPV 8.1 fl (7.5-11.1) 09/27/17 10:30 CMP Sodium 140 mmol/L (136-145) 09/27/17 10:30 Potassium 4.6 mmol/L (3.5-5.1) 09/27/17 10:30 Chloride 103 mmol/L (98-107) 09/27/17 10:30 Carbon Dioxide 27 mmol/L (21-32) 09/27/17 10:30 Anion Gap 10 (8-16) 09/27/17 10:30 BUN 29 mg/dL (7-18) H 09/27/17 10:30 Creatinine 0.8 mg/dL (0.55-1.02) 09/27/17 10:30 Creat Clearance w eGFR > 60 (>60) 09/27/17 10:30 Random Glucose 103 mg/dL (74-106) 09/27/17 10:30 Calcium 8.4 mg/dL (8.5-10.1) L 09/27/17 10:30 Total Bilirubin 0.3 mg/dL (0.2-1.0) 09/27/17 10:30 AST 33 U/L (15-37) 09/27/17 10:30 ALT 16 U/L (12-78) 09/27/17 10:30 Alkaline Phosphatase 132 U/L (45-117) H D 09/27/17 10:30 Total Protein 8.4 g/dl (6.4-8.2) H 09/27/17 10:30 Albumin 2.9 g/dl (3.4-5.0) L 09/27/17 10:30 Assessment: This is a 56 year old female with PMHx of left breast cancer (dx 4 years ago, only had chemo x1), bipolar disorder, tobacco use, heroin and alcohol abuse, who presented to the ED from [facility] after falling and hitting her head. Plan: 1) Metastatic breast cancer to bone and brain, uterine prolapse - Acute urinary retention from uterine prolapse, dhillon catheter placed. Dr. Mena ordered pessary, awaiting arrival - Not a candidate for chemotherapy or further treatment - Oxycodone to q6h. Methadone 40mg tid. Fentanyl patch 25mcg - Appreciate pain management consult. Recommendation to stop Fentanyl and start Gabapentin (awaiting call back from Dr. Cash to discuss these changes. Will continue current treatment for now) - Appreciate rad onc consult - Appreciate heme/onc consult 2) Agitation, manic behavior - Depakote 1000mg po bid on 09/28 - Zyprexa 20mg po bid on 09/28 - Appreciate psych consult 2) Heroin abuse, acute alcohol withdrawal - Librium taper completed - Continue Methadone - Appreciate detox consult 3) Bipolar disorder - Medications as above - Appreciate psych consult 4) F/E/N: - Monitor electrolytes - Regular diet 5) Prophylaxis: - Bowel regimen - OOB ambulating 6) Dispo: - Awaiting bed at [facility] CODE STATUS: DNR/DNI Visit type - Emergency Visit Emergency Visit: Yes ED Registration Date: 08/20/17 Care time: The patient presented to the Emergency Department on the above date and was hospitalized for further evaluation of their emergent condition. - New Patient This patient is new to me today: No - Critical Care Critical Care patient: No
[2017-10-03] MEDS ORDERED: PT OWN MED DRAWER 7, Y5N ONE ×3 (09:00→21:15)
[2017-10-03] MEDS: FOLIC ACID 1 MG TABLET (FP) PO SCH (09:17)
[2017-10-03] MEDS: OLANZapine 10 MG TABLET PO SCH ×2 (09:17→21:20)
[2017-10-03] MEDS: DIVALPROEX NA *ER* EXTEND REL 500 MG TABLET.SA (FP) PO SCH ×2 (09:17→21:20)
[2017-10-03] MEDS: POLYETHYLENE GLYCOL 3350 119 GM BTL PO SCH ×2 (09:20→21:22)
[2017-10-03] MEDS: TOLNAFTATE 1% CREAM 15 GM TUBE TP SCH (09:21)
[2017-10-03] MEDS: fentaNYL 25mcg/hr PATCH.TD72 TD SCH (10:18)
[2017-10-03] MEDS: BISACODYL 10 MG SUPP.RECT RC SCH (10:19)
[2017-10-03] MEDS: ACETAMINOPHEN 650 MG/20.3 ML ORAL SOLUTION (CUPS) PO PRN (20:00)
[2017-10-03] MEDS: DOCUSATE SODIUM 100 MG CAPSULE (FP) PO SCH (21:20)
[2017-10-04] MEDS: oxyCODONE HCL 5 MG TABLET PO SCH ×4 (03:10→21:06)
[2017-10-04] MEDS: METHADONE HCL 40 MG DISPERSABLE TABLET PO SCH ×3 (06:54→17:28)
[2017-10-04] MEDS: ACETAMINOPHEN 650 MG/20.3 ML ORAL SOLUTION (CUPS) PO PRN ×2 (06:55→21:15)
[2017-10-04] MEDS ORDERED: PT OWN MED DRAWER 7, Y5N ONE ×4 (10:56→20:56)
[2017-10-04] MEDS: POLYETHYLENE GLYCOL 3350 119 GM BTL PO SCH ×2 (11:03→21:08)
[2017-10-04] MEDS: FOLIC ACID 1 MG TABLET (FP) PO SCH (11:03)
[2017-10-04] MEDS: DIVALPROEX NA *ER* EXTEND REL 500 MG TABLET.SA (FP) PO SCH ×2 (11:03→21:08)
[2017-10-04] MEDS: TOLNAFTATE 1% CREAM 15 GM TUBE TP SCH (11:05)
[2017-10-04] MEDS: BISACODYL 10 MG SUPP.RECT RC SCH (11:05)
[2017-10-04] MEDS: OLANZapine 10 MG TABLET PO SCH ×2 (11:05→21:08)
--- NOTE | 2017-10-04 11:46 | PN ---
Physical Exam: SUBJECTIVE: Patient seen and examined. She is comfortable laying in bed, calm and cooperative. OBJECTIVE: Vital Signs Period Temp Pulse Resp BP Sys/Camacho Pulse Ox Last 24 Hr 98 F-98.9 F 78-106 18-20 99-152/68-98 99 GENERAL: The patient is awake, alert, and fully oriented, in no acute distress. LUNGS: Breath sounds equal, clear to auscultation bilaterally, no wheezes, no crackles, no accessory muscle use. HEART: Regular rate and rhythm, S1, S2 without murmur, rub or gallop. ABDOMEN: Soft, nontender, nondistended, normoactive bowel sounds, no guarding, no rebound, no hepatosplenomegaly, no masses. EXTREMITIES: 2+ pulses, warm, well-perfused, no edema. Active Medications Generic Name Dose Route Start Last Admin Trade Name Freq PRN Reason Stop Dose Admin Acetaminophen 650 mg 08/21/17 06:52 10/04/17 06:55 Tylenol Oral Solution - PO 650 mg Q6H PRN Administration PAIN LEVEL 1-5 Bisacodyl 10 mg 09/27/17 11:15 10/04/17 11:05 Dulcolax Suppository - RC 10 mg Q24H REBECCA Administration Divalproex Sodium 1,000 mg 09/28/17 22:00 10/04/17 11:03 Depakote *Er* - PO 1,000 mg BID REBECCA Administration Docusate Sodium 300 mg 08/28/17 22:00 10/03/17 21:20 Colace - PO 300 mg HS REBECCA Administration Fentanyl 1 patch 09/30/17 10:30 10/03/17 10:18 Duragesic 25mcg Patch - TD 10/07/17 10:30 1 patch Q72H REBECCA Administration Folic Acid 1 mg 08/21/17 10:00 10/04/17 11:03 Folic Acid - PO 1 mg DAILY REBECCA Administration Haloperidol 5 mg 09/30/17 10:44 10/01/17 10:46 Haldol Injection (Fast Acting) - IM 5 mg ONCE PRN Administration AGITATION Methadone HCl 40 mg 09/30/17 10:43 10/04/17 06:54 Dolophine - PO 40 mg 0600,1200,1800 REBECCA Administration Miscellaneous 1 each 09/30/17 10:30 Duragesic Patch Waste TD PRN PRN PAIN Olanzapine 20 mg 09/28/17 22:00 10/04/17 11:05 Zyprexa - PO 20 mg BID REBECCA Administration Oxycodone HCl 10 mg 09/30/17 15:00 10/04/17 08:34 Roxicodone - PO 10 mg 0300,0900,1500,2100 REBECCA Administration Polyethylene Glycol 17 gm 08/28/17 10:00 10/04/17 11:03 Miralax (For Daily Use) - PO 17 gm BID REBECCA Administration Senna 2 tab 09/13/17 22:00 10/01/17 21:17 Senna - PO 2 tab HS PRN Administration CONSTIPATION Tolnaftate 1 applic 09/20/17 10:00 10/04/17 11:05 Tinactin 1% Cream - TP 1 applic DAILY REBECCA Administration ASSESSMENT/PLAN: This is a 56 year old woman with a history of left breast cancer, bipolar disorder, tobacco use, heroin use, and alcohol abuse, who presented to the ED from [facility] after falling and hitting her head. 1. Metastatic breast cancer - Not a candidate for treatment - Pain control with Duragesic, Methadone, oxycodone - Awaiting hospice placement 2. Uterine prolapse - Awaiting pessary 3. Bipolar disorder with taylor, agitation - Continue Depakote, Zyprexa, Haldol as needed 4. Opioid dependence - Continue Methadone 5. Acute alcohol withdrawal, uncomplicated - Completed Librium detox 6. Continuoous alcohol dependence 7. Nicotine dependence - Continue nicotine patch Visit type - Emergency Visit Emergency Visit: Yes ED Registration Date: 08/20/17 Care time: The patient presented to the Emergency Department on the above date and was hospitalized for further evaluation of their emergent condition. - New Patient This patient is new to me today: No - Critical Care Critical Care patient: No - Discharge Referral Referred to [facility] Med P.C.: No
[2017-10-04] MEDS: DOCUSATE SODIUM 100 MG CAPSULE (FP) PO SCH (21:07)
[2017-10-05] MEDS: oxyCODONE HCL 5 MG TABLET PO SCH ×4 (03:19→20:22)
[2017-10-05] MEDS: METHADONE HCL 40 MG DISPERSABLE TABLET PO SCH ×3 (07:20→17:17)
--- NOTE | 2017-10-05 09:23 | PN ---
Progress Note (short form) - Note Progress Note: Subjective: Patient was seen at the bedside, patient is now sleeping Still requiring restraints as she is attempting to remove her dhillon catheter Current Medications Generic Name Dose Route Start Last Admin Trade Name Freq PRN Reason Stop Dose Admin Acetaminophen 650 mg 08/21/17 06:52 10/04/17 21:15 Tylenol Oral Solution - PO 650 mg Q6H PRN Administration PAIN LEVEL 1-5 Bisacodyl 10 mg 09/27/17 11:15 10/04/17 11:05 Dulcolax Suppository - RC 10 mg Q24H REBECCA Administration Divalproex Sodium 1,000 mg 09/28/17 22:00 10/04/17 21:08 Depakote *Er* - PO 1,000 mg BID REBECCA Administration Docusate Sodium 300 mg 08/28/17 22:00 10/04/17 21:07 Colace - PO 300 mg HS REBECCA Administration Fentanyl 1 patch 09/30/17 10:30 10/03/17 10:18 Duragesic 25mcg Patch - TD 10/07/17 10:30 1 patch Q72H REBECCA Administration Folic Acid 1 mg 08/21/17 10:00 10/04/17 11:03 Folic Acid - PO 1 mg DAILY REBECCA Administration Haloperidol 5 mg 09/30/17 10:44 10/01/17 10:46 Haldol Injection (Fast Acting) - IM 5 mg ONCE PRN Administration AGITATION Methadone HCl 40 mg 09/30/17 10:43 10/05/17 07:20 Dolophine - PO 40 mg 0600,1200,1800 REBECCA Administration Miscellaneous 1 each 09/30/17 10:30 Duragesic Patch Waste TD PRN PRN PAIN Olanzapine 20 mg 09/28/17 22:00 10/04/17 21:08 Zyprexa - PO 20 mg BID REBECCA Administration Oxycodone HCl 10 mg 09/30/17 15:00 10/05/17 03:19 Roxicodone - PO 10 mg 0300,0900,1500,2100 REBECCA Administration Polyethylene Glycol 17 gm 08/28/17 10:00 10/04/17 21:08 Miralax (For Daily Use) - PO 17 gm BID REBECCA Administration Senna 2 tab 09/13/17 22:00 10/01/17 21:17 Senna - PO 2 tab HS PRN Administration CONSTIPATION Tolnaftate 1 applic 09/20/17 10:00 10/04/17 11:05 Tinactin 1% Cream - TP 1 applic DAILY REBECCA Administration Objective: Vital Signs Period Temp Pulse Resp BP Sys/Camacho Pulse Ox Last 24 Hr 98 F-98.4 F 58-78 18-20 100-147/70-98 98 Physical Exam: Patient sleeping CBCD WBC 5.6 K/mm3 (4.0-10.0) 09/27/17 10:30 RBC 3.35 M/mm3 (3.60-5.2) L 09/27/17 10:30 Hgb 10.4 GM/dL (10.7-15.3) L 09/27/17 10:30 Hct 30.3 % (32.4-45.2) L 09/27/17 10:30 MCV 90.6 fl (80-96) 09/27/17 10:30 MCHC 34.2 g/dl (32.0-36.0) 09/27/17 10:30 RDW 17.2 % (11.6-15.6) H 09/27/17 10:30 Plt Count 239 K/MM3 (134-434) 09/27/17 10:30 MPV 8.1 fl (7.5-11.1) 09/27/17 10:30 CMP Sodium 140 mmol/L (136-145) 09/27/17 10:30 Potassium 4.6 mmol/L (3.5-5.1) 09/27/17 10:30 Chloride 103 mmol/L (98-107) 09/27/17 10:30 Carbon Dioxide 27 mmol/L (21-32) 09/27/17 10:30 Anion Gap 10 (8-16) 09/27/17 10:30 BUN 29 mg/dL (7-18) H 09/27/17 10:30 Creatinine 0.8 mg/dL (0.55-1.02) 09/27/17 10:30 Creat Clearance w eGFR > 60 (>60) 09/27/17 10:30 Random Glucose 103 mg/dL (74-106) 09/27/17 10:30 Calcium 8.4 mg/dL (8.5-10.1) L 09/27/17 10:30 Total Bilirubin 0.3 mg/dL (0.2-1.0) 09/27/17 10:30 AST 33 U/L (15-37) 09/27/17 10:30 ALT 16 U/L (12-78) 09/27/17 10:30 Alkaline Phosphatase 132 U/L (45-117) H D 09/27/17 10:30 Total Protein 8.4 g/dl (6.4-8.2) H 09/27/17 10:30 Albumin 2.9 g/dl (3.4-5.0) L 09/27/17 10:30 Assessment: This is a 56 year old female with PMHx of left breast cancer (dx 4 years ago, only had chemo x1), bipolar disorder, tobacco use, heroin and alcohol abuse, who presented to the ED from [facility] after falling and hitting her head. Plan: 1) Metastatic breast cancer to bone and brain, uterine prolapse - Acute urinary retention from uterine prolapse, dhillon catheter remains in place , awaiting pessary - Not a candidate for chemotherapy or further treatment - Oxycodone to q6h. Methadone 40mg tid. Fentanyl patch 25mcg - Appreciate pain management consult - Appreciate rad onc consult - Appreciate heme/onc consult 2) Agitation, manic behavior - Depakote 1000mg po bid on 09/28 - Zyprexa 20mg po bid on 09/28 - Appreciate psych consult 2) Heroin abuse, acute alcohol withdrawal - Librium taper completed - Continue Methadone - Appreciate detox consult 3) Bipolar disorder - Medications as above - Appreciate psych consult 4) F/E/N: - Monitor electrolytes - Regular diet 5) Prophylaxis: - Bowel regimen - OOB ambulating 6) Dispo: - Awaiting bed at [facility] CODE STATUS: DNR/DNI Visit type - Emergency Visit Emergency Visit: Yes ED Registration Date: 08/20/17 Care time: The patient presented to the Emergency Department on the above date and was hospitalized for further evaluation of their emergent condition. - New Patient This patient is new to me today: No - Critical Care Critical Care patient: No
[2017-10-05] MEDS ORDERED: PT OWN MED DRAWER 7, Y5N ONE ×2 (10:55→11:14)
[2017-10-05] MEDS: FOLIC ACID 1 MG TABLET (FP) PO SCH (11:00)
[2017-10-05] MEDS: BISACODYL 10 MG SUPP.RECT RC SCH (11:00)
[2017-10-05] MEDS: DIVALPROEX NA *ER* EXTEND REL 500 MG TABLET.SA (FP) PO SCH ×2 (11:02→21:35)
[2017-10-05] MEDS: OLANZapine 10 MG TABLET PO SCH ×2 (11:02→21:35)
[2017-10-05] MEDS: POLYETHYLENE GLYCOL 3350 119 GM BTL PO SCH ×2 (11:03→21:39)
[2017-10-05] MEDS: TOLNAFTATE 1% CREAM 15 GM TUBE TP SCH (11:04)
[2017-10-05] MEDS: ACETAMINOPHEN 650 MG/20.3 ML ORAL SOLUTION (CUPS) PO PRN (18:35)
[2017-10-05] MEDS: DOCUSATE SODIUM 100 MG CAPSULE (FP) PO SCH (21:34)
[2017-10-06] MEDS: oxyCODONE HCL 5 MG TABLET PO SCH ×4 (02:55→21:48)
[2017-10-06] MEDS: METHADONE HCL 40 MG DISPERSABLE TABLET PO SCH ×3 (06:36→17:30)
[2017-10-06 08:19] LABS: BASO % 0.3 % (0-2.0); EOS % 4.2 % (0-4.5); HEMATOCRIT 31.8 % (32.4-45.2); HEMOGLOBIN 10.6 GM/dL (10.7-15.3); LYMPH % 28.3 % (8-40); MCH 30.5 pg (25.7-33.7); MCHC 33.4 g/dl (32.0-36.0); MEAN CELL VOLUME 91.1 fl (80-96); MEAN PLT VOLUME 8.5 fl (7.5-11.1); MONO % 15.2 % (3.8-10.2); PLATELET COUNT 190 K/MM3 (134-434); RBC 3.49 M/mm3 (3.60-5.2); RDW 16.4 % (11.6-15.6); WHITE BLOOD COUNT 6.3 K/mm3 (4.0-10.0)
--- NOTE | 2017-10-06 09:10 | PN ---
Physical Exam: SUBJECTIVE: Patient seen and examined. She is comfortable lying in bed. She becomes agitated easily. OBJECTIVE: Vital Signs Period Temp Pulse Resp BP Sys/Camacho Pulse Ox Last 24 Hr 97.7 F-98.5 F 80-103 18-20 116-144/82-100 GENERAL: The patient is awake, alert, and fully oriented, in no acute distress. LUNGS: Breath sounds equal, clear to auscultation bilaterally, no wheezes, no crackles, no accessory muscle use. HEART: Regular rate and rhythm, S1, S2 without murmur, rub or gallop. ABDOMEN: Soft, nontender, nondistended, normoactive bowel sounds, no guarding, no rebound, no hepatosplenomegaly, no masses. EXTREMITIES: 2+ pulses, warm, well-perfused, no edema. Laboratory Results - last 24 hr 10/06/17 06:00 WBC 6.3 RBC 3.49 L Hgb 10.6 L Hct 31.8 L MCV 91.1 MCH 30.5 MCHC 33.4 RDW 16.4 H Plt Count 190 D MPV 8.5 Absolute Neuts (auto) 3.3 Neutrophils % 52.0 Lymphocytes % 28.3 Monocytes % 15.2 H Eosinophils % 4.2 Basophils % 0.3 Nucleated RBC % 0 Active Medications Generic Name Dose Route Start Last Admin Trade Name Freq PRN Reason Stop Dose Admin Acetaminophen 650 mg 08/21/17 06:52 10/05/17 18:35 Tylenol Oral Solution - PO 650 mg Q6H PRN Administration PAIN LEVEL 1-5 Bisacodyl 10 mg 09/27/17 11:15 10/05/17 11:00 Dulcolax Suppository - RC 10 mg Q24H REBECCA Administration Divalproex Sodium 1,000 mg 09/28/17 22:00 10/05/17 21:35 Depakote *Er* - PO 1,000 mg BID REBECCA Administration Docusate Sodium 300 mg 08/28/17 22:00 10/05/17 21:34 Colace - PO 300 mg HS REBECCA Administration Fentanyl 1 patch 09/30/17 10:30 10/03/17 10:18 Duragesic 25mcg Patch - TD 10/07/17 10:30 1 patch Q72H REBECCA Administration Folic Acid 1 mg 08/21/17 10:00 10/05/17 11:00 Folic Acid - PO 1 mg DAILY REBECCA Administration Haloperidol 5 mg 09/30/17 10:44 10/01/17 10:46 Haldol Injection (Fast Acting) - IM 5 mg ONCE PRN Administration AGITATION Methadone HCl 40 mg 09/30/17 10:43 10/06/17 06:36 Dolophine - PO 40 mg 0600,1200,1800 REBECCA Administration Miscellaneous 1 each 09/30/17 10:30 Duragesic Patch Waste TD PRN PRN PAIN Olanzapine 20 mg 09/28/17 22:00 10/05/17 21:35 Zyprexa - PO 20 mg BID REBECCA Administration Oxycodone HCl 10 mg 09/30/17 15:00 10/06/17 02:55 Roxicodone - PO 10 mg 0300,0900,1500,2100 REBECCA Administration Polyethylene Glycol 17 gm 08/28/17 10:00 10/05/17 21:39 Miralax (For Daily Use) - PO 17 gm BID REBECCA Administration Senna 2 tab 09/13/17 22:00 10/01/17 21:17 Senna - PO 2 tab HS PRN Administration CONSTIPATION Tolnaftate 1 applic 09/20/17 10:00 10/05/17 11:04 Tinactin 1% Cream - TP 1 applic DAILY REBECCA Administration ASSESSMENT/PLAN: This is a 56 year old woman with a history of left breast cancer, bipolar disorder, tobacco use, heroin use, and alcohol abuse, who presented to the ED from [facility] after falling and hitting her head. 1. Metastatic breast cancer - Not a candidate for treatment - Pain control with Duragesic, Methadone, oxycodone - Awaiting hospice placement 2. Uterine prolapse - Awaiting pessary 3. Bipolar disorder with taylor, agitation - Continue Depakote, Zyprexa, Haldol as needed 4. Opioid dependence - Continue Methadone 5. Acute alcohol withdrawal, uncomplicated - Completed Librium detox 6. Continuous alcohol dependence 7. Nicotine dependence - Continue nicotine patch Visit type - Emergency Visit Emergency Visit: Yes ED Registration Date: 08/20/17 Care time: The patient presented to the Emergency Department on the above date and was hospitalized for further evaluation of their emergent condition. - New Patient This patient is new to me today: No - Critical Care Critical Care patient: No - Discharge Referral Referred to [facility] Med P.C.: No
[2017-10-06 09:11] LABS: ALBUMIN 2.7 g/dl (3.4-5.0); ANION GAP 9 MMOL/L (8-16); BLOOD UREA NITROGEN 26 mg/dL (7-18); CALCIUM 8.5 mg/dL (8.5-10.1); CHLORIDE 102 mmol/L (98-107); CO2 28 mmol/L (21-32); CREATININE 0.6 mg/dL (0.55-1.02); GLUCOSE,RANDOM 69 mg/dL (74-106); POTASSIUM 4.3 mmol/L (3.5-5.1); SGOT/AST 129 U/L (15-37); SGPT/ALT 88 U/L (12-78); SODIUM 139 mmol/L (136-145)
[2017-10-06 09:12] LABS: ALK PHOS 107 U/L (45-117); BILIRUBIN,TOTAL 0.4 mg/dL (0.2-1.0); TOT PROT 8.4 g/dl (6.4-8.2)
[2017-10-06] MEDS ORDERED: PT OWN MED DRAWER 7, Y5N ONE ×4 (11:26→21:22)
[2017-10-06] MEDS: OLANZapine 10 MG TABLET PO SCH ×2 (11:29→21:49)
[2017-10-06] MEDS: DIVALPROEX NA *ER* EXTEND REL 500 MG TABLET.SA (FP) PO SCH ×2 (11:29→21:49)
[2017-10-06] MEDS: FOLIC ACID 1 MG TABLET (FP) PO SCH (11:29)
[2017-10-06] MEDS: fentaNYL 25mcg/hr PATCH.TD72 TD SCH (11:30)
[2017-10-06] MEDS: TOLNAFTATE 1% CREAM 15 GM TUBE TP SCH (11:31)
[2017-10-06] MEDS: POLYETHYLENE GLYCOL 3350 119 GM BTL PO SCH ×2 (11:39→21:49)
[2017-10-06] MEDS: BISACODYL 10 MG SUPP.RECT RC SCH (11:39)
[2017-10-06] MEDS: DOCUSATE SODIUM 100 MG CAPSULE (FP) PO SCH (21:50)
[2017-10-07] MEDS: oxyCODONE HCL 5 MG TABLET PO SCH ×2 (02:32→10:10)
[2017-10-07] MEDS: METHADONE HCL 40 MG DISPERSABLE TABLET PO SCH ×3 (05:54→18:13)
--- NOTE | 2017-10-07 09:32 | PN ---
Progress Note (short form) - Note Progress Note: Subjective: Patient was seen at the bedside, she has no complaints at this time Restraints have been off since yesterday morning Current Medications Generic Name Dose Route Start Last Admin Trade Name Freq PRN Reason Stop Dose Admin Acetaminophen 650 mg 08/21/17 06:52 10/04/17 21:15 Tylenol Oral Solution - PO 650 mg Q6H PRN Administration PAIN LEVEL 1-5 Bisacodyl 10 mg 09/27/17 11:15 10/04/17 11:05 Dulcolax Suppository - RC 10 mg Q24H REBECCA Administration Divalproex Sodium 1,000 mg 09/28/17 22:00 10/04/17 21:08 Depakote *Er* - PO 1,000 mg BID REBECCA Administration Docusate Sodium 300 mg 08/28/17 22:00 10/04/17 21:07 Colace - PO 300 mg HS REBECCA Administration Fentanyl 1 patch 09/30/17 10:30 10/03/17 10:18 Duragesic 25mcg Patch - TD 10/07/17 10:30 1 patch Q72H REBECCA Administration Folic Acid 1 mg 08/21/17 10:00 10/04/17 11:03 Folic Acid - PO 1 mg DAILY REBECCA Administration Haloperidol 5 mg 09/30/17 10:44 10/01/17 10:46 Haldol Injection (Fast Acting) - IM 5 mg ONCE PRN Administration AGITATION Methadone HCl 40 mg 09/30/17 10:43 10/05/17 07:20 Dolophine - PO 40 mg 0600,1200,1800 REBECCA Administration Miscellaneous 1 each 09/30/17 10:30 Duragesic Patch Waste TD PRN PRN PAIN Olanzapine 20 mg 09/28/17 22:00 10/04/17 21:08 Zyprexa - PO 20 mg BID REBECCA Administration Oxycodone HCl 10 mg 09/30/17 15:00 10/05/17 03:19 Roxicodone - PO 10 mg 0300,0900,1500,2100 REBECCA Administration Polyethylene Glycol 17 gm 08/28/17 10:00 10/04/17 21:08 Miralax (For Daily Use) - PO 17 gm BID REBECCA Administration Senna 2 tab 09/13/17 22:00 10/01/17 21:17 Senna - PO 2 tab HS PRN Administration CONSTIPATION Tolnaftate 1 applic 09/20/17 10:00 10/04/17 11:05 Tinactin 1% Cream - TP 1 applic DAILY REBECCA Administration Objective: Vital Signs Period Temp Pulse Resp BP Sys/Camacho Pulse Ox Last 24 Hr 98 F-98.4 F 58-78 18-20 100-147/70-98 98 Physical Exam: General: NAD, pleasant today, non-combative, conversant Lungs: CTA bilaterally Heart: RRR, S1S2 Abd: Soft, non-tender : Uterine prolapse Skin: Left breast with round nodule, non-mobile, left nipple changes. Left axillary lymph node enlargement, non-mobile, tender CBCD WBC 6.3 K/mm3 (4.0-10.0) 10/06/17 06:00 RBC 3.49 M/mm3 (3.60-5.2) L 10/06/17 06:00 Hgb 10.6 GM/dL (10.7-15.3) L 10/06/17 06:00 Hct 31.8 % (32.4-45.2) L 10/06/17 06:00 MCV 91.1 fl (80-96) 10/06/17 06:00 MCHC 33.4 g/dl (32.0-36.0) 10/06/17 06:00 RDW 16.4 % (11.6-15.6) H 10/06/17 06:00 Plt Count 190 K/MM3 (134-434) D 10/06/17 06:00 MPV 8.5 fl (7.5-11.1) 10/06/17 06:00 CMP Sodium 139 mmol/L (136-145) 10/06/17 06:00 Potassium 4.3 mmol/L (3.5-5.1) 10/06/17 06:00 Chloride 102 mmol/L (98-107) 10/06/17 06:00 Carbon Dioxide 28 mmol/L (21-32) 10/06/17 06:00 Anion Gap 9 MMOL/L (8-16) 10/06/17 06:00 BUN 26 mg/dL (7-18) H 10/06/17 06:00 Creatinine 0.6 mg/dL (0.55-1.02) 10/06/17 06:00 Creat Clearance w eGFR > 60 (>60) 10/06/17 06:00 Random Glucose 69 mg/dL (74-106) L 10/06/17 06:00 Calcium 8.5 mg/dL (8.5-10.1) 10/06/17 06:00 Total Bilirubin 0.4 mg/dL (0.2-1.0) 10/06/17 06:00 AST 129 U/L (15-37) H 10/06/17 06:00 ALT 88 U/L (12-78) H 10/06/17 06:00 Alkaline Phosphatase 107 U/L (45-117) D 10/06/17 06:00 Total Protein 8.4 g/dl (6.4-8.2) H 10/06/17 06:00 Albumin 2.7 g/dl (3.4-5.0) L 10/06/17 06:00 Assessment: This is a 56 year old female with PMHx of left breast cancer (dx 4 years ago, only had chemo x1), bipolar disorder, tobacco use, heroin and alcohol abuse, who presented to the ED from [facility] after falling and hitting her head. Plan: 1) Metastatic breast cancer to bone and brain, uterine prolapse - Acute urinary retention from uterine prolapse, dhillon catheter remains in place , pessary on floor, MANAGER BOOK coming today to place it. Once in place, will give DTV trial - Not a candidate for chemotherapy or further treatment - Oxycodone to q6h. Methadone 40mg tid. Fentanyl patch 25mcg - Appreciate pain management consult - Appreciate rad onc consult - Appreciate heme/onc consult 2) Agitation, manic behavior - Marked improvement in behavior - Depakote 1000mg po bid on 09/28 - Zyprexa 20mg po bid on 09/28 - Appreciate psych consult 2) Heroin abuse, acute alcohol withdrawal - Librium taper completed - Continue Methadone - Appreciate detox consult 3) Bipolar disorder - Medications as above - Appreciate psych consult 4) F/E/N: - Monitor electrolytes - Regular diet 5) Prophylaxis: - Bowel regimen - OOB ambulating 6) Dispo: - Awaiting bed at [facility] CODE STATUS: DNR/DNI Visit type - Emergency Visit Emergency Visit: Yes ED Registration Date: 08/20/17 Care time: The patient presented to the Emergency Department on the above date and was hospitalized for further evaluation of their emergent condition. - New Patient This patient is new to me today: No - Critical Care Critical Care patient: No
[2017-10-07] MEDS: OLANZapine 10 MG TABLET PO SCH ×2 (10:11→22:31)
[2017-10-07] MEDS: DIVALPROEX NA *ER* EXTEND REL 500 MG TABLET.SA (FP) PO SCH ×2 (10:11→22:29)
[2017-10-07] MEDS: FOLIC ACID 1 MG TABLET (FP) PO SCH (10:11)
[2017-10-07] MEDS: POLYETHYLENE GLYCOL 3350 119 GM BTL PO SCH ×2 (10:12→22:30)
[2017-10-07] MEDS ORDERED: PT OWN MED DRAWER 7, Y5N ONE (10:14)
[2017-10-07] MEDS: TOLNAFTATE 1% CREAM 15 GM TUBE TP SCH (11:20)
[2017-10-07] MEDS: BISACODYL 10 MG SUPP.RECT RC SCH (17:58)
[2017-10-07] MEDS: DOCUSATE SODIUM 100 MG CAPSULE (FP) PO SCH (22:29)
[2017-10-07] MEDS: ACETAMINOPHEN 650 MG/20.3 ML ORAL SOLUTION (CUPS) PO PRN (22:31)
[2017-10-08] MEDS ORDERED: oxyCODONE HCL 5 MG TABLET PO PRN (01:43)
[2017-10-08] MEDS: METHADONE HCL 40 MG DISPERSABLE TABLET PO SCH ×3 (07:16→18:37)
[2017-10-08] MEDS: ACETAMINOPHEN 650 MG/20.3 ML ORAL SOLUTION (CUPS) PO PRN (07:16)
--- NOTE | 2017-10-08 07:37 | PN ---
Progress Note (short form) - Note Progress Note: Subjective: Patient was seen at the bedside, patient is up ambulating, stating she would like to eat now Pessary placed yesterday by DISTILLERY WORKER GENERAL, dhillon catheter removed, patient voiding Current Medications Generic Name Dose Route Start Last Admin Trade Name Vipinq PRN Reason Stop Dose Admin Acetaminophen 650 mg 08/21/17 06:52 10/08/17 07:16 Tylenol Oral Solution - PO 650 mg Q6H PRN Administration PAIN LEVEL 1-5 Bisacodyl 10 mg 09/27/17 11:15 10/07/17 17:58 Dulcolax Suppository - RC Not Given Q24H REBECCA Divalproex Sodium 1,000 mg 09/28/17 22:00 10/07/17 22:29 Depakote *Er* - PO 1,000 mg BID REBECAC Administration Docusate Sodium 300 mg 08/28/17 22:00 10/07/17 22:29 Colace - PO 300 mg HS REBECCA Administration Folic Acid 1 mg 08/21/17 10:00 10/07/17 10:11 Folic Acid - PO 1 mg DAILY REBECCA Administration Haloperidol 5 mg 09/30/17 10:44 10/01/17 10:46 Haldol Injection (Fast Acting) - IM 5 mg ONCE PRN Administration AGITATION Methadone HCl 40 mg 10/07/17 12:00 10/08/17 07:16 Dolophine - PO 40 mg TID@0600,1200,1800 REBECCA Administration Olanzapine 20 mg 09/28/17 22:00 10/07/17 22:31 Zyprexa - PO 20 mg BID REBECCA Administration Oxycodone HCl 10 mg 10/08/17 01:43 Roxicodone - PO Q6H PRN PAIN LEVEL 7 - 10 Polyethylene Glycol 17 gm 08/28/17 10:00 10/07/17 22:30 Miralax (For Daily Use) - PO 17 gm BID REBECCA Administration Senna 2 tab 09/13/17 22:00 10/01/17 21:17 Senna - PO 2 tab HS PRN Administration CONSTIPATION Tolnaftate 1 applic 09/20/17 10:00 10/07/17 11:20 Tinactin 1% Cream - TP Not Given DAILY REBECCA Objective: Vital Signs Period Temp Pulse Resp BP Sys/Camacho Pulse Ox Last 24 Hr 97.9 F-99.3 F 90-110 -18 106-128/61-72 Physical Exam: Refusing exam CBCD WBC 6.3 K/mm3 (4.0-10.0) 10/06/17 06:00 RBC 3.49 M/mm3 (3.60-5.2) L 10/06/17 06:00 Hgb 10.6 GM/dL (10.7-15.3) L 10/06/17 06:00 Hct 31.8 % (32.4-45.2) L 10/06/17 06:00 MCV 91.1 fl (80-96) 10/06/17 06:00 MCHC 33.4 g/dl (32.0-36.0) 10/06/17 06:00 RDW 16.4 % (11.6-15.6) H 10/06/17 06:00 Plt Count 190 K/MM3 (134-434) D 10/06/17 06:00 MPV 8.5 fl (7.5-11.1) 10/06/17 06:00 CMP Sodium 139 mmol/L (136-145) 10/06/17 06:00 Potassium 4.3 mmol/L (3.5-5.1) 10/06/17 06:00 Chloride 102 mmol/L (98-107) 10/06/17 06:00 Carbon Dioxide 28 mmol/L (21-32) 10/06/17 06:00 Anion Gap 9 MMOL/L (8-16) 10/06/17 06:00 BUN 26 mg/dL (7-18) H 10/06/17 06:00 Creatinine 0.6 mg/dL (0.55-1.02) 10/06/17 06:00 Creat Clearance w eGFR > 60 (>60) 10/06/17 06:00 Random Glucose 69 mg/dL (74-106) L 10/06/17 06:00 Calcium 8.5 mg/dL (8.5-10.1) 10/06/17 06:00 Total Bilirubin 0.4 mg/dL (0.2-1.0) 10/06/17 06:00 AST 129 U/L (15-37) H 10/06/17 06:00 ALT 88 U/L (12-78) H 08/24/18 06:00 Alkaline Phosphatase 107 U/L (45-117) D 10/06/17 06:00 Total Protein 8.4 g/dl (6.4-8.2) H 10/06/17 06:00 Albumin 2.7 g/dl (3.4-5.0) L 10/06/17 06:00 Assessment: This is a 56 year old female with PMHx of left breast cancer (dx 4 years ago, only had chemo x1), bipolar disorder, tobacco use, heroin and alcohol abuse, who presented to the ED from [facility] after falling and hitting her head. Plan: 1) Metastatic breast cancer to bone and brain, uterine prolapse - Acute urinary retention from uterine prolapse, pessary placed yesterday and dhillon catheter removed, patient voiding well - Not a candidate for chemotherapy or further treatment - Oxycodone to q6h scheduled. Methadone 40mg tid. Fentanyl patch 25mcg - Appreciate pain management consult - Appreciate rad onc consult - Appreciate heme/onc consult 2) Agitation, manic behavior - Depakote 1000mg po bid on 09/28 - Zyprexa 20mg po bid on 09/28 - Awaiting reevaluation from psych prior to discharge 2) Heroin abuse, acute alcohol withdrawal - Librium taper completed - Continue Methadone - Appreciate detox consult 3) Bipolar disorder - Medications as above - Appreciate psych consult 4) F/E/N: - Monitor electrolytes - Regular diet 5) Prophylaxis: - Bowel regimen - OOB ambulating 6) Dispo: - Awaiting bed at [facility] CODE STATUS: DNR/DNI Visit type - Emergency Visit Emergency Visit: Yes ED Registration Date: 08/20/17 Care time: The patient presented to the Emergency Department on the above date and was hospitalized for further evaluation of their emergent condition. - New Patient This patient is new to me today: No - Critical Care Critical Care patient: No
[2017-10-08] MEDS ORDERED: FENTANYL PATCH WASTE MC PRN (07:42)
[2017-10-08] MEDS: fentaNYL 25mcg/hr PATCH.TD72 TD SCH (08:23)
[2017-10-08] MEDS: oxyCODONE HCL 5 MG TABLET PO SCH ×3 (08:23→21:03)
[2017-10-08] MEDS: POLYETHYLENE GLYCOL 3350 119 GM BTL PO SCH ×2 (10:03→21:06)
[2017-10-08] MEDS: FOLIC ACID 1 MG TABLET (FP) PO SCH (10:03)
[2017-10-08] MEDS: DIVALPROEX NA *ER* EXTEND REL 500 MG TABLET.SA (FP) PO SCH ×2 (10:04→21:04)
[2017-10-08] MEDS: OLANZapine 10 MG TABLET PO SCH ×2 (10:04→21:04)
[2017-10-08] MEDS: TOLNAFTATE 1% CREAM 15 GM TUBE TP SCH (11:22)
[2017-10-08] MEDS: BISACODYL 10 MG SUPP.RECT RC SCH (11:22)
--- NOTE | 2017-10-08 13:39 | PN ---
Progress Note (short form) - Note Progress Note: Psych follow up and reevaluation. Patient seen for above and case discussed with staffr. There may be a bed available at [facility] for this patient. Staff report significant improvement in pATIENTS MENTAL STATUS AND BEHAVIOUR. sHE HAS BECOME COPERATIVE3 AND EASILY manageable. No longer dfisplaying any acute disruptive behaviour on the unit. Compliant with medications and 5they have been effective. Plan: patient can be transferred to the Facility. 2) Continue with pending sale to [facility] Psych Meds. 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
[2017-10-08] MEDS ORDERED: PT OWN MED DRAWER 7, Y5N ONE (20:24)
[2017-10-08] MEDS: DOCUSATE SODIUM 100 MG CAPSULE (FP) PO SCH (21:04)
[2017-10-09] MEDS: oxyCODONE HCL 5 MG TABLET PO SCH ×4 (02:48→21:48)
[2017-10-09] MEDS: ACETAMINOPHEN 650 MG/20.3 ML ORAL SOLUTION (CUPS) PO PRN (02:53)
[2017-10-09] MEDS: METHADONE HCL 40 MG DISPERSABLE TABLET PO SCH ×3 (05:46→17:38)
[2017-10-09] MEDS ORDERED: PT OWN MED DRAWER 7, Y5N ONE ×4 (10:19→21:44)
[2017-10-09] MEDS: FOLIC ACID 1 MG TABLET (FP) PO SCH (10:22)
[2017-10-09] MEDS: DIVALPROEX NA *ER* EXTEND REL 500 MG TABLET.SA (FP) PO SCH ×2 (10:22→21:49)
[2017-10-09] MEDS: POLYETHYLENE GLYCOL 3350 119 GM BTL PO SCH ×2 (10:23→21:48)
[2017-10-09] MEDS: OLANZapine 10 MG TABLET PO SCH ×2 (10:24→21:49)
[2017-10-09] MEDS: TOLNAFTATE 1% CREAM 15 GM TUBE TP SCH (10:25)
--- NOTE | 2017-10-09 11:37 | PN ---
Progress Note (short form) - Note Progress Note: Subjective: Patient was seen at the bedside, patient is sleeping in the chair. Current Medications Generic Name Dose Route Start Last Admin Trade Name Freq PRN Reason Stop Dose Admin Acetaminophen 650 mg 08/21/17 06:52 10/08/17 07:16 Tylenol Oral Solution - PO 650 mg Q6H PRN Administration PAIN LEVEL 1-5 Bisacodyl 10 mg 09/27/17 11:15 10/07/17 17:58 Dulcolax Suppository - RC Not Given Q24H REBECCA Divalproex Sodium 1,000 mg 09/28/17 22:00 10/07/17 22:29 Depakote *Er* - PO 1,000 mg BID REBECCA Administration Docusate Sodium 300 mg 08/28/17 22:00 10/07/17 22:29 Colace - PO 300 mg HS REBECCA Administration Folic Acid 1 mg 08/21/17 10:00 10/07/17 10:11 Folic Acid - PO 1 mg DAILY REBECCA Administration Haloperidol 5 mg 09/30/17 10:44 10/01/17 10:46 Haldol Injection (Fast Acting) - IM 5 mg ONCE PRN Administration AGITATION Methadone HCl 40 mg 10/07/17 12:00 10/08/17 07:16 Dolophine - PO 40 mg TID@0600,1200,1800 REBECCA Administration Olanzapine 20 mg 09/28/17 22:00 10/07/17 22:31 Zyprexa - PO 20 mg BID REBECCA Administration Oxycodone HCl 10 mg 10/08/17 01:43 Roxicodone - PO Q6H PRN PAIN LEVEL 7 - 10 Polyethylene Glycol 17 gm 08/28/17 10:00 10/07/17 22:30 Miralax (For Daily Use) - PO 17 gm BID REBECCA Administration Senna 2 tab 09/13/17 22:00 10/01/17 21:17 Senna - PO 2 tab HS PRN Administration CONSTIPATION Tolnaftate 1 applic 09/20/17 10:00 10/07/17 11:20 Tinactin 1% Cream - TP Not Given DAILY REBECCA Objective: Vital Signs Period Temp Pulse Resp BP Sys/Camacho Pulse Ox Last 24 Hr 98.1 F-99.4 F 90-99 18-20 105-119/64-74 99 Physical Exam: Patient is sleeping CBCD WBC 6.3 K/mm3 (4.0-10.0) 10/06/17 06:00 RBC 3.49 M/mm3 (3.60-5.2) L 10/06/17 06:00 Hgb 10.6 GM/dL (10.7-15.3) L 10/06/17 06:00 Hct 31.8 % (32.4-45.2) L 10/06/17 06:00 MCV 91.1 fl (80-96) 10/06/17 06:00 MCHC 33.4 g/dl (32.0-36.0) 10/06/17 06:00 RDW 16.4 % (11.6-15.6) H 10/06/17 06:00 Plt Count 190 K/MM3 (134-434) D 10/06/17 06:00 MPV 8.5 fl (7.5-11.1) 10/06/17 06:00 CMP Sodium 139 mmol/L (136-145) 10/06/17 06:00 Potassium 4.3 mmol/L (3.5-5.1) 10/06/17 06:00 Chloride 102 mmol/L (98-107) 10/06/17 06:00 Carbon Dioxide 28 mmol/L (21-32) 10/06/17 06:00 Anion Gap 9 MMOL/L (8-16) 10/06/17 06:00 BUN 26 mg/dL (7-18) H 10/06/17 06:00 Creatinine 0.6 mg/dL (0.55-1.02) 10/06/17 06:00 Creat Clearance w eGFR > 60 (>60) 10/06/17 06:00 Random Glucose 69 mg/dL (74-106) L 10/06/17 06:00 Calcium 8.5 mg/dL (8.5-10.1) 10/06/17 06:00 Total Bilirubin 0.4 mg/dL (0.2-1.0) 10/06/17 06:00 AST 129 U/L (15-37) H 10/06/17 06:00 ALT 88 U/L (12-78) H 10/06/17 06:00 Alkaline Phosphatase 107 U/L (45-117) D 10/06/17 06:00 Total Protein 8.4 g/dl (6.4-8.2) H 10/06/17 06:00 Albumin 2.7 g/dl (3.4-5.0) L 10/06/17 06:00 Assessment: This is a 56 year old female with PMHx of left breast cancer (dx 4 years ago, only had chemo x1), bipolar disorder, tobacco use, heroin and alcohol abuse, who presented to the ED from [facility] after falling and hitting her head. Plan: 1) Metastatic breast cancer to bone and brain, uterine prolapse - Pessary placed for acute uterine prolapse, patient voiding in the toilet - Not a candidate for chemotherapy or further treatment per oncology - Oxycodone to q6h scheduled. Methadone 40mg tid. Fentanyl patch 25mcg - Appreciate pain management consult - Appreciate rad onc consult - Appreciate heme/onc consult 2) Agitation, manic behavior - Depakote 1000mg po bid on 09/28 - Zyprexa 20mg po bid on 09/28 - Awaiting reevaluation from psych prior to discharge 2) Heroin abuse, acute alcohol withdrawal - Librium taper completed - Continue Methadone - Appreciate detox consult 3) Bipolar disorder - Medications as above - Appreciate psych consult 4) F/E/N: - Monitor electrolytes - Regular diet 5) Prophylaxis: - Bowel regimen - OOB ambulating 6) Dispo: - Awaiting bed at [facility] CODE STATUS: DNR/DNI Visit type - Emergency Visit Emergency Visit: Yes ED Registration Date: 08/20/17 Care time: The patient presented to the Emergency Department on the above date and was hospitalized for further evaluation of their emergent condition. - New Patient This patient is new to me today: No - Critical Care Critical Care patient: No
[2017-10-09] MEDS: BISACODYL 10 MG SUPP.RECT RC SCH (11:54)
[2017-10-09] MEDS: DOCUSATE SODIUM 100 MG CAPSULE (FP) PO SCH (21:49)
[2017-10-10] MEDS: oxyCODONE HCL 5 MG TABLET PO SCH ×4 (02:56→21:24)
[2017-10-10] MEDS: METHADONE HCL 40 MG DISPERSABLE TABLET PO SCH ×3 (06:00→19:50)
--- NOTE | 2017-10-10 09:30 | PN ---
Physical Exam: SUBJECTIVE: Patient seen and examined. She has no complaints. OBJECTIVE: Vital Signs Period Temp Pulse Resp BP Sys/Camacho Pulse Ox Last 24 Hr 98.2 F-98.9 F 84-99 18-20 116-156/70-96 96 GENERAL: The patient is awake, alert, and fully oriented, in no acute distress. LUNGS: Breath sounds equal, clear to auscultation bilaterally, no wheezes, no crackles, no accessory muscle use. HEART: Regular rate and rhythm, S1, S2 without murmur, rub or gallop. ABDOMEN: Soft, nontender, nondistended, normoactive bowel sounds, no guarding, no rebound, no hepatosplenomegaly, no masses. EXTREMITIES: 2+ pulses, warm, well-perfused, no edema. Active Medications Generic Name Dose Route Start Last Admin Trade Name Freq PRN Reason Stop Dose Admin Acetaminophen 650 mg 08/21/17 06:52 10/09/17 02:53 Tylenol Oral Solution - PO 650 mg Q6H PRN Administration PAIN LEVEL 1-5 Bisacodyl 10 mg 09/27/17 11:15 10/09/17 11:54 Dulcolax Suppository - RC Not Given Q24H REBECCA Divalproex Sodium 1,000 mg 09/28/17 22:00 10/09/17 21:49 Depakote *Er* - PO 1,000 mg BID REBECCA Administration Docusate Sodium 300 mg 08/28/17 22:00 10/09/17 21:49 Colace - PO 300 mg HS REBECCA Administration Fentanyl 1 patch 10/08/17 07:45 10/08/17 08:23 Duragesic 25mcg Patch - TD 10/15/17 07:42 1 patch Q72H REBECCA Administration Folic Acid 1 mg 08/21/17 10:00 10/09/17 10:22 Folic Acid - PO 1 mg DAILY REBECCA Administration Haloperidol 5 mg 09/30/17 10:44 10/01/17 10:46 Haldol Injection (Fast Acting) - IM 5 mg ONCE PRN Administration AGITATION Methadone HCl 40 mg 10/07/17 12:00 10/10/17 06:00 Dolophine - PO 40 mg TID@0600,1200,1800 REBECCA Administration Miscellaneous 1 each 10/08/17 07:42 Duragesic Patch Waste MC PRN PRN PAIN Olanzapine 20 mg 09/28/17 22:00 10/09/17 21:49 Zyprexa - PO 20 mg BID REBECCA Administration Oxycodone HCl 10 mg 10/08/17 09:00 10/10/17 02:56 Roxicodone - PO 10 mg Q6H REBECCA Administration Polyethylene Glycol 17 gm 08/28/17 10:00 10/09/17 21:48 Miralax (For Daily Use) - PO 17 gm BID REBECCA Administration Senna 2 tab 09/13/17 22:00 10/01/17 21:17 Senna - PO 2 tab HS PRN Administration CONSTIPATION Tolnaftate 1 applic 09/20/17 10:00 10/09/17 10:25 Tinactin 1% Cream - TP 1 applic DAILY REBECCA Administration ASSESSMENT/PLAN: This is a 56 year old woman with a history of left breast cancer, bipolar disorder, tobacco use, heroin use, and alcohol abuse, who presented to the ED from [facility] after falling and hitting her head. 1. Metastatic breast cancer - Not a candidate for treatment - Pain control with Duragesic, Methadone, oxycodone - Awaiting hospice placement 2. Uterine prolapse - Pessary was inserted 10/07 but uterus has prolapsed again - Visiting Teacher follow up 3. Bipolar disorder with taylor, agitation - Agitation has improved and she is no longer requiring restraints - Continue Depakote, Zyprexa, Haldol as needed 4. Opioid dependence - Continue Methadone 5. Acute alcohol withdrawal, uncomplicated - Completed Librium detox 6. Continuous alcohol dependence 7. Nicotine dependence - Continue nicotine patch Visit type - Emergency Visit Emergency Visit: Yes ED Registration Date: 08/20/17 Care time: The patient presented to the Emergency Department on the above date and was hospitalized for further evaluation of their emergent condition. - New Patient This patient is new to me today: No - Critical Care Critical Care patient: No - Discharge Referral Referred to [facility] Med [facility].C.: No
[2017-10-10] MEDS: FOLIC ACID 1 MG TABLET (FP) PO SCH (10:33)
[2017-10-10] MEDS: OLANZapine 10 MG TABLET PO SCH ×2 (10:33→21:24)
[2017-10-10] MEDS: DIVALPROEX NA *ER* EXTEND REL 500 MG TABLET.SA (FP) PO SCH ×2 (10:34→21:24)
[2017-10-10] MEDS: POLYETHYLENE GLYCOL 3350 119 GM BTL PO SCH ×2 (10:34→21:24)
[2017-10-10] MEDS: TOLNAFTATE 1% CREAM 15 GM TUBE TP SCH (10:35)
[2017-10-10] MEDS: BISACODYL 10 MG SUPP.RECT RC SCH (10:35)
[2017-10-10] MEDS ORDERED: PT OWN MED DRAWER 7, Y5N ONE (10:48)
[2017-10-10] MEDS: ACETAMINOPHEN 650 MG/20.3 ML ORAL SOLUTION (CUPS) PO PRN (20:21)
[2017-10-10] MEDS: DOCUSATE SODIUM 100 MG CAPSULE (FP) PO SCH (21:24)
[2017-10-11] MEDS: oxyCODONE HCL 5 MG TABLET PO SCH ×4 (03:45→20:23)
[2017-10-11] MEDS: METHADONE HCL 40 MG DISPERSABLE TABLET PO SCH ×3 (05:21→18:30)
[2017-10-11] MEDS ORDERED: PT OWN MED DRAWER 7, Y5N ONE ×4 (10:34→22:23)
[2017-10-11] MEDS: POLYETHYLENE GLYCOL 3350 119 GM BTL PO SCH ×2 (11:00→22:24)
[2017-10-11] MEDS: fentaNYL 25mcg/hr PATCH.TD72 TD SCH (11:51)
[2017-10-11] MEDS: DIVALPROEX NA *ER* EXTEND REL 500 MG TABLET.SA (FP) PO SCH ×2 (11:52→22:24)
[2017-10-11] MEDS: FOLIC ACID 1 MG TABLET (FP) PO SCH (11:53)
[2017-10-11] MEDS: OLANZapine 10 MG TABLET PO SCH ×2 (11:53→22:24)
[2017-10-11] MEDS: TOLNAFTATE 1% CREAM 15 GM TUBE TP SCH (11:54)
[2017-10-11] MEDS: BISACODYL 10 MG SUPP.RECT RC SCH (11:55)
--- NOTE | 2017-10-11 12:32 | PN ---
Physical Exam: SUBJECTIVE: Patient seen and examined at the bedside. OBJECTIVE: DIETITIAN TEACHER Dr. Mary Carmen Simmons [phone] called and informed that patient no longer has her pessary that was placed on 10/[address] Simmons. Unsure if pessary was pushed out by patient and accidentally discarded. Vital Signs Period Temp Pulse Resp BP Sys/Camacho Pulse Ox Last 24 Hr 97.5 F-99.5 F 99-110 18-20 118-134/52-92 GENERAL: The patient is awake, with episodes of agitation and lethargy HEAD: Normal with no signs of trauma. EYES: PERRL, extraocular movements intact, sclera anicteric, conjunctiva clear. No ptosis. ENT: Ears normal, nares patent, oropharynx clear without exudates NECK: Trachea midline, full range of motion, supple. ABDOMEN: Soft, nontender, nondistended, normoactive bowel sounds PELVIS: prolapsed uterus EXTREMITIES:bilateral lower ext pitting edema left>right NEUROLOGICAL: Normal speech, gait not observed. PSYCH: episodes of agitation SKIN: Warm, dry, normal turgor, no rashes or lesions noted Active Medications Generic Name Dose Route Start Last Admin Trade Name Freq PRN Reason Stop Dose Admin Acetaminophen 650 mg 08/21/17 06:52 10/10/17 20:21 Tylenol Oral Solution - PO 650 mg Q6H PRN Administration PAIN LEVEL 1-5 Bisacodyl 10 mg 09/27/17 11:15 10/11/17 11:55 Dulcolax Suppository - RC 10 mg Q24H REBECCA Administration Divalproex Sodium 1,000 mg 09/28/17 22:00 10/11/17 11:52 Depakote *Er* - PO 1,000 mg BID REBECCA Administration Docusate Sodium 300 mg 08/28/17 22:00 10/10/17 21:24 Colace - PO 300 mg HS REBECCA Administration Fentanyl 1 patch 10/08/17 07:45 10/11/17 11:51 Duragesic 25mcg Patch - TD 10/15/17 07:42 1 patch Q72H REBECCA Administration Folic Acid 1 mg 08/21/17 10:00 10/11/17 11:53 Folic Acid - PO 1 mg DAILY REBECCA Administration Haloperidol 5 mg 09/30/17 10:44 10/01/17 10:46 Haldol Injection (Fast Acting) - IM 5 mg ONCE PRN Administration AGITATION Methadone HCl 40 mg 10/07/17 12:00 10/11/17 11:51 Dolophine - PO 40 mg TID@0600,1200,1800 REBECCA Administration Miscellaneous 1 each 10/08/17 07:42 Duragesic Patch Waste MC PRN PRN PAIN Olanzapine 20 mg 09/28/17 22:00 10/11/17 11:53 Zyprexa - PO 20 mg BID REBECCA Administration Oxycodone HCl 10 mg 10/08/17 09:00 10/11/17 12:21 Roxicodone - PO Not Given Q6H REBECCA Polyethylene Glycol 17 gm 08/28/17 10:00 10/10/17 21:24 Miralax (For Daily Use) - PO Not Given BID REBECCA Senna 2 tab 09/13/17 22:00 10/01/17 21:17 Senna - PO 2 tab HS PRN Administration CONSTIPATION Tolnaftate 1 applic 09/20/17 10:00 10/11/17 11:54 Tinactin 1% Cream - TP 1 applic DAILY REBECCA Administration ASSESSMENT/PLAN: Patient is a 56 year old woman with history of left breast cancer, smoker, seizure disorder, heroin/alcohol/methadone abuse who presents to the ER on from [facility] after falling and hitting her head against a counter. She is currently awaiting placement at [facility] or another intermediate facility. Oncology: Metastatic breast cancer to bone and brain: Not a candidate for further treatment. Pain currently managed with oxycodone 10mg q8, methadone 40mg tid, fentanyl patch and tylenol. Patient awaiting bed placement for her progressive metastatic disease. Psyche: Agitation: Episodes of agitation/restlessness, likely secondary to patients history. Evaluated by psyche. on zyprexa and haldol prn DIETITIAN TEACHER: Prolapsed uterus: pessary placed 10/07 and has likely dislodged and likely has been discarded. DIETITIAN TEACHER reconsulted. Dr. Mary Carmen Simmons informed and asked that we contact our L&D department. Consult placed. fen tolerating PO monitor electrolytes, encourage hydration regular diet prophy ambulatory bowel regimen dnr/dni Visit type - Emergency Visit Emergency Visit: Yes ED Registration Date: 08/20/17 Care time: The patient presented to the Emergency Department on the above date and was hospitalized for further evaluation of their emergent condition. - New Patient This patient is new to me today: No - Critical Care Critical Care patient: No - Discharge Referral Referred to [facility] No
[2017-10-11] MEDS: DOCUSATE SODIUM 100 MG CAPSULE (FP) PO SCH (22:24)
--- NOTE | 2017-10-11 23:16 | CON.OBG ---
Consult Consult Specialty:: LOLLYPOP MACHINE OPERATOR Reason for Consultation:: Pelvic prolapse - History of Present Illness Chief Complaint: Pelvic prolapse History of Present Illness: This is a 56 year old woman with a history of left breast cancer, bipolar disorder, tobacco use, heroin use, and alcohol abuse, who presented to the ED from [facility] after falling and hitting her head. LOLLYPOP MACHINE OPERATOR consulted due to pelvic prolapse. Apparently patient had a Pessary in place but chose to remove it. Patient is not a good historian; a good history cannot be provided. - History Source History Provided By: Medical Record Limitations to Obtaining History: Uncooperative - Past Medical History Psych: Yes: Addictions, Anxiety, Bipolar Musculoskeletal: Yes: Other Rheumatology: Yes: Other ENT: Yes: Other Endocrine: Yes: Other - Alcohol/Substance Use Hx Alcohol Use: Yes (1/2 - 1 pint a day) - Smoking History Smoking history: Current every day smoker Have you smoked in the past 12 months: Yes Aproximately how many cigarettes per day: 10 - Social History Usual Living Arrangement: Alone Home Medications - Allergies Allergies/Adverse Reactions: Allergies Allergy/AdvReac Type Severity Reaction Status Date / Time No Known Allergies Allergy Verified 08/20/17 12:45 - Home Medications Home Medications: Ambulatory Orders Bisacodyl Suppository [Dulcolax Suppository -] 10 mg RC Q24H PRN supp.rect 04/02 FENTANYL 12mcg PATCH [DURAGESIC 12mcg PATCH -] 1 patch TD Q72H #5 patch.td72 MDD 1 09/14/17 Fentanyl Patch Waste [Duragesic Patch Waste] 1 each TD PRN PRN each 09/14/17 Methadone [Dolophine -] 40 mg PO DAILY@0600 #5 tablet MDD 1 09/14/17 Methadone [Dolophine -] 40 mg PO DAILY@1800 #5 tablet MDD 1 09/14/17 Methylnaltrexone Thor [Relistor -] 8 mg SQ Q2D@1000 kit 09/14/17 Olanzapine [ZyPREXA -] 10 mg PO BID tablet 09/14/17 Sennosides [Senna -] 2 tab PO HS PRN tablet 09/14/17 oxyCODONE HCL [Roxicodone -] 10 mg PO Q8H #5 tablet MDD 3 09/14/17 Family Disease History - Family Disease History Family Disease History: Diabetes: Mother (living - [facility] - alzheimers ), Other: Father ( - 'I don't care'), Mother, Brother ( - in his sleep/seizure), Son (two - one with diabetes) Review of Systems - Review of Systems Constitutional: reports: No Symptoms Neck: reports: No Symptoms Cardiovascular: reports: No Symptoms Respiratory: reports: No Symptoms Gastrointestinal: reports: No Symptoms Genitourinary: reports: Other (Pelvic pressure) Breasts: reports: No Symptoms Reported Musculoskeletal: reports: Joint Pain Pain Intensity: 3 Physical Exam-LOLLYPOP MACHINE OPERATOR Vital Signs: Vital Signs Temperature 99.1 F 10/11/17 20:20 Pulse Rate 102 H 10/11/17 20:20 Respiratory Rate 20 10/11/17 20:20 Blood Pressure 133/82 10/11/17 20:20 O2 Sat by Pulse Oximetry (%) 96 10/09/17 21:00 Constitutional: Yes: Poor Hygeine Eyes: Yes: Conjunctiva Clear HENT: Yes: Normocephalic Neck: Yes: Supple, Trachea Midline Cardiovascular: Yes: Regular Rate and Rhythm Respiratory: Yes: Regular, CTA Bilaterally Gastrointestinal: Yes: Normal Bowel Sounds Pelvis: Yes: WNL External Genitalia: Yes: Other (Cystourethrocele ( Grade 4 )) Vaginal Exam: Yes: Other (Prolapse) Uterus: Yes: Other (Prolapse) Extremities: Yes: Other (edematous) Integumentary: Yes: WNL Neurological: Yes: Alert, Oriented Psychiatric: Yes: Alert, Oriented Labs: CBC, BMP 10/06/17 06:00 10/06/17 06:00 Problem List - Problems (1) Pelvic organ prolapse quantification stage 4 cystocele Code(s): N81.10 - CYSTOCELE, UNSPECIFIED Assessment/Plan Cystourethrocele Personal h/o breast cancer Opioid dependence Patient needs a # 3 Gelhorn pessary ( To be ordered from pharmacy ) Pessary to be cleaned every 3 months as out patient.
[2017-10-12] MEDS ORDERED: HALOPERIDOL LACTATE 5 MG/ML IM PRN (00:35)
[2017-10-12] MEDS: oxyCODONE HCL 5 MG TABLET PO SCH ×4 (02:08→22:51)
[2017-10-12] MEDS: METHADONE HCL 40 MG DISPERSABLE TABLET PO SCH ×3 (06:31→18:38)
[2017-10-12] MEDS ORDERED: PT OWN MED DRAWER 7, Y5N ONE ×2 (10:18→22:31)
[2017-10-12] MEDS: DIVALPROEX NA *ER* EXTEND REL 500 MG TABLET.SA (FP) PO SCH ×2 (10:22→22:52)
[2017-10-12] MEDS: FOLIC ACID 1 MG TABLET (FP) PO SCH (10:22)
[2017-10-12] MEDS: OLANZapine 10 MG TABLET PO SCH ×2 (10:23→22:52)
[2017-10-12] MEDS: POLYETHYLENE GLYCOL 3350 119 GM BTL PO SCH ×2 (10:23→22:55)
[2017-10-12] MEDS: TOLNAFTATE 1% CREAM 15 GM TUBE TP SCH (10:23)
[2017-10-12] MEDS: BISACODYL 10 MG SUPP.RECT RC SCH (10:23)
--- NOTE | 2017-10-12 11:07 | PN ---
Physical Exam: SUBJECTIVE: Patient seen and examined at the bed side. Feels much weaker today, left leg painful. OBJECTIVE: if patient allows, will doppler left leg: pt likely has a DVT vs. cellulitis. new pessary device for polapsed uterus has been ordered. Vital Signs Period Temp Pulse Resp BP Sys/Camacho Pulse Ox Last 24 Hr 97.5 F-99.6 F 89-104 18-20 103-162/64-93 98 GENERAL: The patient is awake, with episodes of agitation and lethargy HEAD: Normal with no signs of trauma. EYES: PERRL, extraocular movements intact, sclera anicteric, conjunctiva clear. No ptosis. ENT: Ears normal, nares patent, oropharynx clear without exudates NECK: Trachea midline, full range of motion, supple. ABDOMEN: Soft, nontender, nondistended, normoactive bowel sounds PELVIS: prolapsed uterus EXTREMITIES:bilateral lower ext pitting edema left>right, left leg hot and painful to touch NEUROLOGICAL: Normal speech, gait not observed. PSYCH: episodes of agitation SKIN: Warm, dry, normal turgor, no rashes or lesions noted Active Medications Generic Name Dose Route Start Last Admin Trade Name Freq PRN Reason Stop Dose Admin Acetaminophen 650 mg 08/21/17 06:52 10/10/17 20:21 Tylenol Oral Solution - PO 650 mg Q6H PRN Administration PAIN LEVEL 1-5 Bisacodyl 10 mg 09/27/17 11:15 10/12/17 10:23 Dulcolax Suppository - RC 10 mg Q24H REBECCA Administration Divalproex Sodium 1,000 mg 09/28/17 22:00 10/12/17 10:22 Depakote *Er* - PO 1,000 mg BID REBECCA Administration Docusate Sodium 300 mg 08/28/17 22:00 10/11/17 22:24 Colace - PO 300 mg HS REBECCA Administration Fentanyl 1 patch 10/08/17 07:45 10/11/17 11:51 Duragesic 25mcg Patch - TD 10/15/17 07:42 1 patch Q72H REBECCA Administration Folic Acid 1 mg 08/21/17 10:00 10/12/17 10:22 Folic Acid - PO 1 mg DAILY REBECCA Administration Methadone HCl 40 mg 10/07/17 12:00 10/12/17 06:31 Dolophine - PO 40 mg TID@0600,1200,1800 REBECCA Administration Miscellaneous 1 each 10/08/17 07:42 Duragesic Patch Waste [facility] PRN PRN PAIN Olanzapine 20 mg 09/28/17 22:00 10/12/17 10:23 Zyprexa - PO 20 mg BID REBECCA Administration Oxycodone HCl 10 mg 10/08/17 09:00 10/12/17 10:21 Roxicodone - PO 10 mg Q6H REBECCA Administration Polyethylene Glycol 17 gm 08/28/17 10:00 10/12/17 10:23 Miralax (For Daily Use) - PO 17 gm BID REBECCA Administration Senna 2 tab 09/13/17 22:00 10/01/17 21:17 Senna - PO 2 tab HS PRN Administration CONSTIPATION Tolnaftate 1 applic 09/20/17 10:00 10/12/17 10:23 Tinactin 1% Cream - TP 1 applic DAILY REBECCA Administration ASSESSMENT/PLAN: Mrs Saldana is s a 56 year old woman with history of advanced left breast cancer with metastatic spread to her bones and brain. smoker, seizure disorder, heroin/ alcohol/methadone abuse and prolapsed uterus. She presents to the ER on from [facility] with lethargy and falls. During hospitalization patient has been seen by oncology, radiation oncology, neuro and neurosurgery and not a candidate for any further treatment. Patient has extensive generalized pain and which is currently managed by methadone 40mg TID, oxycodone q6, fentanyl patch 25 mcgs q 72 hours. Patient had a MRI on 08/20/2017 indicating 3x4cm mass lesion on right middle cranial fosa, bilateral fronto parietal dural enhancement suggestive of lepto meningeal metastasis. She requires a high dose of pain management such as methadone TID and oxycodone prn and will greatly benefit for end of life care and continuous pain management. She also has psycho social issues requiring PRN haldol. She will greatly benefit and require a hospital setting as she has intermittent lethargy with a seizure disorder. She is currently being ruled out for a DVT of her left leg likely secondary to advancement of her disease. In the last few days, Mrs Saldana has grown increasingly lethargic, and is becoming more frail with profound fatigue. Her PO intake has also diminished secondary to lethargy and increased in sleeping pattern. She requires assistance for her ADLs and at times needs re- orientation. Her biggest challenge is pain management in the setting of advancement of her disease and end of life care (as well as managing her underlying psycho social history) Oncology: Metastatic breast cancer to bone and brain: Not a candidate for further treatment. Pain currently managed with oxycodone 10mg q8, methadone 40mg tid, fentanyl patch and Tylenol. Patient awaiting bed placement for her progressive metastatic disease for end of life care. Psyche: Agitation: Episodes of agitation/restlessness, likely secondary to patients history. Evaluated by psyche. 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 SANDWICH BOARD CARRIER evaluated, new pessary recommended and has been ordered. Vascular: Left leg rule out DVT, doppler ordered. If a DVT, it signifies advancement of her illness. fen tolerating PO monitor electrolytes, encourage hydration regular diet prophy ambulatory bowel regimen dnr/dni Visit type - Emergency Visit Emergency Visit: Yes ED Registration Date: 08/20/17 Care time: The patient presented to the Emergency Department on the above date and was hospitalized for further evaluation of their emergent condition. - New Patient This patient is new to me today: No - Critical Care Critical Care patient: No - Discharge Referral Referred to [facility] Med P.C.: No
[2017-10-12] MEDS: DOCUSATE SODIUM 100 MG CAPSULE (FP) PO SCH (22:52)
[2017-10-12] MEDS: ACETAMINOPHEN 650 MG/20.3 ML ORAL SOLUTION (CUPS) PO PRN (22:54)
[2017-10-13 03:17] LABS: URINE APPEARANCE CLEAR; URINE BILIRUBIN NEGATIVE (<2.0 mg/dL); URINE COLOR YELLOW; URINE GLUCOSE (UA) NEGATIVE (NEGATIVE); URINE KETONE NEGATIVE (NEGATIVE); URINE LEUK ESTERASE NEGATIVE (NEGATIVE); URINE NITRITE NEGATIVE (NEGATIVE); URINE PROTEIN NEGATIVE (NEGATIVE)
[2017-10-13] MEDS: oxyCODONE HCL 5 MG TABLET PO SCH ×4 (03:58→21:20)
[2017-10-13] MEDS: METHADONE HCL 40 MG DISPERSABLE TABLET PO SCH ×3 (05:21→18:19)
[2017-10-13] MEDS ORDERED: LORazepam 1 MG TABLET PO ONE (08:22)
--- NOTE | 2017-10-13 09:04 | PN ---
Physical Exam: SUBJECTIVE: Patient seen and examined at the bedside. Patient mental status goes from agitation to lethargy. OBJECTIVE: for doppler of her lower exts to rule out dvt left leg not as edematous or reddened as it was when examined yesterday, improved with elevation: will hold of on starting antibiotics and monitor fever curve. Fever may also be due to underlying malignancy. Had fever overnight with tachycardia, now resolved [facility] application with certification of need filled out by fha underwriter and sent yesterday by SW. Vital Signs Period Temp Pulse Resp BP Sys/Camacho Pulse Ox Last 24 Hr 98.3 F-101.3 F 92-131 18-20 108-155/47-79 93 GENERAL: The patient is awake, with episodes of agitation and lethargy HEAD: Normal with no signs of trauma. EYES: PERRL, extraocular movements intact, sclera anicteric, conjunctiva clear. No ptosis. ENT: Ears normal, nares patent, oropharynx clear without exudates NECK: Trachea midline, full range of motion, supple. ABDOMEN: Soft, nontender, nondistended, normoactive bowel sounds PELVIS: prolapsed uterus EXTREMITIES:bilateral lower ext pitting edema left>right, left leg hot and painful to touch NEUROLOGICAL: Normal speech, gait not observed. PSYCH: episodes of agitation Laboratory Results - last 24 hr 10/13/17 03:00 Urine Color Yellow Urine Appearance Clear Urine pH 7.0 Ur Specific Simms 1.013 Urine Protein Negative Urine Glucose (UA) Negative Urine Ketones Negative Urine Blood Negative Urine Nitrite Negative Urine Bilirubin Negative Urine Urobilinogen 2.0 H Ur Leukocyte Esterase Negative Active Medications Generic Name Dose Route Start Last Admin Trade Name Vipinq PRN Reason Stop Dose Admin Acetaminophen 650 mg 08/21/17 06:52 10/12/17 22:54 Tylenol Oral Solution - PO 650 mg Q6H PRN Administration PAIN LEVEL 1-5 Bisacodyl 10 mg 09/27/17 11:15 10/12/17 10:23 Dulcolax Suppository - RC 10 mg Q24H REBECCA Administration Divalproex Sodium 1,000 mg 09/28/17 22:00 10/12/17 22:52 Depakote *Er* - PO 1,000 mg BID REBECCA Administration Docusate Sodium 300 mg 08/28/17 22:00 10/12/17 22:52 Colace - PO 300 mg HS REBECCA Administration Fentanyl 1 patch 10/08/17 07:45 10/11/17 11:51 Duragesic 25mcg Patch - TD 10/15/17 07:42 1 patch Q72H REBECCA Administration Folic Acid 1 mg 08/21/17 10:00 10/12/17 10:22 Folic Acid - PO 1 mg DAILY REBECCA Administration Lorazepam 1 mg 10/13/17 08:22 Ativan - PO 10/13/17 08:23 ONCE ONE Methadone HCl 40 mg 10/07/17 12:00 10/13/17 05:21 Dolophine - PO 40 mg TID@0600,1200,1800 REBECCA Administration Miscellaneous 1 each 10/08/17 07:42 Duragesic Patch Waste MC PRN PRN PAIN Olanzapine 20 mg 09/28/17 22:00 10/12/17 22:52 Zyprexa - PO 20 mg BID REBECCA Administration Oxycodone HCl 10 mg 10/08/17 09:00 10/13/17 03:58 Roxicodone - PO 10 mg Q6H REBECCA Administration Polyethylene Glycol 17 gm 08/28/17 10:00 10/12/17 22:55 Miralax (For Daily Use) - PO 17 gm BID REBECCA Administration Senna 2 tab 09/13/17 22:00 10/01/17 21:17 Senna - PO 2 tab HS PRN Administration CONSTIPATION Tolnaftate 1 applic 09/20/17 10:00 10/12/17 10:23 Tinactin 1% Cream - TP 1 applic DAILY REBECCA Administration ASSESSMENT/PLAN: Mrs Saldana is s a 56 year old woman with history of advanced left breast cancer with metastatic spread to her bones and brain. smoker, seizure disorder, heroin/ alcohol/methadone abuse and prolapsed uterus. She presents to the ER on from [facility] with lethargy and falls. During hospitalization patient has been seen by oncology, radiation oncology, neuro and neurosurgery and not a candidate for any further treatment. Patient has extensive generalized pain and which is currently managed by methadone 40mg TID, oxycodone q6, fentanyl patch 25 mcgs q 72 hours. Patient had a MRI on 08/20/2017 indicating 3x4cm mass lesion on right middle cranial fosa, bilateral fronto parietal dural enhancement suggestive of lepto meningeal metastasis. She requires a high dose of pain management such as methadone TID and oxycodone prn and will greatly benefit for end of life care and continuous pain management. She also has psycho social issues requiring PRN haldol. She will greatly benefit and require a hospital setting as she has intermittent lethargy with a seizure disorder. She is currently being ruled out for a DVT of her left leg likely secondary to advancement of her disease. In the last few days, Mrs Saldana has grown increasingly lethargic, and is becoming more frail with profound fatigue. Her PO intake has also diminished secondary to lethargy and increased in sleeping pattern. She requires assistance for her ADLs and at times needs re- orientation. Her biggest challenge is pain management in the setting of advancement of her disease and end of life care (as well as managing her underlying psycho social history) Oncology: Metastatic breast cancer to bone and brain: Not a candidate for further treatment. Pain currently managed with oxycodone 10mg q8, methadone 40mg tid, fentanyl patch and Tylenol. Patient awaiting bed placement for her progressive metastatic disease for end of life care. Psyche: Agitation: Episodes of agitation/restlessness, likely secondary to patients history. Evaluated by psyche. 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 TITLE CURATOR evaluated, new pessary recommended and has been ordered. Vascular: Left leg rule out DVT, doppler ordered. If a DVT, it signifies advancement of her illness. Left leg less reddened, less edema today. Has painful right leg, no deformation of right leg noted. Fever: Fever reported overnight t max 101f, has been cultured. Monitor fever curve for now. Fever may be secondary to malignancy. Monitor off antibiotics. fen tolerating PO monitor electrolytes, encourage hydration regular diet prophy ambulatory bowel regimen dnr/dni Visit type - Emergency Visit Emergency Visit: Yes ED Registration Date: 08/20/17 Care time: The patient presented to the Emergency Department on the above date and was hospitalized for further evaluation of their emergent condition. - New Patient This patient is new to me today: No - Critical Care Critical Care patient: No - Discharge Referral Referred to [facility] Med P.C.: No
[2017-10-13] MEDS ORDERED: PT OWN MED DRAWER 7, Y5N ONE ×2 (09:06→21:17)
[2017-10-13] MEDS: ACETAMINOPHEN 650 MG/20.3 ML ORAL SOLUTION (CUPS) PO PRN (09:17)
[2017-10-13] MEDS: BISACODYL 10 MG SUPP.RECT RC SCH ×2 (09:18→12:49)
[2017-10-13] MEDS: FOLIC ACID 1 MG TABLET (FP) PO SCH (09:18)
[2017-10-13] MEDS: DIVALPROEX NA *ER* EXTEND REL 500 MG TABLET.SA (FP) PO SCH ×2 (09:19→21:21)
[2017-10-13] MEDS: OLANZapine 10 MG TABLET PO SCH ×2 (09:19→21:22)
[2017-10-13] MEDS: POLYETHYLENE GLYCOL 3350 119 GM BTL PO SCH ×2 (09:20→21:22)
[2017-10-13] MEDS: TOLNAFTATE 1% CREAM 15 GM TUBE TP SCH (09:20)
[2017-10-13] MEDS ORDERED: LORazepam 2 MG/ML SDV VIAL ONE (10:06)
[2017-10-13 17:19] LABS: HEMATOCRIT 30.4 % (32.4-45.2); HEMOGLOBIN 10.2 GM/dL (10.7-15.3); MCH 30.4 pg (25.7-33.7); MCHC 33.5 g/dl (32.0-36.0); MEAN CELL VOLUME 90.8 fl (80-96); MEAN PLT VOLUME 7.9 fl (7.5-11.1); PLATELET COUNT 300 K/MM3 (134-434); RBC 3.35 M/mm3 (3.60-5.2); RDW 15.8 % (11.6-15.6)
[2017-10-13 17:33] LABS: ALBUMIN 2.2 g/dl (3.4-5.0); ALK PHOS 90 U/L (45-117); ANION GAP 8 MMOL/L (8-16); BILIRUBIN,TOTAL 0.5 mg/dL (0.2-1.0); BLOOD UREA NITROGEN 25 mg/dL (7-18); CHLORIDE 102 mmol/L (98-107); CO2 26 mmol/L (21-32); CREATININE 0.6 mg/dL (0.55-1.02); GLUCOSE,RANDOM 83 mg/dL (74-106); MAGNESIUM 2.4 mg/dL (1.8-2.4); SGOT/AST 89 U/L (15-37); SGPT/ALT 54 U/L (12-78); SODIUM 136 mmol/L (136-145); TOT PROT 8.3 g/dl (6.4-8.2)
[2017-10-13 18:04] LABS: PLATELET ESTIMATE ADEQUATE
[2017-10-13] MEDS: DOCUSATE SODIUM 100 MG CAPSULE (FP) PO SCH (21:21)
[2017-10-14] MEDS: oxyCODONE HCL 5 MG TABLET PO SCH ×5 (00:39→23:55)
[2017-10-14] MEDS: OLANZapine 10 MG TABLET PO SCH ×4 (00:40→23:55)
[2017-10-14] MEDS: POLYETHYLENE GLYCOL 3350 119 GM BTL PO SCH ×3 (00:40→23:55)
[2017-10-14] MEDS: DOCUSATE SODIUM 100 MG CAPSULE (FP) PO SCH ×3 (00:40→23:55)
[2017-10-14] MEDS: DIVALPROEX NA *ER* EXTEND REL 500 MG TABLET.SA (FP) PO SCH ×4 (00:40→23:55)
[2017-10-14] MEDS: METHADONE HCL 40 MG DISPERSABLE TABLET PO SCH ×4 (06:56→18:00)
[2017-10-14] MEDS: fentaNYL 25mcg/hr PATCH.TD72 TD SCH (09:02)
[2017-10-14] MEDS ORDERED: PT OWN MED DRAWER 7, Y5N ONE (10:24)
[2017-10-14] MEDS: FOLIC ACID 1 MG TABLET (FP) PO SCH (10:26)
[2017-10-14] MEDS: TOLNAFTATE 1% CREAM 15 GM TUBE TP SCH (10:27)
[2017-10-14] MEDS: BISACODYL 10 MG SUPP.RECT RC SCH (10:27)
[2017-10-14] MEDS ORDERED: SODIUM CHLORIDE 1,000 ML IV SCH (14:15)
[2017-10-14] MEDS: ACETAMINOPHEN 650 MG/20.3 ML ORAL SOLUTION (CUPS) PO PRN (14:18)
[2017-10-14] MEDS ORDERED: PIPERACILLIN/TAZOBACTAM 3.375 GM VIAL IVPB ONE (14:48)
[2017-10-14] MEDS ORDERED: DEXTROSE 5%-WATER - 50 ML IVPB ONE (14:49)
[2017-10-14] MEDS ORDERED: PIPERACILLIN/TAZOB 3.375 GM 3.375 GM in DEXTROSE 5%-WATER - 50 ML IVPB SCH (15:00)
[2017-10-14] MEDS ORDERED: VANCOMYCIN 1 GM PREMIX - 1 GM/200 ML BAG IVPB SCH (15:00)
[2017-10-14 16:55] LABS: ALBUMIN 1.9 g/dl (3.4-5.0); ANION GAP 10 MMOL/L (8-16); BILIRUBIN,TOTAL 0.5 mg/dL (0.2-1.0); BLOOD UREA NITROGEN 29 mg/dL (7-18); CALCIUM 7.8 mg/dL (8.5-10.1); CHLORIDE 103 mmol/L (98-107); CO2 25 mmol/L (21-32); CREATININE 0.8 mg/dL (0.55-1.02); GLUCOSE,RANDOM 121 mg/dL (74-106); MAGNESIUM 2.5 mg/dL (1.8-2.4); POTASSIUM 4.2 mmol/L (3.5-5.1); SGOT/AST 69 U/L (15-37); SODIUM 138 mmol/L (136-145); TOT PROT 7.8 g/dl (6.4-8.2)
[2017-10-14 16:56] LABS: ALK PHOS 83 U/L (45-117); SGPT/ALT 42 U/L (12-78)
[2017-10-14] MEDS ORDERED: SODIUM CHLORIDE 1,000 ML IV STA (17:32)
--- NOTE | 2017-10-14 17:34 | PN ---
Physical Exam: SUBJECTIVE: Patient seen and examined at bedside. OBJECTIVE: Vital Signs Period Temp Pulse Resp BP Sys/Camacho Pulse Ox Last 24 Hr 97.4 F-101.4 F 75-117 18-20 119-159/62-96 95 GENERAL: Lethargic, arousable. LUNGS: CTA HEART: Regular rate and rhythm, S1, S2 ABDOMEN: Soft, nontender, nondistended EXTREMITIES: 2+ pulses, warm, well-perfused, no edema. Bilateral lower extremity venous stasis changes. Mild bilateral edema. Laboratory Results - last 24 hr 10/13/17 10/13/17 10/13/17 16:30 16:30 16:30 Total Counted Cancelled Cancelled Neutrophils % 60.0 Neutrophils % (Manual) Cancelled Cancelled Band Neutrophils % Cancelled Cancelled Lymphocytes % 14.0 D Lymphocytes % (Manual) Cancelled Cancelled Monocytes % 24.0 H Monocytes % (Manual) Cancelled Cancelled Eosinophils % 2.0 Eosinophils % (Manual) Cancelled Cancelled Basophils % (Manual) Cancelled Cancelled Myelocytes % (Man) Cancelled Cancelled Promyelocytes % (Man) Cancelled Cancelled Blast Cells % (Manual) Cancelled Cancelled Nucleated RBC % Cancelled Metamyelocytes Cancelled Cancelled Differential Comment Cancelled Cancelled Hypersegmented Neuts Cancelled Cancelled Plasma Cells Cancelled Cancelled Smudge Cells Cancelled Cancelled Other Cell Type Cancelled Cancelled Hypochromia Cancelled Cancelled Toxic Granulation Cancelled Cancelled Dohle Bodies Cancelled Cancelled Adelina Rods Cancelled Platelet Estimate Adequate Cancelled Platelet Comment No clumping noted Cancelled Polychromasia Cancelled Cancelled Poikilocytosis Cancelled Cancelled Basophilic Stippling Cancelled Cancelled Anisocytosis Cancelled Cancelled Microcytosis Cancelled Cancelled Macrocytosis Cancelled Cancelled Spherocytes Cancelled Cancelled Siderocytes Cancelled Cancelled Sickle Cells Cancelled Cancelled Target Cells Cancelled Cancelled Tear Drop Cells Cancelled Cancelled Ovalocytes Cancelled Cancelled Stomatocytes Cancelled Cancelled Helmet Cells Cancelled Cancelled [place] Bodies Cancelled Cancelled [place] Rings Cancelled Cancelled Carlos Cells Cancelled Cancelled Acanthocytes (Spur) Cancelled Cancelled Rouleaux Cancelled Cancelled Fragmented RBCs Cancelled Cancelled Schistocytes Cancelled Cancelled Sodium 136 Potassium 4.0 Chloride 102 Carbon Dioxide 26 Anion Gap 8 BUN 25 H Creatinine 0.6 Creat Clearance w eGFR > 60 Random Glucose 83 Calcium 8.0 L Magnesium 2.4 Total Bilirubin 0.5 AST 89 H ALT 54 Alkaline Phosphatase 90 D Total Protein 8.3 H Albumin 2.2 L 10/14/17 15:00 Total Counted Neutrophils % Neutrophils % (Manual) Band Neutrophils % Lymphocytes % Lymphocytes % (Manual) Monocytes % Monocytes % (Manual) Eosinophils % Eosinophils % (Manual) Basophils % (Manual) Myelocytes % (Man) Promyelocytes % (Man) Blast Cells % (Manual) Nucleated RBC % Metamyelocytes Differential Comment Hypersegmented Neuts Plasma Cells Smudge Cells Other Cell Type Hypochromia Toxic Granulation Dohle Bodies Adelina Rods Platelet Estimate Platelet Comment Polychromasia Poikilocytosis Basophilic Stippling Anisocytosis Microcytosis Macrocytosis Spherocytes Siderocytes Sickle Cells Target Cells Tear Drop Cells Ovalocytes Stomatocytes Helmet Cells [place] Bodies [place] Rings Carlos Cells Acanthocytes (Spur) Rouleaux Fragmented RBCs Schistocytes Sodium 138 Potassium 4.2 Chloride 103 Carbon Dioxide 25 Anion Gap 10 BUN 29 H Creatinine 0.8 Creat Clearance w eGFR > 60 Random Glucose 121 H Calcium 7.8 L Magnesium 2.5 H Total Bilirubin 0.5 AST 69 H ALT 42 Alkaline Phosphatase 83 Total Protein 7.8 Albumin 1.9 L Active Medications Generic Name Dose Route Start Last Admin Trade Name Freq PRN Reason Stop Dose Admin Acetaminophen 650 mg 08/21/17 06:52 10/14/17 14:18 Tylenol Oral Solution - PO 650 mg Q6H PRN Administration PAIN LEVEL 1-5 Bisacodyl 10 mg 09/27/17 11:15 10/14/17 10:27 Dulcolax Suppository - RC 10 mg Q24H REBECCA Administration Divalproex Sodium 1,000 mg 09/28/17 22:00 10/14/17 10:26 Depakote *Er* - PO 1,000 mg BID REBECCA Administration Docusate Sodium 300 mg 08/28/17 22:00 10/14/17 03:12 Colace - PO 300 mg HS REBECCA Administration Fentanyl 1 patch 10/08/17 07:45 10/14/17 09:02 Duragesic 25mcg Patch - TD 10/15/17 07:42 1 patch Q72H REBECCA Administration Folic Acid 1 mg 08/21/17 10:00 10/14/17 10:26 Folic Acid - PO 1 mg DAILY REBECCA Administration Vancomycin HCl 1,000 mg/ 250 mls @ 166.667 mls/hr 10/15/17 15:00 Dextrose IVPB Q12H REBECCA Protocol Piperacillin Sod/Tazobactam 50 mls @ 100 mls/hr 10/15/17 18:00 Sod 3.375 gm/ Dextrose IVPB Q8H-IV REBECCA Protocol Sodium Chloride 1,000 mls @ 75 mls/hr 10/14/17 14:15 10/14/17 14:52 Normal Saline - IV 75 mls/hr ASDIR REBECCA Administration Piperacillin Sod/Tazobactam 50 mls @ 100 mls/hr 10/14/17 15:00 10/14/17 14:53 Sod 3.375 gm/ Dextrose IVPB 10/15/17 10:29 100 mls/hr Q8H-IV REBECCA Administration Vancomycin HCl 1 gm in 200 mls @ 200 mls/hr 10/14/17 15:00 10/14/17 15:50 Vancomycin 1 Gm Premix - IVPB 10/15/17 15:59 200 mls/hr Q12H REBECCA Administration Sodium Chloride 1,000 mls @ 1,000 mls/hr 10/14/17 17:32 Normal Saline - IV 10/14/17 18:31 ASDIR STA Methadone HCl 40 mg 10/07/17 12:00 10/14/17 17:23 Dolophine - PO Not Given TID@0600,1200,1800 [facility] Miscellaneous 1 each 10/08/17 07:42 Duragesic Patch [facility] PRN PRN PAIN Olanzapine 20 mg 09/28/17 22:00 10/14/17 10:27 Zyprexa - PO 20 mg BID REBECCA Administration Oxycodone HCl 10 mg 10/08/17 09:00 10/14/17 14:18 Roxicodone - PO Not Given Q6H REBECCA Polyethylene Glycol 17 gm 08/28/17 10:00 10/14/17 10:26 Miralax (For Daily Use) - PO 17 gm BID REBECCA Administration Senna 2 tab 09/13/17 22:00 10/01/17 21:17 Senna - PO 2 tab HS PRN Administration CONSTIPATION Tolnaftate 1 applic 09/20/17 10:00 09/01/18 10:27 Tinactin 1% Cream - TP 1 applic DAILY REBECCA Administration ASSESSMENT/PLAN: 56 year old female with PMH left breast cancer with leptomeningeal disease, bipolar disorder, and heroin and alcohol abuse. HOD#55. Sepsis likely secondary to left breast mastitis in setting of malignancy --fever 101.4, p117, left breast is swollen, red, warm to touch --lactic acid pending --obtain peripheral access --bolus NS x 2L --start vanc and Zosyn --esr, crp Metastatic breast cancer, --left breast and axillary lymph node masses/enlargement, metastatic disease to bone and brain --seen and evaluated by oncology, radiation oncology, neurology, and neurosurgery: not a candidate for further treatment --continue present pain management regimen Bipolar disorder Agitation, manic behavior --last seen and evaluated by psych on 10/08 --continue current psych meds Heroin abuse Alcohol abuse -methadone 40mg TID Uterine prolapse --pessary was placed and patient pulled it out and threw it away --another pessary has been obtained, Dr. Monte to place FEN Fluids: NS @ 125mL/hr Electrolytes: replete as indicated Nutrition: regular diet DVT prophylaxis: oob, ambulation Dispo: awaiting hospice placement. DNR/DNI Visit type - Emergency Visit Emergency Visit: Yes ED Registration Date: 08/20/17 Care time: The patient presented to the Emergency Department on the above date and was hospitalized for further evaluation of their emergent condition. - New Patient This patient is new to me today: No - Critical Care Critical Care patient: No
[2017-10-14 18:21] LABS: BASO % 0.2 % (0-2.0); EOS % 0.2 % (0-4.5); HEMATOCRIT 27.4 % (32.4-45.2); HEMOGLOBIN 9.2 GM/dL (10.7-15.3); LYMPH % 11.6 % (8-40); MCH 30.4 pg (25.7-33.7); MCHC 33.7 g/dl (32.0-36.0); MEAN CELL VOLUME 90.4 fl (80-96); MEAN PLT VOLUME 8.2 fl (7.5-11.1); MONO % 26.2 % (3.8-10.2); NEUT % 61.8 % (42.8-82.8); PLATELET COUNT 299 K/MM3 (134-434); RBC 3.03 M/mm3 (3.60-5.2); RDW 15.7 % (11.6-15.6)
[2017-10-14] MEDS ORDERED: SODIUM CHLORIDE 1,000 ML IV ONE (19:00)
[2017-10-14 19:02] LABS: MACROCYTOSIS 1+
[2017-10-14 19:03] LABS: PLATELET ESTIMATE ADEQUATE
[2017-10-14] MEDS: SODIUM CHLORIDE 1,000 ML IV SCH (20:09)
[2017-10-15] MEDS: oxyCODONE HCL 5 MG TABLET PO SCH ×4 (03:06→22:14)
[2017-10-15] MEDS: VANCOMYCIN 1 GM PREMIX - 1 GM/200 ML BAG IVPB SCH ×2 (03:32→15:01)
[2017-10-15] MEDS: METHADONE HCL 40 MG DISPERSABLE TABLET PO SCH ×3 (06:03→17:26)
[2017-10-15] MEDS: SODIUM CHLORIDE 1,000 ML IV SCH ×2 (06:14→22:14)
[2017-10-15 09:00] LABS: CHLORIDE 107 mmol/L (98-107); POTASSIUM 3.6 mmol/L (3.5-5.1); SODIUM 141 mmol/L (136-145)
[2017-10-15 09:09] LABS: INR 1.41 (0.83-1.09); PROTHROMBIN TIME (PATIENT) 15.9 SEC (9.7-13.0)
[2017-10-15] MEDS ORDERED: PT OWN MED DRAWER 7, Y5N ONE (09:12)
[2017-10-15] MEDS: SENNOSIDES 8.6MG TABLET (FP) PO PRN ×2 (09:19)
[2017-10-15] MEDS: DIVALPROEX NA *ER* EXTEND REL 500 MG TABLET.SA (FP) PO SCH ×2 (09:20→22:15)
[2017-10-15] MEDS: FOLIC ACID 1 MG TABLET (FP) PO SCH (09:20)
[2017-10-15 09:21] LABS: ALBUMIN 1.8 g/dl (3.4-5.0); ALK PHOS 73 U/L (45-117); ANION GAP 11 MMOL/L (8-16); BILIRUBIN,TOTAL 0.4 mg/dL (0.2-1.0); BLOOD UREA NITROGEN 19 mg/dL (7-18); CALCIUM 7.9 mg/dL (8.5-10.1); CO2 23 mmol/L (21-32); CREATININE 0.4 mg/dL (0.55-1.02); GLUCOSE,RANDOM 80 mg/dL (74-106); MAGNESIUM 2.3 mg/dL (1.8-2.4); SGOT/AST 63 U/L (15-37); SGPT/ALT 37 U/L (12-78); TOT PROT 7.3 g/dl (6.4-8.2)
[2017-10-15] MEDS: POLYETHYLENE GLYCOL 3350 119 GM BTL PO SCH ×2 (09:21→22:16)
[2017-10-15] MEDS: OLANZapine 10 MG TABLET PO SCH ×2 (09:22→22:15)
[2017-10-15] MEDS: TOLNAFTATE 1% CREAM 15 GM TUBE TP SCH (09:23)
--- NOTE | 2017-10-15 09:26 | PN ---
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 i was notified by nurse that patient has prolapse uterus , pessary was inserted by Dr Coats which she took out , probably threw it. new on was ordered , now new peassary is available to be inserted . I noted biology professor consult by Dr Turpin done on 10/11/17 . I came to insert pessary in the patient I showed her the pessary. patient closed her legs, put the hand down , absolutely refused, she stated that she won't let any body insert that in her. . Pessary can not be inserted without her consent
--- NOTE | 2017-10-15 10:31 | PN ---
Physical Exam: SUBJECTIVE: Patient seen and examined OBJECTIVE: Vital Signs Period Temp Pulse Resp BP Sys/Camacho Pulse Ox Last 24 Hr 98.8 F-101.9 F 75-112 18-20 119-158/64-73 GENERAL: Lethargic, arousable. LUNGS: CTA HEART: Regular rate and rhythm, S1, S2 ABDOMEN: Soft, nontender, nondistended EXTREMITIES: 2+ pulses, warm, well-perfused, no edema. Bilateral lower extremity venous stasis changes. Mild bilateral edema. Laboratory Results - last 24 hr 10/13/17 10/14/17 10/14/17 16:30 15:00 15:00 WBC 10.0 Cancelled Corrected WBC (auto) Information Systems Project Manager Cancelled RBC 3.35 L Cancelled Hgb 10.2 L Cancelled Hct 30.4 L Cancelled MCV 90.8 Cancelled MCH 30.4 Cancelled MCHC 33.5 Cancelled RDW 15.8 H Cancelled Plt Count 300 D Cancelled MPV 7.9 Cancelled Absolute Neuts (auto) 5.8 Cancelled Absolute Lymphs (auto) Cancelled Cancelled Absolute Monos (auto) Cancelled Cancelled Absolute Eos (auto) Cancelled Cancelled Absolute Basos (auto) Cancelled Cancelled Add Manual Diff Cancelled Cancelled Total Counted Cancelled Neutrophils % 60.0 Cancelled Neutrophils % (Manual) Cancelled Band Neutrophils % Cancelled Lymphocytes % 14.0 D Cancelled Lymphocytes % (Manual) Cancelled Monocytes % 24.0 H Cancelled Monocytes % (Manual) Cancelled Eosinophils % 2.0 Cancelled Eosinophils % (Manual) Cancelled Basophils % Information Systems Project Manager Cancelled Basophils % (Manual) Cancelled Myelocytes % (Man) Cancelled Promyelocytes % (Man) Cancelled Blast Cells % (Manual) Cancelled Nucleated RBC % 0 Cancelled Metamyelocytes Cancelled Differential Comment Cancelled Hypersegmented Neuts Cancelled Plasma Cells Cancelled Smudge Cells Cancelled Other Cell Type Cancelled Hypochromia Cancelled Toxic Granulation Cancelled Dohle Bodies Cancelled Platelet Estimate Adequate Cancelled Platelet Comment No clumping noted Cancelled Normal RBC Morphology Cancelled Cancelled Polychromasia Cancelled Poikilocytosis Cancelled Basophilic Stippling Cancelled Anisocytosis Cancelled Microcytosis Cancelled Macrocytosis Cancelled Spherocytes Cancelled Siderocytes Cancelled Sickle Cells Cancelled Target Cells Cancelled Tear Drop Cells Cancelled Ovalocytes Cancelled Stomatocytes Cancelled Helmet Cells Cancelled [place] Bodies Cancelled [place] Rings Cancelled [place] Cells Cancelled Acanthocytes (Spur) Cancelled Rouleaux Cancelled Fragmented RBCs Cancelled Schistocytes Cancelled ESR PT with INR INR Sodium 138 Potassium 4.2 Chloride 103 Carbon Dioxide 25 Anion Gap 10 BUN 29 H Creatinine 0.8 Creat Clearance w eGFR > 60 Random Glucose 121 H Lactic Acid Calcium 7.8 L Magnesium 2.5 H Total Bilirubin 0.5 AST 69 H ALT 42 Alkaline Phosphatase 83 C-Reactive Protein Total Protein 7.8 Albumin 1.9 L 10/14/17 10/14/17 10/14/17 15:00 15:00 17:55 WBC Corrected WBC (auto) RBC Hgb Hct MCV MCH MCHC RDW Plt Count MPV Absolute Neuts (auto) Absolute Lymphs (auto) Absolute Monos (auto) Absolute Eos (auto) Absolute Basos (auto) Add Manual Diff Total Counted Neutrophils % Neutrophils % (Manual) Band Neutrophils % Lymphocytes % Lymphocytes % (Manual) Monocytes % Monocytes % (Manual) Eosinophils % Eosinophils % (Manual) Basophils % Basophils % (Manual) Myelocytes % (Man) Promyelocytes % (Man) Blast Cells % (Manual) Nucleated RBC % Metamyelocytes Differential Comment Hypersegmented Neuts Plasma Cells Smudge Cells Other Cell Type Hypochromia Toxic Granulation Dohle Bodies Platelet Estimate Platelet Comment Normal RBC Morphology Polychromasia Poikilocytosis Basophilic Stippling Anisocytosis Microcytosis Macrocytosis Spherocytes Siderocytes Sickle Cells Target Cells Tear Drop Cells Ovalocytes Stomatocytes Helmet Cells [place] Bodies [place] Rings [place] Cells Acanthocytes (Spur) Rouleaux Fragmented RBCs Schistocytes ESR 119 H PT with INR INR Sodium Potassium Chloride Carbon Dioxide Anion Gap BUN Creatinine Creat Clearance w eGFR Random Glucose Lactic Acid 1.5 Calcium Magnesium Total Bilirubin AST ALT Alkaline Phosphatase C-Reactive Protein 20.5 H Total Protein Albumin 10/14/17 10/15/17 10/15/17 Unknown 07:05 07:05 WBC 9.0 Corrected WBC (auto) RBC 3.03 L Hgb 9.2 L Hct 27.4 L MCV 90.4 MCH 30.4 MCHC 33.7 RDW 15.7 H Plt Count 299 MPV 8.2 Absolute Neuts (auto) 5.6 Absolute Lymphs (auto) Absolute Monos (auto) Absolute Eos (auto) Absolute Basos (auto) Add Manual Diff Total Counted 100 Neutrophils % 61.8 Neutrophils % (Manual) 54.0 Band Neutrophils % 3.0 Lymphocytes % 11.6 Lymphocytes % (Manual) 16.0 Monocytes % 26.2 H Monocytes % (Manual) 25 H Eosinophils % 0.2 D Eosinophils % (Manual) 1.0 Basophils % 0.2 Basophils % (Manual) 1.0 Myelocytes % (Man) Promyelocytes % (Man) Blast Cells % (Manual) Nucleated RBC % 0 Metamyelocytes Differential Comment Man diff performed Hypersegmented Neuts Plasma Cells Smudge Cells Other Cell Type Hypochromia Toxic Granulation Dohle Bodies Platelet Estimate Adequate Platelet Comment Normal RBC Morphology Polychromasia 1+ Poikilocytosis Basophilic Stippling Anisocytosis Microcytosis Macrocytosis 1+ Spherocytes Siderocytes Sickle Cells Target Cells Tear Drop Cells Ovalocytes Stomatocytes Helmet Cells [place] Bodies [place] Rings [place] Cells Acanthocytes (Spur) Rouleaux Fragmented RBCs Schistocytes ESR PT with INR 15.90 H INR 1.41 H Sodium 141 Potassium 3.6 Chloride 107 Carbon Dioxide 23 Anion Gap 11 BUN 19 H Creatinine 0.4 L Creat Clearance w eGFR > 60 Random Glucose 80 Lactic Acid Calcium 7.9 L Magnesium 2.3 Total Bilirubin 0.4 AST 63 H ALT 37 Alkaline Phosphatase 73 D C-Reactive Protein Total Protein 7.3 Albumin 1.8 L Active Medications Generic Name Dose Route Start Last Admin Trade Name Freq PRN Reason Stop Dose Admin Acetaminophen 650 mg 08/21/17 06:52 10/14/17 14:18 Tylenol Oral Solution - PO 650 mg Q6H PRN Administration PAIN LEVEL 1-5 Bisacodyl 10 mg 09/27/17 11:15 10/14/17 10:27 Dulcolax Suppository - RC 10 mg Q24H REBECCA Administration Divalproex Sodium 1,000 mg 09/28/17 22:00 10/15/17 09:20 Depakote *Er* - PO 1,000 mg BID REBECCA Administration Docusate Sodium 300 mg 08/28/17 22:00 10/14/17 23:55 Colace - PO 300 mg HS REBECCA Administration Folic Acid 1 mg 08/21/17 10:00 10/15/17 09:20 Folic Acid - PO 1 mg DAILY REBECCA Administration Vancomycin HCl 1 gm in 200 mls @ 133.333 mls/hr 10/15/17 04:00 10/15/17 03:32 Vancomycin 1 Gm Premix - IVPB 133.333 mls/hr BID@0400,1600 REBECCA Administration Protocol Sodium Chloride 1,000 mls @ 125 mls/hr 10/14/17 18:01 10/15/17 06:14 Normal Saline - IV 125 mls/hr ASDIR REBECCA Administration Methadone HCl 40 mg 10/07/17 12:00 10/15/17 06:03 Dolophine - PO 40 mg TID@0600,1200,1800 REBECCA Administration Miscellaneous 1 each 10/08/17 07:42 Duragesic Patch Waste MC PRN PRN PAIN Olanzapine 20 mg 09/28/17 22:00 10/15/17 09:22 Zyprexa - PO 20 mg BID REBECCA Administration Oxycodone HCl 10 mg 10/08/17 09:00 10/15/17 09:18 Roxicodone - PO 10 mg Q6H REBECCA Administration Polyethylene Glycol 17 gm 08/28/17 10:00 10/15/17 09:21 Miralax (For Daily Use) - PO 17 gm BID REBECCA Administration Senna 2 tab 09/13/17 22:00 10/15/17 09:19 Senna - PO 2 tab HS PRN Administration CONSTIPATION Tolnaftate 1 applic 09/20/17 10:00 10/15/17 09:23 Tinactin 1% Cream - TP 1 applic DAILY REBECCA Administration ASSESSMENT/PLAN: 56 year old female with PMH left breast cancer with leptomeningeal disease, bipolar disorder, and heroin and alcohol abuse. HOD#56. Sepsis likely secondary to left breast mastitis in setting of malignancy --continues to spike fevers, Tm 101.9, p112 --continue vanc (day#2) --ID following Metastatic breast cancer, --left breast and axillary lymph node masses/enlargement, metastatic disease to bone and brain --seen and evaluated by oncology, radiation oncology, neurology, and neurosurgery: not a candidate for further treatment --continue present pain management regimen Bipolar disorder Agitation, manic behavior --last seen and evaluated by psych on 10/08 --continue current psych meds Heroin abuse Alcohol abuse -methadone 40mg TID Uterine prolapse --pessary was placed and patient pulled it out and threw it away --patient refused placement of another pessary by Dr. Lavell PRINGLE Fluids: NS @ 125mL/hr Electrolytes: replete as indicated Nutrition: regular diet DVT prophylaxis: oob, ambulation Dispo: awaiting hospice placement. DNR/DNI Visit type - Emergency Visit Emergency Visit: Yes ED Registration Date: 08/20/17 Care time: The patient presented to the Emergency Department on the above date and was hospitalized for further evaluation of their emergent condition. - New Patient This patient is new to me today: No - Critical Care Critical Care patient: No
[2017-10-15 10:41] LABS: BASO % 0.4 % (0-2.0); EOS % 0.2 % (0-4.5); HEMATOCRIT 26.9 % (32.4-45.2); MCH 30.5 pg (25.7-33.7); MCHC 33.6 g/dl (32.0-36.0); MEAN CELL VOLUME 90.8 fl (80-96); MEAN PLT VOLUME 8.1 fl (7.5-11.1); MONO % 22.1 % (3.8-10.2); NEUT % 65.3 % (42.8-82.8); PLATELET COUNT 302 K/MM3 (134-434); RBC 2.96 M/mm3 (3.60-5.2); RDW 15.5 % (11.6-15.6); WHITE BLOOD COUNT 7.8 K/mm3 (4.0-10.0)
[2017-10-15] MEDS: BISACODYL 10 MG SUPP.RECT RC SCH (11:39)
[2017-10-15] MEDS ORDERED: HALOPERIDOL LACTATE 5 MG/ML IM ONE (12:19)
[2017-10-15] MEDS ORDERED: LORazepam 2 MG/ML SDV VIAL IM ONE (12:20)
[2017-10-15 13:19] LABS: ANISOCYTOSIS 0; MACROCYTOSIS 0; PLATELET ESTIMATE NORMAL
--- NOTE | 2017-10-15 13:20 | CON.ID ---
Consult - History of Present Illness History of Present Illness: Asked to evaluate this 56 y.o. female with PMH of Breast CA with metastasis to brain and bone which was not treated, hx of heroin abuse on methadone, alcohol abuse, bipolar disorder, uterine prolapse with removal of pessary by pt who was initially admitted from [facility] where she was getting detox treatment for fall. Pt noted to develop fever with temps >101F 4 days ago and persists. Pt is not fully cooperative with examination and not a good historian. No reported shortness of breath/cough, n/v/d, dysuria/hematuria, change in mental status. She has a Lt breast mass with breast deformity. Pt has been evaluated by oncology and not found to be a candidate for treatment. Currently patient is arousable and c/o generalized pain. RLE edema noted but improved, doppler negative for DVT. no erythema or warmth noted. - History Source History Provided By: Patient, Medical Record Limitations to Obtaining History: Uncooperative - Past Medical History SHOE LASTER: No: Alzheimer's, CVA, Dementia, Migraine, Multiple Sclerosis, Peripheral Neuropathy, Parkinson's, Seizure, Syncope, TIA, Vertigo, Other Cardio/Vascular: No: AFIB, Aneurysm, Aortic Insufficiency, Aortic Stenosis, CAD , CHF, Deep Vein Thrombosis, HTN, Hyperlipdemia, MS, Mitral Insufficiency, Mitral Stenosis, Murmur, Pulmonary Hypertension, Other Pulmonary: No: Asthma, Bronchitis, Cancer, COPD, O2 Dependent, Pneumonia, Previously Intubated, Pulmonary Embolus, Pulmonary Fibrosis, Sleep Apnea, Other Gastrointestinal: No: Ascites, Cancer, Constipation, Crohn's Disease, Diverticulitis, Diverticulosis, Esophageal Varices, Gastritis, GERD, GI Bleed, Hemorrhoids, Hiatal Hernia, Inflamatory Bowel Disease, Irritable Bowel Disease, Pancreatitis, Peptic Ulcer Disease, Ulcerative Colitis, Other Hepatobiliary: No: Cirrhosis, Cholelithiasis, Cholecystitis, Choledocholithiasis , Hepatitis A, Hepatitis B, Hepatitis C, Other Renal/: No: Renal Failure, Renal Inusuff, BPH, Cancer, Hematuria, Hemodialysis , Neurogenic Bladder, Renal Calculi, UTI, Other Reproductive: Yes: Other (uterine prolapse). No: Ectopic , Endometriosis, Fibroids, PID, Polycystic Ovary Syndrome, Postmenopausal Heme/Onc: Yes: Other (breast CA with mets to brain and bone) Psych: Yes: Addictions, Anxiety, Bipolar Musculoskeletal: Yes: Other Rheumatology: Yes: Other ENT: Yes: Other Endocrine: Yes: Other Dermatology: No: Basal Cell, Cellulitis, Eczema, Melanoma, Psoriasis, Squamous Cell, Other - Alcohol/Substance Use Hx Alcohol Use: Yes (1/2 - 1 pint a day) - Smoking History Smoking history: Current every day smoker Have you smoked in the past 12 months: Yes Aproximately how many cigarettes per day: 10 - Social History Usual Living Arrangement: Alone Home Medications - Allergies Allergies/Adverse Reactions: Allergies Allergy/AdvReac Type Severity Reaction Status Date / Time No Known Allergies Allergy Verified 08/20/17 12:45 - Home Medications Home Medications: Ambulatory Orders Bisacodyl Suppository [Dulcolax Suppository -] 10 mg RC Q24H PRN supp.rect 04/02 FENTANYL 12mcg PATCH [DURAGESIC 12mcg PATCH -] 1 patch TD Q72H #5 patch.td72 MDD 1 09/14/17 Fentanyl Patch Waste [Duragesic Patch Waste] 1 each TD PRN PRN each 09/14/17 Methadone [Dolophine -] 40 mg PO DAILY@0600 #5 tablet MDD 1 09/14/17 Methadone [Dolophine -] 40 mg PO DAILY@1800 #5 tablet MDD 1 09/14/17 Methylnaltrexone [place] [Relistor -] 8 mg SQ Q2D@1000 kit 09/14/17 Olanzapine [ZyPREXA -] 10 mg PO BID tablet 09/14/17 Sennosides [Senna -] 2 tab PO HS PRN tablet 09/14/17 oxyCODONE HCL [Roxicodone -] 10 mg PO Q8H #5 tablet MDD 3 09/14/17 Family Disease History - Family Disease History Family Disease History: Diabetes: Mother (living - retirement - alzheimers ), Other: Father ( - 'I don't care'), Mother, Brother ( - in his sleep/seizure), Son (two - one with diabetes) Review of Systems - Review of Systems Constitutional: reports: Fever (intermittent) Eyes: reports: No Symptoms HENT: reports: No Symptoms Neck: reports: No Symptoms Cardiovascular: reports: No Symptoms Respiratory: reports: No Symptoms Gastrointestinal: reports: No Symptoms Genitourinary: reports: No Symptoms Breasts: reports: Other (Lt breast nodule/deformity, erythema and induration but no fluctuance) Integumentary: reports: Lump (breast mass) Neurological: denies: No Symptoms, Change in LOC, Change in Speech, Confusion, Dizziness, Headache, Incoordination, Numbness, Parasthesia, Pre-Existing Deficit , Seizure, Syncope, Tremors, Unsteady Gait, Weakness, Other Endocrine: denies: No Symptoms, Excessive Sweating, Flushing, Increased Hunger, Increased Thirst, Intolerance to Cold, Intolerance to Heat, Unexplained Weight Gain, Unexplained Weight Loss, Other Hematology/Lymphatic: reports: No Symptoms Psychiatric: reports: No Symptoms Physical Exam Vital Signs: Vital Signs Temperature 99.5 F 10/15/17 07:13 Pulse Rate 112 H 10/15/17 06:51 Respiratory Rate 16 10/15/17 09:00 Blood Pressure 158/73 10/15/17 06:51 O2 Sat by Pulse Oximetry (%) 95 10/15/17 09:00 Labs: CBC, BMP 10/15/17 07:05 10/15/17 07:05 Imaging - Results Chest X-ray: Report Reviewed Cat Scan: Report Reviewed Ultrasound: Report Reviewed Problem List - Problems (1) Nicotine dependence Code(s): F17.200 - NICOTINE DEPENDENCE, UNSPECIFIED, UNCOMPLICATED Qualifiers: Nicotine product type: cigarettes Substance use status: uncomplicated Qualified Code(s): F17.210 - Nicotine dependence, cigarettes, uncomplicated (2) Opioid dependence with withdrawal Code(s): F11.23 - OPIOID DEPENDENCE WITH WITHDRAWAL (3) Pelvic organ prolapse quantification stage 4 cystocele Code(s): N81.10 - CYSTOCELE, UNSPECIFIED (4) Breast cancer Code(s): C50.919 - MALIGNANT NEOPLASM OF UNSP SITE OF UNSPECIFIED FEMALE BREAST Qualifiers: Breast location: lower inner quadrant of breast Estrogen receptor status: unspecified Patient sex: female Laterality: left Qualified Code(s): C50.312 - Malignant neoplasm of lower-inner quadrant of left female breast (5) Alcohol dependence with uncomplicated withdrawal Code(s): F10.230 - ALCOHOL DEPENDENCE WITH WITHDRAWAL, UNCOMPLICATED (6) HTN (hypertension) Code(s): I10 - ESSENTIAL (PRIMARY) HYPERTENSION Qualifiers: Hypertension type: essential hypertension Qualified Code(s): I10 - Essential (primary) hypertension (7) History of seizure Code(s): Z87.898 - PERSONAL HISTORY OF OTHER SPECIFIED CONDITIONS Assessment/Plan 56 y.o. female with PMH of Breast CA with metastasis to Brain and Bone never treated, heroin abuse on methadone, tobacco dependence, alcohol abuse, Bipolar disorder and uterine prolapse initially admitted from [facility] for fall and has had a prolonged hospitalization and noted to develop fever starting 4 days ago. Pt is arousable but not fully cooperative, without acute distress. Febrile to 101.9F this am. Currently afebrile, without tachycardia. Fever - unclear etiology, possibly due to malignancy but began recently Imaging and lab results noted - no evidence of UTI/PNA/intraabdominal source of infection Pt without leukocytosis or lactic acidosis Lt breast mass - ? overlying mastitis -- started on Vancomycin empirically , plan to discontinue if no resolution of fever -- monitor vitals closely will follow up Thank you
[2017-10-15] MEDS ORDERED: PIPERACILLIN/TAZOB 3.375 GM 3.375 GM in DEXTROSE 5%-WATER - 50 ML IVPB SCH (18:00)
[2017-10-15] MEDS: DOCUSATE SODIUM 100 MG CAPSULE (FP) PO SCH (22:15)
[2017-10-16] MEDS: oxyCODONE HCL 5 MG TABLET PO SCH ×4 (03:40→21:37)
[2017-10-16] MEDS: VANCOMYCIN 1 GM PREMIX - 1 GM/200 ML BAG IVPB SCH ×2 (04:45→16:17)
[2017-10-16] MEDS: METHADONE HCL 40 MG DISPERSABLE TABLET PO SCH ×3 (07:51→18:18)
--- NOTE | 2017-10-16 10:08 | PN ---
Progress Note, Physician History of Present Illness: Pt arousable, without acute distress. Tmax 99.7F - Current Medication List Current Medications: Active Medications Acetaminophen (Tylenol Oral Solution -) 650 mg PO Q6H PRN PRN Reason: PAIN LEVEL 1-5 Last Admin: 10/14/17 14:18 Dose: 650 mg Bisacodyl (Dulcolax Suppository -) 10 mg RC Q24H [facility] Last Admin: 10/15/17 11:39 Dose: 10 mg Divalproex Sodium (Depakote *Er* -) 1,000 mg PO BID [facility] Last Admin: 10/15/17 22:15 Dose: 1,000 mg Docusate Sodium (Colace -) 300 mg PO HS [facility] Last Admin: 10/15/17 22:15 Dose: 300 mg Folic Acid (Folic Acid -) 1 mg PO DAILY [facility] Last Admin: 10/15/17 09:20 Dose: 1 mg Vancomycin HCl (Vancomycin 1 Gm Premix -) 1 gm in 200 mls @ 133.333 mls/hr IVPB BID@0400,1600 [facility]; Protocol Last Admin: 10/16/17 04:45 Dose: 133.333 mls/hr Sodium Chloride (Normal Saline -) 1,000 mls @ 125 mls/hr IV ASDIR [facility] Last Admin: 10/15/17 22:14 Dose: 125 mls/hr Methadone HCl (Dolophine -) 40 mg PO TID@0600,1200,1800 [facility] Last Admin: 10/16/17 07:51 Dose: 40 mg Miscellaneous (Duragesic Patch Waste) 1 each MC PRN PRN PRN Reason: PAIN Olanzapine (Zyprexa -) 20 mg PO BID [facility] Last Admin: 10/15/17 22:15 Dose: 20 mg Oxycodone HCl (Roxicodone -) 10 mg PO Q6H [facility] Last Admin: 10/16/17 03:40 Dose: 10 mg Polyethylene Glycol (Miralax (For Daily Use) -) 17 gm PO BID [facility] Last Admin: 10/15/17 22:16 Dose: 17 gm Senna (Senna -) 2 tab PO HS PRN PRN Reason: CONSTIPATION Last Admin: 10/15/17 09:19 Dose: 2 tab Tolnaftate (Tinactin 1% Cream -) 1 applic TP DAILY [facility] Last Admin: 10/15/17 09:23 Dose: 1 applic - Objective Vital Signs: Vital Signs Temperature 98.4 F 10/16/17 07:49 Pulse Rate 68 10/16/17 07:49 Respiratory Rate 18 10/16/17 07:49 Blood Pressure 159/110 10/16/17 07:49 O2 Sat by Pulse Oximetry (%) 96 10/15/17 21:00 Constitutional: Yes: No Distress Cardiovascular: Yes: Regular Rate and Rhythm Respiratory: Yes: Regular Gastrointestinal: Yes: Normal Bowel Sounds, Soft Extremities: Yes: WNL Edema: No Integumentary: Yes: Other (Lt breast mass) Neurological: Yes: Lethargy Labs: CBC, BMP 10/15/17 07:05 10/15/17 07:05 INR, PTT INR 1.41 (0.83-1.09) H 10/15/17 07:05 Problem List - Problems (1) Nicotine dependence Code(s): F17.200 - NICOTINE DEPENDENCE, UNSPECIFIED, UNCOMPLICATED Qualifiers: Nicotine product type: cigarettes Substance use status: uncomplicated Qualified Code(s): F17.210 - Nicotine dependence, cigarettes, uncomplicated (2) Opioid dependence with withdrawal Code(s): F11.23 - OPIOID DEPENDENCE WITH WITHDRAWAL (3) Pelvic organ prolapse quantification stage 4 cystocele Code(s): N81.10 - CYSTOCELE, UNSPECIFIED (4) Breast cancer Code(s): C50.919 - MALIGNANT NEOPLASM OF UNSP SITE OF UNSPECIFIED FEMALE BREAST Qualifiers: Breast location: lower inner quadrant of breast Estrogen receptor status: unspecified Patient sex: female Laterality: left Qualified Code(s): C50.312 - Malignant neoplasm of lower-inner quadrant of left female breast (5) Alcohol dependence with uncomplicated withdrawal Code(s): F10.230 - ALCOHOL DEPENDENCE WITH WITHDRAWAL, UNCOMPLICATED (6) HTN (hypertension) Code(s): I10 - ESSENTIAL (PRIMARY) HYPERTENSION Qualifiers: Hypertension type: essential hypertension Qualified Code(s): I10 - Essential (primary) hypertension (7) History of seizure Code(s): Z87.898 - PERSONAL HISTORY OF OTHER SPECIFIED CONDITIONS Assessment/Plan 56 y.o. female with PMH of Breast CA with metastasis to Brain and Bone never treated, heroin abuse on methadone, tobacco dependence, alcohol abuse, Bipolar disorder and uterine prolapse initially admitted from [facility] for fall and has had a prolonged hospitalization and noted to develop fever. Pt is arousable , without acute distress. Currently afebrile, without tachycardia. Fever - unclear etiology Lt breast mass - ? of overlying mastitis --on Vancomycin empirically, Tmax 99.7F -- blood cultures neg -- monitor temperature trend
[2017-10-16] MEDS: POLYETHYLENE GLYCOL 3350 119 GM BTL PO SCH ×2 (10:18→21:41)
[2017-10-16] MEDS: FOLIC ACID 1 MG TABLET (FP) PO SCH (10:18)
[2017-10-16] MEDS: DIVALPROEX NA *ER* EXTEND REL 500 MG TABLET.SA (FP) PO SCH ×2 (10:18→21:35)
[2017-10-16] MEDS: OLANZapine 10 MG TABLET PO SCH ×2 (10:19→21:35)
[2017-10-16] MEDS: BISACODYL 10 MG SUPP.RECT RC SCH (15:22)
[2017-10-16] MEDS: TOLNAFTATE 1% CREAM 15 GM TUBE TP SCH (15:22)
--- NOTE | 2017-10-16 16:24 | PN ---
Physical Exam: SUBJECTIVE: Patient seen and examined at bedside. OBJECTIVE: Vital Signs Period Temp Pulse Resp BP Sys/Camacho Pulse Ox Last 24 Hr 98.4 F-99.7 F 68-101 18-18 133-159/84-110 96-96 GENERAL: The patient is lethargic, sedated, gently pulling at restraints. Opens eyes to voice, becomes agitated. LUNGS: CTA HEART: Regular rate and rhythm, S1, S2 ABDOMEN: Soft, nontender, nondistended EXTREMITIES: 2+ pulses, warm, well-perfused, no edema. Bilateral lower extremity venous stasis changes. Mild bilateral edema. Active Medications Generic Name Dose Route Start Last Admin Trade Name Freq PRN Reason Stop Dose Admin Acetaminophen 650 mg 08/21/17 06:52 10/14/17 14:18 Tylenol Oral Solution - PO 650 mg Q6H PRN Administration PAIN LEVEL 1-5 Bisacodyl 10 mg 09/27/17 11:15 10/16/17 15:22 Dulcolax Suppository - RC 10 mg Q24H REBECCA Administration Divalproex Sodium 1,000 mg 09/28/17 22:00 10/16/17 10:18 Depakote *Er* - PO Not Given BID REBECCA Docusate Sodium 300 mg 08/28/17 22:00 10/15/17 22:15 Colace - PO 300 mg HS REBECCA Administration Folic Acid 1 mg 08/21/17 10:00 10/16/17 10:18 Folic Acid - PO Not Given DAILY REBECCA Vancomycin HCl 1 gm in 200 mls @ 133.333 mls/hr 10/15/17 04:00 10/16/17 04:45 Vancomycin 1 Gm Premix - IVPB 133.333 mls/hr BID@0400,1600 REBECCA Administration Protocol Sodium Chloride 1,000 mls @ 125 mls/hr 10/14/17 18:01 10/15/17 22:14 Normal Saline - IV 125 mls/hr ASDIR REBECCA Administration Methadone HCl 40 mg 10/07/17 12:00 10/16/17 12:35 Dolophine - PO Not Given TID@0600,1200,1800 [facility] Miscellaneous 1 each 10/08/17 07:42 Duragesic Patch Waste MC PRN PRN PAIN Olanzapine 20 mg 09/28/17 22:00 10/16/17 10:19 Zyprexa - PO Not Given BID REBECCA Oxycodone HCl 10 mg 10/08/17 09:00 10/16/17 15:20 Roxicodone - PO 10 mg Q6H REBECCA Administration Polyethylene Glycol 17 gm 08/28/17 10:00 10/16/17 10:18 Miralax (For Daily Use) - PO Not Given BID REBECCA Senna 2 tab 09/13/17 22:00 10/15/17 09:19 Senna - PO 2 tab HS PRN Administration CONSTIPATION Tolnaftate 1 applic 09/20/17 10:00 10/16/17 15:22 Tinactin 1% Cream - TP 1 applic DAILY REBECCA Administration ASSESSMENT/PLAN: 56 year old female with PMH left breast cancer with leptomeningeal disease, bipolar disorder, and heroin and alcohol abuse. HOD#56. Sepsis likely secondary to left breast mastitis in setting of malignancy --Tm100.3, leukocytosis resolved --continue vanc (day#3) --ID following Metastatic breast cancer, --left breast and axillary lymph node masses/enlargement, metastatic disease to bone and brain --seen and evaluated by oncology, radiation oncology, neurology, and neurosurgery: not a candidate for further treatment --continue present pain management regimen Bipolar disorder Agitation, manic behavior --last seen and evaluated by psych on 10/08 --continue current psych meds Heroin abuse Alcohol abuse -methadone 40mg TID Uterine prolapse --pessary was placed and patient pulled it out and threw it away --patient refused placement of another pessary by Dr. Lavell PRINGLE Fluids: NS @ 125mL/hr Electrolytes: replete as indicated Nutrition: regular diet DVT prophylaxis: oob, ambulation Dispo: awaiting hospice placement. DNR/DNI Visit type - Emergency Visit Emergency Visit: Yes ED Registration Date: 08/20/17 Care time: The patient presented to the Emergency Department on the above date and was hospitalized for further evaluation of their emergent condition. - New Patient This patient is new to me today: No - Critical Care Critical Care patient: No
[2017-10-16] MEDS ORDERED: INSULIN (NOVOLOG) ASPART 100 UNITS/ML 10ML VIAL ONE (18:45)
[2017-10-16] MEDS ORDERED: PT OWN MED DRAWER 7, Y5N ONE (20:24)
[2017-10-16] MEDS: DOCUSATE SODIUM 100 MG CAPSULE (FP) PO SCH (21:36)
[2017-10-16] MEDS: SODIUM CHLORIDE 1,000 ML IV SCH ×2 (21:40→22:47)
[2017-10-17] MEDS: oxyCODONE HCL 5 MG TABLET PO SCH ×5 (03:00→22:34)
[2017-10-17] MEDS: VANCOMYCIN 1 GM PREMIX - 1 GM/200 ML BAG IVPB SCH (03:42)
[2017-10-17] MEDS: METHADONE HCL 40 MG DISPERSABLE TABLET PO SCH ×3 (06:17→18:41)
[2017-10-17] MEDS: SODIUM CHLORIDE 1,000 ML IV SCH ×2 (08:25→18:30)
--- NOTE | 2017-10-17 08:32 | PN ---
Physical Exam: SUBJECTIVE: Patient seen and examined at the bedside. Lethargic, opens eyes briefly, then falls back to sleep. OBJECTIVE: low grade temps overnight pt alternates between lethargy and agitation, on wrist restraints as she pulls at iv and interrupts therapy. Vital Signs Period Temp Pulse Resp BP Sys/Camacho Pulse Ox Last 24 Hr 99.1 F-100.3 F 72-99 16-18 122-142/68-88 96-96 GENERAL: lethargy HEAD: Normal with no signs of trauma. EYES: PERRL, extraocular movements intact, sclera anicteric, conjunctiva clear. No ptosis. ENT: Ears normal, nares patent, oropharynx clear without exudates NECK: Trachea midline, full range of motion, supple. ABDOMEN: Soft, nontender, nondistended, normoactive bowel sounds EXTREMITIES:bilateral lower ext non pitting edema NEUROLOGICAL: lethargic Active Medications Generic Name Dose Route Start Last Admin Trade Name Freq PRN Reason Stop Dose Admin Acetaminophen 650 mg 08/21/17 06:52 10/14/17 14:18 Tylenol Oral Solution - PO 650 mg Q6H PRN Administration PAIN LEVEL 1-5 Bisacodyl 10 mg 09/27/17 11:15 10/16/17 15:22 Dulcolax Suppository - RC 10 mg Q24H REBECCA Administration Divalproex Sodium 1,000 mg 09/28/17 22:00 10/16/17 21:35 Depakote *Er* - PO 1,000 mg BID REBECCA Administration Docusate Sodium 300 mg 08/28/17 22:00 10/16/17 21:36 Colace - PO 300 mg HS REBECCA Administration Folic Acid 1 mg 08/21/17 10:00 10/16/17 10:18 Folic Acid - PO Not Given DAILY REBECCA Vancomycin HCl 1 gm in 200 mls @ 133.333 mls/hr 10/15/17 04:00 10/17/17 03:42 Vancomycin 1 Gm Premix - IVPB 133.333 mls/hr BID@0400,1600 REBECCA Administration Protocol Sodium Chloride 1,000 mls @ 125 mls/hr 10/14/17 18:01 10/17/17 08:25 Normal Saline - IV 125 mls/hr ASDIR REBECCA Administration Methadone HCl 40 mg 10/07/17 12:00 10/17/17 06:17 Dolophine - PO 40 mg TID@0600,1200,1800 REBECCA Administration Miscellaneous 1 each 10/08/17 07:42 Duragesic Patch Waste MC PRN PRN PAIN Olanzapine 20 mg 09/28/17 22:00 10/16/17 21:35 Zyprexa - PO 20 mg BID REBECCA Administration Oxycodone HCl 10 mg 10/08/17 09:00 10/17/17 03:47 Roxicodone - PO 10 mg Q6H REBECCA Administration Polyethylene Glycol 17 gm 08/28/17 10:00 10/16/17 21:41 Miralax (For Daily Use) - PO Not Given BID REBECCA Senna 2 tab 09/13/17 22:00 10/15/17 09:19 Senna - PO 2 tab HS PRN Administration CONSTIPATION Tolnaftate 1 applic 09/20/17 10:00 10/16/17 15:22 Tinactin 1% Cream - TP 1 applic DAILY REBECCA Administration ASSESSMENT/PLAN: Mrs Saldana is s a 56 year old woman with history of advanced left breast cancer with metastatic spread to her bones and brain. smoker, seizure disorder, heroin/ alcohol/methadone abuse and prolapsed uterus. She presents to the ER on from [facility] with lethargy and falls. During hospitalization patient has been seen by oncology, radiation oncology, neuro and neurosurgery and not a candidate for any further treatment. Patient has extensive generalized pain and which is currently managed by methadone 40mg TID, oxycodone q6, fentanyl patch 25 mcgs q 72 hours. Patient had a MRI on 08/20/2017 indicating 3x4cm mass lesion on right middle cranial fosa, bilateral fronto parietal dural enhancement suggestive of lepto meningeal metastasis. She requires a high dose of pain management such as methadone TID and oxycodone prn and will greatly benefit for end of life care and continuous pain management. She also has psycho social issues requiring PRN haldol. She will greatly benefit and require a hospital setting as she has intermittent lethargy with a seizure disorder. She is currently being ruled out for a DVT of her left leg likely secondary to advancement of her disease. In the last few days, Mrs Saldana has grown increasingly lethargic, and is becoming more frail with profound fatigue. Her PO intake has also diminished secondary to lethargy and increased in sleeping pattern. She requires assistance for her ADLs and at times needs re- orientation. Her biggest challenge is pain management in the setting of advancement of her disease and end of life care (as well as managing her underlying psycho social history) Oncology: Metastatic breast cancer to bone and brain: Not a candidate for further treatment. Pain currently managed with oxycodone 10mg q8, methadone 40mg tid, fentanyl patch and Tylenol. Psyche: Agitation: Episodes of agitation/restlessness, but now more somnolent, lethargic. 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 Vascular: Left leg rule out DVT, doppler ordered. negative for dvt Fever: unknown source, pena cultured, negative cultures. on emperic vanco/zosyn. ID following and to decide length of antibiotic treatment. fen tolerating PO monitor electrolytes, encourage hydration regular diet dnr/dni Visit type - Emergency Visit Emergency Visit: Yes ED Registration Date: 08/20/17 Care time: The patient presented to the Emergency Department on the above date and was hospitalized for further evaluation of their emergent condition. - New Patient This patient is new to me today: No - Critical Care Critical Care patient: No - Discharge Referral Referred to [facility] Med P.C.: No
[2017-10-17] MEDS ORDERED: PT OWN MED DRAWER 7, Y5N ONE (09:54)
[2017-10-17] MEDS: FOLIC ACID 1 MG TABLET (FP) PO SCH (09:58)
[2017-10-17] MEDS: POLYETHYLENE GLYCOL 3350 119 GM BTL PO SCH ×2 (09:59→22:38)
[2017-10-17] MEDS: TOLNAFTATE 1% CREAM 15 GM TUBE TP SCH (09:59)
[2017-10-17] MEDS: DIVALPROEX NA *ER* EXTEND REL 500 MG TABLET.SA (FP) PO SCH ×2 (09:59→22:33)
[2017-10-17] MEDS: OLANZapine 10 MG TABLET PO SCH ×2 (10:00→22:38)
--- NOTE | 2017-10-17 15:03 | PN ---
Progress Note, Physician History of Present Illness: Pt remains clinically the same. Somnolent but without distress. Currently afebrile. - Current Medication List Current Medications: Active Medications Acetaminophen (Tylenol Oral Solution -) 650 mg PO Q6H PRN PRN Reason: PAIN LEVEL 1-5 Last Admin: 10/14/17 14:18 Dose: 650 mg Bisacodyl (Dulcolax Suppository -) 10 mg RC Q24H [facility] Last Admin: 10/16/17 15:22 Dose: 10 mg Divalproex Sodium (Depakote *Er* -) 1,000 mg PO BID [facility] Last Admin: 10/17/17 09:59 Dose: 1,000 mg Docusate Sodium (Colace -) 300 mg PO HS [facility] Last Admin: 10/16/17 21:36 Dose: 300 mg Folic Acid (Folic Acid -) 1 mg PO DAILY [facility] Last Admin: 10/17/17 09:58 Dose: 1 mg Vancomycin HCl (Vancomycin 1 Gm Premix -) 1 gm in 200 mls @ 133.333 mls/hr IVPB BID@0400,1600 [facility]; Protocol Last Admin: 10/17/17 03:42 Dose: 133.333 mls/hr Sodium Chloride (Normal Saline -) 1,000 mls @ 125 mls/hr IV ASDIR [facility] Last Admin: 10/17/17 08:25 Dose: 125 mls/hr Methadone HCl (Dolophine -) 40 mg PO TID@0600,1200,1800 [facility] Last Admin: 10/17/17 11:46 Dose: 40 mg Miscellaneous (Duragesic Patch Waste) 1 each MC PRN PRN PRN Reason: PAIN Olanzapine (Zyprexa -) 20 mg PO BID [facility] Last Admin: 10/17/17 10:00 Dose: 20 mg Oxycodone HCl (Roxicodone -) 10 mg PO Q6H [facility] Last Admin: 10/17/17 09:58 Dose: 10 mg Polyethylene Glycol (Miralax (For Daily Use) -) 17 gm PO BID [facility] Last Admin: 10/17/17 09:59 Dose: 17 gm Senna (Senna -) 2 tab PO HS PRN PRN Reason: CONSTIPATION Last Admin: 10/15/17 09:19 Dose: 2 tab Tolnaftate (Tinactin 1% Cream -) 1 applic TP DAILY [facility] Last Admin: 10/17/17 09:59 Dose: 1 applic - Objective Vital Signs: Vital Signs Temperature 98.0 F 10/17/17 14:32 Pulse Rate 87 10/17/17 14:32 Respiratory Rate 16 10/17/17 14:32 Blood Pressure 138/84 10/17/17 14:32 O2 Sat by Pulse Oximetry (%) 96 10/16/17 21:00 Constitutional: Yes: No Distress Cardiovascular: Yes: Regular Rate and Rhythm Respiratory: Yes: CTA Bilaterally Gastrointestinal: Yes: Normal Bowel Sounds, Soft Edema: LLE: 1+, RLE: 1+ Integumentary: Yes: WNL Neurological: Yes: Lethargy Labs: CBC, BMP 10/15/17 07:05 10/15/17 07:05 INR, PTT INR 1.41 (0.83-1.09) H 10/15/17 07:05 Microbiology 10/13/17 00:10 Blood - Peripheral Venous Blood Culture - Preliminary NO GROWTH OBTAINED AFTER 96 HOURS, INCUBATION TO CONTINUE FOR 1 DAYS. 10/13/17 00:10 Blood - Peripheral Venous Blood Culture - Preliminary NO GROWTH OBTAINED AFTER 96 HOURS, INCUBATION TO CONTINUE FOR 1 DAYS. 10/15/17 16:00 Blood - Peripheral Venous Blood Culture - Preliminary NO GROWTH OBTAINED AFTER 24 HOURS, INCUBATION TO CONTINUE FOR 4 DAYS. 10/15/17 15:00 Blood - Peripheral Venous Blood Culture - Preliminary NO GROWTH OBTAINED AFTER 24 HOURS, INCUBATION TO CONTINUE FOR 4 DAYS. 10/13/17 03:00 Urine - Urine - Catheterized Urine Culture - Final NO GROWTH OBTAINED - ....Imaging Chest X-ray: Report Reviewed (no acute findings/infiltrates) Problem List - Problems (1) Nicotine dependence Code(s): F17.200 - NICOTINE DEPENDENCE, UNSPECIFIED, UNCOMPLICATED Qualifiers: Nicotine product type: cigarettes Substance use status: uncomplicated Qualified Code(s): F17.210 - Nicotine dependence, cigarettes, uncomplicated (2) Opioid dependence with withdrawal Code(s): F11.23 - OPIOID DEPENDENCE WITH WITHDRAWAL (3) Pelvic organ prolapse quantification stage 4 cystocele Code(s): N81.10 - CYSTOCELE, UNSPECIFIED (4) Breast cancer Code(s): C50.919 - MALIGNANT NEOPLASM OF UNSP SITE OF UNSPECIFIED FEMALE BREAST Qualifiers: Breast location: lower inner quadrant of breast Estrogen receptor status: unspecified Patient sex: female Laterality: left Qualified Code(s): C50.312 - Malignant neoplasm of lower-inner quadrant of left female breast (5) Alcohol dependence with uncomplicated withdrawal Code(s): F10.230 - ALCOHOL DEPENDENCE WITH WITHDRAWAL, UNCOMPLICATED (6) HTN (hypertension) Code(s): I10 - ESSENTIAL (PRIMARY) HYPERTENSION Qualifiers: Hypertension type: essential hypertension Qualified Code(s): I10 - Essential (primary) hypertension (7) History of seizure Code(s): Z87.898 - PERSONAL HISTORY OF OTHER SPECIFIED CONDITIONS Assessment/Plan 56 y.o. female with PMH of Breast CA with metastasis to Brain and Bone never treated, heroin abuse on methadone, tobacco dependence, alcohol abuse, Bipolar disorder and uterine prolapse initially admitted from [facility] for fall and has had a prolonged hospitalization and noted to develop fever. Pt is arousable , without acute distress, afebrile Fever - unclear etiology - infectious vs malignancy-related - overall downward temperature trend, Tmax 99.9F Lt breast mass - possible overlying mastitis --will switch to clindamycin 450 mg po TID and monitor temps -- blood/urine cultures neg, cxr not indicative of PNA -- continue monitor vitals
[2017-10-17] MEDS: BISACODYL 10 MG SUPP.RECT RC SCH (18:13)
[2017-10-17] MEDS: CLINDAMYCIN HCL 150 MG CAPSULE (FP) PO SCH (22:32)
[2017-10-17] MEDS: DOCUSATE SODIUM 100 MG CAPSULE (FP) PO SCH (22:32)
[2017-10-18] MEDS: oxyCODONE HCL 5 MG TABLET PO SCH ×4 (02:50→21:00)
[2017-10-18] MEDS: SODIUM CHLORIDE 1,000 ML IV SCH ×2 (04:27→11:13)
[2017-10-18] MEDS: METHADONE HCL 40 MG DISPERSABLE TABLET PO SCH ×3 (06:24→17:27)
[2017-10-18] MEDS: CLINDAMYCIN HCL 150 MG CAPSULE (FP) PO SCH ×3 (06:24→21:00)
[2017-10-18] MEDS ORDERED: PT OWN MED DRAWER 7, Y5N ONE (10:37)
[2017-10-18] MEDS: OLANZapine 10 MG TABLET PO SCH ×2 (10:40→20:59)
[2017-10-18] MEDS: DIVALPROEX NA *ER* EXTEND REL 500 MG TABLET.SA (FP) PO SCH ×2 (10:40→20:59)
[2017-10-18] MEDS: FOLIC ACID 1 MG TABLET (FP) PO SCH (10:40)
[2017-10-18] MEDS: TOLNAFTATE 1% CREAM 15 GM TUBE TP SCH (10:41)
[2017-10-18] MEDS: POLYETHYLENE GLYCOL 3350 119 GM BTL PO SCH ×2 (10:41→21:10)
--- NOTE | 2017-10-18 11:13 | PN ---
Progress Note, Physician History of Present Illness: Pt alert, afebrile now >24 hrs. Denies shortness of breath/cough/abd pain/n/d/v/ dysuria. - Current Medication List Current Medications: Active Medications Acetaminophen (Tylenol Oral Solution -) 650 mg PO Q6H PRN PRN Reason: PAIN LEVEL 1-5 Last Admin: 10/14/17 14:18 Dose: 650 mg Bisacodyl (Dulcolax Suppository -) 10 mg RC Q24H [facility] Last Admin: 10/17/17 18:13 Dose: Not Given Clindamycin HCl (Cleocin -) 450 mg PO TID [facility] Last Admin: 10/18/17 06:24 Dose: 450 mg Divalproex Sodium (Depakote *Er* -) 1,000 mg PO BID [facility] Last Admin: 10/18/17 10:40 Dose: 1,000 mg Docusate Sodium (Colace -) 300 mg PO HS [facility] Last Admin: 10/17/17 22:32 Dose: 300 mg Folic Acid (Folic Acid -) 1 mg PO DAILY [facility] Last Admin: 10/18/17 10:40 Dose: 1 mg Sodium Chloride (Normal Saline -) 1,000 mls @ 125 mls/hr IV ASDIR [facility] Last Admin: 10/18/17 04:27 Dose: 125 mls/hr Methadone HCl (Dolophine -) 40 mg PO TID@0600,1200,1800 [facility] Last Admin: 10/18/17 06:24 Dose: 40 mg Miscellaneous (Duragesic Patch Waste) 1 each MC PRN PRN PRN Reason: PAIN Olanzapine (Zyprexa -) 20 mg PO BID [facility] Last Admin: 10/18/17 10:40 Dose: 20 mg Oxycodone HCl (Roxicodone -) 10 mg PO Q6H [facility] Last Admin: 10/18/17 10:39 Dose: 10 mg Polyethylene Glycol (Miralax (For Daily Use) -) 17 gm PO BID [facility] Last Admin: 10/18/17 10:41 Dose: 17 gm Senna (Senna -) 2 tab PO HS PRN PRN Reason: CONSTIPATION Last Admin: 10/15/17 09:19 Dose: 2 tab Tolnaftate (Tinactin 1% Cream -) 1 applic TP DAILY [facility] Last Admin: 10/18/17 10:41 Dose: 1 applic - Objective Vital Signs: Vital Signs Temperature 98 F 10/18/17 06:00 Pulse Rate 98 H 10/18/17 06:00 Respiratory Rate 20 10/18/17 06:00 Blood Pressure 139/75 10/18/17 06:00 O2 Sat by Pulse Oximetry (%) 97 10/17/17 21:00 Constitutional: Yes: No Distress Cardiovascular: Yes: Regular Rate and Rhythm Respiratory: Yes: CTA Bilaterally Gastrointestinal: Yes: Normal Bowel Sounds, Soft Genitourinary: Yes: WNL Integumentary: Yes: Other (Lt breast erythematous mass/deformity , no fluctuance /drainage) Neurological: Yes: Alert Labs: CBC, BMP 10/15/17 07:05 10/15/17 07:05 INR, PTT INR 1.41 (0.83-1.09) H 10/15/17 07:05 Problem List - Problems (1) Nicotine dependence Code(s): F17.200 - NICOTINE DEPENDENCE, UNSPECIFIED, UNCOMPLICATED Qualifiers: Nicotine product type: cigarettes Substance use status: uncomplicated Qualified Code(s): F17.210 - Nicotine dependence, cigarettes, uncomplicated (2) Opioid dependence with withdrawal Code(s): F11.23 - OPIOID DEPENDENCE WITH WITHDRAWAL (3) Pelvic organ prolapse quantification stage 4 cystocele Code(s): N81.10 - CYSTOCELE, UNSPECIFIED (4) Breast cancer Code(s): C50.919 - MALIGNANT NEOPLASM OF UNSP SITE OF UNSPECIFIED FEMALE BREAST Qualifiers: Breast location: lower inner quadrant of breast Estrogen receptor status: unspecified Patient sex: female Laterality: left Qualified Code(s): C50.312 - Malignant neoplasm of lower-inner quadrant of left female breast (5) Alcohol dependence with uncomplicated withdrawal Code(s): F10.230 - ALCOHOL DEPENDENCE WITH WITHDRAWAL, UNCOMPLICATED (6) HTN (hypertension) Code(s): I10 - ESSENTIAL (PRIMARY) HYPERTENSION Qualifiers: Hypertension type: essential hypertension Qualified Code(s): I10 - Essential (primary) hypertension (7) History of seizure Code(s): Z87.898 - PERSONAL HISTORY OF OTHER SPECIFIED CONDITIONS Assessment/Plan 56 y.o. female with PMH of Breast CA with metastasis to Brain and Bone never treated, heroin abuse on methadone, tobacco dependence, alcohol abuse, Bipolar disorder and uterine prolapse initially admitted from [facility] for fall and has had a prolonged hospitalization and noted to develop fever. Pt is arousable , without acute distress, afebrile Fever - unclear etiology - infectious vs malignancy-related - now afebrile Lt breast mass/Metastatic breast CA --on empiric po antibiotics now, fevers appear to have resolved -- continue monitor temperatures, if remains afebrile plan d/c antibiotics in the next few days
[2017-10-18] MEDS: BISACODYL 10 MG SUPP.RECT RC SCH ×2 (12:37→17:40)
--- NOTE | 2017-10-18 15:27 | PN ---
Physical Exam: SUBJECTIVE: Patient seen and examined at the bedside. Remains lethargic, confused OBJECTIVE: fevers resolved, tolerating PO Vital Signs Period Temp Pulse Resp BP Sys/Camacho Pulse Ox Last 24 Hr 98 F-98.7 F 70-98 18-20 120-139/72-86 97-98 GENERAL: lethargy HEAD: Normal with no signs of trauma. EYES: PERRL, extraocular movements intact, sclera anicteric, conjunctiva clear. No ptosis. ENT: Ears normal, nares patent, oropharynx clear without exudates NECK: Trachea midline, full range of motion, supple. ABDOMEN: Soft, nontender, nondistended, normoactive bowel sounds EXTREMITIES:bilateral lower ext non pitting edema NEUROLOGICAL: lethargic Active Medications Generic Name Dose Route Start Last Admin Trade Name Freq PRN Reason Stop Dose Admin Acetaminophen 650 mg 08/21/17 06:52 10/14/17 14:18 Tylenol Oral Solution - PO 650 mg Q6H PRN Administration PAIN LEVEL 1-5 Bisacodyl 10 mg 09/27/17 11:15 10/18/17 12:37 Dulcolax Suppository - RC Not Given Q24H REBECCA Clindamycin HCl 450 mg 10/17/17 22:00 10/18/17 14:47 Cleocin - PO 450 mg TID REBECCA Administration Divalproex Sodium 1,000 mg 09/28/17 22:00 10/18/17 10:40 Depakote *Er* - PO 1,000 mg BID REBECCA Administration Docusate Sodium 300 mg 08/28/17 22:00 10/17/17 22:32 Colace - PO 300 mg HS REBECCA Administration Folic Acid 1 mg 08/21/17 10:00 10/18/17 10:40 Folic Acid - PO 1 mg DAILY REBECCA Administration Methadone HCl 40 mg 10/07/17 12:00 10/18/17 12:37 Dolophine - PO 40 mg TID@0600,1200,1800 REBECCA Administration Miscellaneous 1 each 10/08/17 07:42 Duragesic Patch Waste MC PRN PRN PAIN Olanzapine 20 mg 09/28/17 22:00 10/18/17 10:40 Zyprexa - PO 20 mg BID REBECCA Administration Oxycodone HCl 10 mg 10/08/17 09:00 10/18/17 10:39 Roxicodone - PO 10 mg Q6H REBECCA Administration Polyethylene Glycol 17 gm 08/28/17 10:00 10/18/17 10:41 Miralax (For Daily Use) - PO 17 gm BID REBECCA Administration Senna 2 tab 09/13/17 22:00 10/15/17 09:19 Senna - PO 2 tab HS PRN Administration CONSTIPATION Tolnaftate 1 applic 09/20/17 10:00 10/18/17 10:41 Tinactin 1% Cream - TP 1 applic DAILY REBECCA Administration ASSESSMENT/PLAN: Mrs Saldana is s a 56 year old woman with history of advanced left breast cancer with metastatic spread to her bones and brain. smoker, seizure disorder, heroin/ alcohol/methadone abuse and prolapsed uterus. She presents to the ER on from [facility] with lethargy and falls. During hospitalization patient has been seen by oncology, radiation oncology, neuro and neurosurgery and not a candidate for any further treatment. Oncology: Metastatic breast cancer to bone and brain: Not a candidate for further treatment. Pain currently managed with oxycodone 10mg q8, methadone 40mg tid, fentanyl patch and Tylenol. Psyche: Agitation: Episodes of agitation/restlessness, but now more somnolent, lethargic. 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 Vascular: Left leg rule out DVT. negative for dvt Fever: unknown source, pena cultured, negative cultures. on emperic clindamycin PO, tolerating. fevers resolved. fen tolerating PO monitor electrolytes, encourage hydration regular diet dnr/dni Visit type - Emergency Visit Emergency Visit: Yes ED Registration Date: 08/20/17 Care time: The patient presented to the Emergency Department on the above date and was hospitalized for further evaluation of their emergent condition. - New Patient This patient is new to me today: No - Critical Care Critical Care patient: No - Discharge Referral Referred to [facility] Med P.C.: No
[2017-10-18] MEDS: SENNOSIDES 8.6MG TABLET (FP) PO PRN (21:00)
[2017-10-18] MEDS: DOCUSATE SODIUM 100 MG CAPSULE (FP) PO SCH (21:00)
[2017-10-18] MEDS ORDERED: HALOPERIDOL LACTATE 5 MG/ML IM ONE (21:45)
[2017-10-19] MEDS: oxyCODONE HCL 5 MG TABLET PO SCH ×4 (03:23→21:50)
[2017-10-19] MEDS: CLINDAMYCIN HCL 150 MG CAPSULE (FP) PO SCH ×3 (05:44→21:51)
[2017-10-19] MEDS: METHADONE HCL 40 MG DISPERSABLE TABLET PO SCH ×3 (05:44→17:11)
[2017-10-19 07:56] LABS: BASO % 0.3 % (0-2.0); EOS % 2.5 % (0-4.5); HEMOGLOBIN 8.6 GM/dL (10.7-15.3); LYMPH % 23.1 % (8-40); MCH 29.9 pg (25.7-33.7); MEAN CELL VOLUME 90.6 fl (80-96); MEAN PLT VOLUME 8.1 fl (7.5-11.1); NEUT % 53.1 % (42.8-82.8); PLATELET COUNT 319 K/MM3 (134-434); RBC 2.88 M/mm3 (3.60-5.2); RDW 15.1 % (11.6-15.6); WHITE BLOOD COUNT 5.9 K/mm3 (4.0-10.0)
[2017-10-19] MEDS ORDERED: PT OWN MED DRAWER 7, Y5N ONE ×2 (09:34→21:28)
[2017-10-19] MEDS: POLYETHYLENE GLYCOL 3350 119 GM BTL PO SCH ×2 (09:39→22:32)
[2017-10-19] MEDS: FOLIC ACID 1 MG TABLET (FP) PO SCH (09:39)
[2017-10-19] MEDS: TOLNAFTATE 1% CREAM 15 GM TUBE TP SCH (09:39)
[2017-10-19] MEDS: DIVALPROEX NA *ER* EXTEND REL 500 MG TABLET.SA (FP) PO SCH ×2 (09:39→22:31)
[2017-10-19] MEDS: OLANZapine 10 MG TABLET PO SCH ×2 (09:40→22:31)
[2017-10-19] MEDS: BISACODYL 10 MG SUPP.RECT RC SCH ×2 (11:15→11:22)
[2017-10-19 11:27] LABS: ANISOCYTOSIS 0; MACROCYTOSIS 0; PLATELET ESTIMATE NORMAL
[2017-10-19] MEDS: ACETAMINOPHEN 650 MG/20.3 ML ORAL SOLUTION (CUPS) PO PRN (12:01)
--- NOTE | 2017-10-19 13:33 | PN ---
Physical Exam: SUBJECTIVE: Patient seen attempting to ambulate back to bathroom, needs major assistance from staff. increased weakness. OBJECTIVE: Vital Signs Period Temp Pulse Resp BP Sys/Camacho Pulse Ox Last 24 Hr 98.0 F-99 F 70-99 18-18 120-156/72-102 98 GENERAL: lethargy HEAD: Normal with no signs of trauma. EYES: PERRL, extraocular movements intact, sclera anicteric, conjunctiva clear. No ptosis. ENT: Ears normal, nares patent, oropharynx clear without exudates NECK: Trachea midline, full range of motion, supple. ABDOMEN: Soft, nontender, nondistended, normoactive bowel sounds EXTREMITIES:bilateral lower ext non pitting edema, poor functional status, poor ambulatory status NEUROLOGICAL: lethargic Laboratory Results - last 24 hr 10/19/17 07:15 WBC 5.9 RBC 2.88 L Hgb 8.6 L Hct 26.0 L MCV 90.6 MCH 29.9 MCHC 33.0 RDW 15.1 Plt Count 319 MPV 8.1 Absolute Neuts (auto) 3.1 Neutrophils % 53.1 Neutrophils % (Manual) 49.0 Band Neutrophils % 6.0 Lymphocytes % 23.1 D Lymphocytes % (Manual) 23.0 D Monocytes % 21.0 H Monocytes % (Manual) 19 H Eosinophils % 2.5 D Eosinophils % (Manual) 3.0 D Basophils % 0.3 Basophils % (Manual) 0.0 Myelocytes % (Man) 0 Promyelocytes % (Man) 0 Blast Cells % (Manual) 0 Nucleated RBC % 0 Metamyelocytes 0 Hypochromia 0 Platelet Estimate Normal Polychromasia 0 Poikilocytosis 0 Anisocytosis 0 Microcytosis 0 Macrocytosis 0 Active Medications Generic Name Dose Route Start Last Admin Trade Name Freq PRN Reason Stop Dose Admin Acetaminophen 650 mg 08/21/17 06:52 10/19/17 12:01 Tylenol Oral Solution - PO 650 mg Q6H PRN Administration PAIN LEVEL 1-5 Bisacodyl 10 mg 09/27/17 11:15 10/19/17 11:22 Dulcolax Suppository - RC Not Given Q24H REBECCA Clindamycin HCl 450 mg 10/17/17 22:00 10/19/17 05:44 Cleocin - PO 450 mg TID REBECCA Administration Divalproex Sodium 1,000 mg 09/28/17 22:00 10/19/17 09:39 Depakote *Er* - PO 1,000 mg BID REBECCA Administration Docusate Sodium 300 mg 08/28/17 22:00 10/18/17 21:00 Colace - PO 300 mg HS REBECCA Administration Folic Acid 1 mg 08/21/17 10:00 10/19/17 09:39 Folic Acid - PO 1 mg DAILY REBECCA Administration Methadone HCl 40 mg 10/07/17 12:00 10/19/17 11:14 Dolophine - PO 40 mg TID@0600,1200,1800 REBECCA Administration Miscellaneous 1 each 10/08/17 07:42 Duragesic Patch Waste MC PRN PRN PAIN Olanzapine 20 mg 09/28/17 22:00 10/19/17 09:40 Zyprexa - PO 20 mg BID REBECCA Administration Oxycodone HCl 10 mg 10/08/17 09:00 10/19/17 09:39 Roxicodone - PO 10 mg Q6H REBECCA Administration Polyethylene Glycol 17 gm 08/28/17 10:00 10/19/17 09:39 Miralax (For Daily Use) - PO 17 gm BID REBECCA Administration Senna 2 tab 09/13/17 22:00 10/18/17 21:00 Senna - PO 2 tab HS PRN Administration CONSTIPATION Tolnaftate 1 applic 09/20/17 10:00 10/19/17 09:39 Tinactin 1% Cream - TP 1 applic DAILY REBECCA Administration ASSESSMENT/PLAN: Mrs Saldana is s a 56 year old woman with history of advanced left breast cancer with metastatic spread to her bones and brain. smoker, seizure disorder, heroin/ alcohol/methadone abuse and prolapsed uterus. She presents to the ER on 08/20/17 from [facility] with lethargy and falls. During hospitalization patient has been seen by oncology, radiation oncology, neuro and neurosurgery and not a candidate for any further treatment. Oncology: Metastatic breast cancer to bone and brain: Not a candidate for further treatment. Pain currently managed with oxycodone 10mg q8, methadone 40mg tid, fentanyl patch and Tylenol. Psyche: Agitation: Episodes of agitation/restlessness, but now more somnolent, lethargic. needs major assistance, unable to perform her own ADLs. 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 Vascular: Left leg rule out DVT. negative for dvt Fever: unknown source, pena cultured, negative cultures. on emperic clindamycin PO, tolerating. fevers resolved. fen tolerating PO monitor electrolytes, encourage hydration regular diet dnr/dni Visit type - Emergency Visit Emergency Visit: Yes ED Registration Date: 08/20/17 Care time: The patient presented to the Emergency Department on the above date and was hospitalized for further evaluation of their emergent condition. - New Patient This patient is new to me today: No - Critical Care Critical Care patient: No - Discharge Referral Referred to [facility] Med P.C.: No
--- NOTE | 2017-10-19 14:10 | PN ---
Progress Note, Physician History of Present Illness: Pt weak but verbally responsive. No new complaints. Remains afebrile. - Current Medication List Current Medications: Active Medications Acetaminophen (Tylenol Oral Solution -) 650 mg PO Q6H PRN PRN Reason: PAIN LEVEL 1-5 Last Admin: 10/19/17 12:01 Dose: 650 mg Bisacodyl (Dulcolax Suppository -) 10 mg RC Q24H [facility] Last Admin: 10/19/17 11:22 Dose: Not Given Clindamycin HCl (Cleocin -) 450 mg PO TID [facility] Last Admin: 10/19/17 05:44 Dose: 450 mg Divalproex Sodium (Depakote *Er* -) 1,000 mg PO BID [facility] Last Admin: 10/19/17 09:39 Dose: 1,000 mg Docusate Sodium (Colace -) 300 mg PO HS [facility] Last Admin: 10/18/17 21:00 Dose: 300 mg Folic Acid (Folic Acid -) 1 mg PO DAILY [facility] Last Admin: 10/19/17 09:39 Dose: 1 mg Methadone HCl (Dolophine -) 40 mg PO TID@0600,1200,1800 [facility] Last Admin: 10/19/17 11:14 Dose: 40 mg Miscellaneous (Duragesic Patch Waste) 1 each [facility] PRN PRN PRN Reason: PAIN Olanzapine (Zyprexa -) 20 mg PO BID [facility] Last Admin: 10/19/17 09:40 Dose: 20 mg Oxycodone HCl (Roxicodone -) 10 mg PO Q6H [facility] Last Admin: 10/19/17 09:39 Dose: 10 mg Polyethylene Glycol (Miralax (For Daily Use) -) 17 gm PO BID [facility] Last Admin: 10/19/17 09:39 Dose: 17 gm Senna (Senna -) 2 tab PO HS PRN PRN Reason: CONSTIPATION Last Admin: 10/18/17 21:00 Dose: 2 tab Tolnaftate (Tinactin 1% Cream -) 1 applic TP DAILY [facility] Last Admin: 10/19/17 09:39 Dose: 1 applic - Objective Vital Signs: Vital Signs Temperature 98.0 F 10/19/17 10:00 Pulse Rate 82 10/19/17 10:00 Respiratory Rate 18 10/19/17 10:00 Blood Pressure 131/76 10/19/17 10:00 O2 Sat by Pulse Oximetry (%) 98 10/18/17 21:00 Constitutional: Yes: No Distress Cardiovascular: Yes: Regular Rate and Rhythm Respiratory: Yes: CTA Bilaterally Gastrointestinal: Yes: Normal Bowel Sounds, Soft Breast(s): Yes: Left, Skin Changes Extremities: Yes: WNL Neurological: Yes: Weakness Labs: CBC, BMP 10/19/17 07:15 10/15/17 07:05 INR, PTT INR 1.41 (0.83-1.09) H 10/15/17 07:05 Problem List - Problems (1) Nicotine dependence Code(s): F17.200 - NICOTINE DEPENDENCE, UNSPECIFIED, UNCOMPLICATED Qualifiers: Nicotine product type: cigarettes Substance use status: uncomplicated Qualified Code(s): F17.210 - Nicotine dependence, cigarettes, uncomplicated (2) Opioid dependence with withdrawal Code(s): F11.23 - OPIOID DEPENDENCE WITH WITHDRAWAL (3) Pelvic organ prolapse quantification stage 4 cystocele Code(s): N81.10 - CYSTOCELE, UNSPECIFIED (4) Breast cancer Code(s): C50.919 - MALIGNANT NEOPLASM OF UNSP SITE OF UNSPECIFIED FEMALE BREAST Qualifiers: Breast location: lower inner quadrant of breast Estrogen receptor status: unspecified Patient sex: female Laterality: left Qualified Code(s): C50.312 - Malignant neoplasm of lower-inner quadrant of left female breast (5) Alcohol dependence with uncomplicated withdrawal Code(s): F10.230 - ALCOHOL DEPENDENCE WITH WITHDRAWAL, UNCOMPLICATED (6) HTN (hypertension) Code(s): I10 - ESSENTIAL (PRIMARY) HYPERTENSION Qualifiers: Hypertension type: essential hypertension Qualified Code(s): I10 - Essential (primary) hypertension (7) History of seizure Code(s): Z87.898 - PERSONAL HISTORY OF OTHER SPECIFIED CONDITIONS Assessment/Plan 56 y.o. 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 Pt is arousable , without acute distress, afebrile Fever - resolved Lt breast mass/Metastatic breast CA - continue clindamycin empirically x 4 days -- continue monitor temperatures clinically remains the same
[2017-10-19] MEDS: DOCUSATE SODIUM 100 MG CAPSULE (FP) PO SCH (21:49)
[2017-10-20] MEDS: oxyCODONE HCL 5 MG TABLET PO SCH ×4 (03:08→21:05)
[2017-10-20] MEDS: METHADONE HCL 40 MG DISPERSABLE TABLET PO SCH ×3 (06:06→18:07)
[2017-10-20] MEDS: CLINDAMYCIN HCL 150 MG CAPSULE (FP) PO SCH ×3 (06:06→21:06)
[2017-10-20] MEDS ORDERED: PT OWN MED DRAWER 7, Y5N ONE ×2 (08:51→17:28)
[2017-10-20] MEDS: DIVALPROEX NA *ER* EXTEND REL 500 MG TABLET.SA (FP) PO SCH ×2 (09:04→21:06)
[2017-10-20] MEDS: OLANZapine 10 MG TABLET PO SCH ×2 (09:05→21:06)
[2017-10-20] MEDS: FOLIC ACID 1 MG TABLET (FP) PO SCH (09:05)
[2017-10-20] MEDS: TOLNAFTATE 1% CREAM 15 GM TUBE TP SCH (09:07)
--- NOTE | 2017-10-20 11:33 | PN ---
Physical Exam: SUBJECTIVE: more lethargic, sleeping more. in no distress. restless at times. OBJECTIVE: Vital Signs Period Temp Pulse Resp BP Sys/Camacho Pulse Ox Last 24 Hr 98.0 F-98.4 F 82-102 18-20 120-182/66-115 GENERAL: lethargy HEAD: Normal with no signs of trauma. EYES: PERRL, extraocular movements intact, sclera anicteric, conjunctiva clear. No ptosis. ENT: Ears normal, nares patent, oropharynx clear without exudates NECK: Trachea midline, full range of motion, supple. ABDOMEN: Soft, nontender, nondistended, normoactive bowel sounds EXTREMITIES:bilateral lower ext non pitting edema NEUROLOGICAL: lethargic Laboratory Results - last 24 hr 10/16/17 10/19/17 07:00 07:15 Neutrophils % (Manual) 49.0 Band Neutrophils % 6.0 Lymphocytes % (Manual) 23.0 D Monocytes % (Manual) 19 H Eosinophils % (Manual) 3.0 D Basophils % (Manual) 0.0 Myelocytes % (Man) 0 Promyelocytes % (Man) 0 Blast Cells % (Manual) 0 Nucleated RBC % 0 Metamyelocytes 0 Hypochromia 0 Platelet Estimate Normal Polychromasia 0 Poikilocytosis 0 Anisocytosis 0 Microcytosis 0 Macrocytosis 0 HCV Quantitation [id number] Hepatitis C RNA 5.960 Active Medications Generic Name Dose Route Start Last Admin Trade Name Freq PRN Reason Stop Dose Admin Acetaminophen 650 mg 08/21/17 06:52 10/19/17 12:01 Tylenol Oral Solution - PO 650 mg Q6H PRN Administration PAIN LEVEL 1-5 Bisacodyl 10 mg 09/27/17 11:15 10/19/17 11:22 Dulcolax Suppository - RC Not Given Q24H [facility] Clindamycin HCl 450 mg 10/17/17 22:00 10/20/17 06:06 Cleocin - PO 450 mg TID [facility] Administration Divalproex Sodium 1,000 mg 09/28/17 22:00 10/20/17 09:04 Depakote *Er* - PO 1,000 mg BID [facility] Administration Docusate Sodium 300 mg 08/28/17 22:00 10/19/17 21:49 Colace - PO 300 mg HS [facility] Administration Folic Acid 1 mg 08/21/17 10:00 10/20/17 09:05 Folic Acid - PO 1 mg DAILY [facility] Administration Methadone HCl 40 mg 10/07/17 12:00 10/20/17 06:06 Dolophine - PO 40 mg TID@0600,1200,1800 [facility] Administration Miscellaneous 1 each 10/08/17 07:42 Duragesic Patch Waste [facility] PRN PRN PAIN Olanzapine 20 mg 09/28/17 22:00 10/20/17 09:05 Zyprexa - PO 20 mg BID [facility] Administration Oxycodone HCl 10 mg 10/08/17 09:00 10/20/17 09:05 Roxicodone - PO 10 mg Q6H [facility] Administration Polyethylene Glycol 17 gm 08/28/17 10:00 10/19/17 22:32 Miralax (For Daily Use) - PO 17 gm BID [facility] Administration Senna 2 tab 09/13/17 22:00 10/18/17 21:00 Senna - PO 2 tab HS PRN Administration CONSTIPATION Tolnaftate 1 applic 09/20/17 10:00 10/20/17 09:07 Tinactin 1% Cream - TP 1 applic DAILY [facility] Administration ASSESSMENT/PLAN: Mrs Saldana is s a 56 year old woman with history of advanced left breast cancer with metastatic spread to her bones and brain. smoker, seizure disorder, heroin/ alcohol/methadone abuse and prolapsed uterus. She presents to the ER on 08/20/17 from [facility] with lethargy and falls. During hospitalization patient has been seen by oncology, radiation oncology, neuro and neurosurgery and not a candidate for any further treatment. Oncology: Metastatic breast cancer to bone and brain: Not a candidate for further treatment. Pain currently managed with oxycodone 10mg q8, methadone 40mg tid, fentanyl patch and Tylenol. Psyche: Agitation: Episodes of agitation/restlessness, but now more somnolent, lethargic. needs major assistance, unable to perform her own ADLs. AGRICULTURE CONSULTANT: Prolapsed uterus: patient refused new pessary to be placed. Vascular: negative for dvt Fever: unknown source, pena cultured, negative cultures. on clindamycin PO, tolerating. fevers resolved. fen tolerating PO monitor electrolytes, encourage hydration regular diet dnr/dni Visit type - Emergency Visit Emergency Visit: Yes ED Registration Date: 07/08/18 Care time: The patient presented to the Emergency Department on the above date and was hospitalized for further evaluation of their emergent condition. - New Patient This patient is new to me today: No - Critical Care Critical Care patient: No - Discharge Referral Referred to [facility] No
[2017-10-20] MEDS: POLYETHYLENE GLYCOL 3350 119 GM BTL PO SCH ×2 (11:35→21:14)
[2017-10-20] MEDS: BISACODYL 10 MG SUPP.RECT RC SCH (11:36)
--- NOTE | 2017-10-20 14:07 | PN ---
Progress Note, Physician History of Present Illness: Pt clinically the same. Remains afebrile. No new events. - Current Medication List Current Medications: Active Medications Acetaminophen (Tylenol Oral Solution -) 650 mg PO Q6H PRN PRN Reason: PAIN LEVEL 1-5 Last Admin: 10/19/17 12:01 Dose: 650 mg Bisacodyl (Dulcolax Suppository -) 10 mg RC Q24H [facility] Last Admin: 10/20/17 11:36 Dose: Not Given Clindamycin HCl (Cleocin -) 450 mg PO TID [facility] Last Admin: 10/20/17 13:20 Dose: 450 mg Divalproex Sodium (Depakote *Er* -) 1,000 mg PO BID [facility] Last Admin: 10/20/17 09:04 Dose: 1,000 mg Docusate Sodium (Colace -) 300 mg PO HS [facility] Last Admin: 10/19/17 21:49 Dose: 300 mg Folic Acid (Folic Acid -) 1 mg PO DAILY [facility] Last Admin: 10/20/17 09:05 Dose: 1 mg Methadone HCl (Dolophine -) 40 mg PO TID@0600,1200,1800 [facility] Last Admin: 10/20/17 13:20 Dose: 40 mg Olanzapine (Zyprexa -) 20 mg PO BID [facility] Last Admin: 10/20/17 09:05 Dose: 20 mg Oxycodone HCl (Roxicodone -) 10 mg PO Q6H [facility] Last Admin: 10/20/17 09:05 Dose: 10 mg Polyethylene Glycol (Miralax (For Daily Use) -) 17 gm PO BID [facility] Last Admin: 10/20/17 11:35 Dose: Not Given Senna (Senna -) 2 tab PO HS PRN PRN Reason: CONSTIPATION Last Admin: 10/18/17 21:00 Dose: 2 tab Tolnaftate (Tinactin 1% Cream -) 1 applic TP DAILY [facility] Last Admin: 10/20/17 09:07 Dose: 1 applic - Objective Vital Signs: Vital Signs Temperature 98.4 F 10/20/17 10:00 Pulse Rate 92 H 10/20/17 10:00 Respiratory Rate 18 10/20/17 10:00 Blood Pressure 160/102 10/20/17 10:00 O2 Sat by Pulse Oximetry (%) 97 10/19/17 09:00 Constitutional: Yes: No Distress Cardiovascular: Yes: Regular Rate and Rhythm Respiratory: Yes: Regular Gastrointestinal: Yes: Normal Bowel Sounds, Soft Genitourinary: Yes: WNL Breast(s): Yes: Left (breast mass, no drainage/fluctuance) Labs: CBC, BMP 10/19/17 07:15 10/15/17 07:05 INR, PTT INR 1.41 (0.83-1.09) H 10/15/17 07:05 Problem List - Problems (1) Nicotine dependence Code(s): F17.200 - NICOTINE DEPENDENCE, UNSPECIFIED, UNCOMPLICATED Qualifiers: Nicotine product type: cigarettes Substance use status: uncomplicated Qualified Code(s): F17.210 - Nicotine dependence, cigarettes, uncomplicated (2) Opioid dependence with withdrawal Code(s): F11.23 - OPIOID DEPENDENCE WITH WITHDRAWAL (3) Pelvic organ prolapse quantification stage 4 cystocele Code(s): N81.10 - CYSTOCELE, UNSPECIFIED (4) Breast cancer Code(s): C50.919 - MALIGNANT NEOPLASM OF UNSP SITE OF UNSPECIFIED FEMALE BREAST Qualifiers: Breast location: lower inner quadrant of breast Estrogen receptor status: unspecified Patient sex: female Laterality: left Qualified Code(s): C50.312 - Malignant neoplasm of lower-inner quadrant of left female breast (5) Alcohol dependence with uncomplicated withdrawal Code(s): F10.230 - ALCOHOL DEPENDENCE WITH WITHDRAWAL, UNCOMPLICATED (6) HTN (hypertension) Code(s): I10 - ESSENTIAL (PRIMARY) HYPERTENSION Qualifiers: Hypertension type: essential hypertension Qualified Code(s): I10 - Essential (primary) hypertension (7) History of seizure Code(s): Z87.898 - PERSONAL HISTORY OF OTHER SPECIFIED CONDITIONS Assessment/Plan 56 y.o. female with PMH of Breast CA with metastasis to Brain and Bone never treated, heroin abuse on methadone, tobacco dependence, alcohol abuse, Bipolar disorder and uterine prolapse initially admitted from [facility] for fall and has had a prolonged hospitalization and noted to develop fever. Pt is arousable , without acute distress, afebrile Fever - resolved Lt breast mass/Metastatic breast CA - continue clindamycin empirically x 3 days -- continue monitor temperatures pt in no acute distress
[2017-10-20] MEDS: DOCUSATE SODIUM 100 MG CAPSULE (FP) PO SCH (21:06)
[2017-10-21] MEDS: oxyCODONE HCL 5 MG TABLET PO SCH ×4 (02:00→21:21)
[2017-10-21] MEDS: CLINDAMYCIN HCL 150 MG CAPSULE (FP) PO SCH ×2 (05:40→13:50)
[2017-10-21] MEDS: METHADONE HCL 40 MG DISPERSABLE TABLET PO SCH ×3 (05:40→18:33)
[2017-10-21] MEDS ORDERED: ONDANSETRON 4 MG/2 ML VIAL IVPB ONE (06:45)
[2017-10-21] MEDS ORDERED: ONDANSETRON *ODT* 4 MG TABLET SL ONE ×2 (07:30→11:00)
[2017-10-21] MEDS ORDERED: metoPROLOL SUCCINATE 25 MG TAB.SR.24H (FP) PO SCH (10:15)
[2017-10-21] MEDS: FOLIC ACID 1 MG TABLET (FP) PO SCH (10:48)
[2017-10-21] MEDS: DIVALPROEX NA *ER* EXTEND REL 500 MG TABLET.SA (FP) PO SCH ×2 (10:48→21:23)
[2017-10-21] MEDS: BISACODYL 10 MG SUPP.RECT RC SCH (10:48)
[2017-10-21] MEDS: OLANZapine 10 MG TABLET PO SCH ×2 (10:48→21:23)
[2017-10-21] MEDS: POLYETHYLENE GLYCOL 3350 119 GM BTL PO SCH ×2 (10:49→21:25)
[2017-10-21] MEDS: TOLNAFTATE 1% CREAM 15 GM TUBE TP SCH (10:50)
[2017-10-21] MEDS ORDERED: ONDANSETRON *ODT* 4 MG TABLET SL PRN (11:39)
[2017-10-21] MEDS ORDERED: hydrALAZINE HCL 25 MG TABLET (FP) PO ONE (12:32)
[2017-10-21] MEDS ORDERED: ONDANSETRON 4 MG/2 ML VIAL IVPUSH PRN (12:49)
[2017-10-21] MEDS ORDERED: SODIUM CHLORIDE 1,000 ML IV SCH ×2 (13:00→15:47)
[2017-10-21 14:02] LABS: BASO % 0.2 % (0-2.0); EOS % 0.6 % (0-4.5); HEMATOCRIT 31.1 % (32.4-45.2); HEMOGLOBIN 10.4 GM/dL (10.7-15.3); MCH 29.6 pg (25.7-33.7); MCHC 33.4 g/dl (32.0-36.0); MEAN CELL VOLUME 88.7 fl (80-96); MEAN PLT VOLUME 7.5 fl (7.5-11.1); MONO % 17.9 % (3.8-10.2); NEUT % 72.3 % (42.8-82.8); PLATELET COUNT 350 K/MM3 (134-434); RDW 15.8 % (11.6-15.6); WHITE BLOOD COUNT 12.6 K/mm3 (4.0-10.0)
[2017-10-21 14:33] LABS: ALBUMIN 2.2 g/dl (3.4-5.0); ANION GAP 10 MMOL/L (8-16); BILIRUBIN,TOTAL 0.5 mg/dL (0.2-1.0); BLOOD UREA NITROGEN 8 mg/dL (7-18); CALCIUM 8.1 mg/dL (8.5-10.1); CHLORIDE 97 mmol/L (98-107); CO2 25 mmol/L (21-32); CREATININE 0.4 mg/dL (0.55-1.02); GLUCOSE,RANDOM 114 mg/dL (74-106); POTASSIUM 3.7 mmol/L (3.5-5.1); SGOT/AST 64 U/L (15-37); SGPT/ALT 35 U/L (12-78); SODIUM 132 mmol/L (136-145); TOT PROT 9.3 g/dl (6.4-8.2)
[2017-10-21 14:37] LABS: ALK PHOS 102 U/L (45-117)
--- NOTE | 2017-10-21 15:38 | PN ---
Physical Exam: SUBJECTIVE: Patient seen and examined at the bedside. States she is having left sided chest pain, feels nauseous and is vomiting. denies shortness of breath. OBJECTIVE: Patient is having chest pain, left sided non radiating accompanied with nausea and vomiting. will obtain ekg, start on hydration, zofran prn Vital Signs Period Temp Pulse Resp BP Sys/Camacho Pulse Ox Last 24 Hr 98.1 F-98.8 F 89-111 18-20 117-196/75-121 GENERAL: The patient is awake, alert, in no acute distress HEAD: Normal with no signs of trauma. EYES: PERRL, extraocular movements intact, sclera anicteric, conjunctiva clear. No ptosis. ENT: Ears normal, nares patent, oropharynx clear without exudates, moist mucous membranes. NECK: Trachea midline, full range of motion, supple. LUNGS: Breath sounds equal, clear to auscultation bilaterally, no wheezes, no crackles, no accessory muscle use. HEART: Regular rate and rhythm ABDOMEN: Soft, nontender, nondistended, normoactive bowel sounds EXTREMITIES: 2+ pulses, warm, well-perfused, no edema. NEUROLOGICAL: Normal speech, PSYCH: Normal mood, normal affect. SKIN: Warm, dry, normal turgor, no rashes or lesions noted Laboratory Results - last 24 hr 10/21/17 10/21/17 13:45 13:45 WBC 12.6 H RBC 3.50 L Hgb 10.4 L Hct 31.1 L D MCV 88.7 MCH 29.6 MCHC 33.4 RDW 15.8 H Plt Count 350 MPV 7.5 Absolute Neuts (auto) 9.1 H Neutrophils % 72.3 D Lymphocytes % 9.0 D Monocytes % 17.9 H Eosinophils % 0.6 Basophils % 0.2 Nucleated RBC % 0 Sodium 132 L Potassium 3.7 Chloride 97 L Carbon Dioxide 25 Anion Gap 10 BUN 8 Creatinine 0.4 L Creat Clearance w eGFR > 60 Random Glucose 114 H Calcium 8.1 L Total Bilirubin 0.5 AST 64 H ALT 35 Alkaline Phosphatase 102 D Troponin I < 0.02 Total Protein 9.3 H D Albumin 2.2 L Active Medications Generic Name Dose Route Start Last Admin Trade Name Freq PRN Reason Stop Dose Admin Acetaminophen 650 mg 08/21/17 06:52 10/19/17 12:01 Tylenol Oral Solution - PO 650 mg Q6H PRN Administration PAIN LEVEL 1-5 Bisacodyl 10 mg 09/27/17 11:15 10/21/17 10:48 Dulcolax Suppository - RC 10 mg Q24H [facility] Administration Clindamycin HCl 450 mg 10/17/17 22:00 10/21/17 13:50 Cleocin - PO 450 mg TID [facility] Administration Divalproex Sodium 1,000 mg 09/28/17 22:00 10/21/17 10:48 Depakote *Er* - PO 1,000 mg BID [facility] Administration Docusate Sodium 300 mg 08/28/17 22:00 10/20/17 21:06 Colace - PO Not Given HS [facility] Folic Acid 1 mg 08/21/17 10:00 10/21/17 10:48 Folic Acid - PO 1 mg DAILY [facility] Administration Sodium Chloride 1,000 mls @ 100 mls/hr 10/21/17 13:00 Normal Saline - IV ASDIR [facility] Methadone HCl 40 mg 10/07/17 12:00 10/21/17 13:50 Dolophine - PO 40 mg TID@0600,1200,1800 [facility] Administration Metoprolol Succinate 25 mg 10/21/17 10:15 10/21/17 10:48 Toprol Xl - PO 25 mg DAILY [facility] Administration Olanzapine 20 mg 09/28/17 22:00 10/21/17 10:48 Zyprexa - PO 20 mg BID [facility] Administration Ondansetron HCl 8 mg 10/21/17 11:39 Zofran Odt - SL Q6H PRN NAUSEA AND/OR VOMITING Ondansetron HCl 4 mg 10/21/17 12:49 Zofran Injection IVPUSH Q6H PRN NAUSEA AND/OR VOMITING Oxycodone HCl 10 mg 10/08/17 09:00 10/21/17 14:13 Roxicodone - PO Not Given Q6H [facility] Polyethylene Glycol 17 gm 08/28/17 10:00 10/21/17 10:49 Miralax (For Daily Use) - PO 17 gm BID [facility] Administration Senna 2 tab 09/13/17 22:00 10/18/17 21:00 Senna - PO 2 tab HS PRN Administration CONSTIPATION Tolnaftate 1 applic 09/20/17 10:00 10/21/17 10:50 Tinactin 1% Cream - TP 1 applic DAILY [facility] Administration ASSESSMENT/PLAN: Mrs Saldana is s a 56 year old woman with history of advanced left breast cancer with metastatic spread to her bones and brain. smoker, seizure disorder, heroin/ alcohol/methadone abuse and prolapsed uterus. She presents to the ER on 08/20/17 from [facility] with lethargy and falls. During hospitalization patient has been seen by oncology, radiation oncology, neuro and neurosurgery and not a candidate for any further treatment. She is currently awaiting placement for end of life care and comfort. Oncology: Metastatic breast cancer to bone and brain: Not a candidate for further treatment. Pain currently managed with oxycodone 10mg q8, methadone 40mg tid, fentanyl patch and Tylenol. Psyche: Agitation: Episodes of agitation/restlessness, but now more somnolent, lethargic. needs major assistance, unable to perform her own ADLs. AUTO LOCATOR: Prolapsed uterus: patient refused new pessary to be placed. Vascular: negative for dvt Fever: resolved. on clindaymcin per ID. Chest pain/nausea/vomiting: ekg shows ST, negative troponin. will trend troponin. Zofran for nausea and vomiting. Start on gentle hydration. If vomiting persists, may need further imaging. Hypertension: will give low dose toprol and hydralazine and monitor BP. fen tolerating PO monitor electrolytes, encourage hydration regular diet as tolerated dnr/dni Visit type - Emergency Visit Emergency Visit: Yes ED Registration Date: 08/20/17 Care time: The patient presented to the Emergency Department on the above date and was hospitalized for further evaluation of their emergent condition. - New Patient This patient is new to me today: No - Critical Care Critical Care patient: No - Discharge Referral Referred to [facility] No
--- NOTE | 2017-10-21 16:11 | PN ---
Progress Note, Physician History of Present Illness: Pt much more alert today. Vomited 3 times today but no diarrhea. Denies shortness of breath/cough. No other specific complaints. - Current Medication List Current Medications: Active Medications Acetaminophen (Tylenol Oral Solution -) 650 mg PO Q6H PRN PRN Reason: PAIN LEVEL 1-5 Last Admin: 10/19/17 12:01 Dose: 650 mg Bisacodyl (Dulcolax Suppository -) 10 mg RC Q24H [facility] Last Admin: 10/21/17 10:48 Dose: 10 mg Clindamycin HCl (Cleocin -) 450 mg PO TID [facility] Last Admin: 10/21/17 13:50 Dose: 450 mg Divalproex Sodium (Depakote *Er* -) 1,000 mg PO BID [facility] Last Admin: 10/21/17 10:48 Dose: 1,000 mg Docusate Sodium (Colace -) 300 mg PO HS [facility] Last Admin: 10/20/17 21:06 Dose: Not Given Folic Acid (Folic Acid -) 1 mg PO DAILY [facility] Last Admin: 10/21/17 10:48 Dose: 1 mg Sodium Chloride (Normal Saline -) 1,000 mls @ 75 mls/hr IV ASDIR [facility] Methadone HCl (Dolophine -) 40 mg PO TID@0600,1200,1800 [facility] Last Admin: 10/21/17 13:50 Dose: 40 mg Metoprolol Succinate (Toprol Xl -) 25 mg PO DAILY [facility] Last Admin: 10/21/17 10:48 Dose: 25 mg Olanzapine (Zyprexa -) 20 mg PO BID [facility] Last Admin: 10/21/17 10:48 Dose: 20 mg Ondansetron HCl (Zofran Odt -) 8 mg SL Q6H PRN PRN Reason: NAUSEA AND/OR VOMITING Ondansetron HCl (Zofran Injection) 4 mg IVPUSH Q6H PRN PRN Reason: NAUSEA AND/OR VOMITING Oxycodone HCl (Roxicodone -) 10 mg PO Q6H [facility] Last Admin: 10/21/17 14:13 Dose: Not Given Polyethylene Glycol (Miralax (For Daily Use) -) 17 gm PO BID [facility] Last Admin: 10/21/17 10:49 Dose: 17 gm Senna (Senna -) 2 tab PO HS PRN PRN Reason: CONSTIPATION Last Admin: 10/18/17 21:00 Dose: 2 tab Tolnaftate (Tinactin 1% Cream -) 1 applic TP DAILY [facility] Last Admin: 10/21/17 10:50 Dose: 1 applic - Objective Vital Signs: Vital Signs Temperature 98.5 F 10/21/17 15:48 Pulse Rate 116 H 10/21/17 15:48 Respiratory Rate 20 10/21/17 15:48 Blood Pressure 190/131 10/21/17 15:48 O2 Sat by Pulse Oximetry (%) 96 10/21/17 09:00 Constitutional: Yes: No Distress, Calm Cardiovascular: Yes: Regular Rate and Rhythm Respiratory: Yes: CTA Bilaterally Gastrointestinal: Yes: Normal Bowel Sounds, Soft Genitourinary: Yes: WNL Extremities: Yes: WNL Integumentary: Yes: WNL Neurological: Yes: Alert Labs: CBC, BMP 10/21/17 13:45 10/21/17 13:45 INR, PTT INR 1.41 (0.83-1.09) H 10/15/17 07:05 Problem List - Problems (1) Nicotine dependence Code(s): F17.200 - NICOTINE DEPENDENCE, UNSPECIFIED, UNCOMPLICATED Qualifiers: Nicotine product type: cigarettes Substance use status: uncomplicated Qualified Code(s): F17.210 - Nicotine dependence, cigarettes, uncomplicated (2) Opioid dependence with withdrawal Code(s): F11.23 - OPIOID DEPENDENCE WITH WITHDRAWAL (3) Pelvic organ prolapse quantification stage 4 cystocele Code(s): N81.10 - CYSTOCELE, UNSPECIFIED (4) Breast cancer Code(s): C50.919 - MALIGNANT NEOPLASM OF UNSP SITE OF UNSPECIFIED FEMALE BREAST Qualifiers: Breast location: lower inner quadrant of breast Estrogen receptor status: unspecified Patient sex: female Laterality: left Qualified Code(s): C50.312 - Malignant neoplasm of lower-inner quadrant of left female breast (5) Alcohol dependence with uncomplicated withdrawal Code(s): F10.230 - ALCOHOL DEPENDENCE WITH WITHDRAWAL, UNCOMPLICATED (6) HTN (hypertension) Code(s): I10 - ESSENTIAL (PRIMARY) HYPERTENSION Qualifiers: Hypertension type: essential hypertension Qualified Code(s): I10 - Essential (primary) hypertension (7) History of seizure Code(s): Z87.898 - PERSONAL HISTORY OF OTHER SPECIFIED CONDITIONS Assessment/Plan 56 y.o. female with PMH of Breast CA with metastasis to Brain and Bone never treated, heroin abuse on methadone, tobacco dependence, alcohol abuse, Bipolar disorder and uterine prolapse initially admitted from [facility] for fall and has had a prolonged hospitalization and noted to develop fever. Fever - resolved Lt breast mass/Metastatic breast CA -- wbc elevated today, had episodes of vomiting but no acute distress -- d/c clindamycin -- suggest repeat cbc in a.m., send cmp -- recommend abdominal xray if vomiting persists -- monitor off antibiotics for now
[2017-10-21] MEDS ORDERED: METOPROLOL TARTRATE 50 MG TABLET (FP) PO ONE (17:57)
[2017-10-21] MEDS ORDERED: PT OWN MED DRAWER 7, Y5N ONE (21:00)
[2017-10-21] MEDS: ACETAMINOPHEN 650 MG/20.3 ML ORAL SOLUTION (CUPS) PO PRN (21:21)
[2017-10-21] MEDS: DOCUSATE SODIUM 100 MG CAPSULE (FP) PO SCH (21:23)
[2017-10-21] MEDS: hydrALAZINE HCL 25 MG TABLET (FP) PO SCH (21:24)
[2017-10-22] MEDS: oxyCODONE HCL 5 MG TABLET PO SCH ×4 (02:41→21:34)
[2017-10-22] MEDS: ACETAMINOPHEN 650 MG/20.3 ML ORAL SOLUTION (CUPS) PO PRN ×2 (02:43→09:55)
[2017-10-22] MEDS: METHADONE HCL 40 MG DISPERSABLE TABLET PO SCH ×3 (06:02→17:57)
[2017-10-22] MEDS: hydrALAZINE HCL 25 MG TABLET (FP) PO SCH (06:03)
[2017-10-22] MEDS ORDERED: PT OWN MED DRAWER 7, Y5N ONE (09:43)
[2017-10-22] MEDS: FOLIC ACID 1 MG TABLET (FP) PO SCH (09:49)
[2017-10-22] MEDS: POLYETHYLENE GLYCOL 3350 119 GM BTL PO SCH ×2 (09:49→22:36)
[2017-10-22] MEDS: DIVALPROEX NA *ER* EXTEND REL 500 MG TABLET.SA (FP) PO SCH ×2 (09:50→22:34)
[2017-10-22] MEDS: OLANZapine 10 MG TABLET PO SCH ×2 (09:50→22:34)
[2017-10-22] MEDS: BISACODYL 10 MG SUPP.RECT RC SCH ×2 (09:51→11:32)
[2017-10-22] MEDS: SODIUM CHLORIDE 1,000 ML IV SCH (09:51)
[2017-10-22] MEDS ORDERED: METOPROLOL TARTRATE 25 MG TABLET (FP) PO SCH (10:00)
[2017-10-22] MEDS: TOLNAFTATE 1% CREAM 15 GM TUBE TP SCH (10:04)
[2017-10-22] MEDS ORDERED: LORazepam 1 MG TABLET PO ONE (12:54)
--- NOTE | 2017-10-22 12:55 | PN ---
Physical Exam: SUBJECTIVE: Patient seen and examined at the bedside. agitated today. on dillon vest for safety as she is a fall risk. awake, alert, calling out. will give ativan 1mg po x 1 for agitation OBJECTIVE: bp dropped, stopped bp meds, monitor. Vital Signs Period Temp Pulse Resp BP Sys/Camacho Pulse Ox Last 24 Hr 98.1 F-98.6 F 64-118 20-189 79-190/50-131 96 GENERAL: The patient is awake, alert, in no acute distress HEAD: Normal with no signs of trauma. EYES: PERRL, extraocular movements intact, sclera anicteric, conjunctiva clear. No ptosis. ENT: Ears normal, nares patent, oropharynx clear without exudates, moist mucous membranes. NECK: Trachea midline, full range of motion, supple. ABDOMEN: Soft, nontender, nondistended, normoactive bowel sounds EXTREMITIES: 2+ pulses, warm, well-perfused, no edema. NEUROLOGICAL: Normal speech, PSYCH: Normal mood, normal affect. SKIN: Warm, dry, normal turgor, no rashes or lesions noted Laboratory Results - last 24 hr 10/21/17 10/21/17 10/21/17 13:45 13:45 19:45 WBC 12.6 H RBC 3.50 L Hgb 10.4 L Hct 31.1 L D MCV 88.7 MCH 29.6 MCHC 33.4 RDW 15.8 H Plt Count 350 MPV 7.5 Absolute Neuts (auto) 9.1 H Neutrophils % 72.3 D Lymphocytes % 9.0 D Monocytes % 17.9 H Eosinophils % 0.6 Basophils % 0.2 Nucleated RBC % 0 Sodium 132 L Potassium 3.7 Chloride 97 L Carbon Dioxide 25 Anion Gap 10 BUN 8 Creatinine 0.4 L Creat Clearance w eGFR > 60 Random Glucose 114 H Calcium 8.1 L Total Bilirubin 0.5 AST 64 H ALT 35 Alkaline Phosphatase 102 D Troponin I < 0.02 < 0.02 Total Protein 9.3 H D Albumin 2.2 L Active Medications Generic Name Dose Route Start Last Admin Trade Name Freq PRN Reason Stop Dose Admin Acetaminophen 650 mg 08/21/17 06:52 10/22/17 09:55 Tylenol Oral Solution - PO 650 mg Q6H PRN Administration PAIN LEVEL 1-5 Bisacodyl 10 mg 09/27/17 11:15 09/09/18 11:32 Dulcolax Suppository - RC Not Given Q24H REBECCA Divalproex Sodium 1,000 mg 09/28/17 22:00 10/22/17 09:50 Depakote *Er* - PO 1,000 mg BID REBECCA Administration Docusate Sodium 300 mg 08/28/17 22:00 10/21/17 21:23 Colace - PO 300 mg HS REBECCA Administration Folic Acid 1 mg 08/21/17 10:00 10/22/17 09:49 Folic Acid - PO 1 mg DAILY REBECCA Administration Sodium Chloride 1,000 mls @ 75 mls/hr 10/22/17 07:15 10/22/17 09:51 Normal Saline - IV Not Given ASDIR REBECCA Methadone HCl 40 mg 10/07/17 12:00 10/22/17 06:02 Dolophine - PO 40 mg TID@0600,1200,1800 REBECCA Administration Olanzapine 20 mg 09/28/17 22:00 10/22/17 09:50 Zyprexa - PO 20 mg BID REBECCA Administration Ondansetron HCl 8 mg 10/21/17 11:39 10/22/17 09:47 Zofran Odt - SL 8 mg Q6H PRN Administration NAUSEA AND/OR VOMITING Ondansetron HCl 4 mg 10/21/17 12:49 Zofran Injection IVPUSH Q6H PRN NAUSEA AND/OR VOMITING Oxycodone HCl 10 mg 10/08/17 09:00 10/22/17 09:49 Roxicodone - PO 10 mg Q6H REBECCA Administration Polyethylene Glycol 17 gm 08/28/17 10:00 10/22/17 09:49 Miralax (For Daily Use) - PO 17 gm BID REBECCA Administration Senna 2 tab 09/13/17 22:00 10/18/17 21:00 Senna - PO 2 tab HS PRN Administration CONSTIPATION Tolnaftate 1 applic 09/20/17 10:00 10/22/17 10:04 Tinactin 1% Cream - TP 1 applic DAILY REBECCA Administration ASSESSMENT/PLAN: Mrs Saldana is s a 56 year old woman with history of advanced left breast cancer with metastatic spread to her bones and brain. smoker, seizure disorder, heroin/ alcohol/methadone abuse and prolapsed uterus. She presents to the ER on 08/20/17 from [facility] with lethargy and falls. During hospitalization patient has been seen by oncology, radiation oncology, neuro and neurosurgery and not a candidate for any further treatment. She is currently awaiting placement for end of life care and comfort. Oncology: Metastatic breast cancer to bone and brain: Not a candidate for further treatment. Pain currently managed with oxycodone 10mg q8, methadone 40mg tid, fentanyl patch and Tylenol. Psyche: Agitation: Episodes of agitation/restlessness. agitated today and ambulating without calling for help, high fall risk with injury. dillon vest for safety. 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 Vascular: negative for dvt Fever: resolved. clindamycin discontinued. Chest pain/nausea/vomiting: ekg shows ST, negative troponins. no further chest pain. vomiting has resolved with zofran. Hypertension: but became hypotensive overnight, stop bp meds and monitor bp. fen tolerating PO monitor electrolytes, encourage hydration regular diet as tolerated dnr/dni Visit type - Emergency Visit Emergency Visit: Yes ED Registration Date: 08/20/17 Care time: The patient presented to the Emergency Department on the above date and was hospitalized for further evaluation of their emergent condition. - New Patient This patient is new to me today: No - Critical Care Critical Care patient: No - Discharge Referral Referred to [facility] Med P.C.: No
[2017-10-22] MEDS: DOCUSATE SODIUM 100 MG CAPSULE (FP) PO SCH (22:35)
[2017-10-23] MEDS: oxyCODONE HCL 5 MG TABLET PO SCH ×4 (02:25→23:13)
[2017-10-23] MEDS: METHADONE HCL 40 MG DISPERSABLE TABLET PO SCH ×3 (05:26→18:52)
[2017-10-23] MEDS: DIVALPROEX NA *ER* EXTEND REL 500 MG TABLET.SA (FP) PO SCH ×2 (10:10→23:13)
[2017-10-23] MEDS: FOLIC ACID 1 MG TABLET (FP) PO SCH (10:10)
[2017-10-23] MEDS: TOLNAFTATE 1% CREAM 15 GM TUBE TP SCH (10:11)
[2017-10-23] MEDS: OLANZapine 10 MG TABLET PO SCH ×2 (10:12→23:13)
--- NOTE | 2017-10-23 10:42 | EKG ---
Test Reason : Blood Pressure : / mmHG Vent. Rate : 107 BPM Atrial Rate : 107 BPM P-R Int : 182 ms QRS Dur : 076 ms QT Int : 342 ms P-R-T Axes : 060 018 046 degrees QTc Int : 456 ms SINUS TACHYCARDIA LEFT VENTRICULAR HYPERTROPHY WITH REPOLARIZATION ABNORMALITY CANNOT RULE OUT SEPTAL INFARCT (CITED ON OR BEFORE 19-AUG-2017) ABNORMAL ECG WHEN COMPARED WITH ECG OF 09-SEP-2017 15:23, ST NOW DEPRESSED IN LATERAL LEADS Confirmed by HESHAM MONTENEGRO MD ([id number]) on 10/23/2017 10:42:29 AM Referred By: Moose THURSTON Confirmed By:HESHAM MONTENEGRO MD
--- NOTE | 2017-10-23 12:20 | PN ---
Physical Exam: SUBJECTIVE: Patient seen and examined at the bedside. In no acute distress. [place] placed for safety as patient is a high risk for falls with injury. OBJECTIVE: awaiting placement Vital Signs Period Temp Pulse Resp BP Sys/Camacho Pulse Ox Last 24 Hr 98 F-98.2 F 72-79 20-20 96-100/58-64 96 GENERAL: The patient is awake, alert, in no acute distress. mental status goes for agitation to lethargy. HEAD: Normal with no signs of trauma. EYES: PERRL, extraocular movements intact, sclera anicteric, conjunctiva clear. No ptosis. ENT: Ears normal, nares patent, oropharynx clear without exudates, moist mucous membranes. NECK: Trachea midline, full range of motion, supple. ABDOMEN: Soft, nontender, nondistended, normoactive bowel sounds EXTREMITIES: 2+ pulses, warm, well-perfused, no edema. NEUROLOGICAL: Normal speech, PSYCH: Normal mood, normal affect. SKIN: Warm, dry, normal turgor, no rashes or lesions noted Active Medications Generic Name Dose Route Start Last Admin Trade Name Freq PRN Reason Stop Dose Admin Acetaminophen 650 mg 08/21/17 06:52 10/22/17 09:55 Tylenol Oral Solution - PO 650 mg Q6H PRN Administration PAIN LEVEL 1-5 Bisacodyl 10 mg 09/27/17 11:15 10/22/17 11:32 Dulcolax Suppository - RC Not Given Q24H REBECCA Divalproex Sodium 1,000 mg 09/28/17 22:00 10/23/17 10:10 Depakote *Er* - PO 1,000 mg BID REBECCA Administration Docusate Sodium 300 mg 08/28/17 22:00 10/22/17 22:35 Colace - PO 300 mg HS REBECCA Administration Folic Acid 1 mg 08/21/17 10:00 10/23/17 10:10 Folic Acid - PO 1 mg DAILY REBECCA Administration Sodium Chloride 1,000 mls @ 75 mls/hr 10/22/17 07:15 10/22/17 09:51 Normal Saline - IV Not Given ASDIR REBECCA Methadone HCl 40 mg 10/07/17 12:00 10/23/17 05:26 Dolophine - PO 40 mg TID@0600,1200,1800 REBECCA Administration Olanzapine 20 mg 09/28/17 22:00 10/23/17 10:12 Zyprexa - PO 20 mg BID REBECCA Administration Ondansetron HCl 8 mg 10/21/17 11:39 10/22/17 09:47 Zofran Odt - SL 8 mg Q6H PRN Administration NAUSEA AND/OR VOMITING Ondansetron HCl 4 mg 10/21/17 12:49 Zofran Injection IVPUSH Q6H PRN NAUSEA AND/OR VOMITING Oxycodone HCl 10 mg 10/08/17 09:00 10/23/17 10:09 Roxicodone - PO 10 mg Q6H REBECCA Administration Polyethylene Glycol 17 gm 08/28/17 10:00 10/22/17 22:36 Miralax (For Daily Use) - PO Not Given BID REBECCA Senna 2 tab 09/13/17 22:00 10/18/17 21:00 Senna - PO 2 tab HS PRN Administration CONSTIPATION Tolnaftate 1 applic 09/20/17 10:00 10/23/17 10:11 Tinactin 1% Cream - TP 1 applic DAILY REBECCA Administration ASSESSMENT/PLAN: Mrs Saldana is s a 56 year old woman with history of advanced left breast cancer with metastatic spread to her bones and brain. smoker, seizure disorder, heroin/ alcohol/methadone abuse and prolapsed uterus. She presents to the ER on 08/20/17 from [facility] with lethargy and falls. During hospitalization patient has been seen by oncology, radiation oncology, neuro and neurosurgery and not a candidate for any further treatment. She is currently awaiting placement for end of life care and comfort. Oncology: Metastatic breast cancer to bone and brain: Not a candidate for further treatment. Pain currently managed with oxycodone 10mg q8, methadone 40mg tid, fentanyl patch and Tylenol. Psyche: Agitation: Episodes of agitation/restlessness. high fall risk with injury. dillon vest for safety. 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 Vascular: negative for dvt Fever: resolved. clindamycin discontinued. Chest pain/nausea/vomiting: ekg shows STach, negative troponins. no further chest pain. vomiting has resolved with zofran. Hypertension: but became hypotensive with antihypertensives meds, stop bp meds and monitor bp. fen tolerating PO monitor electrolytes, encourage hydration regular diet as tolerated dnr/dni Visit type - Emergency Visit Emergency Visit: Yes ED Registration Date: 08/20/17 Care time: The patient presented to the Emergency Department on the above date and was hospitalized for further evaluation of their emergent condition. - New Patient This patient is new to me today: No - Critical Care Critical Care patient: No - Discharge Referral Referred to [facility] Med P.C.: No
[2017-10-23] MEDS: BISACODYL 10 MG SUPP.RECT RC SCH (14:54)
--- NOTE | 2017-10-23 15:08 | PN ---
Progress Note, Physician History of Present Illness: Events noted. Pt not currently agitated. No reports of recent vomiting or acute distress. BP was low, antihypertensives held. Remains afebrile. - Current Medication List Current Medications: Active Medications Acetaminophen (Tylenol Oral Solution -) 650 mg PO Q6H PRN PRN Reason: PAIN LEVEL 1-5 Last Admin: 10/22/17 09:55 Dose: 650 mg Bisacodyl (Dulcolax Suppository -) 10 mg RC Q24H [facility] Last Admin: 10/23/17 14:54 Dose: 10 mg Divalproex Sodium (Depakote *Er* -) 1,000 mg PO BID [facility] Last Admin: 10/23/17 10:10 Dose: 1,000 mg Docusate Sodium (Colace -) 300 mg PO HS [facility] Last Admin: 10/22/17 22:35 Dose: 300 mg Folic Acid (Folic Acid -) 1 mg PO DAILY [facility] Last Admin: 10/23/17 10:10 Dose: 1 mg Sodium Chloride (Normal Saline -) 1,000 mls @ 75 mls/hr IV ASDIR [facility] Last Admin: 10/22/17 09:51 Dose: Not Given Methadone HCl (Dolophine -) 40 mg PO TID@0600,1200,1800 [facility] Last Admin: 10/23/17 14:54 Dose: 40 mg Olanzapine (Zyprexa -) 20 mg PO BID [facility] Last Admin: 10/23/17 10:12 Dose: 20 mg Ondansetron HCl (Zofran Odt -) 8 mg SL Q6H PRN PRN Reason: NAUSEA AND/OR VOMITING Last Admin: 10/22/17 09:47 Dose: 8 mg Ondansetron HCl (Zofran Injection) 4 mg IVPUSH Q6H PRN PRN Reason: NAUSEA AND/OR VOMITING Oxycodone HCl (Roxicodone -) 10 mg PO Q6H [facility] Last Admin: 10/23/17 14:54 Dose: 10 mg Polyethylene Glycol (Miralax (For Daily Use) -) 17 gm PO BID [facility] Last Admin: 10/22/17 22:36 Dose: Not Given Senna (Senna -) 2 tab PO HS PRN PRN Reason: CONSTIPATION Last Admin: 10/18/17 21:00 Dose: 2 tab Tolnaftate (Tinactin 1% Cream -) 1 applic TP DAILY REBECCA Last Admin: 10/23/17 10:11 Dose: 1 applic - Objective Vital Signs: Vital Signs Temperature 98 F 10/22/17 22:00 Pulse Rate 72 10/22/17 22:00 Respiratory Rate 20 10/22/17 22:00 Blood Pressure 100/58 10/22/17 22:00 O2 Sat by Pulse Oximetry (%) 96 10/22/17 21:00 Constitutional: Yes: No Distress Cardiovascular: Yes: Regular Rate and Rhythm Respiratory: Yes: Regular Gastrointestinal: Yes: Normal Bowel Sounds, Soft Genitourinary: Yes: WNL Breast(s): Yes: Left, Mass Extremities: Yes: WNL Integumentary: Yes: WNL Labs: CBC, BMP 10/21/17 13:45 10/21/17 13:45 INR, PTT INR 1.41 (0.83-1.09) H 10/15/17 07:05 Problem List - Problems (1) Nicotine dependence Code(s): F17.200 - NICOTINE DEPENDENCE, UNSPECIFIED, UNCOMPLICATED Qualifiers: Nicotine product type: cigarettes Substance use status: uncomplicated Qualified Code(s): F17.210 - Nicotine dependence, cigarettes, uncomplicated (2) Opioid dependence with withdrawal Code(s): F11.23 - OPIOID DEPENDENCE WITH WITHDRAWAL (3) Pelvic organ prolapse quantification stage 4 cystocele Code(s): N81.10 - CYSTOCELE, UNSPECIFIED (4) Breast cancer Code(s): C50.919 - MALIGNANT NEOPLASM OF UNSP SITE OF UNSPECIFIED FEMALE BREAST Qualifiers: Breast location: lower inner quadrant of breast Estrogen receptor status: unspecified Patient sex: female Laterality: left Qualified Code(s): C50.312 - Malignant neoplasm of lower-inner quadrant of left female breast (5) Alcohol dependence with uncomplicated withdrawal Code(s): F10.230 - ALCOHOL DEPENDENCE WITH WITHDRAWAL, UNCOMPLICATED (6) HTN (hypertension) Code(s): I10 - ESSENTIAL (PRIMARY) HYPERTENSION Qualifiers: Hypertension type: essential hypertension Qualified Code(s): I10 - Essential (primary) hypertension (7) History of seizure Code(s): Z87.898 - PERSONAL HISTORY OF OTHER SPECIFIED CONDITIONS Assessment/Plan 56 y.o. female with PMH of Breast CA with metastasis to Brain and Bone never treated, heroin abuse on methadone, tobacco dependence, alcohol abuse, Bipolar disorder and uterine prolapse initially admitted from [facility] for fall and has had a prolonged hospitalization and noted to develop fever. Fever - resolved Leukocytosis Lt breast mass/Metastatic breast CA -- currently off antibiotics -- repeat cbc -- monitor vitals -- currently without obvious distress, afebrile
[2017-10-23] MEDS: POLYETHYLENE GLYCOL 3350 119 GM BTL PO SCH ×2 (17:43→23:13)
[2017-10-23] MEDS: SODIUM CHLORIDE 1,000 ML IV SCH (18:51)
[2017-10-23] MEDS: DOCUSATE SODIUM 100 MG CAPSULE (FP) PO SCH (23:13)
[2017-10-24] MEDS: oxyCODONE HCL 5 MG TABLET PO SCH ×4 (04:19→22:10)
[2017-10-24] MEDS: METHADONE HCL 40 MG DISPERSABLE TABLET PO SCH ×3 (05:39→18:31)
[2017-10-24 07:08] LABS: BASO % 0.1 % (0-2.0); HEMATOCRIT 30.2 % (32.4-45.2); MCH 29.8 pg (25.7-33.7); MEAN CELL VOLUME 90.3 fl (80-96); MEAN PLT VOLUME 7.4 fl (7.5-11.1); NEUT % 67.9 % (42.8-82.8); PLATELET COUNT 388 K/MM3 (134-434); RBC 3.34 M/mm3 (3.60-5.2); RDW 15.7 % (11.6-15.6); WHITE BLOOD COUNT 19.2 K/mm3 (4.0-10.0)
[2017-10-24 07:42] LABS: ANION GAP 11 MMOL/L (8-16); BLOOD UREA NITROGEN 13 mg/dL (7-18); CALCIUM 8.3 mg/dL (8.5-10.1); CHLORIDE 99 mmol/L (98-107); CO2 23 mmol/L (21-32); CREATININE 0.6 mg/dL (0.55-1.02); GLUCOSE,RANDOM 129 mg/dL (74-106); POTASSIUM 4.4 mmol/L (3.5-5.1); SGOT/AST 71 U/L (15-37); SGPT/ALT 26 U/L (12-78); SODIUM 133 mmol/L (136-145)
[2017-10-24 07:44] LABS: ALK PHOS 115 U/L (45-117); BILIRUBIN,TOTAL 0.5 mg/dL (0.2-1.0)
[2017-10-24] MEDS ORDERED: PT OWN MED DRAWER 7, Y5N ONE ×3 (12:43→18:20)
[2017-10-24] MEDS: DIVALPROEX NA *ER* EXTEND REL 500 MG TABLET.SA (FP) PO SCH ×2 (12:46→22:09)
[2017-10-24] MEDS: TOLNAFTATE 1% CREAM 15 GM TUBE TP SCH (12:47)
[2017-10-24] MEDS: OLANZapine 10 MG TABLET PO SCH ×2 (12:47→22:10)
[2017-10-24] MEDS: FOLIC ACID 1 MG TABLET (FP) PO SCH (12:50)
[2017-10-24] MEDS: POLYETHYLENE GLYCOL 3350 119 GM BTL PO SCH ×2 (12:50→22:09)
[2017-10-24] MEDS: BISACODYL 10 MG SUPP.RECT RC SCH (12:56)
--- NOTE | 2017-10-24 13:19 | PN ---
Physical Exam: SUBJECTIVE: Patient seen and examined at bedside. Sleeping but arousable. OBJECTIVE: Vital Signs Period Temp Pulse Resp BP Sys/Camacho Pulse Ox Last 24 Hr 97.5 F-98.1 F 109-136 14-20 105-153/64-90 96 Left eye: mild lid swelling, white pus lower lid and medial canthus, sclera clear GENERAL: Sleeping but arousable LUNGS: Breath sounds CTA; left breast tumor with erythema, not as pronounced as when last seen 8 days ago, not as tender HEART: Regular rate and rhythm, S1, S2 ABDOMEN: Soft, nontender, nondistended EXTREMITIES: 2+ pulses, warm, well-perfused, no edema; bilateral venous stasis changes Laboratory Results - last 24 hr 10/24/17 10/24/17 06:30 06:30 WBC 19.2 H RBC 3.34 L Hgb 10.0 L Hct 30.2 L MCV 90.3 MCH 29.8 MCHC 33.0 RDW 15.7 H Plt Count 388 MPV 7.4 L Absolute Neuts (auto) 13.0 H Total Counted 100 Neutrophils % 67.9 Neutrophils % (Manual) 71.0 Lymphocytes % 9.0 Lymphocytes % (Manual) 13.0 D Monocytes % 23.0 H Monocytes % (Manual) 16 H Eosinophils % 0.0 D Basophils % 0.1 Nucleated RBC % 0 Sodium 133 L Potassium 4.4 Chloride 99 Carbon Dioxide 23 Anion Gap 11 BUN 13 Creatinine 0.6 Creat Clearance w eGFR > 60 Random Glucose 129 H Calcium 8.3 L Total Bilirubin 0.5 AST 71 H ALT 26 Alkaline Phosphatase 115 D Total Protein 9.0 H Albumin 2.0 L Active Medications Generic Name Dose Route Start Last Admin Trade Name Freq PRN Reason Stop Dose Admin Acetaminophen 650 mg 08/21/17 06:52 10/22/17 09:55 Tylenol Oral Solution - PO 650 mg Q6H PRN Administration PAIN LEVEL 1-5 Bisacodyl 10 mg 09/27/17 11:15 10/24/17 12:56 Dulcolax Suppository - RC 10 mg Q24H REBECCA Administration Divalproex Sodium 1,000 mg 09/28/17 22:00 10/24/17 12:46 Depakote *Er* - PO 1,000 mg BID REBECCA Administration Docusate Sodium 300 mg 08/28/17 22:00 10/23/17 23:13 Colace - PO Not Given HS REBECCA Folic Acid 1 mg 08/21/17 10:00 10/24/17 12:50 Folic Acid - PO 1 mg DAILY REBECCA Administration Sodium Chloride 1,000 mls @ 75 mls/hr 10/22/17 07:15 10/23/17 18:51 Normal Saline - IV Not Given ASDIR REBECCA Methadone HCl 40 mg 10/07/17 12:00 10/24/17 12:46 Dolophine - PO 40 mg TID@0600,1200,1800 REBECCA Administration Olanzapine 20 mg 09/28/17 22:00 10/24/17 12:47 Zyprexa - PO 20 mg BID REBECCA Administration Ondansetron HCl 8 mg 10/21/17 11:39 10/22/17 09:47 Zofran Odt - SL 8 mg Q6H PRN Administration NAUSEA AND/OR VOMITING Ondansetron HCl 4 mg 10/21/17 12:49 Zofran Injection IVPUSH Q6H PRN NAUSEA AND/OR VOMITING Oxycodone HCl 10 mg 10/08/17 09:00 10/24/17 09:00 Roxicodone - PO Not Given Q6H REBECCA Polyethylene Glycol 17 gm 08/28/17 10:00 10/24/17 12:50 Miralax (For Daily Use) - PO Not Given BID REBECCA Senna 2 tab 09/13/17 22:00 10/18/17 21:00 Senna - PO 2 tab HS PRN Administration CONSTIPATION Tolnaftate 1 applic 09/20/17 10:00 10/24/17 12:47 Tinactin 1% Cream - TP 1 applic DAILY REBECCA Administration ASSESSMENT/PLAN 56 year old female with PMH left breast cancer with leptomeningeal disease, bipolar disorder, and heroin and alcohol abuse. HOD#65. Sepsis of uncertain etiology --infectious v. malignancy --recently completed course of antibiotics for left breast mastitis, vanc (10/14-->10/17), and clinda (10/17-->10/21) --spiked WBC today 19.2k, tachy to 129 --pena cultured --start vanc (day #1) and Zosyn (day #1) --ID following Metastatic breast cancer, --left breast and axillary lymph node masses/enlargement, metastatic disease to bone and brain --seen and evaluated by oncology, radiation oncology, neurology, and neurosurgery: not a candidate for further treatment --continue present pain management regimen Bipolar disorder Agitation, manic behavior --last seen and evaluated by psych on 10/08 --continue current psych meds: depakote, Zyprexa Heroin abuse Alcohol abuse -methadone, oxycodone Uterine prolapse --pessary was placed and patient pulled it out and threw it away --patient refused placement of another pessary by Dr. Monte Conjunctivitis, left eye --start cipro drops both eyes (day #1) FEN Fluids: PO intake adequate Electrolytes: replete as indicated Nutrition: regular diet DVT prophylaxis: oob, ambulation Dispo: awaiting hospice placement. DNR/DNI Visit type - Emergency Visit Emergency Visit: Yes ED Registration Date: 08/20/17 Care time: The patient presented to the Emergency Department on the above date and was hospitalized for further evaluation of their emergent condition. - New Patient This patient is new to me today: No - Critical Care Critical Care patient: No
[2017-10-24] MEDS ORDERED: BISACODYL 10 MG SUPP.RECT RC PRN (13:53)
[2017-10-24 14:13] LABS: URINE APPEARANCE CLEAR; URINE BILIRUBIN NEGATIVE (<2.0 mg/dL); URINE COLOR YELLOW; URINE GLUCOSE (UA) NEGATIVE (NEGATIVE); URINE KETONE TRACE (NEGATIVE); URINE LEUK ESTERASE TRACE (NEGATIVE); URINE NITRITE NEGATIVE (NEGATIVE); URINE UROBILINOGEN 4.0 E.U/dl mg/dL (0.2-1.0)
[2017-10-24 14:14] LABS: URINE PROTEIN 1+ (NEGATIVE)
[2017-10-24 14:18] LABS: EPI CELLS RARE /HPF (FEW); URINE MUCUS RARE
--- NOTE | 2017-10-24 15:24 | PN ---
Progress Note, Physician History of Present Illness: Events noted. Pt with wbc 19K today, tachycardic. Started on cipro gtt for mild Lt eyelid edema/purulent discharge. Pt currently somnolent but arousable. Recently received doses of methadone and oxycodone. No acute distress noted. - Current Medication List Current Medications: Active Medications Acetaminophen (Tylenol Oral Solution -) 650 mg PO Q6H PRN PRN Reason: PAIN LEVEL 1-5 Last Admin: 10/22/17 09:55 Dose: 650 mg Bisacodyl (Dulcolax Suppository -) 10 mg RC Q24H PRN PRN Reason: CONSTIPATION Ciprofloxacin (Ciloxan 0.3% [facility] Divalproex Sodium (Depakote *Er* -) 1,000 mg PO BID [facility] Last Admin: 10/24/17 12:46 Dose: 1,000 mg Docusate Sodium (Colace -) 300 mg PO [facility] Last Admin: 10/23/17 23:13 Dose: Not Given Folic Acid (Folic Acid -) 1 mg PO DAILY [facility] Last Admin: 10/24/17 12:50 Dose: 1 mg Sodium Chloride (Normal Saline -) 1,000 mls @ 75 mls/hr IV ASDIR [facility] Last Admin: 10/23/17 18:51 Dose: Not Given Methadone HCl (Dolophine -) 40 mg PO TID@0600,1200,1800 [facility] Last Admin: 10/24/17 12:46 Dose: 40 mg Olanzapine (Zyprexa -) 20 mg PO BID [facility] Last Admin: 10/24/17 12:47 Dose: 20 mg Ondansetron HCl (Zofran Odt -) 8 mg SL Q6H PRN PRN Reason: NAUSEA AND/OR VOMITING Last Admin: 10/22/17 09:47 Dose: 8 mg Ondansetron HCl (Zofran Injection) 4 mg IVPUSH Q6H PRN PRN Reason: NAUSEA AND/OR VOMITING Oxycodone HCl (Roxicodone -) 10 mg PO Q6H [facility] Last Admin: 10/24/17 15:01 Dose: 10 mg Polyethylene Glycol (Miralax (For Daily Use) -) 17 gm PO BID [facility] Last Admin: 10/24/17 12:50 Dose: Not Given Senna (Senna -) 2 tab PO HS PRN PRN Reason: CONSTIPATION Last Admin: 10/18/17 21:00 Dose: 2 tab Tolnaftate (Tinactin 1% Cream -) 1 applic TP DAILY REBECCA Last Admin: 10/24/17 12:47 Dose: 1 applic - Objective Vital Signs: Vital Signs Temperature 98.1 F 10/24/17 08:15 Pulse Rate 109 H 10/24/17 08:15 Respiratory Rate 20 10/24/17 08:15 Blood Pressure 105/64 10/24/17 08:15 O2 Sat by Pulse Oximetry (%) 96 10/23/17 21:00 Constitutional: Yes: No Distress Eyes: Yes: Other (Lt eyelid mild edema/erythema, mild d/c Lt eye) HENT: Yes: Atraumatic Cardiovascular: Yes: Tachycardia Respiratory: Yes: Regular, Other (poor inspiratory effort) Gastrointestinal: Yes: Normal Bowel Sounds, Soft Genitourinary: Yes: WNL Breast(s): Yes: Left (mass), Mass Extremities: Yes: WNL Neurological: Yes: Other (somnolent post pain medication) Labs: CBC, BMP 10/24/17 06:30 10/24/17 06:30 INR, PTT INR 1.41 (0.83-1.09) H 10/15/17 07:05 Urinary Ag for strep/legionella negative Blood/Urine cultures ordered - ....Imaging X-ray: Report Reviewed (Rt retrocardiac infiltrate vs atelectasis) Problem List - Problems (1) Nicotine dependence Code(s): F17.200 - NICOTINE DEPENDENCE, UNSPECIFIED, UNCOMPLICATED Qualifiers: Nicotine product type: cigarettes Substance use status: uncomplicated Qualified Code(s): F17.210 - Nicotine dependence, cigarettes, uncomplicated (2) Opioid dependence with withdrawal Code(s): F11.23 - OPIOID DEPENDENCE WITH WITHDRAWAL (3) Pelvic organ prolapse quantification stage 4 cystocele Code(s): N81.10 - CYSTOCELE, UNSPECIFIED (4) Breast cancer Code(s): C50.919 - MALIGNANT NEOPLASM OF UNSP SITE OF UNSPECIFIED FEMALE BREAST Qualifiers: Breast location: lower inner quadrant of breast Estrogen receptor status: unspecified Patient sex: female Laterality: left Qualified Code(s): C50.312 - Malignant neoplasm of lower-inner quadrant of left female breast (5) Alcohol dependence with uncomplicated withdrawal Code(s): F10.230 - ALCOHOL DEPENDENCE WITH WITHDRAWAL, UNCOMPLICATED (6) HTN (hypertension) Code(s): I10 - ESSENTIAL (PRIMARY) HYPERTENSION Qualifiers: Hypertension type: essential hypertension Qualified Code(s): I10 - Essential (primary) hypertension (7) History of seizure Code(s): Z87.898 - PERSONAL HISTORY OF OTHER SPECIFIED CONDITIONS Assessment/Plan 56 y.o. female with PMH of Breast CA with metastasis to Brain and Bone never treated, heroin abuse on methadone, tobacco dependence, alcohol abuse, Bipolar disorder and uterine prolapse initially admitted from [facility] for fall and has had a prolonged hospitalization and noted to develop fever. s/p Fever - completed course of antibiotics for possible Lt mastitis Leukocytosis -- wbc increasing trend, tachycardic Lt blepharoconjunctivitis Lt breast mass/Metastatic breast CA -- CXR with questionable infiltrate, pt without respiratory distress -- no diarrhea reported, if noted please send stool for CDT -- f/u blood/urine cultures, order lactic acid level -- start Zosyn/Vancomycin IV empirically -- Cipro gtt ordered -- repeat cbc/bmp in a.m. monitor vitals closely
[2017-10-24] MEDS: CIPROFLOXACIN HCL 0.3% OPHTH 2.5ML BOTTLE OU SCH ×3 (16:49→22:11)
[2017-10-24] MEDS: SODIUM CHLORIDE 1,000 ML IV SCH (16:50)
--- NOTE | 2017-10-24 17:12 | EKG ---
Test Reason : Blood Pressure : / mmHG Vent. Rate : 103 BPM Atrial Rate : 103 BPM P-R Int : 140 ms QRS Dur : 074 ms QT Int : 322 ms P-R-T Axes : 042 003 068 degrees QTc Int : 421 ms SINUS TACHYCARDIA MINIMAL VOLTAGE CRITERIA FOR LVH, MAY BE NORMAL VARIANT SEPTAL INFARCT (CITED ON OR BEFORE 19-AUG-2017) CANNOT RULE OUT INFERIOR INFARCT , AGE UNDETERMINED ABNORMAL ECG Confirmed by MD CODY, WILFRED ([id number]) on 10/24/2017 5:12:35 PM Referred By: KALIA RODRIGUEZ DR Confirmed By:WILFRED ROSS MD
[2017-10-24] MEDS: VANCOMYCIN 1,000 MG in DEXTROSE 5%-WATER - 250 ML IVPB SCH (17:37)
[2017-10-24] MEDS ORDERED: DEXTROSE 5%-WATER - 50 ML IVPB ONE ×2 (19:41→22:55)
[2017-10-24] MEDS ORDERED: PIPERACILLIN/TAZOBACTAM 3.375 GM VIAL IVPB ONE ×2 (19:41→22:55)
[2017-10-24] MEDS: PIPERACILLIN/TAZOB 3.375 GM 3.375 GM in DEXTROSE 5%-WATER - 50 ML IVPB SCH (19:52)
[2017-10-24] MEDS ORDERED: ACETAMINOPHEN 1000 MG/100 ML VIAL (NON FORMULARY) IVPB ONE (20:00)
[2017-10-24] MEDS: SENNOSIDES 8.6MG TABLET (FP) PO SCH (22:09)
[2017-10-24] MEDS: DOCUSATE SODIUM 100 MG CAPSULE (FP) PO SCH (22:09)
[2017-10-25] MEDS: PIPERACILLIN/TAZOB 3.375 GM 3.375 GM in DEXTROSE 5%-WATER - 50 ML IVPB SCH ×3 (02:34→17:33)
[2017-10-25] MEDS: oxyCODONE HCL 5 MG TABLET PO SCH ×4 (02:37→21:00)
[2017-10-25] MEDS: VANCOMYCIN 1,000 MG in DEXTROSE 5%-WATER - 250 ML IVPB SCH ×2 (03:41→15:07)
[2017-10-25] MEDS ORDERED: PT OWN MED DRAWER 7, Y5N ONE ×3 (05:40→17:38)
[2017-10-25] MEDS: METHADONE HCL 40 MG DISPERSABLE TABLET PO SCH ×4 (05:42→17:33)
[2017-10-25] MEDS: CIPROFLOXACIN HCL 0.3% OPHTH 2.5ML BOTTLE OU SCH ×5 (05:42→22:02)
[2017-10-25 09:07] LABS: BASO % 0.3 % (0-2.0); EOS % 0.2 % (0-4.5); HEMATOCRIT 26.4 % (32.4-45.2); HEMOGLOBIN 8.7 GM/dL (10.7-15.3); LYMPH % 9.3 % (8-40); MEAN PLT VOLUME 7.5 fl (7.5-11.1); MONO % 22.5 % (3.8-10.2); NEUT % 67.7 % (42.8-82.8); PLATELET COUNT 323 K/MM3 (134-434); RDW 15.6 % (11.6-15.6); WHITE BLOOD COUNT 17.7 K/mm3 (4.0-10.0)
[2017-10-25] MEDS ORDERED: PIPERACILLIN/TAZOBACTAM 3.375 GM VIAL IVPB ONE ×2 (09:24→17:30)
[2017-10-25] MEDS ORDERED: DEXTROSE 5%-WATER - 50 ML IVPB ONE ×2 (09:24→17:31)
[2017-10-25] MEDS: DIVALPROEX NA *ER* EXTEND REL 500 MG TABLET.SA (FP) PO SCH ×2 (09:30→22:02)
[2017-10-25] MEDS: OLANZapine 10 MG TABLET PO SCH ×2 (09:31→22:03)
[2017-10-25] MEDS: POLYETHYLENE GLYCOL 3350 119 GM BTL PO SCH ×2 (09:35→22:02)
[2017-10-25 09:37] LABS: ALBUMIN 1.8 g/dl (3.4-5.0); ALK PHOS 95 U/L (45-117); ANION GAP 7 MMOL/L (8-16); BILIRUBIN,TOTAL 0.5 mg/dL (0.2-1.0); BLOOD UREA NITROGEN 26 mg/dL (7-18); CALCIUM 7.8 mg/dL (8.5-10.1); CHLORIDE 100 mmol/L (98-107); CO2 28 mmol/L (21-32); CREATININE 0.8 mg/dL (0.55-1.02); GLUCOSE,RANDOM 73 mg/dL (74-106); MAGNESIUM 2.3 mg/dL (1.8-2.4); POTASSIUM 4.6 mmol/L (3.5-5.1); SGOT/AST 47 U/L (15-37); SGPT/ALT 19 U/L (12-78); SODIUM 135 mmol/L (136-145); TOT PROT 8.3 g/dl (6.4-8.2)
[2017-10-25 10:32] LABS: ACANTHOCYTES 0; ANISOCYTOSIS 0; HELMET CELLS 0; HOWELL-JOLLY BODIES 0; MACROCYTOSIS 0; OVALOCYTE 0; PLATELET ESTIMATE NORMAL; ROULEAU 0; SICKELED CELLS 0; TARGET CELLS 0; TEAR DROP CELLS 0; TOXIC GRANULATION 0
--- NOTE | 2017-10-25 10:43 | PN ---
Physical Exam: SUBJECTIVE: Patient seen and examined. OBJECTIVE: Vital Signs Period Temp Pulse Resp BP Sys/Camacho Pulse Ox Last 24 Hr 98.3 F-102.2 F 93-113 20-20 97-129/68-72 96 GENERAL: The patient is sleeping, not arousable. Left eye: mild lid swelling, white pus lower lid and medial canthus, sclera clear LUNGS: Breath sounds CTA; left breast tumor with erythema HEART: Regular rate and rhythm, S1, S2 ABDOMEN: Soft, nontender, nondistended EXTREMITIES: 2+ pulses, warm, well-perfused, no edema; bilateral venous stasis changes Laboratory Results - last 24 hr 10/24/17 10/24/17 10/24/17 06:30 13:30 16:25 WBC RBC Hgb Hct MCV MCH MCHC RDW Plt Count MPV Absolute Neuts (auto) Total Counted 100 Neutrophils % Neutrophils % (Manual) 71.0 Lymphocytes % Lymphocytes % (Manual) 13.0 D Monocytes % Monocytes % (Manual) 16 H Eosinophils % Basophils % Nucleated RBC % Sodium Potassium Chloride Carbon Dioxide Anion Gap BUN Creatinine Creat Clearance w eGFR Random Glucose Lactic Acid 1.6 Calcium Magnesium Total Bilirubin AST ALT Alkaline Phosphatase Total Protein Albumin Urine Color Yellow Urine Appearance Clear Urine pH 7.0 Ur Specific [place] 1.018 Urine Protein 1+ H Urine Glucose (UA) Negative Urine Ketones Trace H Urine Blood Negative Urine Nitrite Negative Urine Bilirubin Negative Urine Urobilinogen 4.0 e.u/dl H Ur Leukocyte Esterase Trace Urine WBC (Auto) <1 Urine RBC (Auto) <1 Ur Epithelial Cells Rare Urine Mucus Rare 10/25/17 10/25/17 08:45 08:45 WBC 17.7 H RBC 2.90 L Hgb 8.7 L Hct 26.4 L MCV 91.0 MCH 30.0 MCHC 33.0 RDW 15.6 Plt Count 323 MPV 7.5 Absolute Neuts (auto) 12.0 H Total Counted Neutrophils % 67.7 Neutrophils % (Manual) Lymphocytes % 9.3 Lymphocytes % (Manual) Monocytes % 22.5 H Monocytes % (Manual) Eosinophils % 0.2 D Basophils % 0.3 Nucleated RBC % 0 Sodium 135 L Potassium 4.6 Chloride 100 Carbon Dioxide 28 Anion Gap 7 L BUN 26 H Creatinine 0.8 Creat Clearance w eGFR > 60 Random Glucose 73 L Lactic Acid Calcium 7.8 L Magnesium 2.3 Total Bilirubin 0.5 AST 47 H ALT 19 Alkaline Phosphatase 95 D Total Protein 8.3 H Albumin 1.8 L Urine Color Urine Appearance Urine pH Ur Specific [place] Urine Protein Urine Glucose (UA) Urine Ketones Urine Blood Urine Nitrite Urine Bilirubin Urine Urobilinogen Ur Leukocyte Esterase Urine WBC (Auto) Urine RBC (Auto) Ur Epithelial Cells Urine Mucus Active Medications Generic Name Dose Route Start Last Admin Trade Name Freq PRN Reason Stop Dose Admin Acetaminophen 650 mg 08/21/17 06:52 10/22/17 09:55 Tylenol Oral Solution - PO 650 mg Q6H PRN Administration PAIN LEVEL 1-5 Bisacodyl 10 mg 10/24/17 13:53 Dulcolax Suppository - RC Q24H PRN CONSTIPATION Ciprofloxacin 2 drop 10/24/17 14:00 10/25/17 09:35 Ciloxan 0.3% Eye Drops - OU 2 drop Q4HWA REBECCA Administration Divalproex Sodium 1,000 mg 09/28/17 22:00 10/25/17 09:30 Depakote *Er* - PO 1,000 mg BID REBECCA Administration Docusate Sodium 300 mg 08/28/17 22:00 10/24/17 22:09 Colace - PO Not Given HS REBECCA Sodium Chloride 1,000 mls @ 75 mls/hr 10/22/17 07:15 10/24/17 16:50 Normal Saline - IV 75 mls/hr ASDIR REBE[facility] Administration Piperacillin Sod/Tazobactam 50 mls @ 100 mls/hr 10/24/17 18:00 10/25/17 09:33 Sod 3.375 gm/ Dextrose IVPB 100 mls/hr Q8H-IV REBECCA Administration Protocol Vancomycin HCl 1,000 mg/ 250 mls @ 166.667 mls/hr 10/24/17 15:30 10/25/17 03: 41 Dextrose IVPB 166.667 mls/hr Q12H REBECCA Administration Protocol Methadone HCl 40 mg 10/07/17 12:00 10/25/17 05:42 Dolophine - PO 40 mg TID@0600,1200,1800 RE[facility] Administration Olanzapine 20 mg 09/28/17 22:00 10/25/17 09:31 Zyprexa - PO 20 mg BID REBECCA Administration Ondansetron HCl 4 mg 10/21/17 12:49 Zofran Injection IVPUSH Q6H PRN NAUSEA AND/OR VOMITING Oxycodone HCl 10 mg 10/08/17 09:00 10/25/17 09:27 Roxicodone - PO 10 mg Q6H [facility] Administration Polyethylene Glycol 17 gm 08/28/17 10:00 10/25/17 09:35 Miralax (For Daily Use) - PO 17 gm BID REBECCA Administration Senna 2 tab 10/24/17 22:00 10/24/17 22:09 Senna - PO Not Given HS [facility] ASSESSMENT/PLAN 56 year old female with PMH left breast cancer with leptomeningeal disease, bipolar disorder, and heroin and alcohol abuse. HOD#66. Sepsis of uncertain etiology --recently completed course of antibiotics for left breast mastitis, vanc (10/14-->10/17), and clinda (10/17-->10/21) --spiked fever overnight Tm 102.2, WBC 17.7k tachy to 113 --pena cultured 10/24, Urine pneumonia antigens negative, urine culture negative, blood cultures pending --CT brain, sinuses, chest, abdomen and pelvis ordered --continue vanc (day #2) and Zosyn (day #2) --ID following Metastatic breast cancer, --left breast and axillary lymph node masses/enlargement, metastatic disease to bone and brain --seen and evaluated by oncology, radiation oncology, neurology, and neurosurgery: not a candidate for further treatment --continue present pain management regimen Bipolar disorder Agitation, manic behavior --last seen and evaluated by psych on 10/08 --continue current psych meds: depakote, Zyprexa Heroin abuse Alcohol abuse -methadone, oxycodone Uterine prolapse --pessary was placed and patient pulled it out and threw it away --patient refused placement of another pessary by Dr. Monte Conjunctivitis, left eye --continue cipro both eyes (day #2) FEN Fluids: PO intake adequate Electrolytes: replete as indicated Nutrition: regular diet DVT prophylaxis: oob, ambulation Dispo: awaiting hospice placement. DNR/DNI Visit type - Emergency Visit Emergency Visit: Yes ED Registration Date: 08/20/17 Care time: The patient presented to the Emergency Department on the above date and was hospitalized for further evaluation of their emergent condition. - New Patient This patient is new to me today: No - Critical Care Critical Care patient: No
--- NOTE | 2017-10-25 13:47 | PN ---
Progress Note, Physician History of Present Illness: Pt is somnolent. Had fever 102F last night but afebrile today with slight improvement in wbc. BP remains stable, no obvious distress noted. Culture results note. - Current Medication List Current Medications: Active Medications Acetaminophen (Tylenol Oral Solution -) 650 mg PO Q6H PRN PRN Reason: PAIN LEVEL 1-5 Last Admin: 10/22/17 09:55 Dose: 650 mg Bisacodyl (Dulcolax Suppository -) 10 mg RC Q24H PRN PRN Reason: CONSTIPATION Ciprofloxacin (Ciloxan 0.3% Eye Drops -) 2 drop OU Q4HWA [facility] Last Admin: 10/25/17 09:35 Dose: 2 drop Divalproex Sodium (Depakote *Er* -) 1,000 mg PO BID [facility] Last Admin: 10/25/17 09:30 Dose: 1,000 mg Docusate Sodium (Colace -) 300 mg PO HS [facility] Last Admin: 10/24/17 22:09 Dose: Not Given Sodium Chloride (Normal Saline -) 1,000 mls @ 75 mls/hr IV ASDIR [facility] Last Admin: 10/24/17 16:50 Dose: 75 mls/hr Piperacillin Sod/Tazobactam (Sod 3.375 gm/ Dextrose) 50 mls @ 100 mls/hr IVPB Q8H-IV REBECCA; Protocol Last Admin: 10/25/17 09:33 Dose: 100 mls/hr Vancomycin HCl 1,000 mg/ (Dextrose) 250 mls @ 166.667 mls/hr IVPB Q12H [facility]; Protocol Last Admin: 10/25/17 03:41 Dose: 166.667 mls/hr Methadone HCl (Dolophine -) 40 mg PO TID@0600,1200,1800 [facility] Last Admin: 10/25/17 12:23 Dose: Not Given Olanzapine (Zyprexa -) 20 mg PO BID [facility] Last Admin: 10/25/17 09:31 Dose: 20 mg Ondansetron HCl (Zofran Injection) 4 mg IVPUSH Q6H PRN PRN Reason: NAUSEA AND/OR VOMITING Oxycodone HCl (Roxicodone -) 10 mg PO Q6H [facility] Last Admin: 10/25/17 09:27 Dose: 10 mg Polyethylene Glycol (Miralax (For Daily Use) -) 17 gm PO BID [facility] Last Admin: 10/25/17 09:35 Dose: 17 gm Senna (Senna -) 2 tab PO HS [facility] Last Admin: 10/24/17 22:09 Dose: Not Given - Objective Vital Signs: Vital Signs Temperature 98.1 F 10/25/17 08:35 Pulse Rate 103 H 10/25/17 08:35 Respiratory Rate 20 10/25/17 08:35 Blood Pressure 105/66 10/25/17 08:35 O2 Sat by Pulse Oximetry (%) 96 10/24/17 21:00 Constitutional: Yes: No Distress, Other (sleepy) Eyes: Yes: Other (Lt eyelid mild edema/crusting) Cardiovascular: Yes: Regular Rate and Rhythm Respiratory: Yes: Other (poor inspiratory effort) Gastrointestinal: Yes: Normal Bowel Sounds, Soft Breast(s): Yes: Left, Mass Extremities: Yes: WNL Integumentary: Yes: WNL Neurological: Yes: Other (somnolent) Labs: CBC, BMP 10/25/17 08:45 10/25/17 08:45 INR, PTT INR 1.41 (0.83-1.09) H 10/15/17 07:05 Problem List - Problems (1) Nicotine dependence Code(s): F17.200 - NICOTINE DEPENDENCE, UNSPECIFIED, UNCOMPLICATED Qualifiers: Nicotine product type: cigarettes Substance use status: uncomplicated Qualified Code(s): F17.210 - Nicotine dependence, cigarettes, uncomplicated (2) Opioid dependence with withdrawal Code(s): F11.23 - OPIOID DEPENDENCE WITH WITHDRAWAL (3) Pelvic organ prolapse quantification stage 4 cystocele Code(s): N81.10 - CYSTOCELE, UNSPECIFIED (4) Breast cancer Code(s): C50.919 - MALIGNANT NEOPLASM OF UNSP SITE OF UNSPECIFIED FEMALE BREAST Qualifiers: Breast location: lower inner quadrant of breast Estrogen receptor status: unspecified Patient sex: female Laterality: left Qualified Code(s): C50.312 - Malignant neoplasm of lower-inner quadrant of left female breast (5) Alcohol dependence with uncomplicated withdrawal Code(s): F10.230 - ALCOHOL DEPENDENCE WITH WITHDRAWAL, UNCOMPLICATED (6) HTN (hypertension) Code(s): I10 - ESSENTIAL (PRIMARY) HYPERTENSION Qualifiers: Hypertension type: essential hypertension Qualified Code(s): I10 - Essential (primary) hypertension (7) History of seizure Code(s): Z87.898 - PERSONAL HISTORY OF OTHER SPECIFIED CONDITIONS Assessment/Plan 56 y.o. female with PMH of Breast CA with metastasis to Brain and Bone never treated, heroin abuse on methadone, tobacco dependence, alcohol abuse, Bipolar disorder and uterine prolapse initially admitted from [facility] for fall and has had a prolonged hospitalization and noted to develop fever. Fever - unclear etiology, suspect sepsis, pt afebrile today Leukocytosis -- mildly improved since yesterday Lt blepharoconjunctivitis Lt breast mass/Metastatic breast CA -- Blood culture neg. 24 hrs, and Urine culture negative, lactic acid 1.6 yesterday -- new retrocardiac infiltrate on yesterday, possible PNA --continue Zosyn/Vancomycin IV empirically, cipro gtt -- CT scan Chest/abd/pelvis/sinuses requested -- repeat cbc/bmp in a.m. monitor vitals closely
[2017-10-25] MEDS: SODIUM CHLORIDE 1,000 ML IV SCH (13:53)
[2017-10-25] MEDS ORDERED: ACETAMINOPHEN 650 MG SUPP.RECT PR ONE (19:25)
[2017-10-25] MEDS: DOCUSATE SODIUM 100 MG CAPSULE (FP) PO SCH (22:01)
[2017-10-25] MEDS: SENNOSIDES 8.6MG TABLET (FP) PO SCH (22:02)
[2017-10-26] MEDS ORDERED: PIPERACILLIN/TAZOBACTAM 3.375 GM VIAL IVPB ONE ×3 (00:18→18:21)
[2017-10-26] MEDS ORDERED: DEXTROSE 5%-WATER - 50 ML IVPB ONE ×3 (00:18→18:22)
[2017-10-26] MEDS: PIPERACILLIN/TAZOB 3.375 GM 3.375 GM in DEXTROSE 5%-WATER - 50 ML IVPB SCH ×3 (01:38→18:33)
[2017-10-26] MEDS: oxyCODONE HCL 5 MG TABLET PO SCH ×2 (02:46→09:18)
[2017-10-26] MEDS: VANCOMYCIN 1,000 MG in DEXTROSE 5%-WATER - 250 ML IVPB SCH ×2 (03:00→16:42)
[2017-10-26] MEDS: METHADONE HCL 40 MG DISPERSABLE TABLET PO SCH (05:21)
[2017-10-26] MEDS: CIPROFLOXACIN HCL 0.3% OPHTH 2.5ML BOTTLE OU SCH ×5 (05:21→22:37)
[2017-10-26] MEDS ORDERED: PT OWN MED DRAWER 7, Y5N ONE ×5 (09:10→20:24)
[2017-10-26] MEDS: OLANZapine 10 MG TABLET PO SCH ×2 (09:17→22:38)
[2017-10-26] MEDS: SODIUM CHLORIDE 1,000 ML IV SCH (09:22)
[2017-10-26] MEDS: POLYETHYLENE GLYCOL 3350 119 GM BTL PO SCH ×2 (09:25→22:37)
[2017-10-26] MEDS: VALPROATE SODIUM 500 MG/5 ML VIAL IVPB SCH ×3 (10:06→20:33)
[2017-10-26] MEDS ORDERED: MORPHINE 100 MG in SODIUM CHLORIDE 98 ML IVPB SCH (11:45)
--- NOTE | 2017-10-26 12:50 | PN ---
Physical Exam: SUBJECTIVE: Patient seen and examined at bedside. OBJECTIVE: Vital Signs Period Temp Pulse Resp BP Sys/Camacho Pulse Ox Last 24 Hr 98.1 F-100.9 F 86-109 18-20 97-122/54-68 96 GENERAL: The patient is sleeping but arousable. HEAD: Normal with no signs of trauma. EYES: PERRL, extraocular movements intact, sclera anicteric, conjunctiva clear. No ptosis. ENT: Ears normal, nares patent, oropharynx clear without exudates, moist mucous membranes. NECK: Trachea midline, full range of motion, supple. LUNGS: Breath sounds equal, clear to auscultation bilaterally, no wheezes, no crackles, no accessory muscle use. HEART: Regular rate and rhythm, S1, S2 without murmur, rub or gallop. ABDOMEN: Soft, nontender, nondistended, normoactive bowel sounds, no guarding, no rebound, no hepatosplenomegaly, no masses. EXTREMITIES: 2+ pulses, warm, well-perfused, no edema. NEUROLOGICAL: Cranial nerves II through XII grossly intact. Normal speech, gait not observed. PSYCH: Normal mood, normal affect. SKIN: Warm, dry, normal turgor, no rashes or lesions noted Active Medications Generic Name Dose Route Start Last Admin Trade Name Freq PRN Reason Stop Dose Admin Acetaminophen 650 mg 08/21/17 06:52 10/22/17 09:55 Tylenol Oral Solution - PO 650 mg Q6H PRN Administration PAIN LEVEL 1-5 Acetaminophen 650 mg 10/26/17 08:03 Tylenol Suppository - OK Q6H PRN FEVER Bisacodyl 10 mg 10/24/17 13:53 Dulcolax Suppository - RC Q24H PRN CONSTIPATION Ciprofloxacin 2 drop 10/24/17 14:00 10/26/17 09:18 Ciloxan 0.3% Eye Drops - OU 2 drop Q4HWA REBECCA Administration Sodium Chloride 1,000 mls @ 75 mls/hr 10/22/17 07:15 10/26/17 09:22 Normal Saline - IV 75 mls/hr ASDIR REBECCA Administration Piperacillin Sod/Tazobactam 50 mls @ 100 mls/hr 10/24/17 18:00 10/26/17 09:22 Sod 3.375 gm/ Dextrose IVPB 100 mls/hr Q8H-IV REBECCA Administration Protocol Vancomycin HCl 1,000 mg/ 250 mls @ 166.667 mls/hr 10/24/17 15:30 10/26/17 03: 00 Dextrose IVPB 166.667 mls/hr Q12H REBECCA Administration Protocol Morphine Sulfate 100 mg/ 100 mls @ 4 mls/hr 10/26/17 11:45 Sodium Chloride IVPB TITR REBECCA Protocol 4 MG/HR Olanzapine 20 mg 09/28/17 22:00 10/26/17 09:17 Zyprexa - PO 20 mg BID REBECCA Administration Ondansetron HCl 4 mg 10/21/17 12:49 Zofran Injection IVPUSH Q6H PRN NAUSEA AND/OR VOMITING Polyethylene Glycol 17 gm 08/28/17 10:00 10/26/17 09:25 Miralax (For Daily Use) - PO 17 gm BID REBECCA Administration Senna 2 tab 10/24/17 22:00 10/25/17 22:02 Senna - PO Not Given HS REBECCA Valproate Sodium 500 mg 10/26/17 09:00 10/26/17 10:06 Depacon Injection - IVPB 500 mg Q6H-IV REBECCA Administration ASSESSMENT/PLAN: 56 year old female with PMH left breast cancer with leptomeningeal disease, bipolar disorder, and heroin and alcohol abuse. HOD#67. Sepsis of uncertain etiology --recently completed course of antibiotics for left breast mastitis, vanc (10/14-->10/17), and clinda (10/17-->10/21) --Tm100.9, WBC 17.7k --pena cultured 10/24, Urine pneumonia antigens negative, urine culture negative, blood cultures NGTD --10/25 CT chest, abdomen, pelvis unrevealing for possible source of infection --10/25 CT sinus: partial sinus opacification --continue vanc (day #3) and Zosyn (day #3) --ID following Metastatic breast cancer Intracranial hemorrhage --left breast and axillary lymph node masses/enlargement, metastatic disease to bone and brain --10/25 CT head: interval hemorrhage within previously described mass lesion right middle cranial fossa anteriorly; significant surrounding vasogenic edema; bone metastases --seen and evaluated by oncology, radiation oncology, neurology, and neurosurgery: not a candidate for further treatment Pain management --have observed patient somnolent and unarousable; during these times nurses are unable to give patient PO meds; then misses regular dosing of pain meds and has periods of extreme agitation --discussed with Dr. Green and with Dr. Kumari --we will transition patient from methadone and oxycodone to equipotent dosing of IV morphine drip; calculated dose is 8mg/hr; we will start at 50% of that dose, 4mg/hr Bipolar disorder Agitation, manic behavior --last seen and evaluated by psych on 10/08 --continue current psych meds: depakote, Zyprexa Heroin abuse Alcohol abuse Uterine prolapse --pessary was placed and patient pulled it out and threw it away --patient has refused replacement Conjunctivitis, left eye --continue cipro both eyes (day #3) FEN Fluids: PO intake adequate Electrolytes: replete as indicated Nutrition: regular diet DVT prophylaxis: oob, ambulation Dispo: awaiting hospice placement. DNR/DNI Visit type - Emergency Visit Emergency Visit: Yes ED Registration Date: 08/20/17 Care time: The patient presented to the Emergency Department on the above date and was hospitalized for further evaluation of their emergent condition. - New Patient This patient is new to me today: No - Critical Care Critical Care patient: No
--- NOTE | 2017-10-26 15:36 | PN ---
Progress Note, Physician History of Present Illness: Pt was seen and examined. Remains lethargic but arousable. No obvious distress. - Current Medication List Current Medications: Active Medications Acetaminophen (Tylenol Oral Solution -) 650 mg PO Q6H PRN PRN Reason: PAIN LEVEL 1-5 Last Admin: 10/22/17 09:55 Dose: 650 mg Acetaminophen (Tylenol Suppository -) 650 mg DC Q6H PRN PRN Reason: FEVER Bisacodyl (Dulcolax Suppository -) 10 mg RC Q24H PRN PRN Reason: CONSTIPATION Ciprofloxacin (Ciloxan 0.3% Eye Drops -) 2 drop OU Q4HWA [facility] Last Admin: 10/26/17 15:03 Dose: 2 drop Sodium Chloride (Normal Saline -) 1,000 mls @ 75 mls/hr IV ASDIR [facility] Last Admin: 10/26/17 09:22 Dose: 75 mls/hr Piperacillin Sod/Tazobactam (Sod 3.375 gm/ Dextrose) 50 mls @ 100 mls/hr IVPB Q8H-IV [facility]BECCA; Protocol Last Admin: 10/26/17 09:22 Dose: 100 mls/hr Vancomycin HCl 1,000 mg/ (Dextrose) 250 mls @ 166.667 mls/hr IVPB Q12H [facility]CCA; Protocol Last Admin: 10/26/17 03:00 Dose: 166.667 mls/hr Morphine Sulfate 100 mg/ (Sodium Chloride) 100 mls @ 4 mls/hr IVPB TITR [facility]BECCA; Protocol Last Admin: 10/26/17 12:49 Dose: 4 mg/hr, 4 mls/hr Olanzapine (Zyprexa -) 20 mg PO BID [facility] Last Admin: 10/26/17 09:17 Dose: 20 mg Ondansetron HCl (Zofran Injection) 4 mg IVPUSH Q6H PRN PRN Reason: NAUSEA AND/OR VOMITING Polyethylene Glycol (Miralax (For Daily Use) -) 17 gm PO BID [facility] Last Admin: 10/26/17 09:25 Dose: 17 gm Senna (Senna -) 2 tab PO HS [facility] Last Admin: 10/25/17 22:02 Dose: Not Given Valproate Sodium (Depacon Injection -) 500 mg IVPB Q6H-IV [facility]CCA Last Admin: 10/26/17 15:03 Dose: 500 mg - Objective Vital Signs: Vital Signs Temperature 98.1 F 10/26/17 09:16 Pulse Rate 96 H 10/26/17 09:16 Respiratory Rate 18 10/26/17 09:16 Blood Pressure 122/67 10/26/17 09:16 O2 Sat by Pulse Oximetry (%) 98 10/26/17 09:00 Constitutional: Yes: No Distress Cardiovascular: Yes: Tachycardia Respiratory: Yes: Regular Gastrointestinal: Yes: Normal Bowel Sounds, Soft Labs: CBC, BMP 10/25/17 08:45 10/25/17 08:45 INR, PTT INR 1.41 (0.83-1.09) H 10/15/17 07:05 Problem List - Problems (1) Nicotine dependence Code(s): F17.200 - NICOTINE DEPENDENCE, UNSPECIFIED, UNCOMPLICATED Qualifiers: Nicotine product type: cigarettes Substance use status: uncomplicated Qualified Code(s): F17.210 - Nicotine dependence, cigarettes, uncomplicated (2) Opioid dependence with withdrawal Code(s): F11.23 - OPIOID DEPENDENCE WITH WITHDRAWAL (3) Pelvic organ prolapse quantification stage 4 cystocele Code(s): N81.10 - CYSTOCELE, UNSPECIFIED (4) Breast cancer Code(s): C50.919 - MALIGNANT NEOPLASM OF UNSP SITE OF UNSPECIFIED FEMALE BREAST Qualifiers: Breast location: lower inner quadrant of breast Estrogen receptor status: unspecified Patient sex: female Laterality: left Qualified Code(s): C50.312 - Malignant neoplasm of lower-inner quadrant of left female breast (5) Alcohol dependence with uncomplicated withdrawal Code(s): F10.230 - ALCOHOL DEPENDENCE WITH WITHDRAWAL, UNCOMPLICATED (6) HTN (hypertension) Code(s): I10 - ESSENTIAL (PRIMARY) HYPERTENSION Qualifiers: Hypertension type: essential hypertension Qualified Code(s): I10 - Essential (primary) hypertension (7) History of seizure Code(s): Z87.898 - PERSONAL HISTORY OF OTHER SPECIFIED CONDITIONS Assessment/Plan 56 y.o. female with PMH of Breast CA with metastasis to Brain and Bone never treated, heroin abuse on methadone, tobacco dependence, alcohol abuse, Bipolar disorder and uterine prolapse initially admitted from [facility] for fall and has had a prolonged hospitalization and noted to develop fever. Fever - unclear etiology, suspect sepsis, pt afebrile today Leukocytosis -- mildly improved since yesterday Lt blepharoconjunctivitis Lt breast mass/Metastatic breast CA -- cultures negative so far -- with retrocardiac opacity, possible PNA --continue Zosyn/Vancomycin IV empirically, cipro gtt -- f/u CT scan Chest/abd/pelvis/sinuses -- repeat cbc/bmp in a.m. monitor vitals closely
--- NOTE | 2017-10-26 16:11 | CONSULT ---
Consult Detox [facility] Reason for Current Admission/Consult: reconsult re pain meds/methadone - History History of Present Illness: Pt was admitted over 2 months ago with metastatic disease including brain mass and h/o polysubstance use requiring large doses of methadone and oxycodone for pain control. Recently pt noted to increasingly lethargic-with a head CT showing hemorrhage. Pt is currently on a morphine IV for pain control as she has not been able to take po meds. Pt is sleepy and is able to awaken to name. - Alcohol/Substance Use Hx Alcohol Use: Yes (1/2 - 1 pint a day) Hx Substance Use: Yes (multiple illicit substances) - Past Medical History SUGAR PRESSER: No: Alzheimer's, CVA, Dementia, Migraine, Multiple Sclerosis, Peripheral Neuropathy, Parkinson's, Seizure, Syncope, TIA, Vertigo, Other Cardio/Vascular: No: AFIB, Aneurysm, Aortic Insufficiency, Aortic Stenosis, CAD , CHF, Deep Vein Thrombosis, HTN, Hyperlipdemia, [place], Mitral Insufficiency, Mitral Stenosis, Murmur, Pulmonary Hypertension, Other Pulmonary: No: Asthma, Bronchitis, Cancer, COPD, O2 Dependent, Pneumonia, Previously Intubated, Pulmonary Embolus, Pulmonary Fibrosis, Sleep Apnea, Other Gastrointestinal: No: Ascites, Cancer, Constipation, Crohn's Disease, Diverticulitis, Diverticulosis, Esophageal Varices, Gastritis, GERD, GI Bleed, Hemorrhoids, Hiatal Hernia, Inflamatory Bowel Disease, Irritable Bowel Disease, Pancreatitis, Peptic Ulcer Disease, Ulcerative Colitis, Other Hepatobiliary: No: Cirrhosis, Cholelithiasis, Cholecystitis, Choledocholithiasis , Hepatitis A, Hepatitis B, Hepatitis C, Other Renal/: No: Renal Failure, Renal Inusuff, BPH, Cancer, Hematuria, Hemodialysis , Neurogenic Bladder, Renal Calculi, UTI, Other Psych: Yes: Addictions, Anxiety, Bipolar Musculoskeletal: Yes: Other Rheumatology: Yes: Other ENT: Yes: Other Endocrine: Yes: Other Dermatology: No: Basal Cell, Cellulitis, Eczema, Melanoma, Psoriasis, Squamous Cell, Other COWS - Scale Resting Pulse: 2= [place] 101-120 Sweatin= No chills or Flushing Restless Observation: 5= Unable to Sit Still Pupil Size: 1= Pupils >than Normal Bone or Joint Aches: 2= Severe Diffuse Aches Runny Nose/ Eye Tearin= None GI Upset > 30mins: 1= Stomach Cramp Tremor Observation: 0= None Yawning Observation: 0= None Anxiety or Irritability: 4=Extreme Anxiety Goose Flesh Skin: 0=Smooth Skin COWS Score: 15 CIWA Score - CIWA Score Nausea/Vomitin-No Nausea/No Vomiting Muscle Tremors: 1-None Visible, but [place] Anxiety: 6 Agitation: 6 Paroxysmal Sweats: No Perspiration Orientation: 0-Oriented Tacttile Disturbances: 0-None Auditory Disturbances: 0-None Visual Disturbances: 0-None Headache: 0-None Present CIWA-Ar Total Score: 13 Assessment Plan - Diagnosis (1) Opioid dependence with withdrawal Status: Acute (2) Alcohol dependence with uncomplicated withdrawal Status: Acute (3) Breast cancer Status: Chronic Qualifiers: Breast location: lower inner quadrant of breast Estrogen receptor status: unspecified Patient sex: female Laterality: left Qualified Code(s): C50.312 - Malignant neoplasm of lower-inner quadrant of left female breast - Plan Plan: Pt is on IV morphine for pain control- pt is sleeping and awakens to name. Talked to pt's son (Samira) by phone (via charge nurse) who I met when pt first came to [facility] about 2 months ago and were deciding about pain control. Updated Samira about pt's condition- recent head CT results and that we are controlling pain per her wishes. Pt seems comfortable and not in pain. Palliative and hospice team is involved. Please call me back if I can be of further assistance: [phone]
[2017-10-26] MEDS: SENNOSIDES 8.6MG TABLET (FP) PO SCH (22:35)
[2017-10-27] MEDS ORDERED: PIPERACILLIN/TAZOBACTAM 3.375 GM VIAL IVPB ONE ×3 (01:21→19:22)
[2017-10-27] MEDS ORDERED: DEXTROSE 5%-WATER - 50 ML IVPB ONE ×3 (01:21→19:22)
[2017-10-27] MEDS: PIPERACILLIN/TAZOB 3.375 GM 3.375 GM in DEXTROSE 5%-WATER - 50 ML IVPB SCH ×3 (02:06→19:27)
[2017-10-27] MEDS ORDERED: PT OWN MED DRAWER 7, Y5N ONE ×7 (02:08→21:30)
[2017-10-27] MEDS: VALPROATE SODIUM 500 MG/5 ML VIAL IVPB SCH ×4 (02:12→21:14)
[2017-10-27] MEDS: VANCOMYCIN 1,000 MG in DEXTROSE 5%-WATER - 250 ML IVPB SCH ×2 (03:40→15:58)
[2017-10-27] MEDS: CIPROFLOXACIN HCL 0.3% OPHTH 2.5ML BOTTLE OU SCH ×5 (05:57→23:19)
[2017-10-27] MEDS: MORPHINE 100 MG in SODIUM CHLORIDE 98 ML IVPB SCH ×3 (08:04→23:15)
[2017-10-27] MEDS: SODIUM CHLORIDE 1,000 ML IV SCH (08:17)
[2017-10-27 08:41] LABS: BASO % 0.3 % (0-2.0); EOS % 0.9 % (0-4.5); HEMATOCRIT 24.2 % (32.4-45.2); HEMOGLOBIN 8.1 GM/dL (10.7-15.3); LYMPH % 16.2 % (8-40); MCH 30.7 pg (25.7-33.7); MCHC 33.4 g/dl (32.0-36.0); MONO % 17.4 % (3.8-10.2); NEUT % 65.2 % (42.8-82.8); PLATELET COUNT 285 K/MM3 (134-434); RBC 2.63 M/mm3 (3.60-5.2); WHITE BLOOD COUNT 9.3 K/mm3 (4.0-10.0)
[2017-10-27 10:22] LABS: ANION GAP 8 MMOL/L (8-16); BLOOD UREA NITROGEN 20 mg/dL (7-18); CALCIUM 8.1 mg/dL (8.5-10.1); CHLORIDE 103 mmol/L (98-107); CO2 26 mmol/L (21-32); CREATININE 0.6 mg/dL (0.55-1.3); GLUCOSE,RANDOM 91 mg/dL (74-106); POTASSIUM 4.1 mmol/L (3.5-5.1); SODIUM 137 mmol/L (136-145)
[2017-10-27] MEDS: POLYETHYLENE GLYCOL 3350 119 GM BTL PO SCH ×2 (10:39→23:20)
[2017-10-27] MEDS: OLANZapine 10 MG TABLET PO SCH ×2 (12:42→23:20)
[2017-10-27] MEDS ORDERED: LORazepam 2 MG/ML SDV VIAL ONE (13:58)
[2017-10-27] MEDS: LORazepam 2 MG/ML SDV VIAL IVPUSH PRN (13:59)
--- NOTE | 2017-10-27 14:23 | PN ---
Physical Exam: SUBJECTIVE: Patient seen and examined. Sitting up in bed getting washed. Calm although reportedly very agitated this morning. OBJECTIVE: Vital Signs Period Temp Pulse Resp BP Sys/Camacho Pulse Ox Last 24 Hr 98.4 F-99.2 F 83-110 -18 97-132/56-79 98-98 GENERAL: The patient is awake, talking, oriented. Left eye: mild lid swelling, white pus lower lid and medial canthus, sclera clear LUNGS: Breath sounds CTA; left breast tumor with erythema HEART: Regular rate and rhythm, S1, S2 ABDOMEN: Soft, nontender, nondistended EXTREMITIES: 2+ pulses, warm, well-perfused, no edema; bilateral venous stasis changes Laboratory Results - last 24 hr 10/27/17 10/27/17 08:00 08:00 WBC 9.3 RBC 2.63 L Hgb 8.1 L Hct 24.2 L MCV 92.0 MCH 30.7 MCHC 33.4 RDW 15.0 Plt Count 285 MPV 8.0 Absolute Neuts (auto) 6.1 Neutrophils % 65.2 Lymphocytes % 16.2 D Monocytes % 17.4 H Eosinophils % 0.9 D Basophils % 0.3 Nucleated RBC % 0 Sodium 137 Potassium 4.1 Chloride 103 Carbon Dioxide 26 Anion Gap 8 BUN 20 H Creatinine 0.6 Creat Clearance w eGFR > 60 Random Glucose 91 Calcium 8.1 L Active Medications Generic Name Dose Route Start Last Admin Trade Name Freq PRN Reason Stop Dose Admin Acetaminophen 650 mg 08/21/17 06:52 10/22/17 09:55 Tylenol Oral Solution - PO 650 mg Q6H PRN Administration PAIN LEVEL 1-5 Acetaminophen 650 mg 10/26/17 08:03 Tylenol Suppository - [place] Q6H PRN FEVER Bisacodyl 10 mg 10/24/17 13:53 Dulcolax Suppository - RC Q24H PRN CONSTIPATION Ciprofloxacin 2 drop 10/24/17 14:00 10/27/17 10:31 Ciloxan 0.3% Eye Drops - OU 2 drop Q4HWA REBECCA Administration Diphenhydramine HCl 25 mg 10/26/17 18:49 10/27/17 09:40 Benadryl Injection - IVPUSH 25 mg Q6H PRN Administration FOR ITCHING Sodium Chloride 1,000 mls @ 75 mls/hr 10/22/17 07:15 10/27/17 08:17 Normal Saline - IV 75 mls/hr ASDIR REBECCA Administration Piperacillin Sod/Tazobactam 50 mls @ 100 mls/hr 10/24/17 18:00 10/27/17 10:31 Sod 3.375 gm/ Dextrose IVPB 100 mls/hr Q8H-IV REBECCA Administration Protocol Vancomycin HCl 1,000 mg/ 250 mls @ 166.667 mls/hr 10/24/17 15:30 10/27/17 03: 40 Dextrose IVPB 166.667 mls/hr Q12H REBECCA Administration Protocol Morphine Sulfate 100 mg/ 100 mls @ 6 mls/hr 10/26/17 19:00 10/27/17 13:33 Sodium Chloride IVPB 8 mg/hr TITR REBECCA 8 mls/hr Titration Protocol 6 MG/HR Lorazepam 2 mg 10/27/17 13:53 10/27/17 13:59 Ativan Injection - IVPUSH 2 mg Q3H PRN Administration ANXIETY Olanzapine 20 mg 09/28/17 22:00 10/27/17 12:42 Zyprexa - PO 20 mg BID REBECCA Administration Ondansetron HCl 4 mg 10/21/17 12:49 Zofran Injection IVPUSH Q6H PRN NAUSEA AND/OR VOMITING Polyethylene Glycol 17 gm 08/28/17 10:00 10/27/17 10:39 Miralax (For Daily Use) - PO 17 gm BID REBECCA Administration Senna 2 tab 10/24/17 22:00 10/26/17 22:35 Senna - PO 2 tab HS REBECCA Administration Valproate Sodium 500 mg 10/26/17 09:00 10/27/17 08:18 Depacon Injection - IVPB 500 mg Q6H-IV REBECCA Administration ASSESSMENT/PLAN 56 year old female with PMH left breast cancer with leptomeningeal disease, bipolar disorder, and heroin and alcohol abuse. HOD#68. Sepsis of uncertain etiology --resolved; has been afebrile for 24 hours and leukocytosis has resolved; the source of infection (had fevers and leukocytosis x 6 days) is uncertain; cultures negative, CT imaging unrevealing except for sinus opacification albeit in setting of bilateral bony erosions in the frontal sinuses due to metastases --will continue vanc (day #4) and zosyn (day #4) --ID following Metastatic breast cancer, --left breast and axillary lymph node masses/enlargement, metastatic disease to bone and brain --seen and evaluated by oncology, radiation oncology, neurology, and neurosurgery: not a candidate for further treatment Pain management --have observed patient somnolent and unarousable; during these times nurses are unable to give patient PO meds; then misses regular dosing of pain meds and has periods of extreme agitation --discussed with Dr. Green and with Dr. Kumari on 10/26 --we will transition patient from methadone and oxycodone to equipotent dosing of IV morphine drip; calculated dose is 8mg/hr; started at 50% of that dose, 4mg/hr; presently 8mg/hr --ativan q3h PRN Bipolar disorder Agitation, manic behavior --last seen and evaluated by psych on 10/08 --switched valproate to IVPB --continue PO olanzapine; pharmacy has ordered an IM dose 150mg which, once administered, will provide coverage for 4 weeks Heroin abuse Alcohol abuse -methadone, oxycodone Uterine prolapse --pessary was placed and patient pulled it out and threw it away --patient refused replacement Conjunctivitis, left eye --continue cipro both eyes (day #4) FEN Fluids: PO intake adequate Electrolytes: replete as indicated Nutrition: regular diet DVT prophylaxis: oob, ambulation Dispo: awaiting hospice placement. DNR/DNI Visit type - Emergency Visit Emergency Visit: Yes ED Registration Date: 08/20/17 Care time: The patient presented to the Emergency Department on the above date and was hospitalized for further evaluation of their emergent condition. - New Patient This patient is new to me today: No - Critical Care Critical Care patient: No - Discharge Referral Referred to [facility] No
--- NOTE | 2017-10-27 17:33 | PN ---
Progress Note, Physician History of Present Illness: Events noted. Pt is somnolent but in no distress. CT head result noted, revealing hemorrhage within mass. Fevers resolved. - Current Medication List Current Medications: Active Medications Acetaminophen (Tylenol Oral Solution -) 650 mg PO Q6H PRN PRN Reason: PAIN LEVEL 1-5 Last Admin: 10/22/17 09:55 Dose: 650 mg Acetaminophen (Tylenol Suppository -) 650 mg SC Q6H PRN PRN Reason: FEVER Bisacodyl (Dulcolax Suppository -) 10 mg RC Q24H PRN PRN Reason: CONSTIPATION Ciprofloxacin (Ciloxan 0.3% Eye Drops -) 2 drop OU Q4HWA REBECCA Last Admin: 10/27/17 15:31 Dose: Not Given Diphenhydramine HCl (Benadryl Injection -) 25 mg IVPUSH Q6H PRN PRN Reason: FOR ITCHING Last Admin: 10/27/17 09:40 Dose: 25 mg Sodium Chloride (Normal Saline -) 1,000 mls @ 75 mls/hr IV ASDIR REBECCA Last Admin: 10/27/17 08:17 Dose: 75 mls/hr Piperacillin Sod/Tazobactam (Sod 3.375 gm/ Dextrose) 50 mls @ 100 mls/hr IVPB Q8H-IV REBECCA; Protocol Last Admin: 10/27/17 10:31 Dose: 100 mls/hr Vancomycin HCl 1,000 mg/ (Dextrose) 250 mls @ 166.667 mls/hr IVPB Q12H REBECCA; Protocol Last Admin: 10/27/17 15:58 Dose: 166.667 mls/hr Morphine Sulfate 100 mg/ (Sodium Chloride) 100 mls @ 6 mls/hr IVPB TITR REBECCA; Protocol Last Titration: 10/27/17 13:33 Dose: 8 mg/hr, 8 mls/hr Lorazepam (Ativan Injection -) 2 mg IVPUSH Q3H PRN PRN Reason: ANXIETY Last Admin: 10/27/17 13:59 Dose: 2 mg Olanzapine (Zyprexa -) 20 mg PO BID REBECCA Last Admin: 10/27/17 12:42 Dose: 20 mg Ondansetron HCl (Zofran Injection) 4 mg IVPUSH Q6H PRN PRN Reason: NAUSEA AND/OR VOMITING Polyethylene Glycol (Miralax (For Daily Use) -) 17 gm PO BID [facility] Last Admin: 10/27/17 10:39 Dose: 17 gm Senna (Senna -) 2 tab PO HS [facility] Last Admin: 10/26/17 22:35 Dose: 2 tab Valproate Sodium (Depacon Injection -) 500 mg IVPB Q6H-IV REBECCA Last Admin: 10/27/17 08:18 Dose: 500 mg - Objective Vital Signs: Vital Signs Temperature 98.4 F 10/27/17 06:46 Pulse Rate 73 10/27/17 14:46 Respiratory Rate 16 10/27/17 14:46 Blood Pressure 83/50 10/27/17 14:46 O2 Sat by Pulse Oximetry (%) 98 10/27/17 09:00 Constitutional: Yes: Other (somnolent) Cardiovascular: Yes: Regular Rate and Rhythm Respiratory: Yes: Regular, Other (poor inspiratory effort) Gastrointestinal: Yes: Normal Bowel Sounds, Soft Labs: CBC, BMP 10/27/17 08:00 10/27/17 08:00 INR, PTT INR 1.41 (0.83-1.09) H 10/15/17 07:05 - ....Imaging Cat Scan: Report Reviewed Problem List - Problems (1) Nicotine dependence Code(s): F17.200 - NICOTINE DEPENDENCE, UNSPECIFIED, UNCOMPLICATED Qualifiers: Nicotine product type: cigarettes Substance use status: uncomplicated Qualified Code(s): F17.210 - Nicotine dependence, cigarettes, uncomplicated (2) Opioid dependence with withdrawal Code(s): F11.23 - OPIOID DEPENDENCE WITH WITHDRAWAL (3) Pelvic organ prolapse quantification stage 4 cystocele Code(s): N81.10 - CYSTOCELE, UNSPECIFIED (4) Breast cancer Code(s): C50.919 - MALIGNANT NEOPLASM OF UNSP SITE OF UNSPECIFIED FEMALE BREAST Qualifiers: Breast location: lower inner quadrant of breast Estrogen receptor status: unspecified Patient sex: female Laterality: left Qualified Code(s): C50.312 - Malignant neoplasm of lower-inner quadrant of left female breast (5) Alcohol dependence with uncomplicated withdrawal Code(s): F10.230 - ALCOHOL DEPENDENCE WITH WITHDRAWAL, UNCOMPLICATED (6) HTN (hypertension) Code(s): I10 - ESSENTIAL (PRIMARY) HYPERTENSION Qualifiers: Hypertension type: essential hypertension Qualified Code(s): I10 - Essential (primary) hypertension (7) History of seizure Code(s): Z87.898 - PERSONAL HISTORY OF OTHER SPECIFIED CONDITIONS Assessment/Plan 56 y.o. female with PMH of Breast CA with metastasis to Brain and Bone never treated, heroin abuse on methadone, tobacco dependence, alcohol abuse, Bipolar disorder and uterine prolapse initially admitted from [facility] for fall and has had a prolonged hospitalization and noted to develop fever. Fever - Leukocytosis Lt blepharoconjunctivitis Lt breast mass/Metastatic breast CA -- CT head with hemorrhage -- leukocytosis / fever resolved -- with retrocardiac opacity, possible PNA --continue empiric antibiotics for now -- Vancomycin Trough, monitor renal function -- supportive care
[2017-10-27] MEDS: SENNOSIDES 8.6MG TABLET (FP) PO SCH (23:20)
[2017-10-28] MEDS ORDERED: PIPERACILLIN/TAZOBACTAM 3.375 GM VIAL IVPB ONE ×3 (02:32→17:30)
[2017-10-28] MEDS ORDERED: DEXTROSE 5%-WATER - 50 ML IVPB ONE ×3 (02:32→17:30)
[2017-10-28] MEDS ORDERED: PT OWN MED DRAWER 7, Y5N ONE ×4 (02:34→22:26)
[2017-10-28] MEDS: VALPROATE SODIUM 500 MG/5 ML VIAL IVPB SCH ×4 (02:54→22:00)
[2017-10-28] MEDS: PIPERACILLIN/TAZOB 3.375 GM 3.375 GM in DEXTROSE 5%-WATER - 50 ML IVPB SCH ×3 (02:54→18:11)
[2017-10-28] MEDS: CIPROFLOXACIN HCL 0.3% OPHTH 2.5ML BOTTLE OU SCH ×5 (06:56→22:27)
[2017-10-28] MEDS: VANCOMYCIN 1,000 MG in DEXTROSE 5%-WATER - 250 ML IVPB SCH ×3 (07:14→16:29)
[2017-10-28 08:30] LABS: ANION GAP 9 MMOL/L (8-16); BLOOD UREA NITROGEN 15 mg/dL (7-18); CALCIUM 7.7 mg/dL (8.5-10.1); CHLORIDE 108 mmol/L (98-107); CO2 24 mmol/L (21-32); GLUCOSE,RANDOM 73 mg/dL (74-106); POTASSIUM 4.4 mmol/L (3.5-5.1); SODIUM 141 mmol/L (136-145)
[2017-10-28 08:31] LABS: CREATININE 0.5 mg/dL (0.55-1.3)
[2017-10-28] MEDS: POLYETHYLENE GLYCOL 3350 119 GM BTL PO SCH ×2 (10:16→22:40)
[2017-10-28] MEDS: OLANZapine 10 MG TABLET PO SCH ×2 (10:17→22:27)
--- NOTE | 2017-10-28 12:28 | PN ---
Progress Note, Physician History of Present Illness: Pt is arousable, without distress. On morphine drip. Afebrile. - Current Medication List Current Medications: Active Medications Acetaminophen (Tylenol Oral Solution -) 650 mg PO Q6H PRN PRN Reason: PAIN LEVEL 1-5 Last Admin: 10/22/17 09:55 Dose: 650 mg Acetaminophen (Tylenol Suppository -) 650 mg DC Q6H PRN PRN Reason: FEVER Bisacodyl (Dulcolax Suppository -) 10 mg RC Q24H PRN PRN Reason: CONSTIPATION Ciprofloxacin (Ciloxan 0.3% Eye Drops -) 2 drop OU Q4HWA REBECCA Last Admin: 10/28/17 06:56 Dose: 2 drop Diphenhydramine HCl (Benadryl Injection -) 25 mg IVPUSH Q6H PRN PRN Reason: FOR ITCHING Last Admin: 10/27/17 09:40 Dose: 25 mg Sodium Chloride (Normal Saline -) 1,000 mls @ 75 mls/hr IV ASDIR REBECCA Last Admin: 10/27/17 08:17 Dose: 75 mls/hr Piperacillin Sod/Tazobactam (Sod 3.375 gm/ Dextrose) 50 mls @ 100 mls/hr IVPB Q8H-IV REBECCA; Protocol Last Admin: 10/28/17 11:59 Dose: 100 mls/hr Vancomycin HCl 1,000 mg/ (Dextrose) 250 mls @ 166.667 mls/hr IVPB Q12H REBECCA; Protocol Last Admin: 10/28/17 10:09 Dose: 166.667 mls/hr Morphine Sulfate 100 mg/ (Sodium Chloride) 100 mls @ 6 mls/hr IVPB TITR REBECCA; Protocol Last Admin: 10/27/17 23:15 Dose: 8 mg/hr, 8 mls/hr Lorazepam (Ativan Injection -) 2 mg IVPUSH Q3H PRN PRN Reason: ANXIETY Last Admin: 10/27/17 13:59 Dose: 2 mg Olanzapine (Zyprexa -) 20 mg PO BID REBECCA Last Admin: 10/28/17 10:17 Dose: Not Given Ondansetron HCl (Zofran Injection) 4 mg IVPUSH Q6H PRN PRN Reason: NAUSEA AND/OR VOMITING Polyethylene Glycol (Miralax (For Daily Use) -) 17 gm PO BID [facility] Last Admin: 10/28/17 10:16 Dose: Not Given Senna (Senna -) 2 tab PO HS [facility] Last Admin: 10/27/17 23:20 Dose: Not Given Valproate Sodium (Depacon Injection -) 500 mg IVPB Q6H-IV [facility] Last Admin: 10/28/17 09:03 Dose: 500 mg - Objective Vital Signs: Vital Signs Temperature 98.1 F 10/28/17 08:30 Pulse Rate 87 10/28/17 08:30 Respiratory Rate 13 10/28/17 08:30 Blood Pressure 123/80 10/28/17 08:30 O2 Sat by Pulse Oximetry (%) 96 10/27/17 21:00 Constitutional: Yes: No Distress Cardiovascular: Yes: Regular Rate and Rhythm Respiratory: Yes: CTA Bilaterally Gastrointestinal: Yes: Normal Bowel Sounds, Soft Genitourinary: Yes: WNL Extremities: Yes: WNL Integumentary: Yes: WNL Neurological: Yes: Other (somnolent but arousable) Labs: CBC, BMP 10/27/17 08:00 10/28/17 06:45 INR, PTT INR 1.41 (0.83-1.09) H 10/15/17 07:05 Problem List - Problems (1) Nicotine dependence Code(s): F17.200 - NICOTINE DEPENDENCE, UNSPECIFIED, UNCOMPLICATED Qualifiers: Nicotine product type: cigarettes Substance use status: uncomplicated Qualified Code(s): F17.210 - Nicotine dependence, cigarettes, uncomplicated (2) Opioid dependence with withdrawal Code(s): F11.23 - OPIOID DEPENDENCE WITH WITHDRAWAL (3) Pelvic organ prolapse quantification stage 4 cystocele Code(s): N81.10 - CYSTOCELE, UNSPECIFIED (4) Breast cancer Code(s): C50.919 - MALIGNANT NEOPLASM OF UNSP SITE OF UNSPECIFIED FEMALE BREAST Qualifiers: Breast location: lower inner quadrant of breast Estrogen receptor status: unspecified Patient sex: female Laterality: left Qualified Code(s): C50.312 - Malignant neoplasm of lower-inner quadrant of left female breast (5) Alcohol dependence with uncomplicated withdrawal Code(s): F10.230 - ALCOHOL DEPENDENCE WITH WITHDRAWAL, UNCOMPLICATED (6) HTN (hypertension) Code(s): I10 - ESSENTIAL (PRIMARY) HYPERTENSION Qualifiers: Hypertension type: essential hypertension Qualified Code(s): I10 - Essential (primary) hypertension (7) History of seizure Code(s): Z87.898 - PERSONAL HISTORY OF OTHER SPECIFIED CONDITIONS Assessment/Plan 56 y.o. female with PMH of Breast CA with metastasis to Brain and Bone never treated, heroin abuse on methadone, tobacco dependence, alcohol abuse, Bipolar disorder and uterine prolapse initially admitted from [facility] for fall and has had a prolonged hospitalization and noted to develop fever. Fever Possible PNA Leukocytosis Lt breast mass/Metastatic breast CA -- CT head with hemorrhage -- leukocytosis / fever resolved --continue empiric antibiotics -- Vancomycin Trough ordered, monitor renal function -- supportive care
[2017-10-28] MEDS: MORPHINE 100 MG in SODIUM CHLORIDE 98 ML IVPB SCH ×2 (12:29→19:41)
--- NOTE | 2017-10-28 13:27 | PN ---
Physical Exam: SUBJECTIVE: Patient seen and examined at bedside. OBJECTIVE: Vital Signs Period Temp Pulse Resp BP Sys/Camacho Pulse Ox Last 24 Hr 97.9 F-98.6 F 73-87 13-20 83-123/50-80 96 GENERAL: The patient is sleeping but arousable. Left eye: swelling resolved, no exudate LUNGS: Breath sounds CTA; left breast tumor with erythema HEART: Regular rate and rhythm, S1, S2 ABDOMEN: Soft, nontender, nondistended EXTREMITIES: 2+ pulses, warm, well-perfused, no edema; bilateral venous stasis changes SKIN exam: no rashes, skin intact Laboratory Results - last 24 hr 10/28/17 06:45 Sodium 141 Potassium 4.4 Chloride 108 H Carbon Dioxide 24 Anion Gap 9 BUN 15 Creatinine 0.5 L Creat Clearance w eGFR > 60 Random Glucose 73 L Calcium 7.7 L Active Medications Generic Name Dose Route Start Last Admin Trade Name Freq PRN Reason Stop Dose Admin Acetaminophen 650 mg 08/21/17 06:52 10/22/17 09:55 Tylenol Oral Solution - PO 650 mg Q6H PRN Administration PAIN LEVEL 1-5 Acetaminophen 650 mg 10/26/17 08:03 Tylenol Suppository - [place] Q6H PRN FEVER Bisacodyl 10 mg 10/24/17 13:53 Dulcolax Suppository - RC Q24H PRN CONSTIPATION Ciprofloxacin 2 drop 10/24/17 14:00 10/28/17 12:36 Ciloxan 0.3% Eye Drops - OU 2 drop Q4HWA REBECCA Administration Diphenhydramine HCl 25 mg 10/26/17 18:49 10/27/17 09:40 Benadryl Injection - IVPUSH 25 mg Q6H PRN Administration FOR ITCHING Sodium Chloride 1,000 mls @ 75 mls/hr 10/22/17 07:15 10/27/17 08:17 Normal Saline - IV 75 mls/hr ASDIR REBECCA Administration Piperacillin Sod/Tazobactam 50 mls @ 100 mls/hr 10/24/17 18:00 10/28/17 11:59 Sod 3.375 gm/ Dextrose IVPB 100 mls/hr Q8H-IV REBECCA Administration Protocol Vancomycin HCl 1,000 mg/ 250 mls @ 166.667 mls/hr 10/24/17 15:30 10/28/17 10: 09 Dextrose IVPB 166.667 mls/hr Q12H REBECCA Administration Protocol Morphine Sulfate 100 mg/ 100 mls @ 6 mls/hr 10/26/17 19:00 10/28/17 12:29 Sodium Chloride IVPB 8 mg/hr TITR REBECCA 8 mls/hr Administration Protocol 6 MG/HR Lorazepam 2 mg 10/27/17 13:53 10/27/17 13:59 Ativan Injection - IVPUSH 2 mg Q3H PRN Administration ANXIETY Olanzapine 20 mg 09/28/17 22:00 10/28/17 10:17 Zyprexa - PO Not Given BID REBECCA Ondansetron HCl 4 mg 10/21/17 12:49 Zofran Injection IVPUSH Q6H PRN NAUSEA AND/OR VOMITING Polyethylene Glycol 17 gm 08/28/17 10:00 10/28/17 10:16 Miralax (For Daily Use) - PO Not Given BID REBECCA Senna 2 tab 10/24/17 22:00 10/27/17 23:20 Senna - PO Not Given HS REBECCA Valproate Sodium 500 mg 10/26/17 09:00 10/28/17 09:03 Depacon Injection - IVPB 500 mg Q6H-IV REBECCA Administration ASSESSMENT/PLAN 56 year old female with PMH left breast cancer with leptomeningeal disease, bipolar disorder, and heroin and alcohol abuse. HOD#68. Sepsis of uncertain etiology --resolved; has been afebrile for 48 hours and leukocytosis has resolved; --source of infection (had fevers and leukocytosis x 6 days) is uncertain; cultures negative, CT imaging unrevealing except for sinus opacification albeit in setting of bilateral bony erosions in the frontal sinuses due to metastases --will continue vanc (day #5) and zosyn (day #5) --ID following Metastatic breast cancer, --left breast and axillary lymph node masses/enlargement, metastatic disease to bone and brain --seen and evaluated by oncology, radiation oncology, neurology, and neurosurgery: not a candidate for further treatment Pain management --transitioned patient to IV morphine drip, titrate to effect --presently @ 8mg/hr --ativan IVP q3h PRN Bipolar disorder Agitation, manic behavior --last seen and evaluated by psych on 10/08 --switched valproate to IVPB --continue PO olanzapine; pharmacy has ordered an IM dose 150mg which, once administered, will provide coverage for 2-4 weeks Heroin abuse Alcohol abuse Uterine prolapse --pessary was placed and patient pulled it out and threw it away --patient refused replacement Conjunctivitis, left eye --continue cipro both eyes (day #5) FEN Fluids: PO intake adequate Electrolytes: replete as indicated Nutrition: regular diet DVT prophylaxis: oob, ambulation Dispo: awaiting hospice placement. DNR/DNI Visit type - Emergency Visit Emergency Visit: Yes ED Registration Date: 08/20/17 Care time: The patient presented to the Emergency Department on the above date and was hospitalized for further evaluation of their emergent condition. - New Patient This patient is new to me today: No - Critical Care Critical Care patient: No
[2017-10-28] MEDS: SENNOSIDES 8.6MG TABLET (FP) PO SCH (22:27)
[2017-10-29] MEDS ORDERED: DEXTROSE 5%-WATER - 50 ML IVPB ONE (01:28)
[2017-10-29] MEDS ORDERED: PIPERACILLIN/TAZOBACTAM 3.375 GM VIAL IVPB ONE (01:28)
[2017-10-29] MEDS: PIPERACILLIN/TAZOB 3.375 GM 3.375 GM in DEXTROSE 5%-WATER - 50 ML IVPB SCH (01:38)
[2017-10-29] MEDS: SODIUM CHLORIDE 1,000 ML IV SCH ×4 (01:38→22:18)
[2017-10-29] MEDS: VALPROATE SODIUM 500 MG/5 ML VIAL IVPB SCH ×4 (02:33→21:55)
[2017-10-29] MEDS ORDERED: PT OWN MED DRAWER 7, Y5N ONE ×3 (03:39→14:40)
[2017-10-29] MEDS: VANCOMYCIN 1,000 MG in DEXTROSE 5%-WATER - 250 ML IVPB SCH ×2 (03:41→15:54)
[2017-10-29] MEDS: CIPROFLOXACIN HCL 0.3% OPHTH 2.5ML BOTTLE OU SCH ×5 (06:06→22:19)
[2017-10-29] MEDS: OLANZapine 10 MG TABLET PO SCH ×2 (09:37→22:20)
[2017-10-29] MEDS: POLYETHYLENE GLYCOL 3350 119 GM BTL PO SCH ×2 (09:37→22:19)
--- NOTE | 2017-10-29 09:50 | PN ---
Physical Exam: SUBJECTIVE: Patient seen and examined at bedside. OBJECTIVE: Vital Signs Period Temp Pulse Resp BP Sys/Camacho Pulse Ox Last 24 Hr 98.0 F-98.7 F 72-108 18-20 104-140/65-87 94 GENERAL: The patient is sleeping but arousable. Denies pain. Left eye: swelling resolved, no exudate LUNGS: Breath sounds CTA; left breast tumor with mild erythema HEART: Regular rate and rhythm, S1, S2 ABDOMEN: Soft, nontender, nondistended EXTREMITIES: 2+ pulses, warm, well-perfused, no edema; bilateral venous stasis changes CBCD WBC 9.3 K/mm3 (4.0-10.0) 10/27/17 08:00 RBC 2.63 M/mm3 (3.60-5.2) L 10/27/17 08:00 Hgb 8.1 GM/dL (10.7-15.3) L 10/27/17 08:00 Hct 24.2 % (32.4-45.2) L 10/27/17 08:00 MCV 92.0 fl (80-96) 10/27/17 08:00 MCHC 33.4 g/dl (32.0-36.0) 10/27/17 08:00 RDW 15.0 % (11.6-15.6) 10/27/17 08:00 Plt Count 285 K/MM3 (134-434) 10/27/17 08:00 MPV 8.0 fl (7.5-11.1) 10/27/17 08:00 CMP Sodium 141 mmol/L (136-145) 10/28/17 06:45 Potassium 4.4 mmol/L (3.5-5.1) 10/28/17 06:45 Chloride 108 mmol/L (98-107) H 10/28/17 06:45 Carbon Dioxide 24 mmol/L (21-32) 10/28/17 06:45 Anion Gap 9 MMOL/L (8-16) 10/28/17 06:45 BUN 15 mg/dL (7-18) 10/28/17 06:45 Creatinine 0.5 mg/dL (0.55-1.3) L 10/28/17 06:45 Creat Clearance w eGFR > 60 (>60) 10/28/17 06:45 Calcium 7.7 mg/dL (8.5-10.1) L 10/28/17 06:45 Total Bilirubin 0.5 mg/dL (0.2-1.0) 10/25/17 08:45 AST 47 U/L (15-37) H 10/25/17 08:45 ALT 19 U/L (12-78) 10/25/17 08:45 Alkaline Phosphatase 95 U/L (45-117) D 10/25/17 08:45 Total Protein 8.3 g/dl (6.4-8.2) H 10/25/17 08:45 Albumin 1.8 g/dl (3.4-5.0) L 10/25/17 08:45 Laboratory Results - last 24 hr 10/28/17 13:10 Vancomycin Pre-Dose 23.32 Active Medications Generic Name Dose Route Start Last Admin Trade Name Freq PRN Reason Stop Dose Admin Acetaminophen 650 mg 08/21/17 06:52 10/22/17 09:55 Tylenol Oral Solution - PO 650 mg Q6H PRN Administration PAIN LEVEL 1-5 Acetaminophen 650 mg 10/26/17 08:03 Tylenol Suppository - [place] Q6H PRN FEVER Bisacodyl 10 mg 10/24/17 13:53 Dulcolax Suppository - RC Q24H PRN CONSTIPATION Ciprofloxacin 2 drop 10/24/17 14:00 10/29/17 09:38 Ciloxan 0.3% Eye Drops - OU 2 drop Q4HWA REBECCA Administration Diphenhydramine HCl 25 mg 10/26/17 18:49 10/27/17 09:40 Benadryl Injection - IVPUSH 25 mg Q6H PRN Administration FOR ITCHING Sodium Chloride 1,000 mls @ 75 mls/hr 10/22/17 07:15 10/29/17 01:38 Normal Saline - IV 75 mls/hr ASDIR REBECCA Administration Vancomycin HCl 1,000 mg/ 250 mls @ 166.667 mls/hr 10/24/17 15:30 10/29/17 03: 41 Dextrose IVPB 166.667 mls/hr Q12H REBECCA Administration Protocol Morphine Sulfate 100 mg/ 100 mls @ 6 mls/hr 10/26/17 19:00 10/29/17 00:38 Sodium Chloride IVPB 9 mg/hr TITR REBECCA 9 mls/hr Titration Protocol 6 MG/HR Lorazepam 2 mg 10/27/17 13:53 10/27/17 13:59 Ativan Injection - IVPUSH 2 mg Q3H PRN Administration ANXIETY Olanzapine 20 mg 09/28/17 22:00 10/29/17 09:37 Zyprexa - PO Not Given BID REBECCA Ondansetron HCl 4 mg 10/21/17 12:49 Zofran Injection IVPUSH Q6H PRN NAUSEA AND/OR VOMITING Polyethylene Glycol 17 gm 08/28/17 10:00 10/29/17 09:37 Miralax (For Daily Use) - PO Not Given BID REBECCA Senna 2 tab 10/24/17 22:00 10/28/17 22:27 Senna - PO 2 tab HS REBECCA Administration Valproate Sodium 500 mg 10/26/17 09:00 10/29/17 08:54 Depacon Injection - IVPB 500 mg Q6H-IV REBECCA Administration ASSESSMENT/PLAN: 56 year old female with PMH left breast cancer with leptomeningeal disease, bipolar disorder, and heroin and alcohol abuse. HOD#68. Sepsis of uncertain etiology --resolved; has been afebrile for >72 hours and leukocytosis has resolved; --source of infection (had fevers and leukocytosis x 6 days) remains uncertain; cultures negative, CT imaging unrevealing except for sinus opacification albeit in setting of bilateral bony erosions in the frontal sinuses due to metastases --will continue vanc (day #6) and zosyn (day #6) --ID following Metastatic breast cancer, --left breast and axillary lymph node masses/enlargement, metastatic disease to bone and brain --seen and evaluated by oncology, radiation oncology, neurology, and neurosurgery: not a candidate for further treatment Pain management --transitioned patient to IV morphine drip, titrate to effect --presently @ 11mg/hr; still interacts with staff, able to feed self, no difficulties swallowing --ativan IVP q3h PRN -- Bipolar disorder Agitation, manic behavior --last seen and evaluated by psych on 10/08 --switched valproate to IVPB --continue PO olanzapine; pharmacy has ordered an IM dose 150mg which, once administered, will provide coverage for 2-4 weeks Heroin abuse Alcohol abuse Uterine prolapse --pessary was placed and patient pulled it out and threw it away --patient refused replacement Conjunctivitis, left eye --continue cipro both eyes (day #6) FEN Fluids: PO intake adequate Electrolytes: replete as indicated Nutrition: regular diet DVT prophylaxis: oob, ambulation Dispo: awaiting hospice placement. DNR/DNI Visit type - Emergency Visit Emergency Visit: Yes ED Registration Date: 08/20/17 Care time: The patient presented to the Emergency Department on the above date and was hospitalized for further evaluation of their emergent condition. - New Patient This patient is new to me today: No - Critical Care Critical Care patient: No
--- NOTE | 2017-10-29 11:07 | PN ---
Progress Note, Physician History of Present Illness: Pt is on morphine drip. Somnolent but arousable and in no acute distress. She remains afebrile. - Current Medication List Current Medications: Active Medications Acetaminophen (Tylenol Oral Solution -) 650 mg PO Q6H PRN PRN Reason: PAIN LEVEL 1-5 Last Admin: 10/22/17 09:55 Dose: 650 mg Acetaminophen (Tylenol Suppository -) 650 mg [place] Q6H PRN PRN Reason: FEVER Bisacodyl (Dulcolax Suppository -) 10 mg RC Q24H PRN PRN Reason: CONSTIPATION Ciprofloxacin (Ciloxan 0.3% Eye Drops -) 2 drop OU Q4HWA [facility] Last Admin: 10/29/17 09:38 Dose: 2 drop Diphenhydramine HCl (Benadryl Injection -) 25 mg IVPUSH Q6H PRN PRN Reason: FOR ITCHING Last Admin: 10/27/17 09:40 Dose: 25 mg Sodium Chloride (Normal Saline -) 1,000 mls @ 75 mls/hr IV ASDIR [facility] Last Admin: 10/29/17 01:38 Dose: 75 mls/hr Vancomycin HCl 1,000 mg/ (Dextrose) 250 mls @ 166.667 mls/hr IVPB Q12H REBECCA; Protocol Last Admin: 10/29/17 03:41 Dose: 166.667 mls/hr Morphine Sulfate 100 mg/ (Sodium Chloride) 100 mls @ 6 mls/hr IVPB TITR REBECCA; Protocol Last Titration: 10/29/17 00:38 Dose: 9 mg/hr, 9 mls/hr Lorazepam (Ativan Injection -) 2 mg IVPUSH Q3H PRN PRN Reason: ANXIETY Last Admin: 10/27/17 13:59 Dose: 2 mg Olanzapine (Zyprexa -) 20 mg PO BID [facility] Last Admin: 10/29/17 09:37 Dose: Not Given Ondansetron HCl (Zofran Injection) 4 mg IVPUSH Q6H PRN PRN Reason: NAUSEA AND/OR VOMITING Polyethylene Glycol (Miralax (For Daily Use) -) 17 gm PO BID [facility] Last Admin: 10/29/17 09:37 Dose: Not Given Senna (Senna -) 2 tab PO HS [facility] Last Admin: 10/28/17 22:27 Dose: 2 tab Valproate Sodium (Depacon Injection -) 500 mg IVPB Q6H-IV REBECCA Last Admin: 10/29/17 08:54 Dose: 500 mg - Objective Vital Signs: Vital Signs Temperature 99.2 F 10/29/17 08:15 Pulse Rate 110 H 10/29/17 08:15 Respiratory Rate 16 10/29/17 08:15 Blood Pressure 130/73 10/29/17 08:15 O2 Sat by Pulse Oximetry (%) 94 L 10/28/17 21:00 Constitutional: Yes: No Distress Cardiovascular: Yes: Regular Rate and Rhythm Respiratory: Yes: CTA Bilaterally Gastrointestinal: Yes: Normal Bowel Sounds, Soft Genitourinary: Yes: WNL Musculoskeletal: Yes: WNL Extremities: Yes: WNL Edema: No Integumentary: Yes: WNL Labs: CBC, BMP 10/27/17 08:00 10/28/17 06:45 INR, PTT INR 1.41 (0.83-1.09) H 10/15/17 07:05 Problem List - Problems (1) Nicotine dependence Code(s): F17.200 - NICOTINE DEPENDENCE, UNSPECIFIED, UNCOMPLICATED Qualifiers: Nicotine product type: cigarettes Substance use status: uncomplicated Qualified Code(s): F17.210 - Nicotine dependence, cigarettes, uncomplicated (2) Opioid dependence with withdrawal Code(s): F11.23 - OPIOID DEPENDENCE WITH WITHDRAWAL (3) Pelvic organ prolapse quantification stage 4 cystocele Code(s): N81.10 - CYSTOCELE, UNSPECIFIED (4) Breast cancer Code(s): C50.919 - MALIGNANT NEOPLASM OF UNSP SITE OF UNSPECIFIED FEMALE BREAST Qualifiers: Breast location: lower inner quadrant of breast Estrogen receptor status: unspecified Patient sex: female Laterality: left Qualified Code(s): C50.312 - Malignant neoplasm of lower-inner quadrant of left female breast (5) Alcohol dependence with uncomplicated withdrawal Code(s): F10.230 - ALCOHOL DEPENDENCE WITH WITHDRAWAL, UNCOMPLICATED (6) HTN (hypertension) Code(s): I10 - ESSENTIAL (PRIMARY) HYPERTENSION Qualifiers: Hypertension type: essential hypertension Qualified Code(s): I10 - Essential (primary) hypertension (7) History of seizure Code(s): Z87.898 - PERSONAL HISTORY OF OTHER SPECIFIED CONDITIONS Assessment/Plan 56 y.o. 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 Fever Possible PNA Leukocytosis Sinus opacification/possible sinusitis in setting of bony erosion Lt breast mass/Metastatic breast CA -- leukocytosis / fever resolved --continue empiric antibiotics for now -- Vancomycin level noted, continue monitor renal function -- supportive care
[2017-10-29] MEDS: MORPHINE 100 MG in SODIUM CHLORIDE 98 ML IVPB SCH ×2 (11:58→22:01)
[2017-10-29] MEDS: LORazepam 2 MG/ML SDV VIAL IVPUSH PRN (18:17)
[2017-10-29] MEDS ORDERED: MORPHINE 100 MG in SODIUM CHLORIDE 98 ML IVPB SCH (20:15)
[2017-10-29] MEDS: SENNOSIDES 8.6MG TABLET (FP) PO SCH (22:20)
[2017-10-30] MEDS: VALPROATE SODIUM 500 MG/5 ML VIAL IVPB SCH ×4 (03:05→23:00)
[2017-10-30] MEDS: VANCOMYCIN 1,000 MG in DEXTROSE 5%-WATER - 250 ML IVPB SCH ×2 (03:20→17:09)
[2017-10-30] MEDS: CIPROFLOXACIN HCL 0.3% OPHTH 2.5ML BOTTLE OU SCH ×2 (06:23→09:34)
--- NOTE | 2017-10-30 08:55 | PN ---
Physical Exam: SUBJECTIVE: Patient seen and examined. Not had BM in several days. OBJECTIVE: Vital Signs Period Temp Pulse Resp BP Sys/Camacho Pulse Ox Last 24 Hr 98.2 F-99 F 94-100 18-18 131-145/76-84 93 GENERAL: The patient is sleeping but arousable. LUNGS: Breath sounds CTA; left breast tumor with mild erythema HEART: Regular rate and rhythm, S1, S2 ABDOMEN: Firm, nontender, nondistended EXTREMITIES: 2+ pulses, warm, well-perfused, no edema; bilateral venous stasis changes Active Medications Generic Name Dose Route Start Last Admin Trade Name Freq PRN Reason Stop Dose Admin Acetaminophen 650 mg 08/21/17 06:52 10/22/17 09:55 Tylenol Oral Solution - PO 650 mg Q6H PRN Administration PAIN LEVEL 1-5 Acetaminophen 650 mg 10/26/17 08:03 Tylenol Suppository - [place] Q6H PRN FEVER Bisacodyl 10 mg 10/24/17 13:53 Dulcolax Suppository - RC Q24H PRN CONSTIPATION Ciprofloxacin 2 drop 10/24/17 14:00 10/30/17 06:23 Ciloxan 0.3% Eye Drops - OU 2 drop Q4HWA REBECCA Administration Diphenhydramine HCl 25 mg 10/26/17 18:49 10/27/17 09:40 Benadryl Injection - IVPUSH 25 mg Q6H PRN Administration FOR ITCHING Sodium Chloride 1,000 mls @ 75 mls/hr 10/22/17 07:15 10/29/17 22:18 Normal Saline - IV 75 mls/hr ASDIR REBECCA Administration Vancomycin HCl 1,000 mg/ 250 mls @ 166.667 mls/hr 10/24/17 15:30 10/30/17 03: 20 Dextrose IVPB 166.667 mls/hr Q12H REBECCA Administration Protocol Morphine Sulfate 100 mg/ 100 mls @ 10 mls/hr 10/29/17 21:56 10/29/17 22:01 Sodium Chloride IVPB 10 mls/hr ASDIR REBECCA Administration Protocol Lorazepam 2 mg 10/29/17 20:14 Ativan Injection - IVPUSH Q4H PRN ANXIETY Olanzapine 20 mg 09/28/17 22:00 10/29/17 22:20 Zyprexa - PO Not Given BID REBECCA Ondansetron HCl 4 mg 10/21/17 12:49 Zofran Injection IVPUSH Q6H PRN NAUSEA AND/OR VOMITING Polyethylene Glycol 17 gm 08/28/17 10:00 10/29/17 22:19 Miralax (For Daily Use) - PO Not Given BID REBECCA Senna 2 tab 10/24/17 22:00 10/29/17 22:20 Senna - PO Not Given HS REBECCA Valproate Sodium 500 mg 10/26/17 09:00 10/30/17 03:05 Depacon Injection - IVPB 500 mg Q6H-IV REBECCA Administration ASSESSMENT/PLAN: 56 year old female with PMH left breast cancer with leptomeningeal disease, bipolar disorder, and heroin and alcohol abuse. HOD#71. Sepsis of uncertain etiology, resolved --per Dr. Velásquez, possible source is left breast tumor which may be fungating from within --continue empiric Vanc; if spikes again, switch to unasyn --d/c Zosyn Metastatic breast cancer, --left breast and axillary lymph node masses/enlargement, metastatic disease to bone and brain --seen and evaluated by oncology, radiation oncology, neurology, and neurosurgery: not a candidate for further treatment Pain management --transitioned patient to IV morphine drip now at 10mg/hr --ativan IVP q4h PRN Bipolar disorder Agitation, manic behavior --last seen and evaluated by psych on 10/08 --switched valproate to IVPB --continue PO olanzapine; pharmacy has ordered an IM dose 150mg which, once administered, will provide coverage for 2-4 weeks Heroin abuse Alcohol abuse Uterine prolapse --pessary was placed and patient pulled it out and threw it away --patient refused replacement Conjunctivitis, left eye --continue cipro both eyes (day #7) last day Constipation --Reslistor q48h FEN Fluids: PO intake adequate Electrolytes: replete as indicated Nutrition: regular diet DVT prophylaxis: oob, ambulation Dispo: awaiting hospice placement. DNR/DNI Visit type - Emergency Visit Emergency Visit: Yes ED Registration Date: 08/20/17 Care time: The patient presented to the Emergency Department on the above date and was hospitalized for further evaluation of their emergent condition. - New Patient This patient is new to me today: No - Critical Care Critical Care patient: No
[2017-10-30] MEDS ORDERED: PT OWN MED DRAWER 7, Y5N ONE ×3 (09:09→21:13)
[2017-10-30] MEDS: MORPHINE 100 MG in SODIUM CHLORIDE 98 ML IVPB SCH ×4 (09:28→18:47)
[2017-10-30] MEDS: POLYETHYLENE GLYCOL 3350 119 GM BTL PO SCH ×2 (09:30→22:03)
[2017-10-30] MEDS: OLANZapine 10 MG TABLET PO SCH ×2 (09:30→22:03)
[2017-10-30] MEDS: SODIUM CHLORIDE 1,000 ML IV SCH ×2 (09:34→17:12)
--- NOTE | 2017-10-30 10:51 | PN ---
Progress Note, Physician History of Present Illness: patient stable sleeping unable to awake sedated - Current Medication List Current Medications: Active Medications Acetaminophen (Tylenol Oral Solution -) 650 mg PO Q6H PRN PRN Reason: PAIN LEVEL 1-5 Last Admin: 10/22/17 09:55 Dose: 650 mg Acetaminophen (Tylenol Suppository -) 650 mg [place] Q6H PRN PRN Reason: FEVER Bisacodyl (Dulcolax Suppository -) 10 mg RC Q24H PRN PRN Reason: CONSTIPATION Ciprofloxacin (Ciloxan 0.3% Eye Drops -) 2 drop OU Q4HWA [facility] Last Admin: 10/30/17 09:34 Dose: 2 drop Diphenhydramine HCl (Benadryl Injection -) 25 mg IVPUSH Q6H PRN PRN Reason: FOR ITCHING Last Admin: 10/27/17 09:40 Dose: 25 mg Sodium Chloride (Normal Saline -) 1,000 mls @ 75 mls/hr IV ASDIR COUNTS INCLUDE 234 BEDS AT THE [facility] Last Admin: 10/30/17 09:34 Dose: Not Given Vancomycin HCl 1,000 mg/ (Dextrose) 250 mls @ 166.667 mls/hr IVPB Q12H REBECCA; Protocol Last Admin: 10/30/17 03:20 Dose: 166.667 mls/hr Morphine Sulfate 100 mg/ (Sodium Chloride) 100 mls @ 10 mls/hr IVPB ASDIR REBECCA; Protocol Last Admin: 10/30/17 09:28 Dose: 10 mls/hr Lorazepam (Ativan Injection -) 2 mg IVPUSH Q4H PRN PRN Reason: ANXIETY Methylnaltrexone [place] (Relistor -) 8 mg SQ Q2D@1000 [facility] Olanzapine (Zyprexa -) 20 mg PO BID [facility]S [facility] 234 BEDS AT THE [facility] Last Admin: 10/30/17 09:30 Dose: Not Given Ondansetron HCl (Zofran Injection) 4 mg IVPUSH Q6H PRN PRN Reason: NAUSEA AND/OR VOMITING Polyethylene Glycol (Miralax (For Daily Use) -) 17 gm PO BID [facility]S [facility] 234 BEDS AT [facility] Last Admin: 10/30/17 09:30 Dose: 17 gm Senna (Senna -) 2 tab PO HS [facility]S [facility]CLUDE 234 BEDS AT [facility] Last Admin: 10/29/17 22:20 Dose: Not Given Valproate Sodium (Depacon Injection -) 500 mg IVPB Q6H-IV [facility]BECCA Last Admin: 10/30/17 09:33 Dose: 500 mg - Objective Vital Signs: Vital Signs Temperature 98.2 F 10/30/17 06:31 Pulse Rate 96 H 10/30/17 06:31 Respiratory Rate 18 10/30/17 06:31 Blood Pressure 136/76 10/30/17 06:31 O2 Sat by Pulse Oximetry (%) 93 L 10/29/17 21:00 Constitutional: Yes: No Distress Cardiovascular: Yes: Regular Rate and Rhythm Respiratory: Yes: Regular, CTA Bilaterally Gastrointestinal: Yes: Normal Bowel Sounds, Soft Breast(s): Yes: Other (left breast cancer with mets) Musculoskeletal: Yes: WNL Extremities: Yes: WNL Integumentary: Yes: Erythema (resolving on left breat), Onychomycosis Neurological: Yes: Other Psychiatric: Yes: Other Labs: CBC, BMP 10/27/17 08:00 10/28/17 06:45 INR, PTT INR 1.41 (0.83-1.09) H 10/15/17 07:05 Assessment/Plan Problem List - Problems (1) Nicotine dependence Code(s): F17.200 - NICOTINE DEPENDENCE, UNSPECIFIED, UNCOMPLICATED Qualifiers: Nicotine product type: cigarettes Substance use status: uncomplicated Qualified Code(s): F17.210 - Nicotine dependence, cigarettes, uncomplicated (2) Opioid dependence with withdrawal Code(s): F11.23 - OPIOID DEPENDENCE WITH WITHDRAWAL (3) Pelvic organ prolapse quantification stage 4 cystocele Code(s): N81.10 - CYSTOCELE, UNSPECIFIED (4) Breast cancer Code(s): C50.919 - MALIGNANT NEOPLASM OF UNSP SITE OF UNSPECIFIED FEMALE BREAST Qualifiers: Breast location: lower inner quadrant of breast Estrogen receptor status: unspecified Patient sex: female Laterality: left Qualified Code(s): C50.312 - Malignant neoplasm of lower-inner quadrant of left female breast (5) Alcohol dependence with uncomplicated withdrawal Code(s): F10.230 - ALCOHOL DEPENDENCE WITH WITHDRAWAL, UNCOMPLICATED (6) HTN (hypertension) Code(s): I10 - ESSENTIAL (PRIMARY) HYPERTENSION Qualifiers: Hypertension type: essential hypertension Qualified Code(s): I10 - Essential (primary) hypertension (7) History of seizure Code(s): Z87.898 - PERSONAL HISTORY OF OTHER SPECIFIED CONDITIONS Assessment/Plan 56 y.o. 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 Fever Possible PNA Leukocytosis Sinus opacification/possible sinusitis in setting of bony erosion Lt breast mass/Metastatic breast CA plan will see how patient is doing tomorrow might stop vanco continue current mgmt supportive care
[2017-10-30] MEDS: Methylnaltrexone Bromide 12 MG/0.6 ML KIT SQ SCH (13:27)
[2017-10-30] MEDS: LORazepam 2 MG/ML SDV VIAL IVPUSH PRN (14:49)
[2017-10-30] MEDS ORDERED: ALBUTEROL SO4 2.5/IPRATROPIUM 0.5 INH SOL 3 ML VIAL.NEB. NEB STA (19:27)
[2017-10-30] MEDS: SCOPOLAMINE HYDROBROMIDE 1 PATCH PATCH.TD72 TD SCH (22:02)
[2017-10-30] MEDS: SENNOSIDES 8.6MG TABLET (FP) PO SCH (22:03)
[2017-10-31] MEDS: MORPHINE 100 MG in SODIUM CHLORIDE 98 ML IVPB SCH ×3 (02:45→23:08)
[2017-10-31] MEDS ORDERED: PT OWN MED DRAWER 7, Y5N ONE ×4 (02:47→20:23)
[2017-10-31] MEDS: VALPROATE SODIUM 500 MG/5 ML VIAL IVPB SCH ×4 (02:50→21:41)
[2017-10-31] MEDS: VANCOMYCIN 1,000 MG in DEXTROSE 5%-WATER - 250 ML IVPB SCH (03:35)
--- NOTE | 2017-10-31 09:12 | PN ---
Physical Exam: SUBJECTIVE: Patient seen and examined at the bedside. minimally arousable. appears comfortable presently. no signs of pain. OBJECTIVE: on morphine drip Vital Signs Period Temp Pulse Resp BP Sys/Camacho Pulse Ox Last 24 Hr 98.2 F-99.8 F 88-102 16-20 115-128/72-75 GENERAL: lethargic, minimally arousable HEAD: Normal with no signs of trauma. EYES: PERRL, extraocular movements intact, sclera anicteric, conjunctiva clear. No ptosis. ENT: Ears normal, nares patent, oropharynx clear without exudates, moist mucous membranes. NECK: Trachea midline, full range of motion, supple. ABDOMEN: Soft, nontender, nondistended, normoactive bowel sounds EXTREMITIES: 2+ pulses, warm, well-perfused, no edema. NEUROLOGICAL:lethargic Active Medications Generic Name Dose Route Start Last Admin Trade Name Freq PRN Reason Stop Dose Admin Acetaminophen 650 mg 08/21/17 06:52 10/22/17 09:55 Tylenol Oral Solution - PO 650 mg Q6H PRN Administration PAIN LEVEL 1-5 Acetaminophen 650 mg 10/26/17 08:03 Tylenol Suppository - [place] Q6H PRN FEVER Bisacodyl 10 mg 10/24/17 13:53 Dulcolax Suppository - RC Q24H PRN CONSTIPATION Diphenhydramine HCl 25 mg 10/26/17 18:49 10/27/17 09:40 Benadryl Injection - IVPUSH 25 mg Q6H PRN Administration FOR ITCHING Sodium Chloride 1,000 mls @ 75 mls/hr 10/22/17 07:15 10/30/17 17:12 Normal Saline - IV 75 mls/hr ASDIR REBECCA Administration Vancomycin HCl 1,000 mg/ 250 mls @ 166.667 mls/hr 10/24/17 15:30 10/31/17 03: 35 Dextrose IVPB 166.667 mls/hr Q12H REBECCA Administration Protocol Morphine Sulfate 100 mg/ 100 mls @ 10 mls/hr 10/29/17 21:56 10/31/17 02:45 Sodium Chloride IVPB 10 mls/hr ASDIR REBECCA Administration Protocol Lorazepam 2 mg 10/29/17 20:14 10/30/17 14:49 Ativan Injection - IVPUSH 2 mg Q4H PRN Administration ANXIETY Methylnaltrexone [place] 8 mg 10/30/17 11:15 10/30/17 13:27 Relistor - SQ 8 mg Q2D@1000 REBECCA Administration Olanzapine 20 mg 09/28/17 22:00 10/30/17 22:03 Zyprexa - PO Not Given BID REBECCA Ondansetron HCl 4 mg 10/21/17 12:49 Zofran Injection IVPUSH Q6H PRN NAUSEA AND/OR VOMITING Polyethylene Glycol 17 gm 08/28/17 10:00 10/30/17 22:03 Miralax (For Daily Use) - PO Not Given BID REBECCA Scopolamine HBr 1 patch 10/30/17 19:30 10/30/17 22:02 Transderm-Scop - TD 1 patch Q72H REBECCA Administration Senna 2 tab 10/24/17 22:00 10/30/17 22:03 Senna - PO Not Given HS REBECCA Valproate Sodium 500 mg 10/26/17 09:00 10/31/17 08:38 Depacon Injection - IVPB 500 mg Q6H-IV REBECCA Administration Imagin10/25/[address]: suggestive of interval hemorrhage within previously described mass lesion on the right middle cranial fossa, anteriorly. Significnt surrounding vasogenic edema again seen. bone mets as described. ASSESSMENT/PLAN: Patient is s a 56 year old woman with history of advanced left breast cancer with metastatic spread to her bones and brain. smoker, seizure disorder, heroin/ alcohol/methadone abuse and prolapsed uterus. She presents to the ER on 08/20/17 from [facility] with lethargy and falls. During hospitalization patient has been seen by oncology, radiation oncology, neuro and neurosurgery and not a candidate for any further treatment. She is currently awaiting placement for end of life care and comfort. On , a head CT showed interval hemorrhage. Oncology: Metastatic breast cancer to bone and brain: Not a candidate for further treatment. Pain currently managed with morphine gtt. Psyche: Agitation: now lethargic, minimally arousable to tactile stimuli. 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 Fever: resolved, being treated for possible pneumonia, on Vanco (started 10/24) . ID following, notes reviewed. Chest pain/nausea/vomiting: resolved. Hypertension: bp stable. Neuro: Head CT suggestive of interval hemorrhage, on valporate acid for seizure prophylaxis. continue seizure precautions. fen tolerating PO monitor electrolytes, encourage hydration regular diet as tolerated prophy: No a/c 2/[address] with interval hemorrhage seizure precautions dnr/dni Visit type - Emergency Visit Emergency Visit: Yes ED Registration Date: 08/20/17 Care time: The patient presented to the Emergency Department on the above date and was hospitalized for further evaluation of their emergent condition. - New Patient This patient is new to me today: No - Critical Care Critical Care patient: No - Discharge Referral Referred to [facility] Med P.C.: No
[2017-10-31] MEDS ORDERED: MORPHINE SULFATE 2 MG/ML VIAL IVPUSH PRN (10:03)
--- NOTE | 2017-10-31 10:22 | PN ---
Progress Note, Physician History of Present Illness: no changes patient with no specific changes still sedated - Current Medication List Current Medications: Active Medications Acetaminophen (Tylenol Oral Solution -) 650 mg PO Q6H PRN PRN Reason: PAIN LEVEL 1-5 Last Admin: 10/22/17 09:55 Dose: 650 mg Acetaminophen (Tylenol Suppository -) 650 mg [place] Q6H PRN PRN Reason: FEVER Bisacodyl (Dulcolax Suppository -) 10 mg RC Q24H PRN PRN Reason: CONSTIPATION Diphenhydramine HCl (Benadryl Injection -) 25 mg IVPUSH Q6H PRN PRN Reason: FOR ITCHING Last Admin: 10/27/17 09:40 Dose: 25 mg Sodium Chloride (Normal Saline -) 1,000 mls @ 75 mls/hr IV ASDIR [facility] Last Admin: 10/30/17 17:12 Dose: 75 mls/hr Morphine Sulfate 100 mg/ (Sodium Chloride) 100 mls @ 10 mls/hr IVPB ASDIR [facility]; Protocol Last Admin: 10/31/17 02:45 Dose: 10 mls/hr Lorazepam (Ativan Injection -) 2 mg IVPUSH Q4H PRN PRN Reason: ANXIETY Last Admin: 10/30/17 14:49 Dose: 2 mg Methylnaltrexone [place] (Relistor -) 8 mg SQ Q2D@1000 REBECCA Last Admin: 10/30/17 13:27 Dose: 8 mg Morphine Sulfate (Morphine Sulfate) 1 mg IVPUSH Q6H PRN PRN Reason: PAIN LEVEL 7 - 10 Olanzapine (Zyprexa -) 20 mg PO BID [facility] Last Admin: 10/30/17 22:03 Dose: Not Given Ondansetron HCl (Zofran Injection) 4 mg IVPUSH Q6H PRN PRN Reason: NAUSEA AND/OR VOMITING Polyethylene Glycol (Miralax (For Daily Use) -) 17 gm PO BID [facility] Last Admin: 10/30/17 22:03 Dose: Not Given Scopolamine HBr (Transderm-Scop -) 1 patch TD Q72H [facility] Last Admin: 10/30/17 22:02 Dose: 1 patch Senna (Senna -) 2 tab PO HS [facility] Last Admin: 10/30/17 22:03 Dose: Not Given Valproate Sodium (Depacon Injection -) 500 mg IVPB Q6H-IV REBECCA Last Admin: 10/31/17 08:38 Dose: 500 mg - Objective Vital Signs: Vital Signs Temperature 98.3 F 10/31/17 06:00 Pulse Rate 88 10/31/17 06:00 Respiratory Rate 20 10/31/17 06:00 Blood Pressure 120/75 10/31/17 06:00 O2 Sat by Pulse Oximetry (%) 93 L 10/30/17 09:00 Constitutional: Yes: No Distress Cardiovascular: Yes: Regular Rate and Rhythm Respiratory: Yes: Regular, CTA Bilaterally Gastrointestinal: Yes: Normal Bowel Sounds, Soft Breast(s): Yes: Other (left breast nodule,cancer) Musculoskeletal: Yes: WNL Extremities: Yes: WNL Neurological: Yes: Other Labs: CBC, BMP 10/27/17 08:00 10/28/17 06:45 INR, PTT INR 1.41 (0.83-1.09) H 10/15/17 07:05 Assessment/Plan Problem List - Problems (1) Nicotine dependence Code(s): F17.200 - NICOTINE DEPENDENCE, UNSPECIFIED, UNCOMPLICATED Qualifiers: Nicotine product type: cigarettes Substance use status: uncomplicated Qualified Code(s): F17.210 - Nicotine dependence, cigarettes, uncomplicated (2) Opioid dependence with withdrawal Code(s): F11.23 - OPIOID DEPENDENCE WITH WITHDRAWAL (3) Pelvic organ prolapse quantification stage 4 cystocele Code(s): N81.10 - CYSTOCELE, UNSPECIFIED (4) Breast cancer Code(s): C50.919 - MALIGNANT NEOPLASM OF UNSP SITE OF UNSPECIFIED FEMALE BREAST Qualifiers: Breast location: lower inner quadrant of breast Estrogen receptor status: unspecified Patient sex: female Laterality: left Qualified Code(s): C50.312 - Malignant neoplasm of lower-inner quadrant of left female breast (5) Alcohol dependence with uncomplicated withdrawal Code(s): F10.230 - ALCOHOL DEPENDENCE WITH WITHDRAWAL, UNCOMPLICATED (6) HTN (hypertension) Code(s): I10 - ESSENTIAL (PRIMARY) HYPERTENSION Qualifiers: Hypertension type: essential hypertension Qualified Code(s): I10 - Essential (primary) hypertension (7) History of seizure Code(s): Z87.898 - PERSONAL HISTORY OF OTHER SPECIFIED CONDITIONS Assessment/Plan 56 y.o. 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 Fever Possible PNA Leukocytosis Sinus opacification/possible sinusitis in setting of bony erosion Lt breast mass/Metastatic breast CA plan will stop vanco and monitor rest continue current mgmt supportive care rest as per the team
[2017-10-31] MEDS: OLANZapine 10 MG TABLET PO SCH ×2 (10:39→21:42)
[2017-10-31] MEDS: POLYETHYLENE GLYCOL 3350 119 GM BTL PO SCH ×2 (11:00→21:41)
[2017-10-31] MEDS: SODIUM CHLORIDE 1,000 ML IV SCH ×2 (14:15→16:25)
[2017-10-31] MEDS: SENNOSIDES 8.6MG TABLET (FP) PO SCH (21:41)
[2017-11-01] MEDS: VALPROATE SODIUM 500 MG/5 ML VIAL IVPB SCH ×4 (02:51→20:44)
[2017-11-01] MEDS ORDERED: PT OWN MED DRAWER 7, Y5N ONE ×5 (08:26→21:35)
[2017-11-01] MEDS: OLANZapine 10 MG TABLET PO SCH ×3 (09:13→21:37)
[2017-11-01] MEDS: POLYETHYLENE GLYCOL 3350 119 GM BTL PO SCH ×2 (09:13→21:22)
[2017-11-01] MEDS: Methylnaltrexone Bromide 12 MG/0.6 ML KIT SQ SCH (09:14)
[2017-11-01] MEDS: SODIUM CHLORIDE 1,000 ML IV SCH (09:15)
--- NOTE | 2017-11-01 09:24 | PN ---
Progress Note, Physician History of Present Illness: patient continues to be afebrile no specific events off of abx - Current Medication List Current Medications: Active Medications Acetaminophen (Tylenol Oral Solution -) 650 mg PO Q6H PRN PRN Reason: PAIN LEVEL 1-5 Last Admin: 10/22/17 09:55 Dose: 650 mg Acetaminophen (Tylenol Suppository -) 650 mg [place] Q6H PRN PRN Reason: FEVER Bisacodyl (Dulcolax Suppository -) 10 mg RC Q24H PRN PRN Reason: CONSTIPATION Diphenhydramine HCl (Benadryl Injection -) 25 mg IVPUSH Q6H PRN PRN Reason: FOR ITCHING Last Admin: 10/27/17 09:40 Dose: 25 mg Sodium Chloride (Normal Saline -) 1,000 mls @ 75 mls/hr IV ASDIR [facility] Last Admin: 11/01/17 09:15 Dose: 75 mls/hr Morphine Sulfate 100 mg/ (Sodium Chloride) 100 mls @ 10 mls/hr IVPB ASDIR [facility]; Protocol Last Admin: 10/31/17 23:08 Dose: 10 mls/hr Lorazepam (Ativan Injection -) 2 mg IVPUSH Q4H PRN PRN Reason: ANXIETY Last Admin: 10/30/17 14:49 Dose: 2 mg Methylnaltrexone [place] (Relistor -) 8 mg SQ Q2D@1000 [facility] Last Admin: 11/01/17 09:14 Dose: 8 mg Morphine Sulfate (Morphine Sulfate) 1 mg IVPUSH Q6H PRN PRN Reason: PAIN LEVEL 7 - 10 Olanzapine (Zyprexa -) 20 mg PO BID [facility] Last Admin: 11/01/17 09:13 Dose: 20 mg Ondansetron HCl (Zofran Injection) 4 mg IVPUSH Q6H PRN PRN Reason: NAUSEA AND/OR VOMITING Polyethylene Glycol (Miralax (For Daily Use) -) 17 gm PO BID [facility] Last Admin: 11/01/17 09:13 Dose: 17 gm Scopolamine HBr (Transderm-Scop -) 1 patch TD Q72H [facility] Last Admin: 10/30/17 22:02 Dose: 1 patch Senna (Senna -) 2 tab PO HS [facility] Last Admin: 10/31/17 21:41 Dose: Not Given Valproate Sodium (Depacon Injection -) 500 mg IVPB Q6H-IV [facility] Last Admin: 11/01/17 08:29 Dose: 500 mg - Objective Vital Signs: Vital Signs Temperature 98.3 F 11/01/17 06:44 Pulse Rate 99 H 11/01/17 06:44 Respiratory Rate 20 11/01/17 06:44 Blood Pressure 124/82 11/01/17 06:44 O2 Sat by Pulse Oximetry (%) 93 L 10/31/17 21:00 Constitutional: Yes: Calm Cardiovascular: Yes: Regular Rate and Rhythm Respiratory: Yes: Regular, CTA Bilaterally Gastrointestinal: Yes: Normal Bowel Sounds, Soft Breast(s): Yes: Skin Changes (left breat,cancer left breast) Musculoskeletal: Yes: WNL Extremities: Yes: WNL Labs: CBC, BMP 10/27/17 08:00 10/28/17 06:45 INR, PTT INR 1.41 (0.83-1.09) H 10/15/17 07:05 Assessment/Plan Problem List - Problems (1) Nicotine dependence Code(s): F17.200 - NICOTINE DEPENDENCE, UNSPECIFIED, UNCOMPLICATED Qualifiers: Nicotine product type: cigarettes Substance use status: uncomplicated Qualified Code(s): F17.210 - Nicotine dependence, cigarettes, uncomplicated (2) Opioid dependence with withdrawal Code(s): F11.23 - OPIOID DEPENDENCE WITH WITHDRAWAL (3) Pelvic organ prolapse quantification stage 4 cystocele Code(s): N81.10 - CYSTOCELE, UNSPECIFIED (4) Breast cancer Code(s): C50.919 - MALIGNANT NEOPLASM OF UNSP SITE OF UNSPECIFIED FEMALE BREAST Qualifiers: Breast location: lower inner quadrant of breast Estrogen receptor status: unspecified Patient sex: female Laterality: left Qualified Code(s): C50.312 - Malignant neoplasm of lower-inner quadrant of left female breast (5) Alcohol dependence with uncomplicated withdrawal Code(s): F10.230 - ALCOHOL DEPENDENCE WITH WITHDRAWAL, UNCOMPLICATED (6) HTN (hypertension) Code(s): I10 - ESSENTIAL (PRIMARY) HYPERTENSION Qualifiers: Hypertension type: essential hypertension Qualified Code(s): I10 - Essential (primary) hypertension (7) History of seizure Code(s): Z87.898 - PERSONAL HISTORY OF OTHER SPECIFIED CONDITIONS Assessment/Plan 56 y.o. 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 Fever Possible PNA Leukocytosis Sinus opacification/possible sinusitis in setting of bony erosion Lt breast mass/Metastatic breast CA plan continue monitoring off of abx supportive treatment awaiting final plan rest as per the team
[2017-11-01] MEDS: MORPHINE 100 MG in SODIUM CHLORIDE 98 ML IVPB SCH ×2 (09:50→20:58)
--- NOTE | 2017-11-01 10:02 | PN ---
Physical Exam: SUBJECTIVE: Patient seen and examined at the bedside. no changes or events reported overnight. OBJECTIVE: Vital Signs Period Temp Pulse Resp BP Sys/Camacho Pulse Ox Last 24 Hr 97.4 F-98.7 F 83-101 18-20 109-136/73-94 93 GENERAL: lethargic, minimally arousable HEAD: Normal with no signs of trauma. EYES: PERRL, extraocular movements intact, sclera anicteric, conjunctiva clear. No ptosis. ENT: Ears normal, nares patent, oropharynx clear without exudates, moist mucous membranes. NECK: Trachea midline, full range of motion, supple. ABDOMEN: Soft, nontender, nondistended, normoactive bowel sounds EXTREMITIES: 2+ pulses, warm, well-perfused, no edema. NEUROLOGICAL:lethargic Active Medications Generic Name Dose Route Start Last Admin Trade Name Freq PRN Reason Stop Dose Admin Acetaminophen 650 mg 08/21/17 06:52 10/22/17 09:55 Tylenol Oral Solution - PO 650 mg Q6H PRN Administration PAIN LEVEL 1-5 Acetaminophen 650 mg 10/26/17 08:03 Tylenol Suppository - [place] Q6H PRN FEVER Bisacodyl 10 mg 10/24/17 13:53 Dulcolax Suppository - RC Q24H PRN CONSTIPATION Diphenhydramine HCl 25 mg 10/26/17 18:49 10/27/17 09:40 Benadryl Injection - IVPUSH 25 mg Q6H PRN Administration FOR ITCHING Sodium Chloride 1,000 mls @ 75 mls/hr 10/22/17 07:15 11/01/17 09:15 Normal Saline - IV 75 mls/hr ASDIR [facility] Administration Morphine Sulfate 100 mg/ 100 mls @ 10 mls/hr 10/29/17 21:56 11/01/17 09:50 Sodium Chloride IVPB 10 mls/hr ASDIR [facility] Administration Protocol Lorazepam 2 mg 10/29/17 20:14 10/30/17 14:49 Ativan Injection - IVPUSH 2 mg Q4H PRN Administration ANXIETY Methylnaltrexone [place] 8 mg 10/30/17 11:15 11/01/17 09:14 Relistor - SQ 8 mg Q2D@1000 REBECCA Administration Morphine Sulfate 1 mg 10/31/17 10:03 Morphine Sulfate IVPUSH Q6H PRN PAIN LEVEL 7 - 10 Olanzapine 20 mg 09/28/17 22:00 11/01/17 09:13 Zyprexa - PO 20 mg BID [facility] Administration Ondansetron HCl 4 mg 10/21/17 12:49 Zofran Injection IVPUSH Q6H PRN NAUSEA AND/OR VOMITING Polyethylene Glycol 17 gm 08/28/17 10:00 11/01/17 09:13 Miralax (For Daily Use) - PO 17 gm BID [facility]BECCA Administration Scopolamine HBr 1 patch 10/30/17 19:30 10/30/17 22:02 Transderm-Scop - TD 1 patch Q72H [facility] Administration Senna 2 tab 10/24/17 22:00 10/31/17 21:41 Senna - PO Not Given HS REBECCA Valproate Sodium 500 mg 10/26/17 09:00 11/01/17 08:29 Depacon Injection - IVPB 500 mg Q6H-IV [facility] Administration ASSESSMENT/PLAN: Imagin10/25/[address]: suggestive of interval hemorrhage within previously described mass lesion on the right middle cranial fossa, anteriorly. Significnt surrounding vasogenic edema again seen. bone mets as described. ASSESSMENT/PLAN: Patient is s a 56 year old woman with history of advanced left breast cancer with metastatic spread to her bones and brain. smoker, seizure disorder, heroin/ alcohol/methadone abuse and prolapsed uterus. She presents to the ER on 08/20/17 from [facility] with lethargy and falls. During hospitalization patient has been seen by oncology, radiation oncology, neuro and neurosurgery and not a candidate for any further treatment. She is currently awaiting placement for end of life care and comfort. On , a head CT showed interval hemorrhage. Oncology: Metastatic breast cancer to bone and brain: Not a candidate for further treatment. Pain currently managed with morphine gtt. Psyche: Agitation: now lethargic, minimally arousable to tactile stimuli. BUSINESS PROCESS REPRESENTATIVE: Prolapsed uterus: patient refused new pessary to be placed. Fever: resolved, being treated for possible pneumonia, on Vanco (started 10/24) . ID following, notes reviewed. Chest pain/nausea/vomiting: resolved. Hypertension: bp stable. Neuro: Head CT suggestive of interval hemorrhage, on valporate acid for seizure prophylaxis. continue seizure precautions. fen tolerating PO monitor electrolytes, encourage hydration regular diet as tolerated prophy: No a/c 2/[address] with interval hemorrhage seizure precautions dnr/dni Visit type - Emergency Visit Emergency Visit: Yes ED Registration Date: 08/20/17 Care time: The patient presented to the Emergency Department on the above date and was hospitalized for further evaluation of their emergent condition. - New Patient This patient is new to me today: No - Critical Care Critical Care patient: No - Discharge Referral Referred to [facility] Med P.C.: No
[2017-11-01] MEDS ORDERED: Methylnaltrexone Bromide 12 MG/0.6 ML KIT SQ PRN (12:00)
[2017-11-01] MEDS: SENNOSIDES 8.6MG TABLET (FP) PO SCH ×2 (21:22→21:38)
[2017-11-02] MEDS ORDERED: PT OWN MED DRAWER 7, Y5N ONE ×3 (02:09→19:37)
[2017-11-02] MEDS: VALPROATE SODIUM 500 MG/5 ML VIAL IVPB SCH ×4 (02:15→20:50)
[2017-11-02] MEDS: SODIUM CHLORIDE 1,000 ML IV SCH ×3 (04:31→20:50)
--- NOTE | 2017-11-02 09:01 | PN ---
Progress Note, Physician History of Present Illness: stable was agitated in the morning now calm - Current Medication List Current Medications: Active Medications Acetaminophen (Tylenol Oral Solution -) 650 mg PO Q6H PRN PRN Reason: PAIN LEVEL 1-5 Last Admin: 10/22/17 09:55 Dose: 650 mg Acetaminophen (Tylenol Suppository -) 650 mg [place] Q6H PRN PRN Reason: FEVER Bisacodyl (Dulcolax Suppository -) 10 mg RC Q24H PRN PRN Reason: CONSTIPATION Diphenhydramine HCl (Benadryl Injection -) 25 mg IVPUSH Q6H PRN PRN Reason: FOR ITCHING Last Admin: 10/27/17 09:40 Dose: 25 mg Sodium Chloride (Normal Saline -) 1,000 mls @ 75 mls/hr IV ASDIR [facility] Last Admin: 11/02/17 04:31 Dose: 75 mls/hr Morphine Sulfate 100 mg/ (Sodium Chloride) 100 mls @ 10 mls/hr IVPB ASDIR [facility]; Protocol Last Admin: 11/01/17 20:58 Dose: 10 mls/hr Lorazepam (Ativan Injection -) 2 mg IVPUSH Q4H PRN PRN Reason: ANXIETY Last Admin: 10/30/17 14:49 Dose: 2 mg Methylnaltrexone [place] (Relistor -) 8 mg SQ Q2D@1000 PRN PRN Reason: CONSTIPATION Morphine Sulfate (Morphine Sulfate) 1 mg IVPUSH Q6H PRN PRN Reason: PAIN LEVEL 7 - 10 Olanzapine (Zyprexa -) 20 mg PO BID [facility] Last Admin: 11/01/17 21:37 Dose: 20 mg Ondansetron HCl (Zofran Injection) 4 mg IVPUSH Q6H PRN PRN Reason: NAUSEA AND/OR VOMITING Polyethylene Glycol (Miralax (For Daily Use) -) 17 gm PO BID [facility] Last Admin: 11/01/17 21:22 Dose: Not Given Scopolamine HBr (Transderm-Scop -) 1 patch TD Q72H [facility] Last Admin: 10/30/17 22:02 Dose: 1 patch Senna (Senna -) 2 tab PO HS [facility] Last Admin: 11/01/17 21:38 Dose: 2 tab Valproate Sodium (Depacon Injection -) 500 mg IVPB Q6H-IV [facility] Last Admin: 11/02/17 02:15 Dose: 500 mg - Objective Vital Signs: Vital Signs Temperature 96.5 F L 11/02/17 06:26 Pulse Rate 64 11/02/17 06:26 Respiratory Rate 18 11/02/17 06:26 Blood Pressure 103/70 11/02/17 06:26 O2 Sat by Pulse Oximetry (%) 96 11/01/17 21:00 Constitutional: Yes: No Distress, Calm, Other (sleeping) HENT: Yes: Atraumatic Cardiovascular: Yes: Regular Rate and Rhythm Respiratory: Yes: Regular, CTA Bilaterally Gastrointestinal: Yes: Normal Bowel Sounds Musculoskeletal: Yes: WNL Extremities: Yes: WNL Neurological: Yes: Alert, Oriented Psychiatric: Yes: Alert Labs: CBC, BMP 10/27/17 08:00 10/28/17 06:45 INR, PTT INR 1.41 (0.83-1.09) H 10/15/17 07:05 Assessment/Plan Problem List - Problems (1) Nicotine dependence Code(s): F17.200 - NICOTINE DEPENDENCE, UNSPECIFIED, UNCOMPLICATED Qualifiers: Nicotine product type: cigarettes Substance use status: uncomplicated Qualified Code(s): F17.210 - Nicotine dependence, cigarettes, uncomplicated (2) Opioid dependence with withdrawal Code(s): F11.23 - OPIOID DEPENDENCE WITH WITHDRAWAL (3) Pelvic organ prolapse quantification stage 4 cystocele Code(s): N81.10 - CYSTOCELE, UNSPECIFIED (4) Breast cancer Code(s): C50.919 - MALIGNANT NEOPLASM OF UNSP SITE OF UNSPECIFIED FEMALE BREAST Qualifiers: Breast location: lower inner quadrant of breast Estrogen receptor status: unspecified Patient sex: female Laterality: left Qualified Code(s): C50.312 - Malignant neoplasm of lower-inner quadrant of left female breast (5) Alcohol dependence with uncomplicated withdrawal Code(s): F10.230 - ALCOHOL DEPENDENCE WITH WITHDRAWAL, UNCOMPLICATED (6) HTN (hypertension) Code(s): I10 - ESSENTIAL (PRIMARY) HYPERTENSION Qualifiers: Hypertension type: essential hypertension Qualified Code(s): I10 - Essential (primary) hypertension (7) History of seizure Code(s): Z87.898 - PERSONAL HISTORY OF OTHER SPECIFIED CONDITIONS Assessment/Plan 56 y.o. 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 Fever Possible PNA Leukocytosis Sinus opacification/possible sinusitis in setting of bony erosion Lt breast mass/Metastatic breast CA plan continue monitoring off of abx supportive treatment awaiting final plan rest as per the team
[2017-11-02] MEDS: POLYETHYLENE GLYCOL 3350 119 GM BTL PO SCH ×2 (09:24→21:34)
[2017-11-02] MEDS: OLANZapine 10 MG TABLET PO SCH ×2 (09:25→21:35)
--- NOTE | 2017-11-02 13:25 | PN ---
Physical Exam: SUBJECTIVE: Patient seen and examined at the bedside. Minimally responsive to tactile stimuli, mild upper body tremors at rest, no fevers. OBJECTIVE: morphine drip at 10cc/hr Vital Signs Period Temp Pulse Resp BP Sys/Camacho Pulse Ox Last 24 Hr 96.5 F-99 F 64-88 18-18 82-129/53-88 96 GENERAL: lethargic, minimally arousable HEAD: Normal with no signs of trauma. EYES: PERRL, extraocular movements intact, sclera anicteric, conjunctiva clear. No ptosis. ENT: Ears normal, nares patent, oropharynx clear without exudates, moist mucous membranes. NECK: Trachea midline, full range of motion, supple. ABDOMEN: Soft, nontender, nondistended, normoactive bowel sounds EXTREMITIES: 2+ pulses, warm, well-perfused, no edema. NEUROLOGICAL:lethargic Active Medications Generic Name Dose Route Start Last Admin Trade Name Freq PRN Reason Stop Dose Admin Acetaminophen 650 mg 08/21/17 06:52 10/22/17 09:55 Tylenol Oral Solution - PO 650 mg Q6H PRN Administration PAIN LEVEL 1-5 Acetaminophen 650 mg 10/26/17 08:03 Tylenol Suppository - [place] Q6H PRN FEVER Bisacodyl 10 mg 10/24/17 13:53 Dulcolax Suppository - RC Q24H PRN CONSTIPATION Diphenhydramine HCl 25 mg 10/26/17 18:49 10/27/17 09:40 Benadryl Injection - IVPUSH 25 mg Q6H PRN Administration FOR ITCHING Sodium Chloride 1,000 mls @ 75 mls/hr 10/22/17 07:15 11/02/17 09:24 Normal Saline - IV Not Given ASDIR [facility] Morphine Sulfate 100 mg/ 100 mls @ 10 mls/hr 10/29/17 21:56 11/01/17 20:58 Sodium Chloride IVPB 10 mls/hr ASDIR [facility] Administration Protocol Lorazepam 2 mg 10/29/17 20:14 10/30/17 14:49 Ativan Injection - IVPUSH 2 mg Q4H PRN Administration ANXIETY Methylnaltrexone [place] 8 mg 11/01/17 12:00 Relistor - SQ Q2D@1000 PRN CONSTIPATION Morphine Sulfate 1 mg 10/31/17 10:03 Morphine Sulfate IVPUSH Q6H PRN PAIN LEVEL 7 - 10 Olanzapine 20 mg 09/28/17 22:00 11/02/17 09:25 Zyprexa - PO 20 mg BID REBECCA Administration Ondansetron HCl 4 mg 10/21/17 12:49 Zofran Injection IVPUSH Q6H PRN NAUSEA AND/OR VOMITING Polyethylene Glycol 17 gm 08/28/17 10:00 11/02/17 09:24 Miralax (For Daily Use) - PO 17 gm BID REBECCA Administration Scopolamine HBr 1 patch 10/30/17 19:30 10/30/17 22:02 Transderm-Scop - TD 1 patch Q72H [facility] Administration Senna 2 tab 10/24/17 22:00 11/01/17 21:38 Senna - PO 2 tab HS REBECCA Administration Valproate Sodium 500 mg 10/26/17 09:00 11/02/17 09:24 Depacon Injection - IVPB 500 mg Q6H-IV REBECCA Administration Imagin10/25/[address]: suggestive of interval hemorrhage within previously described mass lesion on the right middle cranial fossa, anteriorly. Significnt surrounding vasogenic edema again seen. bone mets as described. ASSESSMENT/PLAN: Patient is s a 56 year old woman with history of advanced left breast cancer with metastatic spread to her bones and brain. smoker, seizure disorder, heroin/ alcohol/methadone abuse and prolapsed uterus. She presents to the ER on 08/20/17 from [facility] with lethargy and falls. During hospitalization patient has been seen by oncology, radiation oncology, neuro and neurosurgery and not a candidate for any further treatment. On 10/25/17, a head CT showed interval hemorrhage. Updates: More lethargic compared to yesterday, minimally arousable to tactile or verbal stimuli mild tremors at rest noted, no fevers Poor PO intake, sleeping more In no acute distress, appears comfortable with morphine drip, morphine 1mg for breakthrough pain. ativan pushes prn. Her vitals remains stable. fen tolerating PO monitor electrolytes, encourage hydration regular diet as tolerated prophy: No a/c 2/[address] with interval hemorrhage seizure precautions dnr/dni Visit type - Emergency Visit Emergency Visit: Yes ED Registration Date: 08/20/17 Care time: The patient presented to the Emergency Department on the above date and was hospitalized for further evaluation of their emergent condition. - New Patient This patient is new to me today: No - Critical Care Critical Care patient: No - Discharge Referral Referred to [facility] Med P.C.: No
[2017-11-02] MEDS: SCOPOLAMINE HYDROBROMIDE 1 PATCH PATCH.TD72 TD SCH (19:43)
[2017-11-02] MEDS: SENNOSIDES 8.6MG TABLET (FP) PO SCH (21:34)
[2017-11-02] MEDS: MORPHINE 100 MG in SODIUM CHLORIDE 98 ML IVPB SCH (22:01)
[2017-11-03] MEDS: VALPROATE SODIUM 500 MG/5 ML VIAL IVPB SCH ×4 (02:36→21:56)
--- NOTE | 2017-11-03 08:05 | PN ---
Progress Note, Physician History of Present Illness: patient awake more restless - Current Medication List Current Medications: Active Medications Acetaminophen (Tylenol Oral Solution -) 650 mg PO Q6H PRN PRN Reason: PAIN LEVEL 1-5 Last Admin: 10/22/17 09:55 Dose: 650 mg Acetaminophen (Tylenol Suppository -) 650 mg [place] Q6H PRN PRN Reason: FEVER Bisacodyl (Dulcolax Suppository -) 10 mg RC Q24H PRN PRN Reason: CONSTIPATION Diphenhydramine HCl (Benadryl Injection -) 25 mg IVPUSH Q6H PRN PRN Reason: FOR ITCHING Last Admin: 10/27/17 09:40 Dose: 25 mg Sodium Chloride (Normal Saline -) 1,000 mls @ 75 mls/hr IV ASDIR [facility] Last Admin: 11/02/17 20:50 Dose: 75 mls/hr Morphine Sulfate 100 mg/ (Sodium Chloride) 100 mls @ 10 mls/hr IVPB ASDIR [facility]; Protocol Last Admin: 11/02/17 22:01 Dose: 10 mls/hr Lorazepam (Ativan Injection -) 2 mg IVPUSH Q4H PRN PRN Reason: ANXIETY Last Admin: 10/30/17 14:49 Dose: 2 mg Methylnaltrexone [place] (Relistor -) 8 mg SQ Q2D@1000 PRN PRN Reason: CONSTIPATION Morphine Sulfate (Morphine Sulfate) 1 mg IVPUSH Q6H PRN PRN Reason: PAIN LEVEL 7 - 10 Olanzapine (Zyprexa -) 20 mg PO BID [facility] Last Admin: 11/02/17 21:35 Dose: Not Given Ondansetron HCl (Zofran Injection) 4 mg IVPUSH Q6H PRN PRN Reason: NAUSEA AND/OR VOMITING Polyethylene Glycol (Miralax (For Daily Use) -) 17 gm PO BID [facility] Last Admin: 11/02/17 21:34 Dose: Not Given Scopolamine HBr (Transderm-Scop -) 1 patch TD Q72H [facility] Last Admin: 11/02/17 19:43 Dose: 1 patch Senna (Senna -) 2 tab PO HS [facility] Last Admin: 11/02/17 21:34 Dose: Not Given Valproate Sodium (Depacon Injection -) 500 mg IVPB Q6H-IV [facility] Last Admin: 11/03/17 02:36 Dose: 500 mg - Objective Vital Signs: Vital Signs Temperature 99.2 F 11/03/17 06:00 Pulse Rate 95 H 11/03/17 06:00 Respiratory Rate 18 11/03/17 06:00 Blood Pressure 134/102 11/03/17 06:00 O2 Sat by Pulse Oximetry (%) 94 L 11/02/17 21:00 Constitutional: Yes: Calm, Mild Distress Cardiovascular: Yes: Regular Rate and Rhythm Respiratory: Yes: Regular, CTA Bilaterally Gastrointestinal: Yes: Normal Bowel Sounds, Soft Musculoskeletal: Yes: WNL Extremities: Yes: WNL Neurological: Yes: Alert, Other Labs: CBC, BMP 10/27/17 08:00 10/28/17 06:45 INR, PTT INR 1.41 (0.83-1.09) H 10/15/17 07:05 Assessment/Plan Problem List - Problems (1) Nicotine dependence Code(s): F17.200 - NICOTINE DEPENDENCE, UNSPECIFIED, UNCOMPLICATED Qualifiers: Nicotine product type: cigarettes Substance use status: uncomplicated Qualified Code(s): F17.210 - Nicotine dependence, cigarettes, uncomplicated (2) Opioid dependence with withdrawal Code(s): F11.23 - OPIOID DEPENDENCE WITH WITHDRAWAL (3) Pelvic organ prolapse quantification stage 4 cystocele Code(s): N81.10 - CYSTOCELE, UNSPECIFIED (4) Breast cancer Code(s): C50.919 - MALIGNANT NEOPLASM OF UNSP SITE OF UNSPECIFIED FEMALE BREAST Qualifiers: Breast location: lower inner quadrant of breast Estrogen receptor status: unspecified Patient sex: female Laterality: left Qualified Code(s): C50.312 - Malignant neoplasm of lower-inner quadrant of left female breast (5) Alcohol dependence with uncomplicated withdrawal Code(s): F10.230 - ALCOHOL DEPENDENCE WITH WITHDRAWAL, UNCOMPLICATED (6) HTN (hypertension) Code(s): I10 - ESSENTIAL (PRIMARY) HYPERTENSION Qualifiers: Hypertension type: essential hypertension Qualified Code(s): I10 - Essential (primary) hypertension (7) History of seizure Code(s): Z87.898 - PERSONAL HISTORY OF OTHER SPECIFIED CONDITIONS Assessment/Plan 56 y.o. female with PMH of Breast CA with metastasis to Brain and Bone never treated, heroin abuse on methadone, tobacco dependence, alcohol abuse, Bipolar disorder and uterine prolapse initially admitted from [facility] for fall and has had a prolonged hospitalization and noted to develop fever. Fever Possible PNA Leukocytosis Sinus opacification/possible sinusitis in setting of bony erosion Lt breast mass/Metastatic breast CA plan continue monitoring off of abx supportive treatment awaiting final plan rest as per the team
[2017-11-03] MEDS: LORazepam 2 MG/ML SDV VIAL IVPUSH PRN (08:12)
[2017-11-03] MEDS ORDERED: PT OWN MED DRAWER 7, Y5N ONE ×3 (09:23→21:06)
--- NOTE | 2017-11-03 09:33 | PN ---
Physical Exam: SUBJECTIVE: Patient seen and examined, called by RN to report patient is more congested. OBJECTIVE: stop ivf today - restart tomorrow lasix 20mg x 1 Vital Signs Period Temp Pulse Resp BP Sys/Camacho Pulse Ox Last 24 Hr 98.1 F-99.2 F 63-95 18-18 105-134/62-102 94 GENERAL: lethargic, minimally arousable HEAD: Normal with no signs of trauma. EYES: PERRL, extraocular movements intact, sclera anicteric, conjunctiva clear. No ptosis. ENT: Ears normal, nares patent, oropharynx clear without exudates, moist mucous membranes. NECK: Trachea midline, full range of motion, supple. LINGS: scattered rhonchi. ?episodes of apnea. - respiratory rate 14 ABDOMEN: Soft, nontender, nondistended, normoactive bowel sounds EXTREMITIES: 2+ pulses, warm, well-perfused, no edema. NEUROLOGICAL:lethargic Active Medications Generic Name Dose Route Start Last Admin Trade Name Freq PRN Reason Stop Dose Admin Acetaminophen 650 mg 08/21/17 06:52 10/22/17 09:55 Tylenol Oral Solution - PO 650 mg Q6H PRN Administration PAIN LEVEL 1-5 Acetaminophen 650 mg 10/26/17 08:03 Tylenol Suppository - MD Q6H PRN FEVER Bisacodyl 10 mg 10/24/17 13:53 Dulcolax Suppository - RC Q24H PRN CONSTIPATION Diphenhydramine HCl 25 mg 10/26/17 18:49 10/27/17 09:40 Benadryl Injection - IVPUSH 25 mg Q6H PRN Administration FOR ITCHING Morphine Sulfate 100 mg/ 100 mls @ 10 mls/hr 10/29/17 21:56 11/02/17 22:01 Sodium Chloride IVPB 10 mls/hr ASDIR REBECCA Administration Protocol Lorazepam 2 mg 10/29/17 20:14 11/03/17 08:12 Ativan Injection - IVPUSH 2 mg Q4H PRN Administration ANXIETY Methylnaltrexone [place] 8 mg 11/01/17 12:00 Relistor - SQ Q2D@1000 PRN CONSTIPATION Morphine Sulfate 1 mg 10/31/17 10:03 Morphine Sulfate IVPUSH Q6H PRN PAIN LEVEL 7 - 10 Olanzapine 20 mg 09/28/17 22:00 11/02/17 21:35 Zyprexa - PO Not Given BID REBECCA Ondansetron HCl 4 mg 10/21/17 12:49 Zofran Injection IVPUSH Q6H PRN NAUSEA AND/OR VOMITING Polyethylene Glycol 17 gm 08/28/17 10:00 11/02/17 21:34 Miralax (For Daily Use) - PO Not Given BID REBECCA Scopolamine HBr 1 patch 10/30/17 19:30 11/02/17 19:43 Transderm-Scop - TD 1 patch Q72H REBECCA Administration Senna 2 tab 10/24/17 22:00 11/02/17 21:34 Senna - PO Not Given HS REBECCA Valproate Sodium 500 mg 10/26/17 09:00 11/03/17 09:28 Depacon Injection - IVPB 500 mg Q6H-IV REBECCA Administration Imagin10/25/[address]: suggestive of interval hemorrhage within previously described mass lesion on the right middle cranial fossa, anteriorly. Significnt surrounding vasogenic edema again seen. bone mets as described. ASSESSMENT/PLAN: Patient is s a 56 year old woman with history of advanced left breast cancer with metastatic spread to her bones and brain. smoker, seizure disorder, heroin/ alcohol/methadone abuse and prolapsed uterus. She presents to the ER on 08/20/17 from [facility] with lethargy and falls. During hospitalization patient has been seen by oncology, radiation oncology, neuro and neurosurgery and not a candidate for any further treatment. On 10/25/17, a head CT showed interval hemorrhage. Updates: generalized edema, face, legs bilaterally +1 slept throughout lung auscultation, difficult to arouse, otherwise comfortable. Poor PO intake, sleeping more In no acute distress, appears comfortable with morphine drip, morphine 1mg for breakthrough pain. ativan pushes prn. Her vitals remains stable. stop ivf, give lasix, restart ivf tomorrow fen tolerating PO monitor electrolytes, encourage hydration regular diet as tolerated prophy: No a/c 2/[address] with interval hemorrhage seizure precautions dnr/dni - hospice placement. Visit type - Emergency Visit Emergency Visit: Yes ED Registration Date: 08/20/17 Care time: The patient presented to the Emergency Department on the above date and was hospitalized for further evaluation of their emergent condition. - New Patient This patient is new to me today: No - Critical Care Critical Care patient: No - Discharge Referral Referred to [facility] Med P.C.: No
[2017-11-03] MEDS ORDERED: FUROSEMIDE 40 MG/4 ML INJECTABLE VIAL IVPUSH ONE (09:39)
[2017-11-03] MEDS: OLANZapine 10 MG TABLET PO SCH ×3 (10:36→21:57)
[2017-11-03] MEDS: POLYETHYLENE GLYCOL 3350 119 GM BTL PO SCH ×3 (10:36→21:57)
[2017-11-03] MEDS ORDERED: ALBUTEROL SO4 2.5/IPRATROPIUM 0.5 INH SOL 3 ML VIAL.NEB. NEB ONE (12:46)
[2017-11-03] MEDS: MORPHINE 100 MG in SODIUM CHLORIDE 98 ML IVPB SCH (17:40)
[2017-11-03] MEDS: SENNOSIDES 8.6MG TABLET (FP) PO SCH (21:57)
[2017-11-04] MEDS ORDERED: PT OWN MED DRAWER 7, Y5N ONE ×5 (01:46→21:52)
[2017-11-04] MEDS: VALPROATE SODIUM 500 MG/5 ML VIAL IVPB SCH ×4 (02:48→21:12)
[2017-11-04] MEDS: MORPHINE 100 MG in SODIUM CHLORIDE 98 ML IVPB SCH ×2 (04:45→18:28)
[2017-11-04] MEDS: DEXTROSE 5%-NORMAL SALINE 1,000 ML IV SCH (06:01)
--- NOTE | 2017-11-04 09:25 | PN ---
Progress Note, Physician History of Present Illness: no events sleeping stable - Current Medication List Current Medications: Active Medications Acetaminophen (Tylenol Oral Solution -) 650 mg PO Q6H PRN PRN Reason: PAIN LEVEL 1-5 Last Admin: 10/22/17 09:55 Dose: 650 mg Acetaminophen (Tylenol Suppository -) 650 mg [place] Q6H PRN PRN Reason: FEVER Bisacodyl (Dulcolax Suppository -) 10 mg RC Q24H PRN PRN Reason: CONSTIPATION Diphenhydramine HCl (Benadryl Injection -) 25 mg IVPUSH Q6H PRN PRN Reason: FOR ITCHING Last Admin: 10/27/17 09:40 Dose: 25 mg Morphine Sulfate 100 mg/ (Sodium Chloride) 100 mls @ 8 mls/hr IVPB TITR REBECCA; Protocol Last Admin: 11/04/17 04:45 Dose: 8 mls/hr Dextrose/Sodium Chloride (D5-Ns -) 1,000 mls @ 42 mls/hr IV ASDIR REBECCA Last Admin: 11/04/17 06:01 Dose: 42 mls/hr Lorazepam (Ativan Injection -) 2 mg IVPUSH Q4H PRN PRN Reason: ANXIETY Last Admin: 11/03/17 08:12 Dose: 2 mg Methylnaltrexone [place] (Relistor -) 8 mg SQ Q2D@1000 PRN PRN Reason: CONSTIPATION Morphine Sulfate (Morphine Sulfate) 1 mg IVPUSH Q6H PRN PRN Reason: PAIN LEVEL 7 - 10 Olanzapine (Zyprexa -) 20 mg PO BID [facility] Last Admin: 11/03/17 21:57 Dose: Not Given Ondansetron HCl (Zofran Injection) 4 mg IVPUSH Q6H PRN PRN Reason: NAUSEA AND/OR VOMITING Polyethylene Glycol (Miralax (For Daily Use) -) 17 gm PO BID [facility] Last Admin: 11/03/17 21:57 Dose: Not Given Scopolamine HBr (Transderm-Scop -) 1 patch TD Q72H REBECCA Last Admin: 11/02/17 19:43 Dose: 1 patch Senna (Senna -) 2 tab PO HS REBECCA Last Admin: 11/03/17 21:57 Dose: Not Given Valproate Sodium (Depacon Injection -) 500 mg IVPB Q6H-IV REBECCA Last Admin: 11/04/17 02:48 Dose: 500 mg - Objective Vital Signs: Vital Signs Temperature 99.5 F 11/04/17 06:00 Pulse Rate 101 H 11/04/17 06:00 Respiratory Rate 20 11/04/17 06:00 Blood Pressure 145/80 11/04/17 06:00 O2 Sat by Pulse Oximetry (%) 98 11/03/17 21:00 Constitutional: Yes: No Distress, Calm Cardiovascular: Yes: Regular Rate and Rhythm Respiratory: Yes: Regular, CTA Bilaterally Gastrointestinal: Yes: Normal Bowel Sounds Breast(s): Yes: Left (tumor) Musculoskeletal: Yes: WNL Extremities: Yes: WNL Neurological: Yes: Other Labs: CBC, BMP 10/27/17 08:00 10/28/17 06:45 INR, PTT INR 1.41 (0.83-1.09) H 10/15/17 07:05 Assessment/Plan Problem List - Problems (1) Nicotine dependence Code(s): F17.200 - NICOTINE DEPENDENCE, UNSPECIFIED, UNCOMPLICATED Qualifiers: Nicotine product type: cigarettes Substance use status: uncomplicated Qualified Code(s): F17.210 - Nicotine dependence, cigarettes, uncomplicated (2) Opioid dependence with withdrawal Code(s): F11.23 - OPIOID DEPENDENCE WITH WITHDRAWAL (3) Pelvic organ prolapse quantification stage 4 cystocele Code(s): N81.10 - CYSTOCELE, UNSPECIFIED (4) Breast cancer Code(s): C50.919 - MALIGNANT NEOPLASM OF UNSP SITE OF UNSPECIFIED FEMALE BREAST Qualifiers: Breast location: lower inner quadrant of breast Estrogen receptor status: unspecified Patient sex: female Laterality: left Qualified Code(s): C50.312 - Malignant neoplasm of lower-inner quadrant of left female breast (5) Alcohol dependence with uncomplicated withdrawal Code(s): F10.230 - ALCOHOL DEPENDENCE WITH WITHDRAWAL, UNCOMPLICATED (6) HTN (hypertension) Code(s): I10 - ESSENTIAL (PRIMARY) HYPERTENSION Qualifiers: Hypertension type: essential hypertension Qualified Code(s): I10 - Essential (primary) hypertension (7) History of seizure Code(s): Z87.898 - PERSONAL HISTORY OF OTHER SPECIFIED CONDITIONS Assessment/Plan 56 y.o. female with PMH of Breast CA with metastasis to Brain and Bone never treated, heroin abuse on methadone, tobacco dependence, alcohol abuse, Bipolar disorder and uterine prolapse initially admitted from [facility] for fall and has had a prolonged hospitalization and noted to develop fever. Fever Possible PNA Leukocytosis Sinus opacification/possible sinusitis in setting of bony erosion Lt breast mass/Metastatic breast CA plan continue monitoring off of abx supportive treatment awaiting final plan rest as per the team
[2017-11-04] MEDS ORDERED: HYOSCYAMINE SULFATE 0.125 MG *ODT PO ONE (10:04)
[2017-11-04] MEDS: POLYETHYLENE GLYCOL 3350 119 GM BTL PO SCH ×2 (10:12→22:11)
[2017-11-04] MEDS: OLANZapine 10 MG TABLET PO SCH ×2 (10:12→22:11)
[2017-11-04] MEDS: ACETAMINOPHEN 650 MG/20.3 ML ORAL SOLUTION (CUPS) PO PRN (10:39)
[2017-11-04] MEDS: HYOSCYAMINE SULFATE 0.125 MG *ODT PO SCH ×4 (13:25→22:11)
[2017-11-04] MEDS: LORazepam 2 MG/ML SDV VIAL IVPUSH PRN (13:34)
--- NOTE | 2017-11-04 14:20 | PN ---
Physical Exam: SUBJECTIVE: Patient seen and examined at the bedside. OBJECTIVE: increased gurgling secretions, suctioning minimal. hyocosamine scheduled q4. if ineffective, will try atropine drops orally (off label use) patient is actively dying. Vital Signs Period Temp Pulse Resp BP Sys/Camacho Pulse Ox Last 24 Hr 97.9 F-100.8 F 80-101 12-20 100-145/52-80 98 GENERAL: lethargic, minimally arousable HEAD: Normal with no signs of trauma. EYES: PERRL, extraocular movements intact, sclera anicteric, conjunctiva clear. No ptosis. ENT: Ears normal, nares patent, oropharynx clear without exudates, moist mucous membranes. NECK: Trachea midline, full range of motion, supple. LINGS: scattered rhonchi. with episodes of apnea. - respiratory rate 10-12- increased gurgly rattling upper away secretions ABDOMEN: Soft, nontender, nondistended, normoactive bowel sounds EXTREMITIES: 2+ pulses, warm, well-perfused, no edema. NEUROLOGICAL:lethargic Active Medications Generic Name Dose Route Start Last Admin Trade Name Freq PRN Reason Stop Dose Admin Acetaminophen 650 mg 08/21/17 06:52 11/04/17 10:39 Tylenol Oral Solution - PO 650 mg Q6H PRN Administration PAIN LEVEL 1-5 Acetaminophen 650 mg 10/26/17 08:03 Tylenol Suppository - [place] Q6H PRN FEVER Bisacodyl 10 mg 10/24/17 13:53 Dulcolax Suppository - RC Q24H PRN CONSTIPATION Diphenhydramine HCl 25 mg 10/26/17 18:49 10/27/17 09:40 Benadryl Injection - IVPUSH 25 mg Q6H PRN Administration FOR ITCHING Hyoscyamine Sulfate 0.125 mg 11/04/17 12:20 11/04/17 13:26 Levsin Odt - PO Not Given Q4HPO REBECCA Morphine Sulfate 100 mg/ 100 mls @ 8 mls/hr 11/03/17 16:37 11/04/17 04:45 Sodium Chloride IVPB 8 mls/hr TITR REBECCA Administration Protocol Dextrose/Sodium Chloride 1,000 mls @ 42 mls/hr 11/04/17 07:00 11/04/17 06:01 D5-Ns - IV 42 mls/hr ASDIR REBECCA Administration Lorazepam 2 mg 10/29/17 20:14 11/04/17 13:34 Ativan Injection - IVPUSH 2 mg Q4H PRN Administration ANXIETY Methylnaltrexone [place] 8 mg 11/01/17 12:00 Relistor - SQ Q2D@1000 PRN CONSTIPATION Morphine Sulfate 1 mg 10/31/17 10:03 Morphine Sulfate IVPUSH Q6H PRN PAIN LEVEL 7 - 10 Olanzapine 20 mg 09/28/17 22:00 11/04/17 10:12 Zyprexa - PO Not Given BID REBECCA Ondansetron HCl 4 mg 10/21/17 12:49 Zofran Injection IVPUSH Q6H PRN NAUSEA AND/OR VOMITING Polyethylene Glycol 17 gm 08/28/17 10:00 11/04/17 10:12 Miralax (For Daily Use) - PO Not Given BID REBECCA Scopolamine HBr 1 patch 10/30/17 19:30 11/02/17 19:43 Transderm-Scop - TD 1 patch Q72H REBECCA Administration Senna 2 tab 10/24/17 22:00 11/03/17 21:57 Senna - PO Not Given HS REBECCA Valproate Sodium 500 mg 10/26/17 09:00 11/04/17 10:18 Depacon Injection - IVPB 500 mg Q6H-IV REBECCA Administration Imagin10/25/[address]: suggestive of interval hemorrhage within previously described mass lesion on the right middle cranial fossa, anteriorly. Significnt surrounding vasogenic edema again seen. bone mets as described. ASSESSMENT/PLAN: Patient is s a 57 year old woman with history of advanced left breast cancer with metastatic spread to her bones and brain. smoker, seizure disorder, heroin/ alcohol/methadone abuse and prolapsed uterus. She presents to the ER on 08/20/17 from [facility] with lethargy and falls. During hospitalization patient has been seen by oncology, radiation oncology, neuro and neurosurgery and not a candidate for any further treatment. She is currently awaiting placement, but has not been accepted to any facility. On 10/25/17, a head CT showed interval hemorrhage. Updates: actively dying, - respiratory rate 59-39-[id number] gurgly rattling upper away secretions-started on scheduled hyocasamine q4. if ineffective, will try atropine drops to mouth (off label use) slept throughout lung auscultation, difficult to arouse, otherwise comfortable. In no acute distress, appears comfortable with morphine drip, morphine 1mg for breakthrough pain. ativan pushes prn. episodes of apnea No need to do further vitals signs. stop ivf fen no further lab draws no further vitals signs needed seizure precautions dnr/dni - hospice placement. Visit type - Emergency Visit Emergency Visit: Yes ED Registration Date: 08/20/17 Care time: The patient presented to the Emergency Department on the above date and was hospitalized for further evaluation of their emergent condition. - New Patient This patient is new to me today: No - Critical Care Critical Care patient: No - Discharge Referral Referred to [facility] Med P.C.: No
[2017-11-05] MEDS: HYOSCYAMINE SULFATE 0.125 MG *ODT PO SCH ×6 (02:20→22:53)
[2017-11-05] MEDS ORDERED: PT OWN MED DRAWER 7, Y5N ONE ×3 (03:02→18:00)
[2017-11-05] MEDS: VALPROATE SODIUM 500 MG/5 ML VIAL IVPB SCH ×4 (03:20→20:40)
[2017-11-05] MEDS: MORPHINE 100 MG in SODIUM CHLORIDE 98 ML IVPB SCH ×2 (06:20→20:16)
--- NOTE | 2017-11-05 11:00 | PN ---
Progress Note, Physician - Current Medication List Current Medications: Active Medications Acetaminophen (Tylenol Suppository -) 650 mg [place] Q6H PRN PRN Reason: FEVER Bisacodyl (Dulcolax Suppository -) 10 mg RC Q24H PRN PRN Reason: CONSTIPATION Diphenhydramine HCl (Benadryl Injection -) 25 mg IVPUSH Q6H PRN PRN Reason: FOR ITCHING Last Admin: 10/27/17 09:40 Dose: 25 mg Hyoscyamine Sulfate (Levsin Odt -) 0.125 mg PO Q4HPO [facility] Last Admin: 11/05/17 06:11 Dose: 0.125 mg Morphine Sulfate 100 mg/ (Sodium Chloride) 100 mls @ 8 mls/hr IVPB TITR REBECCA; Protocol Last Admin: 11/05/17 06:20 Dose: 8 mls/hr Dextrose/Sodium Chloride (D5-Ns -) 1,000 mls @ 42 mls/hr IV ASDIR [facility] Last Admin: 11/04/17 06:01 Dose: 42 mls/hr Lorazepam (Ativan Injection -) 2 mg IVPUSH Q4H PRN PRN Reason: ANXIETY Last Admin: 11/04/17 13:34 Dose: 2 mg Methylnaltrexone [place] (Relistor -) 8 mg SQ Q2D@1000 PRN PRN Reason: CONSTIPATION Morphine Sulfate (Morphine Sulfate) 1 mg IVPUSH Q6H PRN PRN Reason: PAIN LEVEL 7 - 10 Olanzapine (Zyprexa -) 20 mg PO BID [facility] Last Admin: 11/04/17 22:11 Dose: 20 mg Ondansetron HCl (Zofran Injection) 4 mg IVPUSH Q6H PRN PRN Reason: NAUSEA AND/OR VOMITING Polyethylene Glycol (Miralax (For Daily Use) -) 17 gm PO BID [facility] Last Admin: 11/04/17 22:11 Dose: 17 gm Scopolamine HBr (Transderm-Scop -) 1 patch TD Q72H [facility] Last Admin: 11/02/17 19:43 Dose: 1 patch Valproate Sodium (Depacon Injection -) 500 mg IVPB Q6H-IV REBECCA Last Admin: 11/05/17 08:57 Dose: 500 mg - Objective Vital Signs: Vital Signs Temperature 97.7 F 11/05/17 07:08 Pulse Rate 83 11/05/17 07:08 Respiratory Rate 12 11/05/17 07:08 Blood Pressure 88/57 L 11/05/17 07:08 O2 Sat by Pulse Oximetry (%) 94 L 11/04/17 21:00 Constitutional: Yes: No Distress Cardiovascular: Yes: Regular Rate and Rhythm Respiratory: Yes: Regular, CTA Bilaterally Gastrointestinal: Yes: Normal Bowel Sounds, Soft Breast(s): Yes: Other (tumor) Musculoskeletal: Yes: WNL Extremities: Yes: WNL Neurological: Yes: Other Labs: CBC, BMP 10/27/17 08:00 10/28/17 06:45 INR, PTT INR 1.41 (0.83-1.09) H 10/15/17 07:05 Assessment/Plan Problem List - Problems (1) Nicotine dependence Code(s): F17.200 - NICOTINE DEPENDENCE, UNSPECIFIED, UNCOMPLICATED Qualifiers: Nicotine product type: cigarettes Substance use status: uncomplicated Qualified Code(s): F17.210 - Nicotine dependence, cigarettes, uncomplicated (2) Opioid dependence with withdrawal Code(s): F11.23 - OPIOID DEPENDENCE WITH WITHDRAWAL (3) Pelvic organ prolapse quantification stage 4 cystocele Code(s): N81.10 - CYSTOCELE, UNSPECIFIED (4) Breast cancer Code(s): C50.919 - MALIGNANT NEOPLASM OF UNSP SITE OF UNSPECIFIED FEMALE BREAST Qualifiers: Breast location: lower inner quadrant of breast Estrogen receptor status: unspecified Patient sex: female Laterality: left Qualified Code(s): C50.312 - Malignant neoplasm of lower-inner quadrant of left female breast (5) Alcohol dependence with uncomplicated withdrawal Code(s): F10.230 - ALCOHOL DEPENDENCE WITH WITHDRAWAL, UNCOMPLICATED (6) HTN (hypertension) Code(s): I10 - ESSENTIAL (PRIMARY) HYPERTENSION Qualifiers: Hypertension type: essential hypertension Qualified Code(s): I10 - Essential (primary) hypertension (7) History of seizure Code(s): Z87.898 - PERSONAL HISTORY OF OTHER SPECIFIED CONDITIONS Assessment/Plan 56 y.o. female with PMH of Breast CA with metastasis to Brain and Bone never treated, heroin abuse on methadone, tobacco dependence, alcohol abuse, Bipolar disorder and uterine prolapse initially admitted from [facility] for fall and has had a prolonged hospitalization and noted to develop fever. Fever Possible PNA Leukocytosis Sinus opacification/possible sinusitis in setting of bony erosion Lt breast mass/Metastatic breast CA plan continue monitoring off of abx supportive treatment awaiting final plan rest as per the team
[2017-11-05] MEDS: POLYETHYLENE GLYCOL 3350 119 GM BTL PO SCH ×2 (11:11→22:54)
[2017-11-05] MEDS: OLANZapine 10 MG TABLET PO SCH ×2 (11:12→22:54)
--- NOTE | 2017-11-05 15:03 | PN ---
Physical Exam: SUBJECTIVE: Patient seen and examined at the bedside. Son at the bedside, emotional support provided. patient is minimally responsive to tactile stimuli, opens eyes briefly, may attempt to speak, but sleeps most of the day. OBJECTIVE: Vital Signs Period Temp Pulse Resp BP Sys/Camacho Pulse Ox Last 24 Hr 97.7 F-102.5 F 69-89 12-18 88-115/57-78 91-94 GENERAL: lethargic, minimally arousable HEAD: Normal with no signs of trauma. EYES: PERRL, extraocular movements intact, sclera anicteric, conjunctiva clear. No ptosis. ENT: Ears normal, nares patent, oropharynx clear without exudates, moist mucous membranes. NECK: Trachea midline, full range of motion, supple. LINGS: scattered rhonchi. with episodes of apnea. - respiratory rate 10-12- increased gurgly rattling upper away secretions ABDOMEN: Soft, nontender, nondistended, normoactive bowel sounds EXTREMITIES: 2+ pulses, warm, well-perfused, no edema. NEUROLOGICAL:lethargic, minimally responsive Active Medications Generic Name Dose Route Start Last Admin Trade Name Freq PRN Reason Stop Dose Admin Acetaminophen 650 mg 10/26/17 08:03 Tylenol Suppository - [place] Q6H PRN FEVER Bisacodyl 10 mg 10/24/17 13:53 Dulcolax Suppository - RC Q24H PRN CONSTIPATION Diphenhydramine HCl 25 mg 10/26/17 18:49 10/27/17 09:40 Benadryl Injection - IVPUSH 25 mg Q6H PRN Administration FOR ITCHING Hyoscyamine Sulfate 0.125 mg 11/04/17 12:20 11/05/17 13:54 Levsin Odt - PO 0.125 mg Q4HPO REBECCA Administration Morphine Sulfate 100 mg/ 100 mls @ 8 mls/hr 11/03/17 16:37 11/05/17 06:20 Sodium Chloride IVPB 8 mls/hr TITR REBECCA Administration Protocol Dextrose/Sodium Chloride 1,000 mls @ 42 mls/hr 11/04/17 07:00 11/04/17 06:01 D5-Ns - IV 42 mls/hr ASDIR REBECCA Administration Lorazepam 2 mg 10/29/17 20:14 11/04/17 13:34 Ativan Injection - IVPUSH 2 mg Q4H PRN Administration ANXIETY Methylnaltrexone [place] 8 mg 11/01/17 12:00 Relistor - SQ Q2D@1000 PRN CONSTIPATION Morphine Sulfate 1 mg 10/31/17 10:03 Morphine Sulfate IVPUSH Q6H PRN PAIN LEVEL 7 - 10 Olanzapine 20 mg 09/28/17 22:00 11/05/17 11:12 Zyprexa - PO Not Given BID REBECCA Ondansetron HCl 4 mg 10/21/17 12:49 Zofran Injection IVPUSH Q6H PRN NAUSEA AND/OR VOMITING Polyethylene Glycol 17 gm 08/28/17 10:00 11/05/17 11:11 Miralax (For Daily Use) - PO Not Given BID REBECCA Scopolamine HBr 1 patch 10/30/17 19:30 11/02/17 19:43 Transderm-Scop - TD 1 patch Q72H REBECCA Administration Valproate Sodium 500 mg 10/26/17 09:00 11/05/17 15:02 Depacon Injection - IVPB 500 mg Q6H-IV REBECCA Administration Imagin10/25/[address]: suggestive of interval hemorrhage within previously described mass lesion on the right middle cranial fossa, anteriorly. Significnt surrounding vasogenic edema again seen. bone mets as described. ASSESSMENT/PLAN: Patient is s a 57 year old woman with history of advanced left breast cancer with metastatic spread to her bones and brain. smoker, seizure disorder, heroin/ alcohol/methadone abuse and prolapsed uterus. She presents to the ER on 08/20/17 from [facility] with lethargy and falls. During hospitalization patient has been seen by oncology, radiation oncology, neuro and neurosurgery and not a candidate for any further treatment. She is currently awaiting placement, but has not been accepted to any facility. May be a candidate for inpatient hospice. On 10/25/17, a head CT showed interval hemorrhage. Updates: actively dying, - respiratory rate 29-02-[id number] gurgly rattling upper away secretions-started on scheduled hyocasamine q4. if ineffective, please try atropine drops (2-4 drops to mouth) (off label use) difficult to arouse, but at times opens eyes, falls back to sleep. otherwise comfortable. morphine at 8cc/hr decreased from 10cc/hr. In no acute distress, appears comfortable with morphine drip, morphine 1mg for breakthrough pain. ativan pushes prn. episodes of apnea noted No need to do further vitals signs unless indicated by family. discussed with son. stop ivf since patient appears fluid overloaded. fen no further lab draws seizure precautions comfort/end of life care dnr/dni - hospice placement inpatient vs. outpatient. Visit type - Emergency Visit Emergency Visit: Yes ED Registration Date: 08/20/17 Care time: The patient presented to the Emergency Department on the above date and was hospitalized for further evaluation of their emergent condition. - New Patient This patient is new to me today: No - Critical Care Critical Care patient: No - Discharge Referral Referred to [facility] Med P.C.: No
[2017-11-05] MEDS: SCOPOLAMINE HYDROBROMIDE 1 PATCH PATCH.TD72 TD SCH (18:55)
[2017-11-06] MEDS: HYOSCYAMINE SULFATE 0.125 MG *ODT PO SCH ×6 (01:52→22:51)
[2017-11-06] MEDS: VALPROATE SODIUM 500 MG/5 ML VIAL IVPB SCH ×4 (02:08→21:32)
[2017-11-06] MEDS: DEXTROSE 5%-NORMAL SALINE 1,000 ML IV SCH ×2 (05:13→12:39)
[2017-11-06] MEDS: MORPHINE 100 MG in SODIUM CHLORIDE 98 ML IVPB SCH ×2 (10:50→17:25)
--- NOTE | 2017-11-06 10:58 | PN ---
Progress Note, Physician History of Present Illness: no events no changes awaiting for final plan - Current Medication List Current Medications: Active Medications Acetaminophen (Tylenol Suppository -) 650 mg DE Q6H PRN PRN Reason: FEVER Bisacodyl (Dulcolax Suppository -) 10 mg RC Q24H PRN PRN Reason: CONSTIPATION Diphenhydramine HCl (Benadryl Injection -) 25 mg IVPUSH Q6H PRN PRN Reason: FOR ITCHING Last Admin: 10/27/17 09:40 Dose: 25 mg Hyoscyamine Sulfate (Levsin Odt -) 0.125 mg PO Q4HPO REBECCA Last Admin: 11/06/17 06:10 Dose: Not Given Morphine Sulfate 100 mg/ (Sodium Chloride) 100 mls @ 8 mls/hr IVPB TITR REBECCA; Protocol Last Admin: 11/05/17 20:16 Dose: 8 mls/hr Dextrose/Sodium Chloride (D5-Ns -) 1,000 mls @ 42 mls/hr IV ASDIR [facility] Last Admin: 11/06/17 05:13 Dose: 42 mls/hr Lorazepam (Ativan Injection -) 2 mg IVPUSH Q4H PRN PRN Reason: ANXIETY Last Admin: 11/04/17 13:34 Dose: 2 mg Methylnaltrexone [place] (Relistor -) 8 mg SQ Q2D@1000 PRN PRN Reason: CONSTIPATION Morphine Sulfate (Morphine Sulfate) 1 mg IVPUSH Q6H PRN PRN Reason: PAIN LEVEL 7 - 10 Olanzapine (Zyprexa -) 20 mg PO BID [facility] Last Admin: 11/05/17 22:54 Dose: 20 mg Ondansetron HCl (Zofran Injection) 4 mg IVPUSH Q6H PRN PRN Reason: NAUSEA AND/OR VOMITING Polyethylene Glycol (Miralax (For Daily Use) -) 17 gm PO BID [facility] Last Admin: 11/05/17 22:54 Dose: Not Given Scopolamine HBr (Transderm-Scop -) 1 patch TD Q72H [facility] Last Admin: 11/05/17 18:55 Dose: 1 patch Valproate Sodium (Depacon Injection -) 500 mg IVPB Q6H-IV REBECCA Last Admin: 11/06/17 02:08 Dose: 500 mg - Objective Vital Signs: Vital Signs Temperature 97.7 F 11/06/17 07:57 Pulse Rate 78 11/06/17 07:57 Respiratory Rate 20 11/06/17 07:57 Blood Pressure 100/59 L 11/06/17 07:57 O2 Sat by Pulse Oximetry (%) 91 L 11/05/17 21:00 Constitutional: Yes: No Distress Cardiovascular: Yes: Regular Rate and Rhythm Respiratory: Yes: Regular, Other Gastrointestinal: Yes: Normal Bowel Sounds, Soft Musculoskeletal: Yes: WNL Extremities: Yes: WNL Neurological: Yes: Other Labs: CBC, BMP 10/27/17 08:00 10/28/17 06:45 INR, PTT INR 1.41 (0.83-1.09) H 10/15/17 07:05 Assessment/Plan Problem List - Problems (1) Nicotine dependence Code(s): F17.200 - NICOTINE DEPENDENCE, UNSPECIFIED, UNCOMPLICATED Qualifiers: Nicotine product type: cigarettes Substance use status: uncomplicated Qualified Code(s): F17.210 - Nicotine dependence, cigarettes, uncomplicated (2) Opioid dependence with withdrawal Code(s): F11.23 - OPIOID DEPENDENCE WITH WITHDRAWAL (3) Pelvic organ prolapse quantification stage 4 cystocele Code(s): N81.10 - CYSTOCELE, UNSPECIFIED (4) Breast cancer Code(s): C50.919 - MALIGNANT NEOPLASM OF UNSP SITE OF UNSPECIFIED FEMALE BREAST Qualifiers: Breast location: lower inner quadrant of breast Estrogen receptor status: unspecified Patient sex: female Laterality: left Qualified Code(s): C50.312 - Malignant neoplasm of lower-inner quadrant of left female breast (5) Alcohol dependence with uncomplicated withdrawal Code(s): F10.230 - ALCOHOL DEPENDENCE WITH WITHDRAWAL, UNCOMPLICATED (6) HTN (hypertension) Code(s): I10 - ESSENTIAL (PRIMARY) HYPERTENSION Qualifiers: Hypertension type: essential hypertension Qualified Code(s): I10 - Essential (primary) hypertension (7) History of seizure Code(s): Z87.898 - PERSONAL HISTORY OF OTHER SPECIFIED CONDITIONS Assessment/Plan 56 y.o. 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 Fever Possible PNA Leukocytosis Sinus opacification/possible sinusitis in setting of bony erosion Lt breast mass/Metastatic breast CA plan continue monitoring off of abx supportive treatment awaiting final plan rest as per the team
[2017-11-06] MEDS: OLANZapine 10 MG TABLET PO SCH (11:31)
[2017-11-06] MEDS: POLYETHYLENE GLYCOL 3350 119 GM BTL PO SCH (11:31)
[2017-11-06] MEDS ORDERED: PT OWN MED DRAWER 7, Y5N ONE ×5 (12:34→21:25)
--- NOTE | 2017-11-06 13:48 | PN ---
Physical Exam: SUBJECTIVE: Patient seen and examined at the bedside. Son at bedside. patient lethargic, unresponsive. OBJECTIVE: patient is minimally responsive to tactile stimuli, opens eyes briefly, may attempt to speak, but sleeps most of the day. episodes of apnea noted, breathing between 8-10 breaths per minute. Continue morphine drip for comfort. Vital Signs Period Temp Pulse Resp BP Sys/Camacho Pulse Ox Last 24 Hr 97.7 F-98.9 F 67-78 18-20 100-136/59-87 91 GENERAL: lethargic, minimally arousable HEAD: Normal with no signs of trauma. NECK: Trachea midline, full range of motion, supple. LINGS: scattered rhonchi anteriorly. with episodes of apnea. - respiratory rate 8-10 with less gurgly rattling upper away secretions ABDOMEN: Soft, nontender, nondistended, normoactive bowel sounds EXTREMITIES: 2+ pulses, warm, well-perfused, no edema. NEUROLOGICAL:lethargic, minimally responsive Active Medications Generic Name Dose Route Start Last Admin Trade Name Freq PRN Reason Stop Dose Admin Acetaminophen 650 mg 10/26/17 08:03 Tylenol Suppository - DC Q6H PRN FEVER Bisacodyl 10 mg 10/24/17 13:53 Dulcolax Suppository - RC Q24H PRN CONSTIPATION Diphenhydramine HCl 25 mg 10/26/17 18:49 10/27/17 09:40 Benadryl Injection - IVPUSH 25 mg Q6H PRN Administration FOR ITCHING Hyoscyamine Sulfate 0.125 mg 11/04/17 12:20 11/06/17 11:31 Levsin Odt - PO Not Given Q4HPO REBECCA Morphine Sulfate 100 mg/ 100 mls @ 8 mls/hr 11/03/17 16:37 11/06/17 10:50 Sodium Chloride IVPB 8 mls/hr TITR REBECCA Administration Protocol Dextrose/Sodium Chloride 1,000 mls @ 42 mls/hr 11/04/17 07:00 11/06/17 12:39 D5-Ns - IV Not Given ASDIR REBECCA Lorazepam 2 mg 10/29/17 20:14 11/04/17 13:34 Ativan Injection - IVPUSH 2 mg Q4H PRN Administration ANXIETY Methylnaltrexone [place] 8 mg 11/01/17 12:00 Relistor - SQ Q2D@1000 PRN CONSTIPATION Morphine Sulfate 1 mg 10/31/17 10:03 Morphine Sulfate IVPUSH Q6H PRN PAIN LEVEL 7 - 10 Olanzapine 20 mg 09/28/17 22:00 11/06/17 11:31 Zyprexa - PO Not Given BID REBECCA Ondansetron HCl 4 mg 10/21/17 12:49 Zofran Injection IVPUSH Q6H PRN NAUSEA AND/OR VOMITING Polyethylene Glycol 17 gm 08/28/17 10:00 11/06/17 11:31 Miralax (For Daily Use) - PO Not Given BID REBECCA Scopolamine HBr 1 patch 10/30/17 19:30 11/05/17 18:55 Transderm-Scop - TD 1 patch Q72H REBECCA Administration Valproate Sodium 500 mg 10/26/17 09:00 11/06/17 12:41 Depacon Injection - IVPB 500 mg Q6H-IV REBECCA Administration ASSESSMENT/PLAN: Imagin10/25/[address]: suggestive of interval hemorrhage within previously described mass lesion on the right middle cranial fossa, anteriorly. Significant surrounding vasogenic edema again seen. bone mets as described. ASSESSMENT/PLAN: Patient is s a 57 year old woman with history of advanced left breast cancer with metastatic spread to her bones and brain. smoker, seizure disorder, heroin/ alcohol/methadone abuse and prolapsed uterus. She presents to the ER on 08/20/17 from [facility] with lethargy and falls. During hospitalization patient has been seen by oncology, radiation oncology, neuro and neurosurgery and not a candidate for any further treatment. She is currently awaiting placement, but has not been accepted to any facility. May be a candidate for inpatient hospice. Updates: actively dying, - respiratory rate 8-10 with decreased gurgly rattling upper away secretions-->responding well on scheduled hyocasamine q4. if ineffective, please try atropine drops (2-4 drops to mouth) (off label use) difficult to arouse, sleeps most of the day. otherwise comfortable. morphine at 8cc/hr decreased from 10cc/hr. In no acute distress, appears comfortable with morphine drip, morphine 1mg for breakthrough pain. ativan pushes prn. increased episodes of apnea noted No need to do further vitals signs unless indicated by family. discussed with son. stop PO medications. gentle hydration, if develops fluid overload, stop IVF. fen no further lab draws seizure precautions comfort/end of life care dnr/dni - hospice placement inpatient vs. outpatient. Visit type - Emergency Visit Emergency Visit: Yes ED Registration Date: 08/20/17 Care time: The patient presented to the Emergency Department on the above date and was hospitalized for further evaluation of their emergent condition. - New Patient This patient is new to me today: No - Critical Care Critical Care patient: No - Discharge Referral Referred to [facility] No
[2017-11-07] MEDS ORDERED: PT OWN MED DRAWER 7, Y5N ONE ×5 (02:19→22:16)
[2017-11-07] MEDS: MORPHINE 100 MG in SODIUM CHLORIDE 98 ML IVPB SCH ×3 (02:21→17:41)
[2017-11-07] MEDS: VALPROATE SODIUM 500 MG/5 ML VIAL IVPB SCH ×4 (02:22→20:23)
[2017-11-07] MEDS: HYOSCYAMINE SULFATE 0.125 MG *ODT PO SCH ×7 (02:28→22:27)
[2017-11-07] MEDS: DEXTROSE 5%-NORMAL SALINE 1,000 ML IV SCH ×2 (05:38→08:17)
[2017-11-07] MEDS ORDERED: LORazepam 2 MG/ML SDV VIAL IVPUSH ONE (12:08)
--- NOTE | 2017-11-07 12:08 | PN ---
Physical Exam: SUBJECTIVE: Patient seen and examined at bedside. Son present. OBJECTIVE: Vital Signs Period Temp Pulse Resp BP Sys/Camacho Pulse Ox Last 24 Hr 97.9 F-98.2 F 66-78 16-20 108-117/54-70 GENERAL: The patient is somnolent, responds to physical touching, no words, very soft moaning; picking at sheets, pulling sheets off legs LUNGS: Breath sounds equal, clear to auscultation bilaterally, no wheezes, no crackles, no accessory muscle use; brief apneic periods; left breast tumor HEART: Regular rate and rhythm, S1, S2 ABDOMEN: Soft, nontender, nondistended EXTREMITIES: 2+ pulses, warm, well-perfused, no edema; bilateral venous stasis changes Active Medications Generic Name Dose Route Start Last Admin Trade Name Freq PRN Reason Stop Dose Admin Acetaminophen 650 mg 10/26/17 08:03 Tylenol Suppository - [place] Q6H PRN FEVER Bisacodyl 10 mg 10/24/17 13:53 Dulcolax Suppository - RC Q24H PRN CONSTIPATION Diphenhydramine HCl 25 mg 10/26/17 18:49 10/27/17 09:40 Benadryl Injection - IVPUSH 25 mg Q6H PRN Administration FOR ITCHING Hyoscyamine Sulfate 0.125 mg 11/04/17 12:20 11/07/17 10:36 Levsin Odt - PO 0.125 mg Q4HPO REBECCA Administration Morphine Sulfate 100 mg/ 100 mls @ 8 mls/hr 11/03/17 16:37 11/07/17 02:21 Sodium Chloride IVPB 8 mls/hr TITR REBECCA Administration Protocol Dextrose/Sodium Chloride 1,000 mls @ 42 mls/hr 11/04/17 07:00 11/07/17 08:17 D5-Ns - IV Not Given ASDIR REBECCA Lorazepam 2 mg 10/29/17 20:14 11/04/17 13:34 Ativan Injection - IVPUSH 2 mg Q4H PRN Administration ANXIETY Morphine Sulfate 1 mg 10/31/17 10:03 Morphine Sulfate IVPUSH Q6H PRN PAIN LEVEL 7 - 10 Ondansetron HCl 4 mg 10/21/17 12:49 Zofran Injection IVPUSH Q6H PRN NAUSEA AND/OR VOMITING Scopolamine HBr 1 patch 10/30/17 19:30 11/05/17 18:55 Transderm-Scop - TD 1 patch Q72H REBECCA Administration Valproate Sodium 500 mg 10/26/17 09:00 11/07/17 10:36 Depacon Injection - IVPB 500 mg Q6H-IV REBECCA Administration ASSESSMENT/PLAN 56 year old female with PMH left breast cancer with leptomeningeal disease, bipolar disorder, and heroin and alcohol abuse. HOD#[id number]. Sepsis of uncertain etiology, resolved --off antibiotics, afebrile Metastatic breast cancer, --left breast and axillary lymph node masses/enlargement, metastatic disease to bone and brain --seen and evaluated by oncology, radiation oncology, neurology, and neurosurgery: not a candidate for further treatment Pain management --IV morphine drip now at 8mg/hr --ativan IVP q4h PRN Bipolar disorder Agitation, manic behavior --these symptoms have almost completely resolved on morphine drip and ativan PRN --continue valproate IVPB --d/c olanzapine Heroin abuse Alcohol abuse Uterine prolapse --pessary was placed and patient pulled it out and threw it away --patient refused replacement but now bedbound; uterus is in situ Conjunctivitis, left eye, resolved Constipation --Reslistor q48h FEN Fluids: NS@42mL/hr Comfort care No lab draws Vital signs qshift DNR/DNI Visit type - Emergency Visit Emergency Visit: Yes ED Registration Date: 08/20/17 Care time: The patient presented to the Emergency Department on the above date and was hospitalized for further evaluation of their emergent condition. - New Patient This patient is new to me today: No - Critical Care Critical Care patient: No
--- NOTE | 2017-11-07 13:45 | PN ---
Progress Note, Physician History of Present Illness: no events no changes awaiting for final plan - Current Medication List Current Medications: Active Medications Acetaminophen (Tylenol Suppository -) 650 mg SC Q6H PRN PRN Reason: FEVER Bisacodyl (Dulcolax Suppository -) 10 mg RC Q24H PRN PRN Reason: CONSTIPATION Diphenhydramine HCl (Benadryl Injection -) 25 mg IVPUSH Q6H PRN PRN Reason: FOR ITCHING Last Admin: 10/27/17 09:40 Dose: 25 mg Hyoscyamine Sulfate (Levsin Odt -) 0.125 mg PO Q4HPO REBECCA Last Admin: 11/07/17 10:36 Dose: 0.125 mg Morphine Sulfate 100 mg/ (Sodium Chloride) 100 mls @ 8 mls/hr IVPB TITR REBECCA; Protocol Last Admin: 11/07/17 02:21 Dose: 8 mls/hr Dextrose/Sodium Chloride (D5-Ns -) 1,000 mls @ 42 mls/hr IV ASDIR REBECCA Last Admin: 11/07/17 08:17 Dose: Not Given Lorazepam (Ativan Injection -) 2 mg IVPUSH Q4H PRN PRN Reason: ANXIETY Last Admin: 11/04/17 13:34 Dose: 2 mg Morphine Sulfate (Morphine Sulfate) 1 mg IVPUSH Q6H PRN PRN Reason: PAIN LEVEL 7 - 10 Ondansetron HCl (Zofran Injection) 4 mg IVPUSH Q6H PRN PRN Reason: NAUSEA AND/OR VOMITING Scopolamine HBr (Transderm-Scop -) 1 patch TD Q72H REBECCA Last Admin: 11/05/17 18:55 Dose: 1 patch Valproate Sodium (Depacon Injection -) 500 mg IVPB Q6H-IV REBECCA Last Admin: 11/07/17 10:36 Dose: 500 mg - Objective Vital Signs: Vital Signs Temperature 97.9 F 11/07/17 10:00 Pulse Rate 78 11/07/17 10:00 Respiratory Rate 16 11/07/17 10:00 Blood Pressure 117/54 L 11/07/17 10:00 O2 Sat by Pulse Oximetry (%) 91 L 11/05/17 21:00 Constitutional: Yes: No Distress, Calm Cardiovascular: Yes: Regular Rate and Rhythm Respiratory: Yes: Regular, CTA Bilaterally Gastrointestinal: Yes: Normal Bowel Sounds, Soft Breast(s): Yes: Other (left breat tumor) Musculoskeletal: Yes: WNL Extremities: Yes: Other Neurological: Yes: Other (restless) Psychiatric: Yes: Other Labs: CBC, BMP 10/27/17 08:00 10/28/17 06:45 INR, PTT INR 1.41 (0.83-1.09) H 10/15/17 07:05 Assessment/Plan Problem List - Problems (1) Nicotine dependence Code(s): F17.200 - NICOTINE DEPENDENCE, UNSPECIFIED, UNCOMPLICATED Qualifiers: Nicotine product type: cigarettes Substance use status: uncomplicated Qualified Code(s): F17.210 - Nicotine dependence, cigarettes, uncomplicated (2) Opioid dependence with withdrawal Code(s): F11.23 - OPIOID DEPENDENCE WITH WITHDRAWAL (3) Pelvic organ prolapse quantification stage 4 cystocele Code(s): N81.10 - CYSTOCELE, UNSPECIFIED (4) Breast cancer Code(s): C50.919 - MALIGNANT NEOPLASM OF UNSP SITE OF UNSPECIFIED FEMALE BREAST Qualifiers: Breast location: lower inner quadrant of breast Estrogen receptor status: unspecified Patient sex: female Laterality: left Qualified Code(s): C50.312 - Malignant neoplasm of lower-inner quadrant of left female breast (5) Alcohol dependence with uncomplicated withdrawal Code(s): F10.230 - ALCOHOL DEPENDENCE WITH WITHDRAWAL, UNCOMPLICATED (6) HTN (hypertension) Code(s): I10 - ESSENTIAL (PRIMARY) HYPERTENSION Qualifiers: Hypertension type: essential hypertension Qualified Code(s): I10 - Essential (primary) hypertension (7) History of seizure Code(s): Z87.898 - PERSONAL HISTORY OF OTHER SPECIFIED CONDITIONS Assessment/Plan 56 y.o. female with PMH of Breast CA with metastasis to Brain and Bone never treated, heroin abuse on methadone, tobacco dependence, alcohol abuse, Bipolar disorder and uterine prolapse initially admitted from [facility] for fall and has had a prolonged hospitalization and noted to develop fever. Fever Possible PNA Leukocytosis Sinus opacification/possible sinusitis in setting of bony erosion Lt breast mass/Metastatic breast CA plan continue monitoring off of abx supportive treatment awaiting final plan rest as per the team
[2017-11-07] MEDS: LORazepam 2 MG/ML SDV VIAL IVPUSH PRN (15:01)
[2017-11-08] MEDS: HYOSCYAMINE SULFATE 0.125 MG *ODT PO SCH ×7 (02:35→22:24)
[2017-11-08] MEDS ORDERED: PT OWN MED DRAWER 7, Y5N ONE ×4 (03:33→20:48)
[2017-11-08] MEDS: MORPHINE 100 MG in SODIUM CHLORIDE 98 ML IVPB SCH ×2 (03:37→16:44)
[2017-11-08] MEDS: VALPROATE SODIUM 500 MG/5 ML VIAL IVPB SCH ×4 (03:37→20:54)
[2017-11-08] MEDS: DEXTROSE 5%-NORMAL SALINE 1,000 ML IV SCH ×3 (10:52→16:45)
--- NOTE | 2017-11-08 12:44 | PN ---
Progress Note, Physician History of Present Illness: morphine increased less responsive no specific changes - Current Medication List Current Medications: Active Medications Acetaminophen (Tylenol Suppository -) 650 mg ND Q6H PRN PRN Reason: FEVER Bisacodyl (Dulcolax Suppository -) 10 mg RC Q24H PRN PRN Reason: CONSTIPATION Diphenhydramine HCl (Benadryl Injection -) 25 mg IVPUSH Q6H PRN PRN Reason: FOR ITCHING Last Admin: 10/27/17 09:40 Dose: 25 mg Hyoscyamine Sulfate (Levsin Odt -) 0.125 mg PO Q4HPO REBECCA Last Admin: 11/08/17 10:53 Dose: Not Given Morphine Sulfate 100 mg/ (Sodium Chloride) 100 mls @ 8 mls/hr IVPB TITR REBECCA; Protocol Last Admin: 11/08/17 03:37 Dose: 8 mls/hr Dextrose/Sodium Chloride (D5-Ns -) 1,000 mls @ 42 mls/hr IV ASDIR REBECCA Last Admin: 11/08/17 10:52 Dose: Not Given Lorazepam (Ativan Injection -) 2 mg IVPUSH Q4H PRN PRN Reason: ANXIETY Last Admin: 11/07/17 15:01 Dose: 2 mg Morphine Sulfate (Morphine Sulfate) 1 mg IVPUSH Q6H PRN PRN Reason: PAIN LEVEL 7 - 10 Ondansetron HCl (Zofran Injection) 4 mg IVPUSH Q6H PRN PRN Reason: NAUSEA AND/OR VOMITING Scopolamine HBr (Transderm-Scop -) 1 patch TD Q72H REBECCA Last Admin: 11/05/17 18:55 Dose: 1 patch Valproate Sodium (Depacon Injection -) 500 mg IVPB Q6H-IV REBECCA Last Admin: 11/08/17 08:52 Dose: 500 mg - Objective Vital Signs: Vital Signs Temperature 98.7 F 11/08/17 07:44 Pulse Rate 68 11/08/17 07:44 Respiratory Rate 16 11/08/17 07:44 Blood Pressure 96/65 11/08/17 07:44 O2 Sat by Pulse Oximetry (%) 91 L 11/07/17 21:00 Constitutional: Yes: No Distress, Calm Cardiovascular: Yes: Regular Rate and Rhythm Gastrointestinal: Yes: Normal Bowel Sounds, Soft Musculoskeletal: Yes: WNL Extremities: Yes: WNL Neurological: Yes: Other Labs: CBC, BMP 10/27/17 08:00 10/28/17 06:45 INR, PTT INR 1.41 (0.83-1.09) H 10/15/17 07:05 Assessment/Plan Problem List - Problems (1) Nicotine dependence Code(s): F17.200 - NICOTINE DEPENDENCE, UNSPECIFIED, UNCOMPLICATED Qualifiers: Nicotine product type: cigarettes Substance use status: uncomplicated Qualified Code(s): F17.210 - Nicotine dependence, cigarettes, uncomplicated (2) Opioid dependence with withdrawal Code(s): F11.23 - OPIOID DEPENDENCE WITH WITHDRAWAL (3) Pelvic organ prolapse quantification stage 4 cystocele Code(s): N81.10 - CYSTOCELE, UNSPECIFIED (4) Breast cancer Code(s): C50.919 - MALIGNANT NEOPLASM OF UNSP SITE OF UNSPECIFIED FEMALE BREAST Qualifiers: Breast location: lower inner quadrant of breast Estrogen receptor status: unspecified Patient sex: female Laterality: left Qualified Code(s): C50.312 - Malignant neoplasm of lower-inner quadrant of left female breast (5) Alcohol dependence with uncomplicated withdrawal Code(s): F10.230 - ALCOHOL DEPENDENCE WITH WITHDRAWAL, UNCOMPLICATED (6) HTN (hypertension) Code(s): I10 - ESSENTIAL (PRIMARY) HYPERTENSION Qualifiers: Hypertension type: essential hypertension Qualified Code(s): I10 - Essential (primary) hypertension (7) History of seizure Code(s): Z87.898 - PERSONAL HISTORY OF OTHER SPECIFIED CONDITIONS Assessment/Plan 56 y.o. female with PMH of Breast CA with metastasis to Brain and Bone never treated, heroin abuse on methadone, tobacco dependence, alcohol abuse, Bipolar disorder and uterine prolapse initially admitted from [facility] for fall and has had a prolonged hospitalization and noted to develop fever. Fever Possible PNA Leukocytosis Sinus opacification/possible sinusitis in setting of bony erosion Lt breast mass/Metastatic breast CA plan continue monitoring off of abx supportive treatment awaiting final plan rest as per the team
[2017-11-08] MEDS ORDERED: DEXTROSE 5%-NORMAL SALINE 1,000 ML IV SCH (14:14)
--- NOTE | 2017-11-08 14:23 | PN ---
Physical Exam: SUBJECTIVE: Patient seen and examined at bedside. OBJECTIVE: Vital Signs Period Temp Pulse Resp BP Sys/Camacho Pulse Ox Last 24 Hr 98.1 F-98.7 F 66-73 11-16 90-106/51-65 91-93 GENERAL: Somnolent, responds to physical stimuli; no signs of distress LUNGS: Breath CTA HEART: Regular rate and rhythm, S1, S2 ABDOMEN: Soft, nontender, nondistended EXTREMITIES: 2+ pulses, warm, well-perfused, bilateral venous stasis changes; bilateral UE edema Current Medications Generic Name Dose Route Start Last Admin Trade Name Freq PRN Reason Stop Dose Admin Acetaminophen 650 mg 10/26/17 08:03 Tylenol Suppository - [place] Q6H PRN FEVER Bisacodyl 10 mg 10/24/17 13:53 Dulcolax Suppository - RC Q24H PRN CONSTIPATION Diphenhydramine HCl 25 mg 10/26/17 18:49 10/27/17 09:40 Benadryl Injection - IVPUSH 25 mg Q6H PRN Administration FOR ITCHING Hyoscyamine Sulfate 0.125 mg 11/04/17 12:20 11/08/17 17:05 Levsin Odt - PO Not Given Q4HPO REBECCA Morphine Sulfate 100 mg/ 100 mls @ 8 mls/hr 11/03/17 16:37 11/08/17 16:44 Sodium Chloride IVPB 8 mls/hr TITR REBECCA Administration Protocol Dextrose/Sodium Chloride 1,000 mls @ 10 mls/hr 11/08/17 14:22 11/08/17 16:45 D5-Ns - IV Not Given ASDIR REBECCA Lorazepam 2 mg 10/29/17 20:14 11/08/17 16:46 Ativan Injection - IVPUSH 2 mg Q4H PRN Administration ANXIETY Morphine Sulfate 1 mg 10/31/17 10:03 Morphine Sulfate IVPUSH Q6H PRN PAIN LEVEL 7 - 10 Ondansetron HCl 4 mg 10/21/17 12:49 Zofran Injection IVPUSH Q6H PRN NAUSEA AND/OR VOMITING Scopolamine HBr 1 patch 10/30/17 19:30 11/08/17 20:56 Transderm-Scop - TD 1 patch Q72H REBECCA Administration Valproate Sodium 500 mg 10/26/17 09:00 11/08/17 20:54 Depacon Injection - IVPB 500 mg Q6H-IV REBECCA Administration ASSESSMENT/PLAN 56 year old female with PMH left breast cancer with leptomeningeal disease, bipolar disorder, and heroin and alcohol abuse. Sepsis of uncertain etiology, resolved --off antibiotics, afebrile Metastatic breast cancer, --left breast and axillary lymph node masses/enlargement, metastatic disease to bone and brain --seen and evaluated by oncology, radiation oncology, neurology, and neurosurgery: not a candidate for further treatment Pain management --IV morphine drip now at 8mg/hr --morphine, ativan IVP PRN Bipolar disorder Agitation, manic behavior --continue valproate IVPB for seizure prophylaxis Comfort care No lab draws Vital signs q shift DNR/DNI Visit type - Emergency Visit Emergency Visit: Yes ED Registration Date: 08/20/17 Care time: The patient presented to the Emergency Department on the above date and was hospitalized for further evaluation of their emergent condition. - New Patient This patient is new to me today: No - Critical Care Critical Care patient: No
[2017-11-08] MEDS: LORazepam 2 MG/ML SDV VIAL IVPUSH PRN (16:46)
[2017-11-08] MEDS: SCOPOLAMINE HYDROBROMIDE 1 PATCH PATCH.TD72 TD SCH (20:56)
[2017-11-09] MEDS ORDERED: PT OWN MED DRAWER 7, Y5N ONE ×4 (01:43→20:19)
[2017-11-09] MEDS: HYOSCYAMINE SULFATE 0.125 MG *ODT PO SCH ×6 (01:50→21:26)
[2017-11-09] MEDS: VALPROATE SODIUM 500 MG/5 ML VIAL IVPB SCH ×4 (02:22→20:31)
[2017-11-09] MEDS: MORPHINE 100 MG in SODIUM CHLORIDE 98 ML IVPB SCH ×2 (05:48→18:27)
--- NOTE | 2017-11-09 10:59 | PN ---
Physical Exam: SUBJECTIVE: Patient seen and examined at bedside. OBJECTIVE: Vital Signs Period Temp Pulse Resp BP Sys/Camacho Pulse Ox Last 24 Hr 98.2 F-99.2 F 68-108 16-20 103-136/61-83 96-96 GENERAL: Somnolent, responds to physical stimuli; no signs of distress; generalized edema LUNGS: Breath CTA; RR 16, even unlabored breathing HEART: Regular rate and rhythm, S1, S2 ABDOMEN: Soft, nontender, nondistended EXTREMITIES: 2+ pulses, warm, well-perfused, bilateral venous stasis changes; bilateral UE edema Active Medications Generic Name Dose Route Start Last Admin Trade Name Freq PRN Reason Stop Dose Admin Acetaminophen 650 mg 10/26/17 08:03 Tylenol Suppository - CO Q6H PRN FEVER Bisacodyl 10 mg 10/24/17 13:53 Dulcolax Suppository - RC Q24H PRN CONSTIPATION Diphenhydramine HCl 25 mg 10/26/17 18:49 10/27/17 09:40 Benadryl Injection - IVPUSH 25 mg Q6H PRN Administration FOR ITCHING Hyoscyamine Sulfate 0.125 mg 11/04/17 12:20 11/09/17 09:16 Levsin Odt - PO Not Given Q4HPO REBECCA Morphine Sulfate 100 mg/ 100 mls @ 8 mls/hr 11/03/17 16:37 11/09/17 05:48 Sodium Chloride IVPB 8 mls/hr TITR REBECCA Administration Protocol Dextrose/Sodium Chloride 1,000 mls @ 10 mls/hr 11/08/17 14:22 11/08/17 16:45 D5-Ns - IV Not Given ASDIR REBECCA Lorazepam 2 mg 10/29/17 20:14 11/08/17 16:46 Ativan Injection - IVPUSH 2 mg Q4H PRN Administration ANXIETY Morphine Sulfate 1 mg 10/31/17 10:03 Morphine Sulfate IVPUSH Q6H PRN PAIN LEVEL 7 - 10 Ondansetron HCl 4 mg 10/21/17 12:49 Zofran Injection IVPUSH Q6H PRN NAUSEA AND/OR VOMITING Scopolamine HBr 1 patch 10/30/17 19:30 11/08/17 20:56 Transderm-Scop - TD 1 patch Q72H REBECCA Administration Valproate Sodium 500 mg 10/26/17 09:00 11/09/17 09:16 Depacon Injection - IVPB 500 mg Q6H-IV REBECCA Administration ASSESSMENT/PLAN: 56 year old female with PMH left breast cancer with leptomeningeal disease, bipolar disorder, and heroin and alcohol abuse. Sepsis of uncertain etiology, resolved --off antibiotics, afebrile Metastatic breast cancer, --left breast and axillary lymph node masses/enlargement, metastatic disease to bone and brain --seen and evaluated by oncology, radiation oncology, neurology, and neurosurgery: not a candidate for further treatment Pain management --IV morphine drip at 8mg/hr --morphine, ativan IVP PRN Bipolar disorder Agitation, manic behavior --continue valproate IVPB for seizure prophylaxis Comfort care No lab draws Vital signs q shift DNR/DNI Visit type - Emergency Visit Emergency Visit: Yes ED Registration Date: 08/20/17 Care time: The patient presented to the Emergency Department on the above date and was hospitalized for further evaluation of their emergent condition. - New Patient This patient is new to me today: No - Critical Care Critical Care patient: No
--- NOTE | 2017-11-09 14:28 | PN ---
Progress Note, Physician History of Present Illness: morphine increased less responsive hospice planning to evaluate - Current Medication List Current Medications: Active Medications Acetaminophen (Tylenol Suppository -) 650 mg ME Q6H PRN PRN Reason: FEVER Bisacodyl (Dulcolax Suppository -) 10 mg RC Q24H PRN PRN Reason: CONSTIPATION Diphenhydramine HCl (Benadryl Injection -) 25 mg IVPUSH Q6H PRN PRN Reason: FOR ITCHING Last Admin: 10/27/17 09:40 Dose: 25 mg Hyoscyamine Sulfate (Levsin Odt -) 0.125 mg PO Q4HPO REBECCA Last Admin: 11/09/17 09:16 Dose: Not Given Morphine Sulfate 100 mg/ (Sodium Chloride) 100 mls @ 8 mls/hr IVPB TITR REBECCA; Protocol Last Admin: 11/09/17 05:48 Dose: 8 mls/hr Dextrose/Sodium Chloride (D5-Ns -) 1,000 mls @ 10 mls/hr IV ASDIR REBECCA Last Admin: 11/08/17 16:45 Dose: Not Given Lorazepam (Ativan Injection -) 2 mg IVPUSH Q4H PRN PRN Reason: ANXIETY Last Admin: 11/08/17 16:46 Dose: 2 mg Morphine Sulfate (Morphine Sulfate) 1 mg IVPUSH Q6H PRN PRN Reason: PAIN LEVEL 7 - 10 Ondansetron HCl (Zofran Injection) 4 mg IVPUSH Q6H PRN PRN Reason: NAUSEA AND/OR VOMITING Scopolamine HBr (Transderm-Scop -) 1 patch TD Q72H REBECCA Last Admin: 11/08/17 20:56 Dose: 1 patch Valproate Sodium (Depacon Injection -) 500 mg IVPB Q6H-IV REBECCA Last Admin: 11/09/17 09:16 Dose: 500 mg - Objective Vital Signs: Vital Signs Temperature 98.2 F 11/09/17 08:25 Pulse Rate 82 11/09/17 08:25 Respiratory Rate 20 11/09/17 08:25 Blood Pressure 118/67 11/09/17 08:25 O2 Sat by Pulse Oximetry (%) 96 11/08/17 21:00 Constitutional: Yes: Other Cardiovascular: Yes: Regular Rate and Rhythm Respiratory: Yes: Poor Air Entry Gastrointestinal: Yes: Normal Bowel Sounds, Soft Musculoskeletal: Yes: Other Labs: CBC, BMP 10/27/17 08:00 10/28/17 06:45 INR, PTT INR 1.41 (0.83-1.09) H 10/15/17 07:05 Assessment/Plan Problem List - Problems (1) Nicotine dependence Code(s): F17.200 - NICOTINE DEPENDENCE, UNSPECIFIED, UNCOMPLICATED Qualifiers: Nicotine product type: cigarettes Substance use status: uncomplicated Qualified Code(s): F17.210 - Nicotine dependence, cigarettes, uncomplicated (2) Opioid dependence with withdrawal Code(s): F11.23 - OPIOID DEPENDENCE WITH WITHDRAWAL (3) Pelvic organ prolapse quantification stage 4 cystocele Code(s): N81.10 - CYSTOCELE, UNSPECIFIED (4) Breast cancer Code(s): C50.919 - MALIGNANT NEOPLASM OF UNSP SITE OF UNSPECIFIED FEMALE BREAST Qualifiers: Breast location: lower inner quadrant of breast Estrogen receptor status: unspecified Patient sex: female Laterality: left Qualified Code(s): C50.312 - Malignant neoplasm of lower-inner quadrant of left female breast (5) Alcohol dependence with uncomplicated withdrawal Code(s): F10.230 - ALCOHOL DEPENDENCE WITH WITHDRAWAL, UNCOMPLICATED (6) HTN (hypertension) Code(s): I10 - ESSENTIAL (PRIMARY) HYPERTENSION Qualifiers: Hypertension type: essential hypertension Qualified Code(s): I10 - Essential (primary) hypertension (7) History of seizure Code(s): Z87.898 - PERSONAL HISTORY OF OTHER SPECIFIED CONDITIONS Assessment/Plan 56 y.o. female with PMH of Breast CA with metastasis to Brain and Bone never treated, heroin abuse on methadone, tobacco dependence, alcohol abuse, Bipolar disorder and uterine prolapse initially admitted from [facility] for fall and has had a prolonged hospitalization and noted to develop fever. Fever PNA Leukocytosis Sinus opacification/possible sinusitis in setting of bony erosion Lt breast mass/Metastatic breast CA plan hospise going to evaluate the patient continue supportive care rest as per the team await for final plan
[2017-11-09] MEDS: DEXTROSE 5%-NORMAL SALINE 1,000 ML IV SCH (21:26)
[2017-11-10] MEDS: HYOSCYAMINE SULFATE 0.125 MG *ODT PO SCH ×6 (01:37→21:20)
[2017-11-10] MEDS: VALPROATE SODIUM 500 MG/5 ML VIAL IVPB SCH ×4 (02:21→21:19)
[2017-11-10] MEDS: ACETAMINOPHEN 650 MG SUPP.RECT PR PRN ×2 (02:24→15:48)
[2017-11-10] MEDS: MORPHINE 100 MG in SODIUM CHLORIDE 98 ML IVPB SCH ×2 (07:31→21:50)
[2017-11-10] MEDS ORDERED: PT OWN MED DRAWER 7, Y5N ONE ×2 (08:43→14:20)
--- NOTE | 2017-11-10 10:32 | PN ---
Physical Exam: SUBJECTIVE: Patient seen and examined OBJECTIVE: Vital Signs Period Temp Pulse Resp BP Sys/Camacho Pulse Ox Last 24 Hr 99 F-101.6 F 69-90 16-18 111-116/64-71 96 General: unresponsive, apneic breathing, diffuse rhonchi, skin dusky appearance Active Medications Generic Name Dose Route Start Last Admin Trade Name Freq PRN Reason Stop Dose Admin Acetaminophen 650 mg 10/26/17 08:03 11/10/17 02:24 Tylenol Suppository - CO 650 mg Q6H PRN Administration FEVER Bisacodyl 10 mg 10/24/17 13:53 Dulcolax Suppository - RC Q24H PRN CONSTIPATION Diphenhydramine HCl 25 mg 10/26/17 18:49 10/27/17 09:40 Benadryl Injection - IVPUSH 25 mg Q6H PRN Administration FOR ITCHING Hyoscyamine Sulfate 0.125 mg 11/04/17 12:20 11/10/17 06:28 Levsin Odt - PO Not Given Q4HPO REBECCA Morphine Sulfate 100 mg/ 100 mls @ 8 mls/hr 11/03/17 16:37 11/10/17 07:31 Sodium Chloride IVPB 8 mls/hr TITR REBECCA Administration Protocol Dextrose/Sodium Chloride 1,000 mls @ 10 mls/hr 11/08/17 14:22 11/09/17 21:26 D5-Ns - IV Not Given ASDIR REBECCA Lorazepam 2 mg 10/29/17 20:14 11/08/17 16:46 Ativan Injection - IVPUSH 2 mg Q4H PRN Administration ANXIETY Morphine Sulfate 1 mg 10/31/17 10:03 Morphine Sulfate IVPUSH Q6H PRN PAIN LEVEL 7 - 10 Ondansetron HCl 4 mg 10/21/17 12:49 Zofran Injection IVPUSH Q6H PRN NAUSEA AND/OR VOMITING Scopolamine HBr 1 patch 10/30/17 19:30 11/08/17 20:56 Transderm-Scop - TD 1 patch Q72H REBECCA Administration Valproate Sodium 500 mg 10/26/17 09:00 11/10/17 08:49 Depacon Injection - IVPB 500 mg Q6H-IV REBECCA Administration ASSESSMENT/PLAN: End of life Julio Cesar Jeffrey notified, on his way. Visit type - Emergency Visit Emergency Visit: Yes ED Registration Date: 08/20/17 Care time: The patient presented to the Emergency Department on the above date and was hospitalized for further evaluation of their emergent condition. - New Patient This patient is new to me today: Yes Date on this admission: 11/10/17 - Critical Care Critical Care patient: No
[2017-11-10] MEDS: LORazepam 2 MG/ML SDV VIAL IVPUSH PRN ×2 (10:35→21:19)
[2017-11-10] MEDS ORDERED: MORPHINE 100 MG in SODIUM CHLORIDE 98 ML IVPB SCH (21:45)
[2017-11-11] MEDS: HYOSCYAMINE SULFATE 0.125 MG *ODT PO SCH ×6 (02:14→22:00)
[2017-11-11] MEDS: VALPROATE SODIUM 500 MG/5 ML VIAL IVPB SCH ×4 (02:22→21:45)
[2017-11-11] MEDS ORDERED: PT OWN MED DRAWER 7, Y5N ONE (09:44)
[2017-11-11] MEDS: MORPHINE 100 MG in SODIUM CHLORIDE 98 ML IVPB SCH ×2 (09:54→21:41)
--- NOTE | 2017-11-11 12:47 | PN ---
Physical Exam: SUBJECTIVE: Patient seen and examined at bedside. Son Wojciech present. OBJECTIVE: Vital Signs Period Temp Pulse Resp BP Sys/Camacho Pulse Ox Last 24 Hr 97.2 F-100.4 F 69-92 14-18 81-146/52-59 75 General: unresponsive, shallow breathing Active Medications Generic Name Dose Route Start Last Admin Trade Name Freq PRN Reason Stop Dose Admin Acetaminophen 650 mg 10/26/17 08:03 11/10/17 15:48 Tylenol Suppository - [place] 650 mg Q6H PRN Administration FEVER Bisacodyl 10 mg 10/24/17 13:53 Dulcolax Suppository - RC Q24H PRN CONSTIPATION Diphenhydramine HCl 25 mg 10/26/17 18:49 10/27/17 09:40 Benadryl Injection - IVPUSH 25 mg Q6H PRN Administration FOR ITCHING Hyoscyamine Sulfate 0.125 mg 11/04/17 12:20 11/11/17 09:56 Levsin Odt - PO Not Given Q4HPO REBECCA Dextrose/Sodium Chloride 1,000 mls @ 10 mls/hr 11/08/17 14:22 11/09/17 21:26 D5-Ns - IV Not Given ASDIR REBECCA Morphine Sulfate 100 mg/ 100 mls @ 8 mls/hr 11/10/17 21:45 11/11/17 09:54 Sodium Chloride IVPB 8 ml/hr TITR REBECCA 8 mls/hr Administration Protocol Lorazepam 2 mg 10/29/17 20:14 11/10/17 21:19 Ativan Injection - IVPUSH 2 mg Q4H PRN Administration ANXIETY Ondansetron HCl 4 mg 10/21/17 12:49 Zofran Injection IVPUSH Q6H PRN NAUSEA AND/OR VOMITING Scopolamine HBr 1 patch 11/11/17 19:30 Transderm-Scop - TD Q3D@1930 REBECCA Valproate Sodium 500 mg 10/26/17 09:00 11/11/17 09:56 Depacon Injection - IVPB 500 mg Q6H-IV REBECCA Administration ASSESSMENT/PLAN End of life. Son present. Peaceful. Visit type - Emergency Visit Emergency Visit: Yes ED Registration Date: 08/20/17 Care time: The patient presented to the Emergency Department on the above date and was hospitalized for further evaluation of their emergent condition. - New Patient This patient is new to me today: No - Critical Care Critical Care patient: No
[2017-11-11] MEDS ORDERED: SCOPOLAMINE HYDROBROMIDE 1 PATCH PATCH.TD72 TD SCH (19:30)
[2017-11-11] MEDS: DEXTROSE 5%-NORMAL SALINE 1,000 ML IV SCH (22:40)
[2017-11-12] MEDS: HYOSCYAMINE SULFATE 0.125 MG *ODT PO SCH ×6 (02:12→22:23)
[2017-11-12] MEDS: VALPROATE SODIUM 500 MG/5 ML VIAL IVPB SCH ×4 (02:14→22:22)
[2017-11-12] MEDS ORDERED: PT OWN MED DRAWER 7, Y5N ONE (09:03)
[2017-11-12] MEDS: MORPHINE 100 MG in SODIUM CHLORIDE 98 ML IVPB SCH ×2 (09:21→22:38)
[2017-11-12] MEDS: DEXTROSE 5%-NORMAL SALINE 1,000 ML IV SCH (16:17)
--- NOTE | 2017-11-12 20:54 | PN ---
Physical Exam: SUBJECTIVE: Patient seen and examined OBJECTIVE: Vital Signs Period Temp Pulse Resp BP Sys/Camacho Pulse Ox Last 24 Hr 100.1 F-101.5 F 92-108 16-24 89-106/41-55 94 Unresponsive. Breathing not labored, even. Active Medications Generic Name Dose Route Start Last Admin Trade Name Freq PRN Reason Stop Dose Admin Acetaminophen 650 mg 10/26/17 08:03 11/10/17 15:48 Tylenol Suppository - [place] 650 mg Q6H PRN Administration FEVER Bisacodyl 10 mg 10/24/17 13:53 Dulcolax Suppository - RC Q24H PRN CONSTIPATION Diphenhydramine HCl 25 mg 10/26/17 18:49 10/27/17 09:40 Benadryl Injection - IVPUSH 25 mg Q6H PRN Administration FOR ITCHING Hyoscyamine Sulfate 0.125 mg 11/04/17 12:20 11/12/17 17:57 Levsin Odt - PO Not Given Q4HPO ERBECCA Dextrose/Sodium Chloride 1,000 mls @ 10 mls/hr 11/08/17 14:22 11/12/17 16:17 D5-Ns - IV 10 mls/hr ASDIR REBECCA Administration Morphine Sulfate 100 mg/ 100 mls @ 8 mls/hr 11/10/17 21:45 11/12/17 09:21 Sodium Chloride IVPB 8 ml/hr TITR REBECCA 8 mls/hr Administration Protocol Lorazepam 2 mg 10/29/17 20:14 11/10/17 21:19 Ativan Injection - IVPUSH 2 mg Q4H PRN Administration ANXIETY Ondansetron HCl 4 mg 10/21/17 12:49 Zofran Injection IVPUSH Q6H PRN NAUSEA AND/OR VOMITING Scopolamine HBr 1 patch 11/11/17 19:30 11/11/17 19:01 Transderm-Scop - TD 1 patch Q3D@1930 REBECCA Administration Valproate Sodium 500 mg 10/26/17 09:00 11/12/17 16:13 Depacon Injection - IVPB 500 mg Q6H-IV REBECCA Administration ASSESSMENT/PLAN: ASSESSMENT/PLAN End of life. Comfort measures. Visit type - Emergency Visit Emergency Visit: Yes ED Registration Date: 08/20/17 Care time: The patient presented to the Emergency Department on the above date and was hospitalized for further evaluation of their emergent condition. - New Patient This patient is new to me today: No - Critical Care Critical Care patient: No
[2017-11-13] MEDS: VALPROATE SODIUM 500 MG/5 ML VIAL IVPB SCH ×4 (02:38→20:27)
[2017-11-13] MEDS: HYOSCYAMINE SULFATE 0.125 MG *ODT PO SCH ×2 (07:41→09:39)
[2017-11-13] MEDS ORDERED: PT OWN MED DRAWER 7, Y5N ONE ×5 (08:01→19:54)
[2017-11-13] MEDS: MORPHINE 100 MG in SODIUM CHLORIDE 98 ML IVPB SCH ×3 (10:10→21:57)
--- NOTE | 2017-11-13 11:54 | PN ---
Physical Exam: SUBJECTIVE: Patient seen and examined OBJECTIVE: Vital Signs Period Temp Pulse Resp BP Sys/Camacho Pulse Ox Last 24 Hr 97.6 F-101.5 F 92-119 16-16 89-120/41-59 94 Exam RR 28, mouth open, mild gasping Active Medications Generic Name Dose Route Start Last Admin Trade Name Freq PRN Reason Stop Dose Admin Acetaminophen 650 mg 10/26/17 08:03 11/10/17 15:48 Tylenol Suppository - [place] 650 mg Q6H PRN Administration FEVER Diphenhydramine HCl 25 mg 10/26/17 18:49 10/27/17 09:40 Benadryl Injection - IVPUSH 25 mg Q6H PRN Administration FOR ITCHING Hyoscyamine Sulfate 0.125 mg 11/04/17 12:20 11/13/17 09:39 Levsin Odt - PO Not Given Q4HPO REBECCA Dextrose/Sodium Chloride 1,000 mls @ 10 mls/hr 11/08/17 14:22 11/12/17 16:17 D5-Ns - IV 10 mls/hr ASDIR REBECCA Administration Morphine Sulfate 100 mg/ 100 mls @ 8 mls/hr 11/10/17 21:45 11/12/17 22:38 Sodium Chloride IVPB 8 ml/hr TITR REBECCA 8 mls/hr Administration Protocol Lorazepam 2 mg 10/29/17 20:14 11/10/17 21:19 Ativan Injection - IVPUSH 2 mg Q4H PRN Administration ANXIETY Ondansetron HCl 4 mg 10/21/17 12:49 Zofran Injection IVPUSH Q6H PRN NAUSEA AND/OR VOMITING Scopolamine HBr 1 patch 11/11/17 19:30 11/11/17 19:01 Transderm-Scop - TD 1 patch Q3D@1930 REBECCA Administration Valproate Sodium 500 mg 10/26/17 09:00 11/13/17 09:41 Depacon Injection - IVPB 500 mg Q6H-IV REBECCA Administration ASSESSMENT/PLAN: End of life. Comfort measures. Ordered stat dose ativan 2mg to ease breathing. Visit type - Emergency Visit Emergency Visit: Yes ED Registration Date: 08/20/17 Care time: The patient presented to the Emergency Department on the above date and was hospitalized for further evaluation of their emergent condition. - New Patient This patient is new to me today: No - Critical Care Critical Care patient: No
[2017-11-13] MEDS ORDERED: LORazepam 2 MG/ML SDV VIAL IVPUSH STA (12:15)
[2017-11-13] MEDS ORDERED: MINERAL OIL 30 ML UNIT-DOSE CUP TP PRN (12:24)
[2017-11-13] MEDS: LORazepam 2 MG/ML SDV VIAL IVPUSH PRN (12:29)
[2017-11-13] MEDS: ACETAMINOPHEN 650 MG SUPP.RECT PR PRN ×2 (13:55→21:56)
[2017-11-13] MEDS: DEXTROSE 5%-NORMAL SALINE 1,000 ML IV SCH (15:10)
[2017-11-13 21:19] VITALS: PULSE 116
[2017-11-14 01:55] VITALS: TEMP 100.6
[2017-11-14] MEDS: VALPROATE SODIUM 500 MG/5 ML VIAL IVPB SCH (02:30)
[2017-11-14 02:33] VITALS: BP 69/37
[2017-11-14] MEDS: ACETAMINOPHEN 650 MG SUPP.RECT PR PRN (05:56)
--- NOTE | 2017-11-14 06:39 | HOSP ---
Subjective - Review of Symptoms Events since last encounter: Hospitalist Encounter Was notified by RN that the patient is unresponsive with no spontaneous respirations Patient is a DNR/DNI Subjective: Arrived to bedside, patient's son at bedside. Patient is unresponsive, no response to verbal or tactile stimulus. No response to sternal rub, No spontaneous respirations, No breath sounds upon auscultation, No apical or palpable pulses, Pupils fixed and dilated, No corneal Reflex, No Gag Reflex, No voluntary movements of extremities, Skin pale, dusky, cool to touch. Patient pronounced at 06:40. Condolences offered to the Son. Neurological: Yes: Other (unresponsive) Physical Examination Vital Signs: Vital Signs Temperature 100.6 F H 11/14/17 01:50 Pulse Rate 116 H 11/13/17 16:30 Respiratory Rate 24 H 11/14/17 02:32 Blood Pressure 69/37 L 11/14/17 02:32 O2 Sat by Pulse Oximetry (%) 94 L 11/13/17 21:00 Constitutional: Yes: Pallor Eyes: Yes: Other (Pupils Dilated and Fixed No Corneal Reflex) Cardiovascular: Yes: Other (No Apical or Palpable Pulses) Respiratory: Yes: Other (No Spontaneous Respirations) Peripheral Pulses WNL: No Integumentary: Yes: Jaundice, Other (cool) Neurological: Yes: Unresponsive Labs: CBC, BMP 10/27/17 08:00 10/28/17 06:45 Hospitalist Encounter Assessment: This is a 57 year old woman with history of advanced left breast cancer with metastatic spread to her bones and brain. smoker, seizure disorder, heroin/ alcohol/methadone abuse and prolapsed uterus. She presents to the ER on 08/20/17 from [facility] with lethargy and falls. During hospitalization patient has been seen by oncology, radiation oncology, neuro and neurosurgery and not a candidate for any further treatment. On 10/25/17, a head CT showed interval hemorrhage. Patient is a DNR/DNI On Comfort Measures Plan: End Of Life Care RN to call JESSICA Novoa
== END 2017-11-14 06:40 | disposition expired | DRG 41 ==
LOC: JER 12:43 → JERBED 15:52 → J8W 22:09 → JERBED 08-21 20:43 → J8W 08-21 20:45
PROVIDERS: ADMIT Internal Medicine; ATTEND Nurse Practitioner Family
PROC: HZ2ZZZZ Detoxification Services for Substance Abuse Treatment (ICD-10-PCS; principal; 2017-08-20)
DX: C79.31 Secondary malignant neoplasm of brain (principal); F11.23 Opioid dependence with withdrawal; F31.9 Bipolar disorder, unspecified; F17.210 Nicotine dependence, cigarettes, uncomplicated; F10.239 Alcohol dependence with withdrawal, unspecified; R45.1 Restlessness and agitation; F23 Brief psychotic disorder; Z79.891 Long term (current) use of opiate analgesic; N81.4 Uterovaginal prolapse, unspecified; H10.9 Unspecified conjunctivitis; K59.00 Constipation, unspecified; N81.10 Cystocele, unspecified; D72.829 Elevated white blood cell count, unspecified; H47.11 Papilledema associated with increased intracranial pressure; C79.51 Secondary malignant neoplasm of bone; C50.912 Malignant neoplasm of unspecified site of left female breast; J18.9 Pneumonia, unspecified organism; A41.9 Sepsis, unspecified organism; G93.6 Cerebral edema; Z75.1 Person awaiting admission to adequate facility elsewhere; R33.9 Retention of urine, unspecified; D64.9 Anemia, unspecified; E88.09 Other disorders of plasma-protein metabolism, not elsewhere classified; H53.462 Homonymous bilateral field defects, left side; H53.47 Heteronymous bilateral field defects
CPT/HCPCS: 36415; 70450-TC; 70486-TC; 70553-TC; 71045-TC-FY; 71046-TC-FY; 71250-TC; 73030-TC-LT-FY; 73030-TC-RT-FY; 73060-TC-LT-FY; 73060-TC-RT-FY; 74176-TC; 80048; 80053; 80076; 80164; 80307; 81003; 81015; 82140; 82728; 83540; 83550; 83605; 83735; 84484; 84703; 85025; 85610; 85651; 85730; 86140; 86850; 86900; 86901; 87040; 87086; 87522; 87899; 93005; 93010; 93970-TC; 97116-GP; 97161-GP; 99284-25; G0480; J0131; J1100; J1644; J7030; Q0162